=== PATIENT | male | born 1945 | race American Indian/Alaskan Native ===

== ENCOUNTER 2016-08-20 11:17 | Emergency (ER) | payer MEDICARE, OTHER ==
[2016-08-20] MEDS ORDERED: Sodium Chloride 0.9% 10 ML Syringe FLUSH PRN (11:37)
--- NOTE | 2016-08-20 11:37 | EDM.PDOC ---
ED HPI GENERAL MEDICAL PROBLEM - General Chief Complaint: Abdominal Pain Stated Complaint: [facility] Time Seen by Provider: 08/20/16 11:36 Source of Information: Reports: Patient, Old Records, RN, RN Notes Reviewed History Limitations: Reports: No Limitations - History of Present Illness INITIAL COMMENTS - FREE TEXT/NARRATIVE: C/O chronic recurrent N/V for several months, not associated with fever, chills , diarrhea, or constipation. Also c/o flare up of chronic low back pain without recent injury. Onset: Unknown/Unsure Duration: Chronic, Recurring Location: Reports: Abdomen, Back Quality: Reports: Ache Severity: Moderate Improves with: Reports: None Worsens with: Reports: Eating Associated Symptoms: Reports: No Other Symptoms Right Leg Pain Score (Numeric/FACES): 8 - Related Data Allergies Allergy/AdvReac Type Severity Reaction Status Date / Time No Known Allergies Allergy Verified 08/20/16 13:12 Home Meds: Home Meds Calcitriol 0.25 mcg PO DAILY 05/28/13 [History] Famotidine 20 mg PO BID PRN 05/28/13 [History] Metoprolol Succinate [Toprol XL] 25 mg PO DAILY 05/28/13 [History] Nitroglycerin [Nitrostat] 0.4 mg SL ASDIRECTED PRN 05/28/13 [History] atorvaSTATin Calcium [Atorvastatin Calcium] 80 mg PO BEDTIME 05/28/13 [History] Latanoprost [Xalatan 0.005% Ophth Soln] 1 drop EYEBOTH ASDIRECTED 09/03/15 [ History] Metoclopramide [Reglan] 10 mg PO Q8H PRN #45 tablet 10/01/15 [Rx] Acetaminophen [Tylenol] 650 mg PO Q4H PRN #0 tablet 10/25/15 [Rx] Insulin Detemir [Levemir] 42 unit SUBCUT BEDTIME 12/25/15 [History] Clopidogrel [Plavix] 75 mg PO DAILY 01/07/16 [History] DULoxetine [Cymbalta] 30 mg PO DAILY 01/07/16 [History] Finasteride [Proscar] 5 mg PO DAILY 01/07/16 [History] Insulin Aspart [Novolog Flexpen] 01/07/16 [History] Meclizine [Antivert] 25 mg PO TID 01/07/16 [History] Miconazole [Miconazole 2% Crm] 1 applic TOP ASDIRECTED 01/07/16 [History] Tamsulosin HCl [Flomax] 0.4 mg PO ASDIRECTED 01/07/16 [History] Past Medical History HEENT History: Reports: Impaired Vision Other HEENT History: wears glasses Cardiovascular History: Reports: CAD, Hypertension, Stents Other Respiratory History: spot of lung and they said to keep an eye on it. Gastrointestinal History: Reports: None Genitourinary History: Reports: Chronic Renal Insuffiency Other Genitourinary History: urinary tract obstruction-self caths self when stream gets slow Musculoskeletal History: Reports: Back Pain, Chronic Other Musculoskeletal History: broke both ankles, broken ribs, collar bone, jaw , toes and 5-6 hairline fx of skull due to rodeo Neurological History: Reports: Headaches, Chronic Other Neuro History: heasdaches since 1966 Other Psychiatric History: has noc bishop from [place] Endocrine/Metabolic History: Reports: Diabetes, Type II Hematologic History: Reports: None Immunologic History: Reports: None Other Oncologic History: pt. doesn't know what type of cancer he was diagnosed with Other Dermatologic History: eccymotic area to left hip, left upper arm, and left ear from fall when pt. tripped over [employer] [place] about a week ago. - Infectious Disease History Infectious Disease History: Reports: Other (See Below) Other Infectious Disease History: unable to obtain history. client altered mental status and pt family uncertain. - Past Surgical History GI Surgical History: Reports: Hernia, Inguinal Other GI Surgeries/Procedures: left side igunial hernia repair Social & Family History - Family History Family Medical History: Noncontributory Cardiac: Reports: CAD Endocrine/Metabolic: Reports: Diabetes, type II Oncologic: Reports: Other (See Below) Other Oncologic Family History: brother, mom,sister unknown types - Tobacco Use Smoking Status *Q: Former Smoker Years of Tobacco use: 10 Packs/Tins Daily: 5 Used Tobacco, but Quit: Yes Month Tobacco Last Used: September Second Hand Smoke Exposure: No - Caffeine Use Caffeine Use: Reports: None - Alcohol Use Days Per Week of Alcohol Use: 0 - Recreational Drug Use Recreational Drug Use: No - Living Situation & Occupation Living situation: Reports: with Family Occupation: Retired ED ROS GENERAL - Review of Systems Review Of Systems: ROS reveals no pertinent complaints other than HPI. ED EXAM, GENERAL - Physical Exam Exam: See Below Exam Limited By: No Limitations General Appearance: Alert, WD/WN, No Apparent Distress Eye Exam: Bilateral Eye: Normal Inspection Ears: Hearing Grossly Normal Nose: Normal Inspection Throat/Mouth: Normal Inspection Head: Atraumatic, Normocephalic Neck: Normal Inspection, Supple, Non-Tender, Full Range of Motion Respiratory/Chest: No Respiratory Distress, Lungs Clear, Normal Breath Sounds, No Accessory Muscle Use, Chest Non-Tender Cardiovascular: Normal Peripheral Pulses, Regular Rate, Rhythm, No Edema, No Gallop, No JVD, No Murmur, No Rub GI/Abdominal: Soft, No Distention, Pelvis Stable, Abnormal Bowel Sounds ( hypoactive) Back Exam: Decreased Range of Motion, Paraspinal Tenderness. No: CVA Tenderness (L), CVA Tenderness (R), Vertebral Tenderness Extremities: Normal Inspection Neurological: Alert, Oriented, CN II-XII Intact, Normal Cognition, No Motor/ Sensory Deficits Psychiatric: Depressed Mood Skin Exam: Warm, Dry, Intact, Normal Color, No Rash Course - Vital Signs Last Recorded V/S: Last Vital Signs Temp 35.8 C 08/20/16 11:30 Pulse 88 08/20/16 14:14 Resp 18 08/20/16 14:14 BP 141/74 H 08/20/16 14:14 Pulse Ox 95 08/20/16 14:14 - Orders/Labs/Meds Labs: Laboratory Tests 08/20/16 08/20/16 08/20/16 Range/Units 11:48 11:48 12:48 WBC 5.6 (5.0-10.0) 10^3/uL RBC 4.10 L (4.6-6.2) 10^6/uL Hgb 12.8 L (14.0-18.0) g/dL Hct 38.1 L (40.0-54.0) % MCV 92.9 (80-100) fL MCH 31.2 (27.0-34.0) pg MCHC 33.6 (33.0-35.0) g/dL Plt Count 245 (150-450) 10^3/uL Neut % (Auto) 74.5 (42.2-75.2) % Lymph % (Auto) 13.5 L (20.5-50.1) % [place] % (Auto) 9.3 H (2-8) % Eos % (Auto) 2.3 (1.0-3.0) % Baso % (Auto) 0.4 (0.0-1.0) % Sodium 135 (135-145) mmol/L Potassium 4.4 (3.6-5.0) mmol/L Chloride 103 (101-111) mmol/L Carbon Dioxide 27.0 (21.0-31.0) mmol/L Anion Gap 9.4 BUN 39 H (7-18) mg/dL Creatinine 1.7 H (0.6-1.3) mg/dL Est Cr Clr Drug Dosing TNP Estimated GFR (MDRD) 40 BUN/Creatinine Ratio 22.94 Glucose 117 H (74-105) mg/dL Calcium 9.3 (8.4-10.2) mg/dl Total Bilirubin 0.5 (0.2-1.0) mg/dL AST 25 (10-42) IU/L ALT 26 (10-60) IU/L Alkaline Phosphatase 108 (42-121) IU/L Total Protein 6.6 L (6.7-8.2) g/dl Albumin 3.7 (3.2-5.5) g/dl Globulin 2.9 Albumin/Globulin Ratio 1.28 Amylase 76 (28-100) U/L Lipase 100 H (22-51) U/L Urine Color (YELLOW) Urine Appearance (CLEAR) Urine pH (5.0-9.0) Ur Specific [place] (1.005-1.030) Urine Protein (NEGATIVE) Urine Glucose (UA) (NEGATIVE) Urine Ketones (NEGATIVE) Urine Occult Blood (NEGATIVE) Urine Nitrite (NEGATIVE) Urine Bilirubin (NEGATIVE) Urine Urobilinogen (0.2-1.0) mg/dL Ur Leukocyte Esterase (NEGATIVE) Urine RBC /HPF Urine WBC (0-5/HPF) /HPF Ur Epithelial Cells /HPF Urine Bacteria (0-FEW/HPF) /HPF Urine Mucus /LPF Urine Opiates Screen Negative (NEGATIVE) Ur Oxycodone Screen Negative (NEGATIVE) Urine Methadone Screen Negative (NEGATIVE) Ur Barbiturates Screen Negative (NEGATIVE) U Tricyclic Antidepress Positive H (NEGATIVE) Ur Phencyclidine Scrn Negative (NEGATIVE) Ur Amphetamine Screen Positive H (NEGATIVE) U Methamphetamines Scrn Negative (NEGATIVE) Urine MDMA Screen Negative (NEGATIVE) U Benzodiazepines Scrn Negative (NEGATIVE) Urine Cocaine Screen Negative (NEGATIVE) U Marijuana (THC) Screen Negative (NEGATIVE) 08/20/16 Range/Units 12:48 WBC (5.0-10.0) 10^3/uL RBC (4.6-6.2) 10^6/uL Hgb (14.0-18.0) g/dL Hct (40.0-54.0) % MCV (80-100) fL MCH (27.0-34.0) pg MCHC (33.0-35.0) g/dL Plt Count (150-450) 10^3/uL Neut % (Auto) (42.2-75.2) % Lymph % (Auto) (20.5-50.1) % [place] % (Auto) (2-8) % Eos % (Auto) (1.0-3.0) % Baso % (Auto) (0.0-1.0) % Sodium (135-145) mmol/L Potassium (3.6-5.0) mmol/L Chloride (101-111) mmol/L Carbon Dioxide (21.0-31.0) mmol/L Anion Gap BUN (7-18) mg/dL Creatinine (0.6-1.3) mg/dL Est Cr Clr Drug Dosing Estimated GFR (MDRD) BUN/Creatinine Ratio Glucose (74-105) mg/dL Calcium (8.4-10.2) mg/dl Total Bilirubin (0.2-1.0) mg/dL AST (10-42) IU/L ALT (10-60) IU/L Alkaline Phosphatase (42-121) IU/L Total Protein (6.7-8.2) g/dl Albumin (3.2-5.5) g/dl Globulin Albumin/Globulin Ratio Amylase (28-100) U/L Lipase (22-51) U/L Urine Color Yellow (YELLOW) Urine Appearance Clear (CLEAR) Urine pH 6.0 (5.0-9.0) Ur Specific [place] 1.020 (1.005-1.030) Urine Protein 100 H (NEGATIVE) Urine Glucose (UA) 250 H (NEGATIVE) Urine Ketones Negative (NEGATIVE) Urine Occult Blood Negative (NEGATIVE) Urine Nitrite Negative (NEGATIVE) Urine Bilirubin Negative (NEGATIVE) Urine Urobilinogen 0.2 (0.2-1.0) mg/dL Ur Leukocyte Esterase Negative (NEGATIVE) Urine RBC 0-5 /HPF Urine WBC 0-5 (0-5/HPF) /HPF Ur Epithelial Cells Few /HPF Urine Bacteria Moderate H (0-FEW/HPF) /HPF Urine Mucus Few H /LPF Urine Opiates Screen (NEGATIVE) Ur Oxycodone Screen (NEGATIVE) Urine Methadone Screen (NEGATIVE) Ur Barbiturates Screen (NEGATIVE) U Tricyclic Antidepress (NEGATIVE) Ur Phencyclidine Scrn (NEGATIVE) Ur Amphetamine Screen (NEGATIVE) U Methamphetamines Scrn (NEGATIVE) Urine MDMA Screen (NEGATIVE) U Benzodiazepines Scrn (NEGATIVE) Urine Cocaine Screen (NEGATIVE) U Marijuana (THC) Screen (NEGATIVE) Meds: Medications Discontinued Medications Generic Name Dose Route Start Last Admin Trade Name Freq PRN Reason Stop Dose Admin Dexamethasone 12 mg 08/20/16 11:39 08/20/16 11:49 Dexamethasone IVPUSH 08/20/16 11:40 12 mg ONETIME ONE Administration Sodium Chloride 1,000 mls @ 999 mls/hr 08/20/16 11:39 08/20/16 11:50 Normal Saline IV 08/20/16 12:39 999 mls/hr .BOLUS ONE Administration Ondansetron HCl 4 mg 08/20/16 11:39 08/20/16 11:49 Zofran IV 08/20/16 11:40 4 mg ONETIME ONE Administration Sodium Chloride 10 ml 08/20/16 11:37 08/20/16 11:50 Saline Flush FLUSH 10 ml ASDIRECTED PRN Administration Keep Vein Open Departure - Departure Time of Disposition: 13:55 Disposition: Home, Self-Care 01 Clinical Impression: Lumbar radiculopathy, Gastroparesis due to secondary diabetes - Discharge Information Instructions: Lumbosacral Radiculopathy, Gastroparesis Referrals: Agapito Bernal MD [Primary Care Provider] - Forms: ED Department Discharge Additional Instructions: Decadron 4mg Hydrocodone 10mg/325mg Reglan 10mg Follow up with [facility] next week for recheck. Return to ER if worse at any time. Departure - Departure Time of Disposition: 13:55 Disposition: Home, Self-Care 01 Condition: fair Clinical Impression: Lumbar radiculopathy, Gastroparesis due to secondary diabetes Instructions: Lumbosacral Radiculopathy, Gastroparesis Referrals: Agapito Bernal MD [Primary Care Provider] - Forms: ED Department Discharge Additional Instructions: Decadron 4mg Hydrocodone 10mg/325mg Reglan 10mg [facility]. Return to ER if worse at any time.
[2016-08-20] MEDS ORDERED: Ondansetron 4 MG/2 ML SDV IV ONE (11:39)
[2016-08-20] MEDS ORDERED: Sodium Chloride 0.9% 1,000 ML IV ONE (11:39)
[2016-08-20] MEDS ORDERED: Dexamethasone 4 MG/ML SDV IVPUSH ONE (11:39)
[2016-08-20 12:17] LABS: CHLORIDE,CL 103 mmol/L (101-111); SODIUM,NA 135 mmol/L (135-145)
[2016-08-20 14:15] VITALS: BP 141/74
== END 2016-08-20 14:22 | disposition home or self-care (01) ==
LOC: DL.ED 11:17
DX: M54.16 Radiculopathy, lumbar region (principal); E11.43 Type 2 diabetes mellitus with diabetic autonomic (poly)neuropathy; K31.84 Gastroparesis; I25.10 Atherosclerotic heart disease of native coronary artery without angina pectoris; I12.9 Hypertensive chronic kidney disease with stage 1 through stage 4 chronic kidney disease, or unspecified chronic kidney disease; N18.9 Chronic kidney disease, unspecified; E11.22 Type 2 diabetes mellitus with diabetic chronic kidney disease; Z79.899 Other long term (current) drug therapy; Z79.4 Long term (current) use of insulin; Z87.891 Personal history of nicotine dependence
CPT/HCPCS: 36415; 80053; 80305; 81001; 82150; 83690; 85025; 96361; 96374; 96375; 99284; J1100; J2405; J7030; J7050

== ENCOUNTER 2016-10-20 09:08 | Inpatient (IN) | payer MEDICARE, OTHER ==
[~2016-10-20 09:08] MED LIST: 50% Dextrose in Water 50 ML Syringe IVPUSH ONE; Sodium Chloride 0.9% 1,000 ML IV ONE; Sodium Chloride 0.9% 10 ML Syringe FLUSH PRN; Sucrose 24% Solution 2 ML Vial PO ONE
--- NOTE | 2016-10-20 09:11 | EDM.PDOC ---
ED HPI GENERAL MEDICAL PROBLEM - General Chief Complaint: Diabetic Complaint Stated Complaint: IN BY [facility] Time Seen by Provider: 10/20/16 09:10 Source of Information: Reports: Patient, EMS, Family, Old Records, RN, RN Notes Reviewed History Limitations: Reports: Altered Mental Status - History of Present Illness INITIAL COMMENTS - FREE TEXT/NARRATIVE: Arrives from home by ambulance with EMS reporting a family member called 911 due to finding the pt difficult to wake up, lethargic, and confused. EMS reports blood glucose on scene of 40. EMS was unable to obtain IV access, and did not give oral glucose. Pt responds to verbal commands, but is confused, oriented only to person, and with decreased LOC. Accu Check blood glucose on arrival to ER is 38. Onset: Unknown/Unsure Duration: Constant, Getting Worse Location: Reports: Generalized Severity: Severe Improves with: Reports: None Worsens with: Reports: None Context: Denies: Activity, Exercise, Lifting, Sick Contact, Trauma Associated Symptoms: Reports: No Other Symptoms Treatments ASSURANCE SENIOR MANAGER: Reports: Other (see below) (None) - Related Data Allergies Allergy/AdvReac Type Severity Reaction Status Date / Time No Known Allergies Allergy Verified 10/20/16 09:29 Home Meds: Home Meds Calcitriol 0.25 mcg PO DAILY 05/28/13 [History] Famotidine 20 mg PO BID PRN 05/28/13 [History] Metoprolol Succinate [Toprol XL] 12.5 mg PO DAILY 05/28/13 [History] Nitroglycerin [Nitrostat] 0.4 mg SL ASDIRECTED PRN 05/28/13 [History] atorvaSTATin Calcium [Atorvastatin Calcium] 80 mg PO BEDTIME 05/28/13 [History] Latanoprost [Xalatan 0.005% Ophth Soln] 1 drop EYEBOTH BEDTIME 09/03/15 [History ] Metoclopramide [Reglan] 10 mg PO Q8H PRN #45 tablet 10/01/15 [Rx] Acetaminophen [Tylenol] 650 mg PO Q4H PRN #0 tablet 10/25/15 [Rx] Insulin Detemir [Levemir] 42 unit SUBCUT BEDTIME 12/25/15 [History] Clopidogrel [Plavix] 75 mg PO DAILY 01/07/16 [History] DULoxetine [Cymbalta] 30 mg PO DAILY 01/07/16 [History] Finasteride [Proscar] 5 mg PO DAILY 01/07/16 [History] Insulin Aspart [Novolog Flexpen] 15 units SUBCUT TID 01/07/16 [History] Meclizine [Antivert] 12.5 mg PO TID PRN 01/07/16 [History] Miconazole [Miconazole 2% Crm] 1 applic TOP ASDIRECTED 01/07/16 [History] Tamsulosin HCl [Flomax] 0.4 mg PO ASDIRECTED 01/07/16 [History] Acetaminophen/HYDROcodone [[place] 325-5 MG] 0.5 tab PO Q6H PRN 09/02/16 [History] Losartan [Cozaar] 12.5 mg PO DAILY 09/02/16 [History] Pioglitazone HCl [Actos] 45 mg PO DAILY 09/02/16 [History] Sennosides [Senokot] 2 tab PO BID 09/02/16 [History] Magnesium Oxide 250 mg PO BIDM #14 tablet 09/03/16 [Rx] Potassium Chloride [Klor-Con M20] 20 meq PO DAILY #10 tab.er 09/03/16 [Rx] Past Medical History HEENT History: Reports: Impaired Vision Other HEENT History: wears glasses Cardiovascular History: Reports: CAD, Hypertension, Stents Respiratory History: Reports: Other (See Below) Other Respiratory History: spot of lung and they said to keep an eye on it. Gastrointestinal History: Reports: None Genitourinary History: Reports: Chronic Renal Insuffiency Other Genitourinary History: urinary tract obstruction-self caths self when stream gets slow Musculoskeletal History: Reports: Back Pain, Chronic Other Musculoskeletal History: broke both ankles, broken ribs, collar bone, jaw , toes and 5-6 hairline fx of skull due to rodeo Neurological History: Reports: Headaches, Chronic Other Neuro History: heasdaches since 1966 Psychiatric History: Reports: Other (See Below) Other Psychiatric History: has noc bishop from [place] Endocrine/Metabolic History: Reports: Diabetes, Type II Hematologic History: Reports: None Immunologic History: Reports: None Oncologic (Cancer) History: Reports: Other (See Below) Other Oncologic History: pt. doesn't know what type of cancer he was diagnosed with Dermatologic History: Reports: Other (See Below) Other Dermatologic History: eccymotic area to left hip, left upper arm, and left ear from fall when pt. tripped over trailer hitch about a week ago. - Infectious Disease History Infectious Disease History: Reports: Other (See Below) Other Infectious Disease History: unable to obtain history. client altered mental status and pt family uncertain. - Past Surgical History GI Surgical History: Reports: Hernia, Inguinal Other GI Surgeries/Procedures: left side igunial hernia repair Social & Family History - Family History Family Medical History: Noncontributory Cardiac: Reports: CAD Endocrine/Metabolic: Reports: Diabetes, type II Oncologic: Reports: Other (See Below) Other Oncologic Family History: brother, mom,sister unknown types - Tobacco Use Smoking Status *Q: Former Smoker Years of Tobacco use: 6 Packs/Tins Daily: 1 Used Tobacco, but Quit: Yes Month Tobacco Last Used: July Second Hand Smoke Exposure: Yes - Caffeine Use Caffeine Use: Reports: Coffee - Alcohol Use Days Per Week of Alcohol Use: 0 - Recreational Drug Use Recreational Drug Use: No - Living Situation & Occupation Living situation: Reports: with Family Occupation: Retired ED ROS GENERAL - Review of Systems Review Of Systems: Unable To Obtain (due to altered mental status) ED EXAM GENERAL NO PERIP PULSE - Physical Exam Exam: See Below Exam Limited By: Altered Mental Status General Appearance: No Apparent Distress, Lethargic, Obtunded Eye Exam: Bilateral Eye: EOMI, Normal Inspection, PERRL Ears: Normal External Exam, Hearing Grossly Normal Nose: Normal Inspection Throat/Mouth: Normal Inspection, Normal Lips, Normal Teeth, Normal Gums, Normal Oropharynx, Normal Voice, No Airway Compromise Head: Atraumatic, Normocephalic Neck: Normal Inspection, Supple, Non-Tender, Full Range of Motion Respiratory/Chest: No Respiratory Distress, Lungs Clear, No Accessory Muscle Use , Decreased Breath Sounds Cardiovascular: Normal Peripheral Pulses, Regular Rate, Rhythm, No Edema, No Gallop, No JVD, No Murmur, No Rub GI/Abdominal: Normal Bowel Sounds, Soft, Non-Tender, No Organomegaly, No Distention, No Abnormal Bruit, No Mass (Male) Exam: Deferred Rectal (Males) Exam: Deferred Extremities: Normal Range of Motion, Non-Tender, No Pedal Edema, Normal Capillary Refill, Other (left 1st toe with chronic appearing ulcer at the distal aspect w/what appears to be some recent minor trauma as if he has stubbed the toe, there is a small amount of dried blood on the left foot.) Neurological: Confused, Disoriented, Slow to Respond Skin Exam: Warm, Dry, Normal Color, No Rash EKG INTERPRETATION EKG Date: 10/20/16 Time: 09:26 Rhythm: Other (SR) Rate (Beats/Min): 80 [place]: Normal P-Wave: Present QRS: Other (early transition in V2) ST-T: Normal QT: Normal Comparison: NA - No Prior EKG Course - Vital Signs Last Recorded V/S: Last Vital Signs Temp 36.3 C 10/20/16 10:24 Pulse 80 10/20/16 09:26 Resp 16 10/20/16 09:26 BP 103/45 L 10/20/16 09:26 Pulse Ox 98 10/20/16 09:26 - Orders/Labs/Meds Orders: Active Orders 24 hr Category Date Time Status Blood Glucose Check, Bedside [] ONETIME Care 10/20/16 09:05 Active Blood Glucose Check, Bedside [] ONETIME Care 10/20/16 09:06 Active Blood Glucose Check, Bedside [RC] ONETIME Care 10/20/16 09:12 Active Blood Glucose Check, Bedside [] ONETIME Care 10/20/16 11:22 Active EKG 12 Lead [EKG Documentation Completion] [] STAT Care 10/20/16 09:01 Active Peripheral IV Care [RC] . DIRECTED Care 10/20/16 09:02 Active Dextrose 5%-0.9% NaCl [Dextrose 5%-Normal Saline] 1,000 Med 10/20/16 09:30 Active ml IV ASDIRECTED Sodium Chloride 0.9% [Saline Flush] Med 10/20/16 09:01 Active 10 ml FLUSH ASDIRECTED PRN Peripheral IV Insertion Adult [OM.PC] Stat Oth 10/20/16 09:01 Ordered Medication Orders Dextrose/Sodium Chloride (Dextrose 5%-Normal Saline) 1,000 mls @ 200 mls/hr IV ASDIRECTED KARMEN Last Admin: 10/20/16 09:19 Dose: 200 mls/hr Sodium Chloride (Saline Flush) 10 ml FLUSH ASDIRECTED PRN PRN Reason: Keep Vein Open Last Admin: 10/20/16 09:18 Dose: 10 ml Labs: Laboratory Tests 10/20/16 10/20/16 10/20/16 Range/Units 09:09 09:15 09:15 WBC 11.0 H (5.0-10.0) 10^3/uL RBC 4.15 L (4.6-6.2) 10^6/uL Hgb 13.2 L (14.0-18.0) g/dL Hct 39.9 L (40.0-54.0) % MCV 96.1 (80-100) fL MCH 31.8 (27.0-34.0) pg MCHC 33.1 (33.0-35.0) g/dL Plt Count 227 (150-450) 10^3/uL Neut % (Auto) 79.3 H (42.2-75.2) % Lymph % (Auto) 10.6 L (20.5-50.1) % [place] % (Auto) 8.8 H (2-8) % Eos % (Auto) 1.2 (1.0-3.0) % Baso % (Auto) 0.1 (0.0-1.0) % Sodium 144 (135-145) mmol/L Potassium 3.4 L (3.6-5.0) mmol/L Chloride 105 (101-111) mmol/L Carbon Dioxide 28.0 (21.0-31.0) mmol/L Anion Gap 14.4 BUN 30 H (7-18) mg/dL Creatinine 1.6 H (0.6-1.3) mg/dL Est Cr Clr Drug Dosing 45.81 mL/min Estimated GFR (MDRD) 43 BUN/Creatinine Ratio 18.75 Glucose 43 L* (74-105) mg/dL POC Glucose 38 L* (83-110) mg/dl Calcium 9.7 (8.4-10.2) mg/dl Total Bilirubin 0.4 (0.2-1.0) mg/dL AST 30 (10-42) IU/L ALT 28 (10-60) IU/L Alkaline Phosphatase 105 (42-121) IU/L Ammonia (11-35) umol/L Troponin I < 0.02 (0.00-0.02) ng/ml Total Protein 7.1 (6.7-8.2) g/dl Albumin 4.2 (3.2-5.5) g/dl Globulin 2.9 Albumin/Globulin Ratio 1.45 Amylase 42 (28-100) U/L Lipase 30 (22-51) U/L Urine Color (YELLOW) Urine Appearance (CLEAR) Urine pH (5.0-9.0) Ur Specific [place] (1.005-1.030) Urine Protein (NEGATIVE) Urine Glucose (UA) (NEGATIVE) Urine Ketones (NEGATIVE) Urine Occult Blood (NEGATIVE) Urine Nitrite (NEGATIVE) Urine Bilirubin (NEGATIVE) Urine Urobilinogen (0.2-1.0) mg/dL Ur Leukocyte Esterase (NEGATIVE) Urine RBC /HPF Urine WBC (0-5/HPF) /HPF Ur Epithelial Cells /HPF Urine Bacteria (0-FEW/HPF) /HPF Hyaline Casts /LPF Urine Mucus /LPF Urine Opiates Screen (NEGATIVE) Ur Oxycodone Screen (NEGATIVE) Urine Methadone Screen (NEGATIVE) Ur Barbiturates Screen (NEGATIVE) U Tricyclic Antidepress (NEGATIVE) Ur Phencyclidine Scrn (NEGATIVE) Ur Amphetamine Screen (NEGATIVE) U Methamphetamines Scrn (NEGATIVE) Urine MDMA Screen (NEGATIVE) U Benzodiazepines Scrn (NEGATIVE) Urine Cocaine Screen (NEGATIVE) U Marijuana (THC) Screen (NEGATIVE) Ethyl Alcohol < 5 mg/dL 10/20/16 10/20/16 10/20/16 Range/Units 09:15 09:24 09:34 WBC (5.0-10.0) 10^3/uL RBC (4.6-6.2) 10^6/uL Hgb (14.0-18.0) g/dL Hct (40.0-54.0) % MCV (80-100) fL MCH (27.0-34.0) pg MCHC (33.0-35.0) g/dL Plt Count (150-450) 10^3/uL Neut % (Auto) (42.2-75.2) % Lymph % (Auto) (20.5-50.1) % [place] % (Auto) (2-8) % Eos % (Auto) (1.0-3.0) % Baso % (Auto) (0.0-1.0) % Sodium (135-145) mmol/L Potassium (3.6-5.0) mmol/L Chloride (101-111) mmol/L Carbon Dioxide (21.0-31.0) mmol/L Anion Gap BUN (7-18) mg/dL Creatinine (0.6-1.3) mg/dL Est Cr Clr Drug Dosing mL/min Estimated GFR (MDRD) BUN/Creatinine Ratio Glucose (74-105) mg/dL POC Glucose 103 (83-110) mg/dl Calcium (8.4-10.2) mg/dl Total Bilirubin (0.2-1.0) mg/dL AST (10-42) IU/L ALT (10-60) IU/L Alkaline Phosphatase (42-121) IU/L Ammonia 12 (11-35) umol/L Troponin I (0.00-0.02) ng/ml Total Protein (6.7-8.2) g/dl Albumin (3.2-5.5) g/dl Globulin Albumin/Globulin Ratio Amylase (28-100) U/L Lipase (22-51) U/L Urine Color (YELLOW) Urine Appearance (CLEAR) Urine pH (5.0-9.0) Ur Specific [place] (1.005-1.030) Urine Protein (NEGATIVE) Urine Glucose (UA) (NEGATIVE) Urine Ketones (NEGATIVE) Urine Occult Blood (NEGATIVE) Urine Nitrite (NEGATIVE) Urine Bilirubin (NEGATIVE) Urine Urobilinogen (0.2-1.0) mg/dL Ur Leukocyte Esterase (NEGATIVE) Urine RBC /HPF Urine WBC (0-5/HPF) /HPF Ur Epithelial Cells /HPF Urine Bacteria (0-FEW/HPF) /HPF Hyaline Casts /LPF Urine Mucus /LPF Urine Opiates Screen Negative (NEGATIVE) Ur Oxycodone Screen Positive H (NEGATIVE) Urine Methadone Screen Negative (NEGATIVE) Ur Barbiturates Screen Negative (NEGATIVE) U Tricyclic Antidepress Negative (NEGATIVE) Ur Phencyclidine Scrn Negative (NEGATIVE) Ur Amphetamine Screen Positive H (NEGATIVE) U Methamphetamines Scrn Negative (NEGATIVE) Urine MDMA Screen Negative (NEGATIVE) U Benzodiazepines Scrn Negative (NEGATIVE) Urine Cocaine Screen Negative (NEGATIVE) U Marijuana (THC) Screen Negative (NEGATIVE) Ethyl Alcohol mg/dL 10/20/16 10/20/16 10/20/16 Range/Units 09:34 09:40 10:10 WBC (5.0-10.0) 10^3/uL RBC (4.6-6.2) 10^6/uL Hgb (14.0-18.0) g/dL Hct (40.0-54.0) % MCV (80-100) fL MCH (27.0-34.0) pg MCHC (33.0-35.0) g/dL Plt Count (150-450) 10^3/uL Neut % (Auto) (42.2-75.2) % Lymph % (Auto) (20.5-50.1) % [place] % (Auto) (2-8) % Eos % (Auto) (1.0-3.0) % Baso % (Auto) (0.0-1.0) % Sodium (135-145) mmol/L Potassium (3.6-5.0) mmol/L Chloride (101-111) mmol/L Carbon Dioxide (21.0-31.0) mmol/L Anion Gap BUN (7-18) mg/dL Creatinine (0.6-1.3) mg/dL Est Cr Clr Drug Dosing mL/min Estimated GFR (MDRD) BUN/Creatinine Ratio Glucose (74-105) mg/dL POC Glucose 109 116 H (83-110) mg/dl Calcium (8.4-10.2) mg/dl Total Bilirubin (0.2-1.0) mg/dL AST (10-42) IU/L ALT (10-60) IU/L Alkaline Phosphatase (42-121) IU/L Ammonia (11-35) umol/L Troponin I (0.00-0.02) ng/ml Total Protein (6.7-8.2) g/dl Albumin (3.2-5.5) g/dl Globulin Albumin/Globulin Ratio Amylase (28-100) U/L Lipase (22-51) U/L Urine Color Yellow (YELLOW) Urine Appearance Slightly cloudy (CLEAR) Urine pH 5.5 (5.0-9.0) Ur Specific [place] 1.025 (1.005-1.030) Urine Protein 100 H (NEGATIVE) Urine Glucose (UA) 100 H (NEGATIVE) Urine Ketones Negative (NEGATIVE) Urine Occult Blood Trace-lysed H (NEGATIVE) Urine Nitrite Negative (NEGATIVE) Urine Bilirubin Negative (NEGATIVE) Urine Urobilinogen 0.2 (0.2-1.0) mg/dL Ur Leukocyte Esterase Negative (NEGATIVE) Urine RBC 0-5 /HPF Urine WBC Not seen (0-5/HPF) /HPF Ur Epithelial Cells Rare /HPF Urine Bacteria Not seen (0-FEW/HPF) /HPF Hyaline Casts Rare H /LPF Urine Mucus Rare /LPF Urine Opiates Screen (NEGATIVE) Ur Oxycodone Screen (NEGATIVE) Urine Methadone Screen (NEGATIVE) Ur Barbiturates Screen (NEGATIVE) U Tricyclic Antidepress (NEGATIVE) Ur Phencyclidine Scrn (NEGATIVE) Ur Amphetamine Screen (NEGATIVE) U Methamphetamines Scrn (NEGATIVE) Urine MDMA Screen (NEGATIVE) U Benzodiazepines Scrn (NEGATIVE) Urine Cocaine Screen (NEGATIVE) U Marijuana (THC) Screen (NEGATIVE) Ethyl Alcohol mg/dL 10/20/16 10/20/16 Range/Units 11:09 11:56 WBC (5.0-10.0) 10^3/uL RBC (4.6-6.2) 10^6/uL Hgb (14.0-18.0) g/dL Hct (40.0-54.0) % MCV (80-100) fL MCH (27.0-34.0) pg MCHC (33.0-35.0) g/dL Plt Count (150-450) 10^3/uL Neut % (Auto) (42.2-75.2) % Lymph % (Auto) (20.5-50.1) % [place] % (Auto) (2-8) % Eos % (Auto) (1.0-3.0) % Baso % (Auto) (0.0-1.0) % Sodium (135-145) mmol/L Potassium (3.6-5.0) mmol/L Chloride (101-111) mmol/L Carbon Dioxide (21.0-31.0) mmol/L Anion Gap BUN (7-18) mg/dL Creatinine (0.6-1.3) mg/dL Est Cr Clr Drug Dosing mL/min Estimated GFR (MDRD) BUN/Creatinine Ratio Glucose (74-105) mg/dL POC Glucose 105 116 H (83-110) mg/dl Calcium (8.4-10.2) mg/dl Total Bilirubin (0.2-1.0) mg/dL AST (10-42) IU/L ALT (10-60) IU/L Alkaline Phosphatase (42-121) IU/L Ammonia (11-35) umol/L Troponin I (0.00-0.02) ng/ml Total Protein (6.7-8.2) g/dl Albumin (3.2-5.5) g/dl Globulin Albumin/Globulin Ratio Amylase (28-100) U/L Lipase (22-51) U/L Urine Color (YELLOW) Urine Appearance (CLEAR) Urine pH (5.0-9.0) Ur Specific [place] (1.005-1.030) Urine Protein (NEGATIVE) Urine Glucose (UA) (NEGATIVE) Urine Ketones (NEGATIVE) Urine Occult Blood (NEGATIVE) Urine Nitrite (NEGATIVE) Urine Bilirubin (NEGATIVE) Urine Urobilinogen (0.2-1.0) mg/dL Ur Leukocyte Esterase (NEGATIVE) Urine RBC /HPF Urine WBC (0-5/HPF) /HPF Ur Epithelial Cells /HPF Urine Bacteria (0-FEW/HPF) /HPF Hyaline Casts /LPF Urine Mucus /LPF Urine Opiates Screen (NEGATIVE) Ur Oxycodone Screen (NEGATIVE) Urine Methadone Screen (NEGATIVE) Ur Barbiturates Screen (NEGATIVE) U Tricyclic Antidepress (NEGATIVE) Ur Phencyclidine Scrn (NEGATIVE) Ur Amphetamine Screen (NEGATIVE) U Methamphetamines Scrn (NEGATIVE) Urine MDMA Screen (NEGATIVE) U Benzodiazepines Scrn (NEGATIVE) Urine Cocaine Screen (NEGATIVE) U Marijuana (THC) Screen (NEGATIVE) Ethyl Alcohol mg/dL Meds: Medications Generic Name Dose Route Start Last Admin Trade Name Freq PRN Reason Stop Dose Admin Dextrose/Sodium Chloride 1,000 mls @ 200 mls/hr 10/20/16 09:30 10/20/16 09:19 Dextrose 5%-Normal Saline IV 200 mls/hr ASDIRECTED KARMEN Administration Sodium Chloride 10 ml 10/20/16 09:01 10/20/16 09:18 Saline Flush FLUSH 10 ml ASDIRECTED PRN Administration Keep Vein Open Discontinued Medications Generic Name Dose Route Start Last Admin Trade Name Freq PRN Reason Stop Dose Admin Bacitracin 1 dose 10/20/16 10:10 10/20/16 10:14 Bacitracin Oint 1 Gm TOP 10/20/16 10:11 1 dose ONETIME ONE Administration Dextrose/Water 50 ml 10/20/16 09:02 10/20/16 09:17 Dextrose 50% In Water IVPUSH 10/20/16 09:03 50 ml ONETIME ONE Administration Potassium Chloride 40 meq 10/20/16 10:10 10/20/16 10:14 Klor-Con 10 PO 10/20/16 10:11 40 meq ONETIME ONE Administration Sucrose 2 ml 10/20/16 09:00 10/20/16 09:21 Sweet-Ease Natural PO 10/20/16 09:01 2 ml ONETIME ONE Administration - Re-Assessments/Exams Free Text/Narrative Re-Assessment/Exam: 10/20/16 09:28 Blood glucose 38 on arrival to ER. Pt received oral sucrose as IV access was being obtained, recheck blood glucose 102. Departure - Departure Time of Disposition: 11:59 (admit to Dr. Rose) Disposition: Refer to Observation Condition: Serious Clinical Impression: Hypoglycemia Tear of skin of plantar aspect of left foot Qualifiers: Encounter type: initial encounter Qualified Code(s): S91.312A - Laceration without foreign body, left foot, initial encounter - Discharge Information - My Orders Last 24 Hours: My Active Orders 10/20/16 09:01 EKG 12 Lead [EKG Documentation Completion] [RC] STAT Sodium Chloride 0.9% [Saline Flush] 10 ml FLUSH ASDIRECTED PRN Peripheral IV Insertion Adult [OM.PC] Stat 10/20/16 09:02 Peripheral IV Care [RC] . DIRECTED 10/20/16 09:05 Blood Glucose Check, Bedside [RC] ONETIME 10/20/16 09:06 Blood Glucose Check, Bedside [RC] ONETIME 10/20/16 09:12 Blood Glucose Check, Bedside [RC] ONETIME 10/20/16 09:30 Dextrose 5%-0.9% NaCl [Dextrose 5%-Normal Saline] 1,000 ml IV ASDIRECTED 10/20/16 11:22 Blood Glucose Check, Bedside [RC] ONETIME - Assessment/Plan Last 24 Hours: My Active Orders 10/20/16 09:01 EKG 12 Lead [EKG Documentation Completion] [RC] STAT Sodium Chloride 0.9% [Saline Flush] 10 ml FLUSH ASDIRECTED PRN Peripheral IV Insertion Adult [OM.PC] Stat 10/20/16 09:02 Peripheral IV Care [RC] . DIRECTED 10/20/16 09:05 Blood Glucose Check, Bedside [RC] ONETIME 10/20/16 09:06 Blood Glucose Check, Bedside [RC] ONETIME 10/20/16 09:12 Blood Glucose Check, Bedside [RC] ONETIME 10/20/16 09:30 Dextrose 5%-0.9% NaCl [Dextrose 5%-Normal Saline] 1,000 ml IV ASDIRECTED 10/20/16 11:22 Blood Glucose Check, Bedside [RC] ONETIME
[2016-10-20] MEDS: Dextrose 5%-0.9% NaCl 1,000 ML IV SCH ×3 (09:19→22:58)
[2016-10-20 09:59] LABS: CHLORIDE,CL 105 mmol/L (101-111); SODIUM,NA 144 mmol/L (135-145)
[2016-10-20] MEDS ORDERED: Bacitracin Oint 1 GM U/D Packet TOP ONE (10:10)
[2016-10-20] MEDS ORDERED: Potassium Chloride 10 MEQ Tab.ER PO ONE (10:10)
[2016-10-20] MEDS ORDERED: Acetaminophen 325 MG Tab PO PRN (13:14)
[2016-10-20] MEDS ORDERED: Famotidine 20 MG Tab PO PRN (13:14)
[2016-10-20] MEDS ORDERED: Meclizine 12.5 MG Tab PO PRN (13:14)
[2016-10-20] MEDS ORDERED: Metoclopramide 10 MG Tab PO PRN (13:14)
[2016-10-20] MEDS ORDERED: Acetaminophen/HYDROcodone 325-5 MG Tab PO PRN (13:14)
[2016-10-20] MEDS ORDERED: Nitroglycerin 0.4 MG Tab.SL SL PRN (13:14)
--- NOTE | 2016-10-20 13:39 | PCM.HP ---
H&P History of Present Illness - General Date of Service: 10/20/16 Admit Problem/Dx: Admission Diagnosis/Problem Admission Diagnosis/Problem Hypoglycemia - History of Present Illness Initial Comments - Free Text/Narative: The patient is a 71-year-old gentleman with a history of diabetes. Has been using the Levemir and meal time novolog. Today the patient was found to be confused. Brought into the emergency room. EMS found the blood sugar of 40. In the emergency room the patient was given IV and oral dextrose. He cannot recall what happened earlier. He just says that he woke up in the emergency room. The patient does not feel that she took unusual amount of insulin or that he repeated administration. He denies any chest pain, shortness of breath. No apparent trauma. - Related Data Allergies/Adverse Reactions: Allergies Allergy/AdvReac Type Severity Reaction Status Date / Time No Known Allergies Allergy Verified 10/20/16 12:27 Home Medications: Home Meds Calcitriol 0.25 mcg PO DAILY 05/28/13 [History] Famotidine 20 mg PO BID PRN 05/28/13 [History] Metoprolol Succinate [Toprol XL] 12.5 mg PO DAILY 05/28/13 [History] Nitroglycerin [Nitrostat] 0.4 mg SL ASDIRECTED PRN 05/28/13 [History] atorvaSTATin Calcium [Atorvastatin Calcium] 80 mg PO BEDTIME 05/28/13 [History] Latanoprost [Xalatan 0.005% Ophth Soln] 1 drop EYEBOTH BEDTIME 09/03/15 [History ] Metoclopramide [Reglan] 10 mg PO Q8H PRN #45 tablet 10/01/15 [Rx] Acetaminophen [Tylenol] 650 mg PO Q4H PRN #0 tablet 10/25/15 [Rx] Insulin Detemir [Levemir] 42 unit SUBCUT BEDTIME 12/25/15 [History] Clopidogrel [Plavix] 75 mg PO DAILY 01/07/16 [History] DULoxetine [Cymbalta] 30 mg PO DAILY 01/07/16 [History] Finasteride [Proscar] 5 mg PO DAILY 01/07/16 [History] Insulin Aspart [Novolog Flexpen] 15 units SUBCUT TID 01/07/16 [History] Meclizine [Antivert] 12.5 mg PO TID PRN 01/07/16 [History] Miconazole [Miconazole 2% Crm] 1 applic TOP ASDIRECTED 01/07/16 [History] Tamsulosin HCl [Flomax] 0.4 mg PO ASDIRECTED 01/07/16 [History] Acetaminophen/HYDROcodone [[place] 325-5 MG] 0.5 tab PO Q6H PRN 09/02/16 [History] Losartan [Cozaar] 12.5 mg PO DAILY 09/02/16 [History] Pioglitazone HCl [Actos] 45 mg PO DAILY 09/02/16 [History] Sennosides [Senokot] 2 tab PO BID 09/02/16 [History] Magnesium Oxide 250 mg PO BIDM #14 tablet 09/03/16 [Rx] Potassium Chloride [Klor-Con M20] 20 meq PO DAILY #10 tab.er 09/03/16 [Rx] Past Medical History HEENT History: Reports: Impaired Vision Other HEENT History: wears glasses Cardiovascular History: Reports: CAD, Hypertension, Stents Respiratory History: Reports: Other (See Below) Other Respiratory History: spot of lung and they said to keep an eye on it. Gastrointestinal History: Reports: None Genitourinary History: Reports: Chronic Renal Insuffiency Other Genitourinary History: urinary tract obstruction-self caths self when stream gets slow Musculoskeletal History: Reports: Back Pain, Chronic Other Musculoskeletal History: broke both ankles, broken ribs, collar bone, jaw , toes and 5-6 hairline fx of skull due to rodeo Neurological History: Reports: Headaches, Chronic Other Neuro History: heasdaches since 1966 Psychiatric History: Reports: Other (See Below) Other Psychiatric History: has noc bishop from [place] Endocrine/Metabolic History: Reports: Diabetes, Type II Hematologic History: Reports: None Immunologic History: Reports: None Oncologic (Cancer) History: Reports: Other (See Below) Other Oncologic History: pt. doesn't know what type of cancer he was diagnosed with Dermatologic History: Reports: Other (See Below) Other Dermatologic History: eccymotic area to left hip, left upper arm, and left ear from fall when pt. tripped over trailer hitch about a week ago. - Infectious Disease History Infectious Disease History: Reports: Other (See Below) Other Infectious Disease History: unable to obtain history. client altered mental status and pt family uncertain. - Past Surgical History GI Surgical History: Reports: Hernia, Inguinal Other GI Surgeries/Procedures: left side igunial hernia repair Social & Family History - Family History Family Medical History: Noncontributory Cardiac: Reports: CAD Endocrine/Metabolic: Reports: Diabetes, type II Oncologic: Reports: Other (See Below) Other Oncologic Family History: brother, mom,sister unknown types - Tobacco Use Smoking Status *Q: Former Smoker Years of Tobacco use: 6 Packs/Tins Daily: 1 Used Tobacco, but Quit: Yes Month Tobacco Last Used: July Second Hand Smoke Exposure: No - Caffeine Use Caffeine Use: Reports: Coffee - Alcohol Use Days Per Week of Alcohol Use: 0 - Recreational Drug Use Recreational Drug Use: No - Living Situation & Occupation Living situation: Reports: with Family Occupation: Retired H&P Review of Systems - Review of Systems: Review Of Systems: See Below General: Denies: Fever, Chills Pulmonary: Denies: Shortness of Breath Cardiovascular: Denies: Chest Pain Gastrointestinal: Denies: Abdominal Pain, Nausea Exam - Exam Exam: See Below - Vital Signs Vital Signs: Last Vital Signs Temp 36.1 C 10/20/16 12:18 Pulse 90 10/20/16 12:18 Resp 20 10/20/16 12:18 BP 159/80 H 10/20/16 12:18 Pulse Ox 97 10/20/16 12:18 Weight: 99.337 kg - Exam Quality Assessment: No: Supplemental Oxygen General: Alert, Oriented Neck: Supple Lungs: Clear to Auscultation Cardiovascular: Regular Rate, Regular Rhythm Abdomen: Normal Bowel Sounds, Soft, Pelvis Stable Extremities: Edema (trace b/l ) Skin: Warm, Dry, Other (left great toe ulcer, no redness) Neurological: Cranial Nerves Intact Neuro Extensive - Mental Status: Alert, Oriented x3, Normal Mood/Affect, Normal Cognition Psychiatric: Alert, Normal Affect, Normal Mood - Patient Data Result Diagrams: 10/20/16 09:15 10/20/16 09:15 *Q Meaningful Use (ADM) - VTE *Q VTE Criteria *Q: - Stroke *Q Stroke Criteria *Q: - AMI *Q AMI Criteria *Q: - Problem List (1) Hypoglycemia SNOMED Code(s): 544061721 ICD Code: E16.2 - HYPOGLYCEMIA, UNSPECIFIED Status: Acute Current Visit: Yes (2) Acute encephalopathy SNOMED Code(s): 9075018 ICD Code: G93.40 - ENCEPHALOPATHY, UNSPECIFIED Status: Acute Priority: Medium Current Visit: No Onset Date: 10/25/15 Problem List Initiated/Reviewed/Updated: Yes Orders Last 24hrs: Active Orders 24 hr Category Date Time Status Patient Status [ADT] Routine ADT 10/20/16 13:19 Ordered Glucose [Blood Glucose Check, Bedside] [RC] QIDACANDBED Care 10/20/16 12:34 Active Oxygen Therapy [RC] PRN Care 10/20/16 13:19 Ordered Up With Assistance [RC] ASDIRECTED Care 10/20/16 13:19 Ordered VTE/DVT Education [RC] PER UNIT ROUTINE Care 10/20/16 13:19 Ordered Vital Signs [RC] Q4H Care 10/20/16 13:19 Ordered Consistent Carbohydrate Diet [DIET] Diet 10/20/16 Dinner Ordered BASIC METABOLIC PANEL,BMP [CHEM] AM Lab 10/21/16 05:15 Ordered CBC WITH AUTO DIFF [HEME] AM Lab 10/21/16 05:15 Ordered Acetaminophen [Tylenol] Med 10/20/16 13:14 Ordered 650 mg PO Q4H PRN Acetaminophen/HYDROcodone [[place] 325-5 MG] Med 10/20/16 13:14 Ordered 0.5 tab PO Q6H PRN Calcitriol [Calcitriol] Med 10/20/16 13:15 Ordered 0.25 mcg PO DAILY Clopidogrel [Plavix] Med 10/20/16 13:15 Ordered 75 mg PO DAILY DULoxetine [Cymbalta] Med 10/20/16 14:00 Ordered 30 mg PO DAILY Famotidine [Pepcid] Med 10/20/16 13:14 Ordered 20 mg PO BID PRN Finasteride [Proscar] Med 10/21/16 09:00 Ordered 5 mg PO DAILY Heparin Sodium Med 10/20/16 14:00 Ordered 5,000 units SUBCUT Q8HR Insulin Aspart [NovoLOG] Med 10/20/16 17:00 Active See Protocol SUBCUT TIDAC Latanoprost [Xalatan 0.005% Ophth Soln] Med 10/20/16 21:00 Ordered 1 drop EYEBOTH BEDTIME Losartan [Cozaar] Med 10/20/16 14:00 Ordered 12.5 mg PO DAILY Magnesium Oxide Med 10/20/16 13:15 Ordered 250 mg PO BIDM Meclizine [Antivert] Med 10/20/16 13:14 Ordered 12.5 mg PO TID PRN Metoclopramide [Reglan] Med 10/20/16 13:14 Ordered 10 mg PO Q8H PRN Metoprolol Succinate [Toprol XL] Med 10/20/16 14:00 Ordered 12.5 mg PO DAILY Nitroglycerin [Nitrostat] Med 10/20/16 13:14 Ordered 0.4 mg SL ASDIRECTED PRN Potassium Chloride [Klor-Con M20] Med 10/21/16 09:00 Ordered 20 meq PO DAILY Sennosides [Senokot] Med 10/20/16 21:00 Ordered 2 tab PO BID Tamsulosin [Flomax] Med 10/20/16 13:15 Ordered 0.4 mg PO ASDIRECTED atorvaSTATin Calcium [Atorvastatin Calcium] Med 10/20/16 21:00 Ordered 80 mg PO BEDTIME Resuscitation Status Routine Resus Stat 10/20/16 13:19 Ordered Medication Orders Acetaminophen (Tylenol) 650 mg PO Q4H PRN PRN Reason: Pain Hydrocodone Bitart/Acetaminophen ([place] 325-5 Mg) 0.5 tab PO Q6H PRN PRN Reason: Pain Clopidogrel Bisulfate (Plavix) 75 mg PO DAILY [facility] Duloxetine HCl (Cymbalta) 30 mg PO DAILY [facility] Famotidine (Pepcid) 20 mg PO BID PRN PRN Reason: Heartburn Finasteride (Proscar) 5 mg PO DAILY [facility] Heparin Sodium (Porcine) (Heparin Sodium) 5,000 units SUBCUT Q8HR [facility] Dextrose/Sodium Chloride (Dextrose 5%-Normal Saline) 1,000 mls @ 100 mls/hr IV ASDIRECTED [facility] Last Admin: 10/20/16 12:49 Dose: 100 mls/hr Infusion: 10/20/16 12:49 Dose: 200 mls/hr Admin: 10/20/16 09:19 Dose: 200 mls/hr Insulin Aspart (Novolog) 0 unit SUBCUT TIDAC [facility] PRN Reason: Protocol Latanoprost (Xalatan 0.005% Ophth Soln) ml EYEBOTH BEDTIME [facility] Losartan Potassium (Cozaar) 12.5 mg PO DAILY [facility] Magnesium Oxide (Magnesium Oxide) 250 mg PO BIDM [facility] Metoclopramide HCl (Reglan) 10 mg PO Q8H PRN PRN Reason: Nausea Metoprolol Succinate (Toprol Xl) 12.5 mg PO DAILY [facility] Nitroglycerin (Nitrostat) 0.4 mg SL ASDIRECTED PRN PRN Reason: Chest Pain Non-Formulary Medication (Atorvastatin Calcium [Atorvastatin Calcium]) 80 mg PO BEDTIME [facility] Non-Formulary Medication (Sennosides [Senokot]) 2 tab PO BID [facility] Non-Formulary Medication (Potassium Chloride [Klor-Con M20]) 20 meq PO DAILY [facility] Non-Formulary Medication (Meclizine [Antivert]) 12.5 mg PO TID PRN PRN Reason: Dizziness Non-Formulary Medication (Calcitriol [Calcitriol]) 0.25 mcg PO DAILY [facility] Sodium Chloride (Saline Flush) 10 ml FLUSH ASDIRECTED PRN PRN Reason: Keep Vein Open Last Admin: 10/20/16 09:18 Dose: 10 ml Tamsulosin HCl (Flomax) 0.4 mg PO ASDIRECTED [facility] Assessment/Plan Comment:: Acute encephalopathy Likely due to hypoglycemia Improved We'll monitor Acute hypoglycemia in a patient with diabetes on long and short-acting insulin. Unclear etiology Suspect medication mismanagement For now hold long-acting insulin Monitor blood sugars treat with IV dextrose Chronic kidney disease stage III recheck electrolytes in the morning Chronic pain with chronic continuous narcotic use Continue when necessary medications DVT prophylaxis with subcutaneous heparin Discussed with the emergency room physician
[2016-10-20] MEDS ORDERED: Metoprolol Succinate 25 MG Tab.ER PO SCH (14:00)
[2016-10-20] MEDS ORDERED: Losartan 25 MG Tab PO SCH (14:00)
[2016-10-20] MEDS: Heparin Sodium 5,000 Units/ML Vial SUBCUT SCH ×2 (15:24→21:27)
[2016-10-20] MEDS: DULoxetine 30 MG Cap PO SCH (15:25)
[2016-10-20] MEDS: Calcitriol 0.25 MCG Cap PO SCH (15:25)
[2016-10-20] MEDS: Clopidogrel 75 MG Tab PO SCH (15:25)
[2016-10-20] MEDS: Insulin Aspart 100 Units/ML 3 ML Pen SUBCUT SCH (17:35)
[2016-10-20] MEDS: Losartan 25 MG Tab PO SCH (17:58)
[2016-10-20] MEDS ORDERED: SENNOSIDES PO SCH (21:00)
[2016-10-20] MEDS ORDERED: Insulin Aspart 100 Units/ML 3 ML Pen SUBCUT ONE (21:08)
[2016-10-20] MEDS: Tamsulosin 0.4 MG Cap.ER PO SCH (21:23)
[2016-10-20] MEDS: atorvaSTATin 20 MG Tab PO SCH (21:23)
[2016-10-20] MEDS: Acetaminophen/oxyCODONE 325-5 MG Tab PO SCH (21:24)
[2016-10-20] MEDS: Gabapentin 300 MG Cap PO SCH (21:24)
[2016-10-20] MEDS: Latanoprost 0.005% Ophth Soln 2.5 ML Bottle EYEBOTH SCH (21:26)
[2016-10-21] MEDS: Heparin Sodium 5,000 Units/ML Vial SUBCUT SCH ×3 (05:53→21:33)
[2016-10-21] MEDS: Insulin Aspart 100 Units/ML 3 ML Pen SUBCUT SCH ×3 (08:18→17:10)
[2016-10-21] MEDS: Gabapentin 300 MG Cap PO SCH ×2 (08:56→21:32)
[2016-10-21] MEDS: Calcitriol 0.25 MCG Cap PO SCH (08:58)
[2016-10-21] MEDS: Finasteride 5 MG Tab PO SCH (08:58)
[2016-10-21] MEDS: Potassium Chloride 10 MEQ Tab.ER PO SCH (08:58)
[2016-10-21] MEDS: Losartan 25 MG Tab PO SCH (09:00)
[2016-10-21] MEDS: DULoxetine 30 MG Cap PO SCH (09:00)
[2016-10-21] MEDS: Clopidogrel 75 MG Tab PO SCH (09:00)
[2016-10-21] MEDS: amLODIPine 5 MG Tab PO SCH (10:36)
[2016-10-21 10:37] LABS: SODIUM,NA 139 mmol/L (135-145)
--- NOTE | 2016-10-21 12:01 | PN ---
DATE: 10/21/2016 SUBJECTIVE: Mr. Dajuan Matthew is a 71-year-old male with medical history significant for hypertension, hyperlipidemia, type 2 diabetes mellitus, and chronic kidney disease was admitted to the hospital with acute encephalopathy and was noted to have acute hypoglycemic episodes with blood sugar dropping down to 40. The patient was admitted and was started on D5 normal saline. He is also noted to have uncontrolled hypertension. For the last 24 hours, the patient denies any complaints of chest pain. No shortness of breath. No abdominal pain. No nausea. No vomiting. No diarrhea. He has continued on D5 normal saline at this time. PHYSICAL EXAMINATION: Vital signs: Temperature of 97.1, pulse of 93, blood pressure 178/67, respiratory rate of 20, and saturating at 95% on room air. General Appearance: Patient is well oriented to time, place, and person. Follows commands spontaneously. Cardiovascular System: S1, S2 heard with normal intensity. No gallops. Respiratory System: Clear to auscultation bilaterally. No wheeze. No crepitations. Abdomen: Soft. Bowel sounds positive. Nontender. No rigidity. Extremities: No edema in bilateral lower extremities. The patient is noted to have a mild superficial wound noted on the left great toe. No active secretions. Pulses poorly felt. MEDICATIONS: Reviewed: 1. Continue with Tylenol 650 every 4 hours as needed for pain. 2. Norvasc 5 mg daily added. 3. Lipitor 80 mg at bedtime. 4. Calcitriol 0.25 mcg daily. 5. Plavix 75 mg daily. 6. Cymbalta 30 mg daily. 7. Pepcid 20 mg at bedtime as needed. 8. Proscar 5 mg daily. 9. Neurontin 300 mg twice a day. 10.Heparin 5000 units subcutaneous q.8 hourly. 11.Cozaar 25 mg daily. 12.Nitroglycerin 0.4 mg as needed for chest pain, sublingual. 13.Percocet 5/325 as needed for pain. 14.Flomax 0.4 mg at bedtime. LABORATORY DATA: Reviewed. WBC 5, hemoglobin 12.1, hematocrit 36.7, platelet count 226. Blood glucose in the range of 116 to 404. ASSESSMENT: 1. Acute encephalopathy secondary to hypoglycemic episode. 2. Type 2 diabetes mellitus, uncontrolled. 3. Hypertension, uncontrolled. 4. Hyperlipidemia. 5. Foot ulcer on the great toe on the left side. 6. Chronic kidney disease. 7. Type 2 diabetes mellitus, uncontrolled. PLAN: 1. The patient was admitted with severe hypoglycemic reaction. The patient is started on IV D5 normal saline. We will discontinue the D5 normal saline at this time and we will closely follow. The patient is noted to be on Actos, Levemir, and NovoLog at home. Claims that he takes 40 units of Levemir and 15 units of NovoLog with each meals along with Actos. We will obtain a hemoglobin A1c. One might probably stop the Actos and continue with insulin regimen. We will dose adjust the insulin to avoid any hypoglycemic reaction. We will discontinue the D5 normal saline at this time and we will see how the patient reacts. 2. Hypertension, uncontrolled. The patient noted to have elevated blood pressure. Given his underlying chronic kidney disease, he is started on Cozaar and we will add Norvasc for better control of the blood pressure and titrate the medications. 3. Chronic kidney disease, remains stable. Try to avoid any nephrotoxic agents. Dose adjust medications for renal function. 4. The patient will be switched to inpatient as we are still dealing with uncontrolled hypertension, uncontrolled diabetes requiring further dose adjustment of medications and titration of his medications. 5. Diabetic foot ulcer. The patient is noted to have wound. No evidence of cellulitis noted at this time. We will do daily dressings to the left great toe wound and apply bacitracin. [facility] /[id number]
[2016-10-21] MEDS: Bacitracin Oint 28.35 GM Tube TOP SCH (12:21)
[2016-10-21] MEDS ORDERED: Insulin Aspart 100 Units/ML 3 ML Pen SUBCUT ONE (17:05)
[2016-10-21] MEDS: Acetaminophen/oxyCODONE 325-5 MG Tab PO SCH (21:30)
[2016-10-21] MEDS: Tamsulosin 0.4 MG Cap.ER PO SCH (21:30)
[2016-10-21] MEDS: atorvaSTATin 20 MG Tab PO SCH (21:30)
[2016-10-21] MEDS: Latanoprost 0.005% Ophth Soln 2.5 ML Bottle EYEBOTH SCH (21:32)
[2016-10-22] MEDS: Heparin Sodium 5,000 Units/ML Vial SUBCUT SCH ×3 (06:05→23:16)
[2016-10-22] MEDS: Potassium Chloride 10 MEQ Tab.ER PO SCH (07:57)
[2016-10-22] MEDS: Insulin Aspart 100 Units/ML 3 ML Pen SUBCUT SCH ×5 (07:58→17:16)
[2016-10-22] MEDS ORDERED: Insulin Aspart 100 Units/ML 3 ML Pen SUBCUT SCH (09:00)
[2016-10-22] MEDS: Losartan 25 MG Tab PO SCH (09:05)
[2016-10-22] MEDS: Bacitracin Oint 28.35 GM Tube TOP SCH (09:06)
[2016-10-22] MEDS: amLODIPine 5 MG Tab PO SCH (09:06)
[2016-10-22] MEDS: Gabapentin 300 MG Cap PO SCH ×2 (09:06→21:02)
[2016-10-22] MEDS: Calcitriol 0.25 MCG Cap PO SCH (09:07)
[2016-10-22] MEDS: Clopidogrel 75 MG Tab PO SCH (09:07)
[2016-10-22] MEDS: DULoxetine 30 MG Cap PO SCH (09:07)
[2016-10-22] MEDS: Finasteride 5 MG Tab PO SCH (09:07)
[2016-10-22] MEDS: Insulin Detemir 100 Units/ML 3 ML Pen SUBCUT SCH (10:27)
[2016-10-22] MEDS: Cephalexin 500 MG Cap PO SCH ×3 (11:33→21:01)
--- NOTE | 2016-10-22 12:42 | PN ---
DATE: 10/22/2016 SUBJECTIVE: Mr. Dajuan Matthew is a 71-year-old male with a medical history significant for hypertension, hyperlipidemia, type 2 diabetes mellitus, and chronic kidney disease admitted with acute encephalopathy and was noted to have acute hypoglycemic episodes and noted to have uncontrolled diabetes and uncontrolled hypertension. He required IV D5 normal saline at the time of admission. For the last 24 hours, we discontinued his D5 normal saline. He continues to have elevated blood sugars. He continues to have uncontrolled hypertension. He is noted to have wound on the left great toe requiring dressing changes. He denies any chest pain. No shortness of breath. No abdominal pain. No nausea. No vomiting. No diarrhea. REVIEW OF SYSTEMS: Cardiovascular respiratory, gastrointestinal, neurology, constitutional were all evaluated. PHYSICAL EXAMINATION: Vital signs: Temperature 98, pulse of 96, blood pressure 172/84, respiratory rate 16, saturating at 96% on room air. General Appearance: The patient is well oriented to time, place, and person. Follows commands spontaneously. Cardiovascular System: S1, S2 heard with normal intensity. No gallops. Respiratory: Clear to auscultation bilaterally. No wheeze. No crepitations. Abdomen: Soft. Bowel sounds positive. Nontender. No rigidity. Extremities: No edema bilateral lower extremities except for swelling noted around the left great toe. Superficial wound noted on the left great toe. Mild erythema noted around the left great toe. MEDICATIONS: Reviewed: 1. Continue with Tylenol 650 every 4 hours as needed for pain. 2. Norvasc 5 mg daily. 3. Lipitor 80 mg daily. 4. Bacitracin cream topical daily. 5. Calcitriol 0.25 mcg daily. 6. Plavix 75 mg daily. 7. Cymbalta 30 mg daily. 8. Pepcid 20 mg twice a day as needed. 9. Proscar 5 mg daily. 10.Neurontin 300 mg twice a day. 11.Heparin 5000 subcutaneous q.8 hourly. 12.NovoLog 10 units 3 times a day. 13.Levemir 30 units subcutaneous daily. 14.Cozaar 50 mg daily. 15.Meclizine 12.5 mg 3 times a day. 16.Percocet 5/325 mg at bedtime. 17.Potassium chloride 20 mEq daily. 18.Flomax 0.4 mg at bedtime. LABORATORY DATA: Reviewed. Sodium 137, potassium 4, chloride 102, bicarb 26, BUN 23, creatinine 1.3, and glucose 296. ASSESSMENT: 1. Type 2 diabetes mellitus, uncontrolled. 2. Hypertension, uncontrolled. 3. Possible cellulitis involving the left great toe with recent wound to the left great toe. 4. Hyperlipidemia. 5. Acute encephalopathy. PLAN: 1. Acute encephalopathy, this seems to be resolved. He is back to self and is well oriented to time, place, and person. 2. Type 2 diabetes mellitus, uncontrolled. The patient was noted to have severe hypoglycemic reaction prior to getting admitted to the hospital. He was noted to be on Actos, Lantus, and Humalog. We will continue to hold Actos. Recent hemoglobin A1c on this admission shows a value of 9.9, we will start him back on insulin regimen, have him on Levemir 30 units subcu q.a.m. and NovoLog 10 units with each meals. He weighs around 100 kg, so we will try to dose adjust the medications for optimizing his blood sugars. 3. Hypertension, uncontrolled. The patient continues to have elevated blood pressure. I added Norvasc 5 mg yesterday today and we will increase his Cozaar to 50 mg daily. Closely follow and further titrate up the medication. 4. DVT prophylaxis. Continue with heparin 5000 subcutaneous q.8 hourly for DVT prophylaxis. 5. The patient will be encouraged to ambulate. 6. Possible cellulitis. The patient is noted to have erythema and swelling to the left great toe. He is noted to have superficial wound which occurred after he bumped it against the furniture. He started on bacitracin cream, but given his swelling and possible cellulitis, we will start him on oral Keflex at this time. We will closely follow. [facility] /[id number]
[2016-10-22] MEDS ORDERED: Menthol/Methyl Salicylate 85 GM Tube TOP PRN (12:47)
--- NOTE | 2016-10-22 12:51 | EKG ---
10/20/2016 - CARY OLIVEROS - A 12-lead EKG shows normal sinus rhythm with no significant ST elevation or ST depression noted. Nonspecific ST-T wave changes noted on lead V2, V3. [facility] /[id number]
[2016-10-22] MEDS ORDERED: Insulin Detemir 100 Units/ML 3 ML Pen SUBCUT SCH (14:00)
[2016-10-22] MEDS: Tamsulosin 0.4 MG Cap.ER PO SCH (21:01)
[2016-10-22] MEDS: Acetaminophen/oxyCODONE 325-5 MG Tab PO SCH (21:02)
[2016-10-22] MEDS: atorvaSTATin 20 MG Tab PO SCH (21:02)
[2016-10-22] MEDS: Latanoprost 0.005% Ophth Soln 2.5 ML Bottle EYEBOTH SCH (21:03)
[2016-10-23] MEDS: Heparin Sodium 5,000 Units/ML Vial SUBCUT SCH ×3 (06:09→21:33)
[2016-10-23] MEDS: Insulin Aspart 100 Units/ML 3 ML Pen SUBCUT SCH ×6 (08:16→17:31)
[2016-10-23] MEDS: Calcitriol 0.25 MCG Cap PO SCH (08:26)
[2016-10-23] MEDS: Potassium Chloride 10 MEQ Tab.ER PO SCH (08:26)
[2016-10-23] MEDS: Finasteride 5 MG Tab PO SCH (08:26)
[2016-10-23] MEDS: Cephalexin 500 MG Cap PO SCH ×3 (08:27→21:30)
[2016-10-23] MEDS: Clopidogrel 75 MG Tab PO SCH (08:27)
[2016-10-23] MEDS: amLODIPine 5 MG Tab PO SCH (08:29)
[2016-10-23] MEDS: Gabapentin 300 MG Cap PO SCH ×2 (08:29→21:30)
[2016-10-23] MEDS: Losartan 25 MG Tab PO SCH (08:30)
[2016-10-23] MEDS: DULoxetine 30 MG Cap PO SCH (08:30)
[2016-10-23] MEDS: Bacitracin Oint 28.35 GM Tube TOP SCH (08:32)
[2016-10-23] MEDS: Insulin Detemir 100 Units/ML 3 ML Pen SUBCUT SCH (08:38)
--- NOTE | 2016-10-23 12:37 | PN ---
DATE: 10/23/2016 SUBJECTIVE: Mr. Michael Graff is a 71-year-old male with a medical history significant for hypertension, hyperlipidemia, type 2 diabetes mellitus, chronic kidney disease, admitted with acute encephalopathy and was noted to have severe hypoglycemic episodes and noted to have uncontrolled diabetes and uncontrolled hypertension. He required IV D5 normal saline at the time of admission. For the last 24 hours, we have been titrating of the medications. His blood pressure seems to be trending down, but continues to have elevated blood sugar. Continues to have wound dressing changes. He is noted to have wound noted on the left great toe and with possible cellulitis. So start him on oral antibiotic yesterday. He denies any chest pain. No shortness of breath. No abdominal pain. No nausea. No vomiting. No diarrhea. REVIEW OF SYSTEMS: Cardiovascular, respiratory, gastrointestinal, neurology, and constitutional were all evaluated. PHYSICAL EXAMINATION: Vital Signs: Temperature of 98.4, pulse of 95, blood pressure 143/77, respiratory rate of 20, and saturating at 98% on room air. General Appearance: The patient is well oriented to time, place, and person. Follows commands spontaneously. Cardiovascular System: S1 and S2 heard with normal intensity. No gallops. Respiratory: Clear to auscultation bilaterally. No wheeze. No crepitations. Abdomen: Soft. Bowel sounds positive. Nontender. No rigidity. Extremities: No edema in bilateral lower extremities. Neurology: No gross focal neurological deficit. The patient is noted to have left great toe wound with mild swelling and erythema, improved from yesterday. MEDICATIONS: Reviewed. Continue with: 1. Tylenol 650 every 4 hours as needed for pain. 2. Norvasc 5 mg daily. 3. Lipitor 80 mg at bedtime. 4. Bacitracin cream topical daily. 5. Calcitriol 0.25 mcg daily. 6. Keflex 500 mg oral three times a day. 7. Plavix 75 mg daily. 8. Cymbalta 30 mg daily. 9. Pepcid 20 mg twice a day as needed. 10.Proscar 5 mg daily. 11.Neurontin 300 mg twice a day. 12.Heparin 5000 subcutaneous q.8 hourly. 13.NovoLog supplemental scale. 14.NovoLog 10 units 3 times a day with each meal. 15.Levemir 36 units in a.m. 16.Cozaar 50 mg daily. 17.Nitroglycerin 0.4 mg sublingual as needed for chest pain. 18.Percocet 5/325 mg as needed for pain. 19.Flomax 0.4 mg at bedtime. LABORATORY DATA: Reviewed. His blood sugars are in the range of 93 to 351. ASSESSMENT: 1. Type 2 diabetes mellitus, uncontrolled. 2. Hypertension, uncontrolled. 3. Hyperlipidemia. 4. Diabetic foot ulcer on the left great toe with possible cellulitis. 5. Hyperlipidemia. 6. Acute encephalopathy. 7. Acute encephalopathy, resolved. This is mainly from severe hypoglycemic episodes, which seems to be resolved at this time. PLAN: 1. Type 2 diabetes mellitus, uncontrolled. The patient did not have any further hypoglycemic episodes. We have been titrating him the insulin. We will increase the Levemir to 36 units subcu q.a.m. Continue with NovoLog 10 units with each meals and try to avoid any hypoglycemic episodes. Have him on hypoglycemic protocol. 2. Hypertension. Seems to be improving at this time. We added Norvasc 5 mg and increase the Cozaar to 50 mg. We will closely follow and further titrate up the medication, optimize the blood pressure. 3. Possible cellulitis. The patient is noted to have wound on the left great toe with swelling, erythema, and tenderness, which seems to be improved at this time. The patient is started on Keflex. We will continue the same. Hopefully, this will get better with oral antibiotics. 4. Deep vein thrombosis prophylaxis. Continue with heparin. [facility] /[id number]
[2016-10-23] MEDS: Magnesium Hydroxide 400 MG/5 ML Susp 30 ML Cup PO PRN (18:08)
[2016-10-23] MEDS: atorvaSTATin 20 MG Tab PO SCH (21:29)
[2016-10-23] MEDS: Acetaminophen/oxyCODONE 325-5 MG Tab PO SCH (21:30)
[2016-10-23] MEDS: Latanoprost 0.005% Ophth Soln 2.5 ML Bottle EYEBOTH SCH (21:30)
[2016-10-23] MEDS: Tamsulosin 0.4 MG Cap.ER PO SCH (21:30)
[2016-10-24] MEDS: Heparin Sodium 5,000 Units/ML Vial SUBCUT SCH ×3 (06:09→21:34)
[2016-10-24] MEDS: Magnesium Hydroxide 400 MG/5 ML Susp 30 ML Cup PO PRN (07:22)
[2016-10-24] MEDS: Insulin Aspart 100 Units/ML 3 ML Pen SUBCUT SCH ×6 (08:11→17:18)
[2016-10-24] MEDS: Gabapentin 300 MG Cap PO SCH ×2 (08:15→21:32)
[2016-10-24] MEDS: Potassium Chloride 10 MEQ Tab.ER PO SCH (08:15)
[2016-10-24] MEDS: Clopidogrel 75 MG Tab PO SCH (08:15)
[2016-10-24] MEDS: Finasteride 5 MG Tab PO SCH (08:16)
[2016-10-24] MEDS: Calcitriol 0.25 MCG Cap PO SCH (08:16)
[2016-10-24] MEDS: Cephalexin 500 MG Cap PO SCH ×3 (08:16→21:30)
[2016-10-24] MEDS: DULoxetine 30 MG Cap PO SCH (08:16)
[2016-10-24] MEDS: Losartan 25 MG Tab PO SCH (08:17)
[2016-10-24] MEDS: amLODIPine 5 MG Tab PO SCH (08:17)
[2016-10-24] MEDS: Bacitracin Oint 28.35 GM Tube TOP SCH (08:17)
[2016-10-24] MEDS ORDERED: Insulin Detemir 100 Units/ML 3 ML Pen SUBCUT SCH (09:00)
[2016-10-24] MEDS ORDERED: Bisacodyl 10 MG Supp RECTAL PRN (11:41)
--- NOTE | 2016-10-24 12:21 | PN ---
DATE: 10/24/2016 SUBJECTIVE: Mr. Michael Graff is a 71-year-old male with a medical history significant for hypertension, hyperlipidemia, type 2 diabetes mellitus, chronic kidney disease, admitted with acute encephalopathy and was noted to have severe hypoglycemic episodes. For the last 24 hours, the patient continues to have elevated blood glucose. Denies any chest pain. No shortness of breath. No abdominal pain. No nausea. No vomiting. No diarrhea. No acute events overnight. REVIEW OF SYSTEMS: Cardiovascular respiratory, gastrointestinal, neurology, constitutional were all evaluated. PHYSICAL EXAMINATION: Vital Signs: Temperature of 97.4, pulse of 97, blood pressure 119/61, saturating at 95% on room air, respiratory rate of 20. General Appearance: The patient is well oriented to time, place, and person. Follows commands spontaneously. Cardiovascular system: S1 and S2 heard with normal intensity. No gallops. Respiratory System: Clear to auscultation bilaterally. No wheeze. No crepitations. Abdomen: Soft. Bowel sounds positive. Nontender. No rigidity. Extremities: No edema in bilateral lower extremities. Neurology: No gross focal neurological deficit. The patient is noted to have mild wound on the left great toe with swelling and erythema, which seems to be improving. Daily dressing noted. MEDICATIONS: 1. Tylenol 650 every 4 hours as needed for pain. 2. Norvasc 5 mg daily. 3. Lipitor 80 mg daily. 4. Bacitracin topical daily. 5. Calcitriol 0.25 mcg daily. 6. Keflex 500 mg 3 times a day. 7. Plavix 75 mg daily. 8. Cymbalta 30 mg daily. 9. Pepcid 20 mg twice a day as needed. 10.Neurontin 300 mg twice a day. 11.Heparin 5000 subcu q.8 hourly. 12.NovoLog supplemental scale. 13.NovoLog 10 units with each meals. 14.Levemir increased to 42 units subcu q.a.m. 15.Cozaar 25 mg daily. 16.Percocet 5/325 mg as needed. 17.Flomax 0.4 mg at bedtime. LABORATORY DATA: Reviewed. Blood sugars are in the range of 229 to 382. ASSESSMENT: 1. Type 2 diabetes mellitus, uncontrolled. 2. Hypertension. 3. Hyperlipidemia. 4. Cellulitis. 5. Acute encephalopathy, resolved. PLAN: 1. Type 2 diabetes mellitus, uncontrolled. The patient continues to have elevated blood sugars. We will increase the Levemir to 42 units. Continue with NovoLog 10 units with each meals. Continue supplemental scale. We will further dose adjust the medication to optimize the blood sugars. His recent hemoglobin A1c was around 9.9, suggesting uncontrolled diabetes. 2. Hypertension seems to be much better. We added Norvasc on this admission. Continue with Norvasc 5 mg daily as his blood pressure is trending down. We will decrease the Cozaar to 25 mg daily. Try to avoid any hypotensive episodes. 3. Cellulitis. The patient is noted to have cellulitis involving the left great toe. He is on oral Keflex and also Bactroban ointment. We will continue the same. We will do daily dressings. We will encourage the patient to keep his foot elevated for improved healing. 4. Acute encephalopathy, resolved. This was mainly from his hypoglycemic episodes. 5. Discharge plans on going. We will possibly discharge him once the blood sugars are in much acceptable ranges. [facility] /[id number]
[2016-10-24] MEDS: Tamsulosin 0.4 MG Cap.ER PO SCH (21:30)
[2016-10-24] MEDS: atorvaSTATin 20 MG Tab PO SCH (21:31)
[2016-10-24] MEDS: Acetaminophen/oxyCODONE 325-5 MG Tab PO SCH (21:32)
[2016-10-24] MEDS: Latanoprost 0.005% Ophth Soln 2.5 ML Bottle EYEBOTH SCH (21:34)
[2016-10-25] MEDS: Heparin Sodium 5,000 Units/ML Vial SUBCUT SCH (05:14)
[2016-10-25] MEDS: Insulin Aspart 100 Units/ML 3 ML Pen SUBCUT SCH ×3 (08:07→12:30)
[2016-10-25] MEDS: Potassium Chloride 10 MEQ Tab.ER PO SCH (08:07)
[2016-10-25] MEDS ORDERED: Insulin Detemir 100 Units/ML 3 ML Pen SUBCUT SCH ×2 (09:00→09:37)
[2016-10-25] MEDS ORDERED: Losartan 25 MG Tab PO SCH (09:00)
[2016-10-25] MEDS: amLODIPine 5 MG Tab PO SCH (09:15)
[2016-10-25] MEDS: Calcitriol 0.25 MCG Cap PO SCH (09:16)
[2016-10-25] MEDS: Cephalexin 500 MG Cap PO SCH (09:17)
[2016-10-25] MEDS: DULoxetine 30 MG Cap PO SCH (09:17)
[2016-10-25] MEDS: Clopidogrel 75 MG Tab PO SCH (09:17)
[2016-10-25] MEDS: Gabapentin 300 MG Cap PO SCH (09:18)
[2016-10-25] MEDS: Finasteride 5 MG Tab PO SCH (09:18)
[2016-10-25] MEDS: Bacitracin Oint 28.35 GM Tube TOP SCH (09:21)
[2016-10-25] MEDS ORDERED: Insulin Aspart 100 Units/ML 3 ML Pen SUBCUT SCH (09:37)
[2016-10-25] MEDS ORDERED: Losartan 50 MG Tab PO SCH (09:37)
[2016-10-25 10:42] VITALS: BP 136/63
--- NOTE | 2016-10-26 08:48 | DISCH ---
PATIENT WAS ADMITTED TO OBSERVATION ON 10/20/2016 AND TO ACUTE ON 10/21/2016. ADMITTING DIAGNOSES: 1. Uncontrolled diabetes. 2. Acute encephalopathy secondary to severe hypoglycemic reaction with blood sugars of 40. 3. Uncontrolled hypertension. DISCHARGE DIAGNOSES: 1. Acute encephalopathy secondary to severe hypoglycemia resolved. 2. Uncontrolled hypertension, improved. 3. Uncontrolled diabetes, improved. HISTORY OF PRESENTING ILLNESS: Mr. Dajuan Matthew is a 71-year-old male with medical history significant for hypertension, type 2 diabetes mellitus, hyperlipidemia, chronic kidney disease, was admitted to the hospital with increased confusion and was noted to have severe hypoglycemic reaction with blood sugars down to 30 and 40. This was mainly from diabetic medication. The patient was admitted to the hospital and was given D5 normal saline. We switched him to inpatient services as he needed further medication titrations to better control the blood pressure and diabetes. We discontinued his Actos on this admission and increased the Levemir up to 50 units and NovoLog to 13 units for better control of his diabetes. His hemoglobin A1c is around 9.9, suggestive of uncontrolled diabetes. We also added Norvasc 5 mg and increased the Cozaar to 50 mg for better control of the blood pressure. He remained hemodynamically stable. He was also noted to have possible cellulitis noted on the left great toe. He bumped his toe to a furniture and resulted in a small wound. The patient was treated with Bactroban topical agent and also Keflex on this admission, which improved his symptoms. He required daily dressing. He was able to ambulate well without any difficulty. He is discharged to home in stable condition. The patient is educated about the importance of diet, exercise, and compliance with medications for good control of his diabetes and hypertension and explained about the changes in his medication dosages, which he understands and verbalized the same. He is discharged to home in stable condition. He is advised to follow with his primary care physician in the next 1 week of time. PHYSICAL EXAMINATION: Vital Signs: On the day of discharge; temperature of 98.1, pulse of 92, blood pressure 155/80 with respiratory rate of 20, saturating at 95% on room air. General Appearance: The patient is well oriented to time, place, and person. Follows commands spontaneously. Cardiovascular System: S1, S2 heard with normal intensity. No gallops. Respiratory: Clear to auscultation bilaterally. No wheeze. No crepitations. Abdomen: Soft. Bowel sounds positive. Nontender. No rigidity. Extremities: No edema in bilateral lower extremities. Mild wound noted on the left great toe. Healing noted. Neurology: No gross focal neurological deficits. DISCHARGE MEDICATIONS: 1. Tylenol 650 every 4 hours as needed for pain. 2. Bacitracin topical twice a day. 3. Calcitriol 0.25 mcg oral daily. 4. Keflex 500 mg 3 times a day for next 5 days. 5. Plavix 75 mg daily. 6. Cymbalta 30 mg daily. 7. Famotidine 20 mg twice a day as needed for heartburn. 8. Proscar 5 mg daily. 9. Neurontin 300 mg twice a day. 10.NovoLog 13 units subcutaneous 3 times a day with meals. 11.Levemir 50 units every morning. 12.Xalatan drops at bedtime. 13.Cozaar 50 mg daily. 14.Meclizine 12.5 mg oral 3 times a day. 15.Metoclopramide 10 mg oral every 8 hours as needed. 16.Miconazole topical as needed. 17.Nitroglycerin 0.4 mg sublingual as needed for chest pain. 18.Potassium chloride 20 mEq daily. 19.Ranitidine 150 mg twice a day. 20.Senokot 2 tablets oral twice daily. 21.Flomax 0.4 mg oral as directed. 22.Norvasc 5 mg daily. 23.Lipitor 80 mg at bedtime. 24.Oxycodone 1 tablet at bedtime. The patient is advised to stop taking the Actos. CONDITION ON ADMISSION: Poor. CONDITION ON DISCHARGE: Stable. ACTIVITY: As tolerated. DIET: Cardiac healthy diet and diabetic diet. Follow with primary care physician in the next 1 week of time. I spent over 35 minutes of time in evaluating and treating this patient and discharge orders. [facility] /[id number]
== END 2016-10-25 12:50 | disposition home or self-care (01) | DRG 637 ==
LOC: DL.ED 09:08 → UNDOADMOB 12:11 → DL.MS 12:11 → OBSVTOIN 10-21 10:47
PROVIDERS: ADMIT Internal Medicine; ATTEND Internal Medicine
DX: E11.649 Type 2 diabetes mellitus with hypoglycemia without coma (principal); G93.49 Other encephalopathy; E78.5 Hyperlipidemia, unspecified; I12.9 Hypertensive chronic kidney disease with stage 1 through stage 4 chronic kidney disease, or unspecified chronic kidney disease; N18.9 Chronic kidney disease, unspecified; L03.032 Cellulitis of left toe; G89.29 Other chronic pain; I25.10 Atherosclerotic heart disease of native coronary artery without angina pectoris; Z79.899 Other long term (current) drug therapy; Z95.5 Presence of coronary angioplasty implant and graft; Z87.891 Personal history of nicotine dependence
CPT/HCPCS: 36415 ×2; 80048; 80053; 80305; 81001; 82140; 82150; 82962 ×10; 83036; 83690; 84484; 85025 ×2; 93005; 93010; 96365; 96366; 96375; 99285; A9270 ×19; G0480; J1644 ×3; J1815; J7042 ×3; J7050; 96360; 96361; 96372; 96374; 99284; G0378; J7060

== ENCOUNTER 2016-12-19 19:45 | Emergency (ER) | payer OTHER ==
[2016-12-19 20:39] LABS: CHLORIDE,CL 93 mmol/L (101-111); SODIUM,NA 132 mmol/L (135-145)
[2016-12-19] MEDS ORDERED: Lidocaine 1% 30 ML SDV INJECT ONE (20:40)
[2016-12-19] MEDS ORDERED: Ondansetron 4 MG/2 ML SDV IV ONE (20:40)
[2016-12-19] MEDS ORDERED: Bacitracin Oint 1 GM U/D Packet TOP ONE (20:41)
[2016-12-19] MEDS ORDERED: Diphtheria,Pertussis(Acell),Tetanus Vaccine 0.5 ML SDV IM ONE (20:42)
[2016-12-19] MEDS ORDERED: Insulin Regular, Human 100 Units/ML 3 ML Vial IV ONE (20:58)
[2016-12-19] MEDS ORDERED: Sodium Chloride 0.9% 1,000 ML IV ONE (21:01)
--- NOTE | 2016-12-20 05:13 | EDM.PDOC ---
ED HPI GENERAL MEDICAL PROBLEM - General Chief Complaint: Trauma Stated Complaint: TRAUMA Time Seen by Provider: 12/19/16 19:55 Source of Information: Reports: Patient, EMS History Limitations: Reports: Altered Mental Status - History of Present Illness INITIAL COMMENTS - FREE TEXT/NARRATIVE: ED via [facility]. Patient reported to have fallen at home and hit head with laceration to right eyebrow. COnfused and drowsy enroute. Family not available for additional information. patient is known by [facility] and does not seem to be his "usual self" [facility] last visit with patient 1 year ago. Patient denies c/o pain. Oriented to person and place. Unable to identify date. Unable to provide info relating to fall. Location: Reports: Head, Face - Related Data Allergies Allergy/AdvReac Type Severity Reaction Status Date / Time No Known Allergies Allergy Verified 10/20/16 12:27 Home Meds: Home Meds Calcitriol 0.25 mcg PO DAILY 05/28/13 [History] Famotidine 20 mg PO BID PRN 05/28/13 [History] Nitroglycerin [Nitrostat] 0.4 mg SL ASDIRECTED PRN 05/28/13 [History] atorvaSTATin Calcium [Atorvastatin Calcium] 80 mg PO BEDTIME 05/28/13 [History] Latanoprost [Xalatan 0.005% Ophth Soln] 1 drop EYEBOTH BEDTIME 09/03/15 [History ] Metoclopramide [Reglan] 10 mg PO Q8H PRN #45 tablet 10/01/15 [Rx] Acetaminophen [Tylenol] 650 mg PO Q4H PRN #0 tablet 10/25/15 [Rx] Clopidogrel [Plavix] 75 mg PO DAILY 01/07/16 [History] DULoxetine [Cymbalta] 30 mg PO DAILY 01/07/16 [History] Finasteride [Proscar] 5 mg PO DAILY 01/07/16 [History] Meclizine [Antivert] 12.5 mg PO TID PRN 01/07/16 [History] Miconazole [Miconazole 2% Crm] 1 applic TOP ASDIRECTED 01/07/16 [History] Tamsulosin HCl [Flomax] 0.4 mg PO ASDIRECTED 01/07/16 [History] Sennosides [Senokot] 2 tab PO BID 09/02/16 [History] Potassium Chloride [Klor-Con M20] 20 meq PO DAILY #10 tab.er 09/03/16 [Rx] Gabapentin [Neurontin] 300 mg PO BID 10/20/16 [History] Ranitidine [Zantac] 150 mg PO BID PRN 10/20/16 [History] oxyCODONE HCl/Acetaminophen [Percocet 5-325 mg Tablet] 1 each PO BEDTIME [History] Bacitracin [Bacitracin Oint] 0 gm TOP DAILY #1 tube 10/25/16 [Rx] Cephalexin [IJD: Cephalexin] 500 mg PO TID #15 capsule 10/25/16 [Rx] Insulin Aspart [NovoLOG] 13 unit SUBCUT TIDMEALS #1 pen 10/25/16 [Rx] Insulin Detemir [Levemir] 50 unit SUBCUT QAM #1 pen 10/25/16 [Rx] Losartan [Cozaar] 50 mg PO DAILY #30 tablet 10/25/16 [Rx] amLODIPine [Norvasc] 5 mg PO DAILY #30 tablet 10/25/16 [Rx] Past Medical History HEENT History: Reports: Impaired Vision Other HEENT History: wears glasses Cardiovascular History: Reports: CAD, Hypertension, Stents Respiratory History: Reports: Other (See Below) Other Respiratory History: spot of lung and they said to keep an eye on it. Gastrointestinal History: Reports: None Genitourinary History: Reports: Chronic Renal Insuffiency Other Genitourinary History: urinary tract obstruction-self caths self when stream gets slow Musculoskeletal History: Reports: Back Pain, Chronic Other Musculoskeletal History: broke both ankles, broken ribs, collar bone, jaw , toes and 5-6 hairline fx of skull due to rodeo Neurological History: Reports: Headaches, Chronic Other Neuro History: heasdaches since 1966 Psychiatric History: Reports: Other (See Below) Other Psychiatric History: has noc bishop from [place] Endocrine/Metabolic History: Reports: Diabetes, Type II Hematologic History: Reports: None Immunologic History: Reports: None Oncologic (Cancer) History: Reports: Other (See Below) Other Oncologic History: pt. doesn't know what type of cancer he was diagnosed with Dermatologic History: Reports: Other (See Below) Other Dermatologic History: eccymotic area to left hip, left upper arm, and left ear from fall when pt. tripped over trailer hitch about a week ago. - Infectious Disease History Infectious Disease History: Reports: Other (See Below) Other Infectious Disease History: unable to obtain history. client altered mental status and pt family uncertain. - Past Surgical History GI Surgical History: Reports: Hernia, Inguinal Other GI Surgeries/Procedures: left side igunial hernia repair Social & Family History - Family History Family Medical History: Noncontributory Cardiac: Reports: CAD Endocrine/Metabolic: Reports: Diabetes, type II Oncologic: Reports: Other (See Below) Other Oncologic Family History: brother, mom,sister unknown types - Tobacco Use Smoking Status *Q: Former Smoker Years of Tobacco use: 6 Packs/Tins Daily: 1 Used Tobacco, but Quit: Yes Month Tobacco Last Used: July Second Hand Smoke Exposure: No - Caffeine Use Caffeine Use: Reports: Coffee - Alcohol Use Days Per Week of Alcohol Use: 0 - Recreational Drug Use Recreational Drug Use: No - Living Situation & Occupation Living situation: Reports: with Family Occupation: Retired Review of Systems - Review of Systems Review Of Systems: See Below Constitutional: Reports: Weakness Eyes: Reports: No Symptoms Ears: Reports: No Symptoms Nose: Reports: No Symptoms Mouth/Throat: Reports: No Symptoms Respiratory: Reports: No Symptoms Cardiovascular: Reports: No Symptoms GI/Abdominal: Reports: No Symptoms Genitourinary: Reports: No Symptoms Skin: Reports: No Symptoms Neurological: Reports: Confusion, Weakness ED EXAM, GENERAL - Physical Exam Exam: See Below Exam Limited By: Altered Mental Status General Appearance: Alert, No Apparent Distress Eye Exam: Bilateral Eye: EOMI, Proptosis (3 mm) Ears: Normal External Exam Nose: Normal Inspection Throat/Mouth: Normal Inspection Head: Normocephalic, Other (2 cm laceration right laterla eyebrow.) Neck: Normal Inspection, Supple, Non-Tender Respiratory/Chest: No Respiratory Distress, Lungs Clear Cardiovascular: Normal Peripheral Pulses, Regular Rate, Rhythm GI/Abdominal: Normal Bowel Sounds (Male) Exam: Normal Inspection Back Exam: Normal Inspection Extremities: Normal Inspection, Normal Range of Motion Neurological: Alert, Normal Reflexes, No Motor/Sensory Deficits, Slow to Respond. No: Oriented, Normal Cognition Psychiatric: Normal Affect, Normal Mood Skin Exam: Warm, Dry, Intact, Normal Color ED TRAUMA PROCEDURES - Laceration/Wound Repair Right Forehead Appearance: Superficial Distal NVT: Neuro & Vascular Intact Anesthetic Type: Local Local Anesthesia - Lidocaine (Xylocaine): 1% Plain Skin Prep: Chlorhexidine (Hibiciens), Saline Course - Orders/Labs/Meds Orders: Active Orders 24 hr Category Date Time Status EKG Documentation Completion [RC] URGENT Care 12/19/16 20:03 Active Glucose [Blood Glucose Check, Bedside] [RC] ONETIME Care 12/19/16 22:04 Active Vaccines to be Administered [RC] PER UNIT ROUTINE Care 12/19/16 20:42 Active CULTURE BLOOD [BC] Stat Lab 12/19/16 20:08 Received CULTURE BLOOD [BC] Stat Lab 12/19/16 20:40 Results Blood Culture x2 Reflex Set [OM.PC] Stat Oth 12/19/16 19:56 Ordered Labs: Laboratory Tests 12/19/16 12/19/16 12/19/16 Range/Units 20:08 20:08 20:08 WBC 10.7 H (5.0-10.0) 10^3/uL RBC 4.83 (4.6-6.2) 10^6/uL Hgb 15.1 (14.0-18.0) g/dL Hct 41.9 (40.0-54.0) % MCV 86.7 (80-100) fL MCH 31.3 (27.0-34.0) pg MCHC 36.0 H (33.0-35.0) g/dL Plt Count 288 (150-450) 10^3/uL Neut % (Auto) 81.8 H (42.2-75.2) % Lymph % (Auto) 10.0 L (20.5-50.1) % Bullock % (Auto) 7.2 (2-8) % Eos % (Auto) 0.7 L (1.0-3.0) % Baso % (Auto) 0.3 (0.0-1.0) % PT 9.5 (9.0-12.0) SEC INR 0.9 (0.9-1.2) Sodium 132 L (135-145) mmol/L Potassium 5.0 (3.6-5.0) mmol/L Chloride 93 L (101-111) mmol/L Carbon Dioxide 23.0 (21.0-31.0) mmol/L Anion Gap 21.0 BUN 40 H (7-18) mg/dL Creatinine 1.9 H (0.6-1.3) mg/dL Est Cr Clr Drug Dosing TNP Estimated GFR (MDRD) 35 BUN/Creatinine Ratio 21.05 Glucose 495 H* (74-105) mg/dL POC Glucose (83-110) mg/dl Lactic Acid (0.5-2.2) mmol/L Calcium 9.7 (8.4-10.2) mg/dl Magnesium 2.1 (1.8-2.5) mg/dL Total Bilirubin 1.1 H (0.2-1.0) mg/dL AST 20 (10-42) IU/L ALT 25 (10-60) IU/L Alkaline Phosphatase 163 H (42-121) IU/L Ammonia (11-35) umol/L Troponin I < 0.02 (0.00-0.02) ng/ml Total Protein 7.7 (6.7-8.2) g/dl Albumin 4.4 (3.2-5.5) g/dl Globulin 3.3 Albumin/Globulin Ratio 1.33 Amylase 31 (28-100) U/L Lipase 33 (22-51) U/L Urine Color (YELLOW) Urine Appearance (CLEAR) Urine pH (5.0-9.0) Ur Specific [place] (1.005-1.030) Urine Protein (NEGATIVE) Urine Glucose (UA) (NEGATIVE) Urine Ketones (NEGATIVE) Urine Occult Blood (NEGATIVE) Urine Nitrite (NEGATIVE) Urine Bilirubin (NEGATIVE) Urine Urobilinogen (0.2-1.0) mg/dL Ur Leukocyte Esterase (NEGATIVE) Urine RBC /HPF Urine WBC (0-5/HPF) /HPF Ur Epithelial Cells /HPF Urine Bacteria (0-FEW/HPF) /HPF Urine Opiates Screen (NEGATIVE) Ur Oxycodone Screen (NEGATIVE) Urine Methadone Screen (NEGATIVE) Ur Barbiturates Screen (NEGATIVE) U Tricyclic Antidepress (NEGATIVE) Ur Phencyclidine Scrn (NEGATIVE) Ur Amphetamine Screen (NEGATIVE) U Methamphetamines Scrn (NEGATIVE) Urine MDMA Screen (NEGATIVE) U Benzodiazepines Scrn (NEGATIVE) Urine Cocaine Screen (NEGATIVE) U Marijuana (THC) Screen (NEGATIVE) 12/19/16 12/19/16 12/19/16 Range/Units 20:08 20:40 20:55 WBC (5.0-10.0) 10^3/uL RBC (4.6-6.2) 10^6/uL Hgb (14.0-18.0) g/dL Hct (40.0-54.0) % MCV (80-100) fL MCH (27.0-34.0) pg MCHC (33.0-35.0) g/dL Plt Count (150-450) 10^3/uL Neut % (Auto) (42.2-75.2) % Lymph % (Auto) (20.5-50.1) % Bullock % (Auto) (2-8) % Eos % (Auto) (1.0-3.0) % Baso % (Auto) (0.0-1.0) % PT (9.0-12.0) SEC INR (0.9-1.2) Sodium (135-145) mmol/L Potassium (3.6-5.0) mmol/L Chloride (101-111) mmol/L Carbon Dioxide (21.0-31.0) mmol/L Anion Gap BUN (7-18) mg/dL Creatinine (0.6-1.3) mg/dL Est Cr Clr Drug Dosing Estimated GFR (MDRD) BUN/Creatinine Ratio Glucose (74-105) mg/dL POC Glucose (83-110) mg/dl Lactic Acid 1.8 (0.5-2.2) mmol/L Calcium (8.4-10.2) mg/dl Magnesium (1.8-2.5) mg/dL Total Bilirubin (0.2-1.0) mg/dL AST (10-42) IU/L ALT (10-60) IU/L Alkaline Phosphatase (42-121) IU/L Ammonia 15 (11-35) umol/L Troponin I (0.00-0.02) ng/ml Total Protein (6.7-8.2) g/dl Albumin (3.2-5.5) g/dl Globulin Albumin/Globulin Ratio Amylase (28-100) U/L Lipase (22-51) U/L Urine Color (YELLOW) Urine Appearance (CLEAR) Urine pH (5.0-9.0) Ur Specific [place] (1.005-1.030) Urine Protein (NEGATIVE) Urine Glucose (UA) (NEGATIVE) Urine Ketones (NEGATIVE) Urine Occult Blood (NEGATIVE) Urine Nitrite (NEGATIVE) Urine Bilirubin (NEGATIVE) Urine Urobilinogen (0.2-1.0) mg/dL Ur Leukocyte Esterase (NEGATIVE) Urine RBC /HPF Urine WBC (0-5/HPF) /HPF Ur Epithelial Cells /HPF Urine Bacteria (0-FEW/HPF) /HPF Urine Opiates Screen Negative (NEGATIVE) Ur Oxycodone Screen Negative (NEGATIVE) Urine Methadone Screen Negative (NEGATIVE) Ur Barbiturates Screen Negative (NEGATIVE) U Tricyclic Antidepress Negative (NEGATIVE) Ur Phencyclidine Scrn Negative (NEGATIVE) Ur Amphetamine Screen Negative (NEGATIVE) U Methamphetamines Scrn Negative (NEGATIVE) Urine MDMA Screen Negative (NEGATIVE) U Benzodiazepines Scrn Negative (NEGATIVE) Urine Cocaine Screen Negative (NEGATIVE) U Marijuana (THC) Screen Negative (NEGATIVE) 12/19/16 12/19/16 12/19/16 Range/Units 20:55 21:13 22:06 WBC (5.0-10.0) 10^3/uL RBC (4.6-6.2) 10^6/uL Hgb (14.0-18.0) g/dL Hct (40.0-54.0) % MCV (80-100) fL MCH (27.0-34.0) pg MCHC (33.0-35.0) g/dL Plt Count (150-450) 10^3/uL Neut % (Auto) (42.2-75.2) % Lymph % (Auto) (20.5-50.1) % Bullock % (Auto) (2-8) % Eos % (Auto) (1.0-3.0) % Baso % (Auto) (0.0-1.0) % PT (9.0-12.0) SEC INR (0.9-1.2) Sodium (135-145) mmol/L Potassium (3.6-5.0) mmol/L Chloride (101-111) mmol/L Carbon Dioxide (21.0-31.0) mmol/L Anion Gap BUN (7-18) mg/dL Creatinine (0.6-1.3) mg/dL Est Cr Clr Drug Dosing Estimated GFR (MDRD) BUN/Creatinine Ratio Glucose (74-105) mg/dL POC Glucose > 500 H* 412 H* (83-110) mg/dl Lactic Acid (0.5-2.2) mmol/L Calcium (8.4-10.2) mg/dl Magnesium (1.8-2.5) mg/dL Total Bilirubin (0.2-1.0) mg/dL AST (10-42) IU/L ALT (10-60) IU/L Alkaline Phosphatase (42-121) IU/L Ammonia (11-35) umol/L Troponin I (0.00-0.02) ng/ml Total Protein (6.7-8.2) g/dl Albumin (3.2-5.5) g/dl Globulin Albumin/Globulin Ratio Amylase (28-100) U/L Lipase (22-51) U/L Urine Color Yellow (YELLOW) Urine Appearance Clear (CLEAR) Urine pH 5.0 (5.0-9.0) Ur Specific [place] 1.010 (1.005-1.030) Urine Protein 100 H (NEGATIVE) Urine Glucose (UA) 500 H (NEGATIVE) Urine Ketones 40 H (NEGATIVE) Urine Occult Blood Small H (NEGATIVE) Urine Nitrite Negative (NEGATIVE) Urine Bilirubin Negative (NEGATIVE) Urine Urobilinogen 0.2 (0.2-1.0) mg/dL Ur Leukocyte Esterase Negative (NEGATIVE) Urine RBC 0-5 /HPF Urine WBC 0-5 (0-5/HPF) /HPF Ur Epithelial Cells Occasional /HPF Urine Bacteria Few (0-FEW/HPF) /HPF Urine Opiates Screen (NEGATIVE) Ur Oxycodone Screen (NEGATIVE) Urine Methadone Screen (NEGATIVE) Ur Barbiturates Screen (NEGATIVE) U Tricyclic Antidepress (NEGATIVE) Ur Phencyclidine Scrn (NEGATIVE) Ur Amphetamine Screen (NEGATIVE) U Methamphetamines Scrn (NEGATIVE) Urine MDMA Screen (NEGATIVE) U Benzodiazepines Scrn (NEGATIVE) Urine Cocaine Screen (NEGATIVE) U Marijuana (THC) Screen (NEGATIVE) Meds: Medications Discontinued Medications Generic Name Dose Route Start Last Admin Trade Name Freq PRN Reason Stop Dose Admin Bacitracin 1 dose 12/19/16 20:41 12/19/16 20:53 Bacitracin Oint 1 Gm TOP 12/19/16 20:42 1 dose ONETIME ONE Administration Diphtheria/Tetanus/Acell Pertussis 0.5 ml 12/19/16 20:42 12/19/16 20:49 Adacel IM 09/03/17 20:43 0.5 ml .ONCE ONE Administration Sodium Chloride 1,000 mls @ 150 mls/hr 12/19/16 21:01 12/19/16 21:14 Normal Saline IV 12/20/16 03:40 150 mls/hr .BOLUS ONE Administration Insulin Human Regular 5 unit 12/19/16 20:58 12/19/16 21:15 Humulin R IV 12/19/16 20:59 5 unit ONETIME ONE Administration Protocol Lidocaine HCl 30 ml 12/19/16 20:40 12/19/16 20:53 Xylocaine-Mpf 1% INJECT 12/19/16 20:41 30 ml ONETIME ONE Administration Ondansetron HCl 4 mg 12/19/16 20:40 12/19/16 20:50 Zofran IV 12/19/16 20:41 4 mg ONETIME ONE Administration - Re-Assessments/Exams Free Text/Narrative Re-Assessment/Exam: TC Dr. Adelaida Santana, accepting of patient. for further evaluation and management. Aware of neuro status. Family now available, reporting patient's neuro status is at baseline. He is normally confused and forgetful. Has been experiencing decline in health with weakness and recurrent falls. Was to [facility] at least twice in past week per daughter. Patient is residing with son and grandson. Patient also to [place] last week but unsure why. Only time patient has been in [facility]. Dr. Soto contacted, agreeable to accept patient for further eval and management. Insulin given prior to tx. Patient remains awake, Perrl, 3[facility] bilateral[facility] Recent recall poor. 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 Qualified Code(s): E11.65 - Type 2 diabetes mellitus with hyperglycemia - Discharge Information Forms: ED Department Discharge - My Orders Last 24 Hours: My Active Orders 12/19/16 19:56 Blood Culture x2 Reflex Set [OM.PC] Stat 12/19/16 20:03 EKG Documentation Completion [RC] URGENT 12/19/16 20:08 CULTURE BLOOD [BC] Stat 12/19/16 20:40 CULTURE BLOOD [BC] Stat 12/19/16 20:42 Vaccines to be Administered [RC] PER UNIT ROUTINE 12/19/16 22:04 Glucose [Blood Glucose Check, Bedside] [RC] ONETIME - Assessment/Plan Last 24 Hours: My Active Orders 12/19/16 19:56 Blood Culture x2 Reflex Set [OM.PC] Stat 12/19/16 20:03 EKG Documentation Completion [RC] URGENT 12/19/16 20:08 CULTURE BLOOD [BC] Stat 12/19/16 20:40 CULTURE BLOOD [BC] Stat 12/19/16 20:42 Vaccines to be Administered [RC] PER UNIT ROUTINE 12/19/16 22:04 Glucose [Blood Glucose Check, Bedside] [RC] ONETIME
--- NOTE | 2017-01-10 09:39 | EKG ---
12/19/2016- CARY OLIVEROS - This is a standard 12-lead EKG showing normal sinus tachycardia with a ventricular rate of 102 beats per minute. Normal LA interval and QRS duration. Normal axis. No significant ST-T changes. [facility] /[id number]
== END 2016-12-19 23:20 ==
LOC: DL.ED 19:45
DX: S01.111A Laceration without foreign body of right eyelid and periocular area, initial encounter (principal); N28.9 Disorder of kidney and ureter, unspecified; I25.10 Atherosclerotic heart disease of native coronary artery without angina pectoris; I12.9 Hypertensive chronic kidney disease with stage 1 through stage 4 chronic kidney disease, or unspecified chronic kidney disease; E11.22 Type 2 diabetes mellitus with diabetic chronic kidney disease; E11.65 Type 2 diabetes mellitus with hyperglycemia; N18.9 Chronic kidney disease, unspecified; Z98.890 Other specified postprocedural states; Z87.891 Personal history of nicotine dependence; Z79.4 Long term (current) use of insulin; Z79.02 Long term (current) use of antithrombotics/antiplatelets; Z79.899 Other long term (current) drug therapy; Z23 Encounter for immunization; W19.XXXA Unspecified fall, initial encounter; Y92.009 Unspecified place in unspecified non-institutional (private) residence as the place of occurrence of the external cause
CPT/HCPCS: 12011; 36415; 70450; 70486; 71010; 73060; 80053; 80305; 81001; 82140; 82150; 82962; 83605; 83690; 83735; 84484; 85025; 85610; 87040; 90471; 90715; 93005; 93010; 96365; 96366; 96375; 99285; J1815; J2405; J7030; 99284

== ENCOUNTER 2017-01-22 23:07 | Inpatient (IN) | payer OTHER, MEDICARE ==
--- NOTE | 2017-01-22 23:57 | EDM.PDOC ---
ED HPI GENERAL MEDICAL PROBLEM - General Chief Complaint: Gastrointestinal Problem Stated Complaint: AMBULANCE Time Seen by Provider: 01/22/17 23:15 Source of Information: Reports: Patient History Limitations: Reports: No Limitations - History of Present Illness INITIAL COMMENTS - FREE TEXT/NARRATIVE: ED via [facility] with report of headache and nausea for past 2 days. Report of altered mental status but unable to explain. Notes headache since 1967, describes episodic starting at shoulders then base of neck up both sides. Reports injection 2-3 months ago to base of neck. Has oxy to take twice a day. Reports doesn't usually take them in the day as can't take then when he is riding horses or driving. Headache Pain Score (Numeric/FACES): 10 - Related Data Allergies Allergy/AdvReac Type Severity Reaction Status Date / Time No Known Allergies Allergy Verified 01/23/17 06:09 Home Meds: Home Meds Calcitriol 0.25 mcg PO DAILY 05/28/13 [History] Famotidine 20 mg PO BID PRN 05/28/13 [History] Nitroglycerin [Nitrostat] 0.4 mg SL ASDIRECTED PRN 05/28/13 [History] atorvaSTATin Calcium [Atorvastatin Calcium] 80 mg PO BEDTIME 05/28/13 [History] Latanoprost [Xalatan 0.005% Ophth Soln] 1 drop EYEBOTH BEDTIME 09/03/15 [History ] Metoclopramide [Reglan] 10 mg PO Q8H PRN #45 tablet 10/01/15 [Rx] Acetaminophen [Tylenol] 650 mg PO Q4H PRN #0 tablet 10/25/15 [Rx] Clopidogrel [Plavix] 75 mg PO DAILY 01/07/16 [History] DULoxetine [Cymbalta] 30 mg PO DAILY 01/07/16 [History] Finasteride [Proscar] 5 mg PO DAILY 01/07/16 [History] Meclizine [Antivert] 12.5 mg PO TID PRN 01/07/16 [History] Miconazole [Miconazole 2% Crm] 1 applic TOP ASDIRECTED 01/07/16 [History] Tamsulosin HCl [Flomax] 0.4 mg PO ASDIRECTED 01/07/16 [History] Sennosides [Senokot] 2 tab PO BID 09/02/16 [History] Potassium Chloride [Klor-Con M20] 20 meq PO DAILY #10 tab.er 09/03/16 [Rx] Gabapentin [Neurontin] 300 mg PO BID 10/20/16 [History] Ranitidine [Zantac] 150 mg PO BID PRN 10/20/16 [History] oxyCODONE HCl/Acetaminophen [Percocet 5-325 mg Tablet] 1 each PO BEDTIME [History] Bacitracin [Bacitracin Oint] 0 gm TOP DAILY #1 tube 10/25/16 [Rx] Cephalexin [IJD: Cephalexin] 500 mg PO TID #15 capsule 10/25/16 [Rx] Insulin Aspart [NovoLOG] 13 unit SUBCUT TIDMEALS #1 pen 10/25/16 [Rx] Insulin Detemir [Levemir] 50 unit SUBCUT QAM #1 pen 10/25/16 [Rx] Losartan [Cozaar] 50 mg PO DAILY #30 tablet 10/25/16 [Rx] amLODIPine [Norvasc] 5 mg PO DAILY #30 tablet 10/25/16 [Rx] Past Medical History HEENT History: Reports: Impaired Vision Other HEENT History: wears glasses Cardiovascular History: Reports: CAD, Hypertension, Stents Respiratory History: Reports: Other (See Below) Other Respiratory History: spot of lung and they said to keep an eye on it. Gastrointestinal History: Reports: None Genitourinary History: Reports: Chronic Renal Insuffiency Other Genitourinary History: urinary tract obstruction-self caths self when stream gets slow Musculoskeletal History: Reports: Back Pain, Chronic Other Musculoskeletal History: broke both ankles, broken ribs, collar bone, jaw , toes and 5-6 hairline fx of skull due to rodeo Neurological History: Reports: Headaches, Chronic Other Neuro History: heasdaches since 1966 Psychiatric History: Reports: Other (See Below) Other Psychiatric History: has noc bishop from [place] Endocrine/Metabolic History: Reports: Diabetes, Type II Hematologic History: Reports: None Immunologic History: Reports: None Oncologic (Cancer) History: Reports: Other (See Below) Other Oncologic History: pt. doesn't know what type of cancer he was diagnosed with Dermatologic History: Reports: Other (See Below) Other Dermatologic History: eccymotic area to left hip, left upper arm, and left ear from fall when pt. tripped over trailer hitch about a week ago. - Infectious Disease History Infectious Disease History: Reports: Chicken Pox Other Infectious Disease History: unable to obtain history. client altered mental status and pt family uncertain. - Past Surgical History GI Surgical History: Reports: Hernia, Inguinal Other GI Surgeries/Procedures: left side igunial hernia repair Social & Family History - Family History Family Medical History: Noncontributory Cardiac: Reports: CAD Endocrine/Metabolic: Reports: Diabetes, type II Oncologic: Reports: Other (See Below) Other Oncologic Family History: brother, mom,sister unknown types - Tobacco Use Smoking Status *Q: Never Smoker Years of Tobacco use: 6 Packs/Tins Daily: 1 Used Tobacco, but Quit: Yes Month Tobacco Last Used: July Second Hand Smoke Exposure: No - Caffeine Use Caffeine Use: Reports: Coffee - Alcohol Use Days Per Week of Alcohol Use: 0 - Recreational Drug Use Recreational Drug Use: No - Living Situation & Occupation Living situation: Reports: with Family Occupation: Retired ED ROS GENERAL - Review of Systems Review Of Systems: See Below Constitutional: Reports: No Symptoms HEENT: Reports: Glasses Respiratory: Reports: No Symptoms Cardiovascular: Reports: Lightheadedness GI/Abdominal: Reports: Constipation : Reports: No Symptoms Musculoskeletal: Reports: Neck Pain Skin: Reports: No Symptoms Neurological: Reports: Headache, Difficulty Walking (when headache comes) ED EXAM, GI/ABD - Physical Exam Exam: See Below Exam Limited By: No Limitations General Appearance: Alert, No Apparent Distress Eyes: Bilateral: EOMI Ears: Normal External Exam, Normal TMs Nose: Normal Inspection Throat/Mouth: Normal Inspection Head: Atraumatic, Normocephalic Neck: Normal Inspection, Non-Tender. No: Limited Range of Motion Respiratory/Chest: No Respiratory Distress, Lungs Clear Cardiovascular: Normal Peripheral Pulses, Regular Rate, Rhythm GI/Abdominal Exam: Normal Bowel Sounds, Soft, Non-Tender Back Exam: Normal Inspection Extremities: Normal Inspection Neurological: Alert, Oriented, Normal Cognition, No Motor/Sensory Deficits, Other (Talkative, welldetailed stories, paused, asked where he was then resumed story and details of today. ) Psychiatric: Normal Affect, Normal Mood Skin Exam: Warm, Dry, Intact, Normal Color Course - Vital Signs Last Recorded V/S: Last Vital Signs Temp 97.6 F 01/23/17 03:53 Pulse 94 01/23/17 03:53 Resp 18 01/23/17 03:53 BP 142/89 H 01/23/17 03:53 Pulse Ox 99 01/23/17 03:53 - Orders/Labs/Meds Orders: Active Orders 24 hr Category Date Time Status EKG 12 Lead [EKG Documentation Completion] [RC] URGENT Care 01/22/17 23:20 Active DRUG SCREEN URINE BIORAD [URCHEM] Stat Lab 01/22/17 23:55 Uncollected UA W/MICROSCOPIC [URIN] Stat Lab 01/22/17 23:55 Uncollected Medication Orders Sodium Chloride (Normal Saline) 1,000 mls @ 75 mls/hr IV ASDIRECTED KARMEN Last Admin: 01/23/17 05:59 Dose: 75 mls/hr Labs: Laboratory Tests 01/23/17 01/23/17 01/23/17 Range/Units 01:00 01:00 01:00 WBC 10.8 H (5.0-10.0) 10^3/uL RBC 5.07 (4.6-6.2) 10^6/uL Hgb 15.9 (14.0-18.0) g/dL Hct 45.8 (40.0-54.0) % MCV 90.3 D (80-100) fL MCH 31.4 (27.0-34.0) pg MCHC 34.7 (33.0-35.0) g/dL Plt Count 251 (150-450) 10^3/uL Neut % (Auto) 87.6 H (42.2-75.2) % Lymph % (Auto) 6.9 L (20.5-50.1) % Crisp % (Auto) 5.0 (2-8) % Eos % (Auto) 0.2 L (1.0-3.0) % Baso % (Auto) 0.3 (0.0-1.0) % Sodium 137 (135-145) mmol/L Potassium 4.6 (3.6-5.0) mmol/L Chloride 100 L (101-111) mmol/L Carbon Dioxide 25.0 (21.0-31.0) mmol/L Anion Gap 16.6 BUN 39 H (7-18) mg/dL Creatinine 2.1 H (0.6-1.3) mg/dL Est Cr Clr Drug Dosing 34.39 mL/min Estimated GFR (MDRD) 31 BUN/Creatinine Ratio 18.57 Glucose 245 H (74-105) mg/dL Calcium 9.8 (8.4-10.2) mg/dl Total Bilirubin 0.6 (0.2-1.0) mg/dL AST 31 (10-42) IU/L ALT 28 (10-60) IU/L Alkaline Phosphatase 118 (42-121) IU/L Total Protein 7.7 (6.7-8.2) g/dl Albumin 4.3 (3.2-5.5) g/dl Globulin 3.4 Albumin/Globulin Ratio 1.26 Amylase 48 (28-100) U/L Lipase 35 (22-51) U/L Ethyl Alcohol mg/dL 01/23/17 Range/Units 01:00 WBC (5.0-10.0) 10^3/uL RBC (4.6-6.2) 10^6/uL Hgb (14.0-18.0) g/dL Hct (40.0-54.0) % MCV (80-100) fL MCH (27.0-34.0) pg MCHC (33.0-35.0) g/dL Plt Count (150-450) 10^3/uL Neut % (Auto) (42.2-75.2) % Lymph % (Auto) (20.5-50.1) % Crisp % (Auto) (2-8) % Eos % (Auto) (1.0-3.0) % Baso % (Auto) (0.0-1.0) % Sodium (135-145) mmol/L Potassium (3.6-5.0) mmol/L Chloride (101-111) mmol/L Carbon Dioxide (21.0-31.0) mmol/L Anion Gap BUN (7-18) mg/dL Creatinine (0.6-1.3) mg/dL Est Cr Clr Drug Dosing mL/min Estimated GFR (MDRD) BUN/Creatinine Ratio Glucose (74-105) mg/dL Calcium (8.4-10.2) mg/dl Total Bilirubin (0.2-1.0) mg/dL AST (10-42) IU/L ALT (10-60) IU/L Alkaline Phosphatase (42-121) IU/L Total Protein (6.7-8.2) g/dl Albumin (3.2-5.5) g/dl Globulin Albumin/Globulin Ratio Amylase (28-100) U/L Lipase (22-51) U/L Ethyl Alcohol < 5 mg/dL Meds: Medications Generic Name Dose Route Start Last Admin Trade Name Freq PRN Reason Stop Dose Admin Sodium Chloride 1,000 mls @ 75 mls/hr 01/23/17 05:30 01/23/17 05:59 Normal Saline IV 75 mls/hr ASDIRECTED KARMEN Administration Discontinued Medications Generic Name Dose Route Start Last Admin Trade Name Freq PRN Reason Stop Dose Admin Meclizine HCl 25 mg 01/23/17 01:18 01/23/17 01:28 Antivert PO 01/23/17 01:19 25 mg ONETIME ONE Administration Ondansetron HCl 4 mg 01/23/17 01:18 01/23/17 01:28 Zofran Odt PO 01/23/17 01:19 4 mg ONETIME ONE Administration Oxycodone/Acetaminophen 1 tab 01/23/17 01:20 Percocet 325-5 Mg PO 01/23/17 01:21 ONETIME ONE - Radiology Interpretation Free Text/Narrative:: Flat abd negative Head Ct negative - Re-Assessments/Exams Free Text/Narrative Re-Assessment/Exam: 01/23/17 03:[address] Suarez [facility]. No bed availabilty at [place]. Patient vitals 110-120 systolic while awake, decrease to mid 80's systolic while asleep, arouses easily, no co/o headache since arrival, when awake, oriented, slightly unsteady on feet at bedside attempting to void Free Text/Narrative Re-Assessment/Exam: 01/23/17 03:[address] Browne, accepting of patient, observation. Departure - Departure Time of Disposition: 03:30 Disposition: DC/Tfer to Acute Hospital 02 Condition: Fair Clinical Impression: Benign paroxysmal positional vertigo Headache Qualifiers: Headache type: unspecified Headache chronicity pattern: chronic headache Intractability: not intractable Qualified Code(s): R51 - Headache Hypotension Qualifiers: Hypotension type: unspecified hypotension type Qualified Code(s): I95.9 - Hypotension, unspecified - Discharge Information - My Orders Last 24 Hours: My Active Orders 01/22/17 23:20 EKG 12 Lead [EKG Documentation Completion] [RC] URGENT 01/22/17 23:55 DRUG SCREEN URINE BIORAD [URCHEM] Stat UA W/MICROSCOPIC [URIN] Stat - Assessment/Plan Last 24 Hours: My Active Orders 01/22/17 23:20 EKG 12 Lead [EKG Documentation Completion] [RC] URGENT 01/22/17 23:55 DRUG SCREEN URINE BIORAD [URCHEM] Stat UA W/MICROSCOPIC [URIN] Stat
[2017-01-23] MEDS ORDERED: Ondansetron 4 MG Tab.DIS PO ONE (01:18)
[2017-01-23] MEDS ORDERED: Meclizine 12.5 MG Tab PO ONE (01:18)
[2017-01-23] MEDS ORDERED: Acetaminophen/oxyCODONE 325-5 MG Tab PO ONE (01:20)
[2017-01-23] MEDS: Sodium Chloride 0.9% 1,000 ML IV SCH ×2 (05:59→22:40)
[2017-01-23] MEDS ORDERED: Morphine 2 MG/ML Syringe IVPUSH PRN (07:17)
[2017-01-23] MEDS ORDERED: Metoclopramide 10 MG Tab PO PRN ×2 (07:20→11:05)
[2017-01-23] MEDS ORDERED: Nitroglycerin 0.4 MG Tab.SL SL PRN (07:20)
[2017-01-23] MEDS ORDERED: Famotidine 20 MG Tab PO PRN ×2 (07:20→11:08)
[2017-01-23] MEDS ORDERED: 50% Dextrose in Water 50 ML Syringe IVPUSH PRN (07:27)
[2017-01-23] MEDS ORDERED: Insulin Aspart 100 Units/ML 3 ML Pen SUBCUT SCH (07:30)
[2017-01-23] MEDS ORDERED: Tamsulosin 0.4 MG Cap.ER PO SCH (07:30)
[2017-01-23] MEDS: Pantoprazole 40 MG Tab.CR PO SCH (08:50)
[2017-01-23] MEDS: Insulin Aspart 100 Units/ML 3 ML Pen SUBCUT SCH ×5 (08:50→17:35)
[2017-01-23] MEDS ORDERED: SENNOSIDES PO SCH (09:00)
--- NOTE | 2017-01-23 09:08 | HP ---
CHIEF COMPLAINT: Headache and confusion. HISTORY OF PRESENTING ILLNESS: Mr. Dajuan Rodriguez is a 72-year-old male with a medical history significant for hypertension, hyperlipidemia, type 2 diabetes mellitus, coronary artery disease, status post stents placed in the past, chronic kidney disease, chronic history of headaches and neck pain. He had an extensive workup in the past including MRI scan of the brain and neck, which did not show any acute pathology. Now presented to the ER with complaints of headaches. The patient was brought in by the family members through the ambulance after they noticed that he was getting increasing headaches and confused. After getting admitted to the ER and received IV fluids, he continued to have the headache but his confusion seems to be improved, and after coming to the floor, he was well oriented to time, place, and person. At this time, the patient complained that the headache started 2 days back which has been progressively getting worse. Bilateral occipital headache. No clear aggravating factors, relieved with pain medication, radiating towards the neck. The patient claims that 40 years back, he had a fall from a tree around , and since then he always had this neck pain and had neurological follow up at [facility] and also [facility], but no one came with any specific diagnosis to explain for his headaches. He denies any fevers or chills in the last few days. No photophobia. No neck rigidity. He denies any cough with sputum, but complains of having nausea and vomiting. The patient had at least 4 to 5 episodes of vomiting secondary to the headache. The patient has some significant diabetic retinopathy and usually follows at Retinal consult at [facility] for injection of both eyes, but he has not done it for the last couple of visits, and he has missed his appointments. He claims that his vision is not accurate at this time as he has missed some of the appointments. He denies any chest pains. No shortness of breath. No abdominal pain. No diarrhea. No fevers or chills in the last few days. The patient denied any history of chest pains on exertion. No history of dyspnea on exertion. No history of orthopnea or paroxysmal nocturnal dyspnea. The patient denied any history of hematemesis, hematochezia, or melanotic stools. Normal bowel and bladder habits otherwise. REVIEW OF SYSTEMS: A complete review of system including skin, ear, nose, and throat, cardiovascular system, respiratory system, gastrointestinal system, genitourinary system, hematology, oncology, neurology, allergy, immunology, constitutional were all evaluated and were negative except for the above-said notes. PAST MEDICAL HISTORY: Significant for: 1. Hypertension. 2. Type 2 diabetes mellitus. 3. Hyperlipidemia. 4. Coronary artery disease, status post stents placed. 5. Chronic kidney disease. 6. Chronic history of headaches and neck pain. 7. Gastroesophageal reflux disease. 8. Hyperparathyroidism secondary to renal. SURGICAL HISTORY: Significant for; 1. Urethral meatus dilatation. 2. Coronary angioplasty with stent placement. 3. Cardiac catheterization. FAMILY HISTORY: Significant for cancer in his mother. Alcohol abuse in his father. Breast cancer in his sisters. Diabetes and hypertension in his cousins. SOCIAL HISTORY: The patient denied any history of smoking tobacco, quit smoking long back in 1976. No history of alcohol intake. No history of illicit drug use at this time. ALLERGIES: No known drug allergies. PHYSICAL EXAMINATION: Vital Signs: Temperature of 97.6, pulse of 94, blood pressure 142/89, respiratory rate of 18, saturating at 99% on room air. General Appearance: The patient is well oriented to time, place, and person. He appears to be drowsy initially, but after waking up he is able to communicate very well. Follows commands spontaneously. Cardiovascular System: S1, S2 heard with normal intensity. No gallops. Respiratory: Clear to auscultation bilaterally. No wheeze. No crepitations. Abdomen: Soft. Bowel sounds positive. Nontender. No rigidity. Extremities: No edema in bilateral lower extremities. Neurology: No gross focal neurological deficit. Multiple scabs noted on the lower extremities. HOME MEDICATIONS: The patient is not sure about his accurate medications, but review suggest: 1. Hydrochlorothiazide 25 mg daily. 2. Imdur 30 mg daily. 3. Norvasc 10 mg daily. 4. Neurontin 300 mg oral 3 times a day. 5. Percocet as needed for pain twice a day. 6. Potassium chloride 20 mEq daily. 7. [place] 5/325 mg half a tablet every 6 hours as needed for pain. 8. Reglan 10 mg oral every 8 hours as needed. 9. Levemir 50 units subcutaneous daily. 10.Senokot tablet. 11.Lasix 20 mg daily. 12.Pepcid 20 mg 2 times a day as needed. 13.Motrin every 6 hours as needed. 14.Flomax 0.4 mg every evening. 15.Xalatan ophthalmic solution 1 drop both eyes nightly. 16.Cymbalta 30 mg oral daily. 17.Nitroglycerin 0.4 mg sublingual as needed. 18.Lipitor 80 mg nightly. 19.Calcitriol 0.25 mcg oral daily. LABORATORY DATA: WBC 10.8, hemoglobin 15.9, hematocrit 45.8, platelet count 251. Sodium 137, potassium 4.6, chloride 100, bicarb 25, BUN 39, creatinine 2.1, glucose 245, calcium 9.8. AST 31, ALT 28, alkaline phosphorus 118, total protein 7.7. Ethyl alcohol less than 5. ASSESSMENT: 1. Headache and neck pain, acute on chronic. 2. Acute encephalopathy, resolved. 3. Hypertension. 4. Hyperlipidemia. 5. Type 2 diabetes mellitus. 6. Coronary artery disease. 7. Chronic kidney disease. 8. Leukocytosis. PLAN: 1. Headaches. The patient presents with headache, it has been going on for several years. The patient was evaluated by Neurology at [facility], and also at [facility]. His last visit was April [address] Billings, and had extensive workup done including an MRI scan of the brain and neck as reviewed from the chart, and did not find any acute pathology at that time. The patient also had a CT scan of the head on this admission, which did not show any acute pathology either. We will order for a CT scan of the cervical spine to make sure that the patient does not have any acute cervical problem resulting in this headache. Less likely, we are dealing with any meningitis though he has some leukocytosis this could be resulting and reactive from nausea, vomiting, but patient denies any neck stiffness or neck rigidity. He denies any photophobia at this time. He denies any fevers or chills, and no fever noted after coming to the ER, so meningitis less likely. This could be acute on chronic headache. The patient will be referred to observation status. We will have him on pain medications and we will closely follow with the CT cervical spine. 2. Acute encephalopathy. The patient was noted to be confused at home, but currently is well oriented to time, place, and person. He is able to follow commands spontaneously. Unsure if his confusion was resulting from acute dehydration and also from opiate pain medications. We will closely follow the patient. 3. Leukocytosis. The patient is noted to have mild leukocytosis. We will get a urinalysis. The patient denied any fevers or chills in the last few days. We will get a chest x-ray at this time and we will closely follow. We will also get a urine toxicology screen. We will recheck a CBC in a.m. We will keep him hydrated with IV fluids. 4. Nausea and vomiting, exact etiology not clear. Could be resulting from the headache. Unsure if patient has any migraine headaches as he had this headache for the last 2 days. Keep him hydrated at this time. Keep him on antiemetic protocol. Use Zofran as needed. 5. Hypertension. The patient's blood pressure seems to be in acceptable range. Continue with current antihypertensive medication. Try to avoid any hypotensive episodes. 6. Type 2 diabetes mellitus. The patient is currently on insulin regimen. Continue the same. His blood glucose was 245, suggestive uncontrolled hypertension. We will get a hemoglobin A1c and have him on supplemental scale insulin as needed for additional coverage of his blood glucose. 7. Coronary artery disease. The patient denies any ongoing chest pains. We will closely follow. Continue with statin, LETICIA inhibitor, and aspirin. He is also noted to be on Imdur. 8. Chronic kidney disease, remains stable. Try to avoid any nephrotoxic agents. Dose adjust medications for renal function. Maintain euvolemic status. Continue with IV fluids. We will recheck a basic metabolic panel in the a.m. 9. Code status. The patient wants to be DNR/DNI. 10.Discussed with [facility] physician regarding the plan of care. Reviewed the labs and medications. Reviewed the old charts. [facility] /[id number]
[2017-01-23] MEDS: Calcitriol 0.25 MCG Cap PO SCH (09:46)
[2017-01-23] MEDS: DULoxetine 30 MG Cap PO SCH (09:46)
[2017-01-23] MEDS: Potassium Chloride 10 MEQ Tab.ER PO SCH (09:46)
[2017-01-23] MEDS: Clopidogrel 75 MG Tab PO SCH (09:47)
[2017-01-23] MEDS: Gabapentin 300 MG Cap PO SCH ×2 (09:48→21:34)
[2017-01-23] MEDS: Finasteride 5 MG Tab PO SCH (09:48)
[2017-01-23] MEDS: Insulin Detemir 100 Units/ML 3 ML Pen SUBCUT SCH (09:49)
[2017-01-23] MEDS ORDERED: Sodium Chloride 0.9% 500 ML IV ONE ×2 (10:30→16:00)
[2017-01-23] MEDS: amLODIPine 5 MG Tab PO SCH (10:30)
[2017-01-23] MEDS: Tamsulosin 0.4 MG Cap.ER PO SCH (11:35)
[2017-01-23] MEDS: Heparin Sodium 5,000 Units/ML Vial SUBCUT SCH ×2 (14:47→21:37)
[2017-01-23] MEDS: Acetaminophen 325 MG Tab PO PRN (15:25)
[2017-01-23] MEDS: cefTRIAXone 1 GM in Sodium Chloride 0.9% 50 ML IV SCH (17:23)
[2017-01-23] MEDS: atorvaSTATin 20 MG Tab PO SCH (21:33)
[2017-01-23] MEDS: Acetaminophen/oxyCODONE 325-5 MG Tab PO SCH (21:34)
[2017-01-23] MEDS: Latanoprost 0.005% Ophth Soln 2.5 ML Bottle EYEBOTH SCH (21:37)
[2017-01-24] MEDS: Insulin Aspart 100 Units/ML 3 ML Pen SUBCUT SCH ×8 (05:07→21:34)
[2017-01-24] MEDS: Pantoprazole 40 MG Tab.CR PO SCH (06:08)
[2017-01-24] MEDS: Heparin Sodium 5,000 Units/ML Vial SUBCUT SCH ×3 (06:09→21:42)
[2017-01-24] MEDS: amLODIPine 5 MG Tab PO SCH (08:20)
[2017-01-24] MEDS: DULoxetine 30 MG Cap PO SCH (08:21)
[2017-01-24] MEDS: Tamsulosin 0.4 MG Cap.ER PO SCH (08:23)
[2017-01-24] MEDS: Gabapentin 300 MG Cap PO SCH ×2 (08:23→21:30)
[2017-01-24] MEDS: Potassium Chloride 10 MEQ Tab.ER PO SCH (08:23)
[2017-01-24] MEDS: Clopidogrel 75 MG Tab PO SCH (08:23)
[2017-01-24] MEDS: Finasteride 5 MG Tab PO SCH (08:24)
[2017-01-24] MEDS: Calcitriol 0.25 MCG Cap PO SCH (08:25)
[2017-01-24] MEDS: Insulin Detemir 100 Units/ML 3 ML Pen SUBCUT SCH (09:07)
--- NOTE | 2017-01-24 13:58 | PN ---
DATE: 01/24/2017 SUBJECTIVE: Mr. Dajuan Rodriguez is a 72-year-old male with medical history significant for hypertension; hyperlipidemia; type 2 diabetes mellitus; coronary artery disease, status post stents placed in the past; chronic kidney disease; chronic history of headaches; neck pain, admitted to the hospital with complaints of increased confusion, headache, and was initially admitted to the hospital under swing bed. For the last 24 hours, the patient was noted to have low blood pressures, requiring IV fluid boluses. He also noted to have possible urinary tract infection, started him on IV antibiotics and given his treatment plan. We switched him to inpatient services as he will need continued IV antibiotics at this time secondary to underlying urinary tract infection. For the last 24 hours, the patient denies any complaints of chest pain. No shortness of breath. No abdominal pain. No nausea. No vomiting. No diarrhea. He is more awake and alert. He is able to ambulate well with help of walker. He denies any further complaints of headaches and neck pain at this time. REVIEW OF SYSTEMS: Cardiovascular, respiratory, gastrointestinal, Neurology, constitutional were all evaluated. PHYSICAL EXAMINATION: Vital Signs: Temperature of 98.1, pulse of 85, respiratory rate of 20, blood pressure 108/56, saturating at 95% on room air. General Appearance: The patient is well oriented to time, place, and person. Follows commands spontaneously. Cardiovascular System: S1, S2 heard with normal intensity. No gallops. Respiratory System: Clear to auscultation bilaterally. No wheeze. No crepitations. Abdomen: Soft. Bowel sounds are positive. Nontender. No rigidity. No guarding. No rebound tenderness. Extremities: No edema in bilateral lower extremities. Neurology: No gross focal neurological deficits. MEDICATIONS: Reviewed. 1. Continue with Tylenol 650 every 4 hours as needed for pain. 2. Norvasc 5 mg daily. 3. Lipitor 80 mg at bedtime. 4. Calcitriol 0.25 mcg daily. 5. Ceftriaxone 1 g daily. 6. Plavix 75 mg daily. 7. Cymbalta 30 mg daily. 8. Pepcid 20 mg daily as needed. 9. Proscar 5 mg daily. 10.Neurontin 300 mg twice a day. 11.Heparin 5000 subcutaneous q.8 hourly. 12.NovoLog 13 units 3 times a day with each meals. 13.Levemir 50 units at a.m. 14.Reglan 5 mg every 8 hours as needed for nausea. 15.Morphine 2 mg IV two hours as needed for pain. 16.Nitroglycerin 0.4 mg sublingual as needed for chest pain. 17.Percocet 5/325 mg at bedtime. 18.Potassium chloride 20 mEq daily. 19.Protonix 40 mg daily. 20.Flomax 0.4 mg at breakfast. LABORATORY DATA: Reviewed. 1. Continue with WBC 6, hemoglobin 13, hematocrit 38.6, platelet count 205. 2. Sodium 136, potassium 4.7, chloride 103, bicarb 24, BUN 37, creatinine 1.8, glucose 184. 3. Urinalysis shows large leukocyte esterase, negative for nitrites, wbc's packed. 4. Microbiology; blood cultures are 2/2 shows no growth so far. ASSESSMENT: 1. Urinary tract infection. 2. Hypertension. 3. Hyperlipidemia. 4. Chronic history of headaches and neck pains, resulting from trauma in the past. 5. Acute encephalopathy, resolved. 6. Type 2 diabetes mellitus. 7. Chronic congestive heart failure. 8. Chronic kidney disease. 9. Coronary artery disease. PLAN: 1. Urinary tract infection. The patient is noted to have urinary tract infection on this admission. We did send for blood cultures and urine cultures. So far, his blood cultures remain negative. Still awaiting for urine culture. The patient is empirically started on IV ceftriaxone. He remains afebrile for now and no leukocytosis noted at this time. Closely follow. 2. Type 2 diabetes mellitus. The patient is currently on insulin regimen, continue the same. Continue with supplemental scale insulin as needed for additional coverage of his blood glucose. 3. Acute encephalopathy, this seems to be resolved at this time. This is mainly from his underlying urinary tract infection, which seems to be resolved at this time. 4. Headache. This is chronic headache, which seems to be much improved. The patient had a CT scan of the head and also the neck and cervical spine, which did not show any acute pathology. 5. Hypertension. The patient is currently hypotensive. Avoid any antihypertensive medication. Continue with IV fluids. The patient did receive fluid boluses x2 yesterday, which seems to be improving his blood pressure. 6. We will have Physical Therapy and Occupational Therapy to evaluate and treat the patient. 7. Deep venous thrombosis prophylaxis. Continue with heparin for deep venous thrombosis prophylaxis. [facility] /[id number]
[2017-01-24] MEDS: cefTRIAXone 1 GM in Sodium Chloride 0.9% 50 ML IV SCH (17:27)
[2017-01-24] MEDS: Sodium Chloride 0.9% 10 ML Syringe FLUSH PRN (17:28)
[2017-01-24] MEDS: atorvaSTATin 20 MG Tab PO SCH (21:29)
[2017-01-24] MEDS: Acetaminophen/oxyCODONE 325-5 MG Tab PO SCH (21:30)
[2017-01-24] MEDS: Latanoprost 0.005% Ophth Soln 2.5 ML Bottle EYEBOTH SCH (21:31)
[2017-01-25] MEDS: Acetaminophen 325 MG Tab PO PRN (05:19)
[2017-01-25] MEDS: Heparin Sodium 5,000 Units/ML Vial SUBCUT SCH ×3 (05:20→21:07)
[2017-01-25] MEDS: Pantoprazole 40 MG Tab.CR PO SCH (05:20)
[2017-01-25] MEDS: Insulin Aspart 100 Units/ML 3 ML Pen SUBCUT SCH ×7 (08:45→21:22)
[2017-01-25] MEDS: Insulin Detemir 100 Units/ML 3 ML Pen SUBCUT SCH (08:47)
[2017-01-25] MEDS: Potassium Chloride 10 MEQ Tab.ER PO SCH (08:48)
[2017-01-25] MEDS: Clopidogrel 75 MG Tab PO SCH (08:48)
[2017-01-25] MEDS: Calcitriol 0.25 MCG Cap PO SCH (08:48)
[2017-01-25] MEDS: Gabapentin 300 MG Cap PO SCH ×2 (08:49→21:06)
[2017-01-25] MEDS: amLODIPine 5 MG Tab PO SCH (08:49)
[2017-01-25] MEDS: Tamsulosin 0.4 MG Cap.ER PO SCH (08:49)
[2017-01-25] MEDS: DULoxetine 30 MG Cap PO SCH (08:49)
[2017-01-25] MEDS: Finasteride 5 MG Tab PO SCH (08:49)
--- NOTE | 2017-01-25 12:04 | PN ---
DATE: 01/25/2017 SUBJECTIVE: Mr. Dajuan Rodriguez is a 72-year-old male with medical history significant for hypertension; hyperlipidemia; type 2 diabetes mellitus; coronary artery disease, status post stents placed in the past; chronic history of headache; chronic kidney disease, admitted to the hospital with episodes of confusion, headache, and noted to have urinary tract infection. For the last 24 hours, the patient denies any ongoing chest pain. No shortness of breath. No abdominal pain. No nausea. No vomiting. No diarrhea. He is able to ambulate well with help of the walker. REVIEW OF SYSTEMS: Cardiovascular, respiratory, gastrointestinal, neurology, constitutional were all evaluated. PHYSICAL EXAMINATION: Vital Signs: Temperature of 97.9, pulse of 95, blood pressure of 139/77, respiratory rate of 16, and saturating at 95% on room air. General Appearance: The patient is well oriented to time, place, and person. Follows commands spontaneously. Cardiovascular System: S1 and S2 heard with normal intensity. No gallops. Respiratory System: Clear to auscultation bilaterally. No wheeze. No crepitations. Abdomen: Soft. Bowel sounds positive. Nontender. No rigidity. Extremities: No edema in bilateral lower extremities. MEDICATIONS: Reviewed. Continue with ceftriaxone 1 g daily. Continue with other medications. LABORATORY DATA: Labs reviewed. 1. WBC 5.3, hemoglobin 12.8, hematocrit 37.8, platelet count 224. 2. Sodium 133, potassium 4.5, chloride 100, bicarb 32, creatinine 1.7, glucose 368. ASSESSMENT: 1. Urinary tract infection. 2. Acute encephalopathy, resolved. 3. Type 2 diabetes mellitus, uncontrolled. 4. Chronic history of headache. 5. Chronic congestive heart failure. 6. Chronic kidney disease. 7. Coronary artery disease. PLAN: 1. Urinary tract infection. The patient started on IV ceftriaxone. Still awaiting for culture reports. We will titrate the antibiotics once we have the culture reports available. He remains afebrile. 2. Type 2 diabetes mellitus, uncontrolled. We will increase NovoLog to 15 units three times a day with each meals and increase the Levemir to 55 units. We will check his fingersticks with each meals and have him on supplemental scale insulin. 3. Hypertension. Acceptable range. Continue with current antihypertensive medication with Norvasc. 4. DVT prophylaxis. Continue with heparin for DVT prophylaxis. 5. Acute encephalopathy, resolved. This is mostly from his underlying urinary tract infection which is resolved at this time. He is well oriented to time, place, and person. 6. Possible discharge in a.m. if he remains hemodynamically stable, but we are still awaiting for the urine culture report. [facility] /[id number]
--- NOTE | 2017-01-25 15:00 | EKG ---
01/22/2017 - CARY OLIVEROS - A 12-lead EKG shows normal sinus rhythm with heart rate of 95. No significant ST-elevation or ST depression noted on this 12-lead EKG. Nonspecific ST-T wave changes noted on lead 2. [facility] /[id number]
[2017-01-25] MEDS: cefTRIAXone 1 GM in Sodium Chloride 0.9% 50 ML IV SCH (16:12)
[2017-01-25] MEDS: Sodium Chloride 0.9% 10 ML Syringe FLUSH PRN (16:13)
[2017-01-25] MEDS: atorvaSTATin 20 MG Tab PO SCH (21:05)
[2017-01-25] MEDS: Acetaminophen/oxyCODONE 325-5 MG Tab PO SCH (21:06)
[2017-01-25] MEDS: Latanoprost 0.005% Ophth Soln 2.5 ML Bottle EYEBOTH SCH (21:10)
[2017-01-26] MEDS: Pantoprazole 40 MG Tab.CR PO SCH (05:29)
[2017-01-26] MEDS: Heparin Sodium 5,000 Units/ML Vial SUBCUT SCH (05:30)
[2017-01-26] MEDS: Insulin Aspart 100 Units/ML 3 ML Pen SUBCUT SCH ×4 (08:39→11:56)
[2017-01-26] MEDS: DULoxetine 30 MG Cap PO SCH (08:42)
[2017-01-26] MEDS: amLODIPine 5 MG Tab PO SCH (08:42)
[2017-01-26] MEDS: Potassium Chloride 10 MEQ Tab.ER PO SCH (08:42)
[2017-01-26] MEDS: Gabapentin 300 MG Cap PO SCH (08:44)
[2017-01-26] MEDS: Finasteride 5 MG Tab PO SCH (08:44)
[2017-01-26] MEDS: Clopidogrel 75 MG Tab PO SCH (08:44)
[2017-01-26] MEDS: Tamsulosin 0.4 MG Cap.ER PO SCH (08:44)
[2017-01-26] MEDS: Calcitriol 0.25 MCG Cap PO SCH (08:45)
[2017-01-26] MEDS ORDERED: Insulin Detemir 100 Units/ML 3 ML Pen SUBCUT SCH ×2 (09:00→09:52)
[2017-01-26 11:36] VITALS: BP 116/68
--- NOTE | 2017-01-26 17:56 | DISCH ---
ADMITTING DIAGNOSES: 1. Intractable headache. 2. Acute encephalopathy. 3. Nausea and vomiting. DISCHARGE DIAGNOSES: 1. Urinary tract infection with enterococcus faecalis, sensitive to ciprofloxacin. 2. Headache and neck pain, resolved. 3. Acute encephalopathy, resolved. 4. Type 2 diabetes mellitus, uncontrolled. HISTORY OF PRESENTING ILLNESS: Mr. Dajuan Rodriguez is a 72-year-old male with medical history significant for hypertension, hyperlipidemia, type 2 diabetes mellitus, coronary artery disease, status post stents placed in the past, chronic kidney disease, chronic history of headaches and neck pain in the past, and had extensive workup including MRI scan of the brain and neck without any acute pathology except for degenerative disc disease involving the cervical spine, was admitted to the hospital with complaints of headaches, confusion, nausea, and vomiting. After getting admitted to the hospital, he was well oriented to time, place, and person. Further workup showed evidence of urinary tract infection. His urine culture was positive for enterococcus faecalis. He was started on IV ceftriaxone later changed to oral ciprofloxacin. At the time of discharge, culture report suggest Enterococcus sensitive to ciprofloxacin. He responded well to the treatment. He was able to ambulate well with the help of a walker. The patient is advised to use a walker at home. The patient also had a CT scan of the brain and also CT scan of the cervical spine on this admission, which did not show any acute pathology and some chronic changes noted. He was noted to have uncontrolled diabetes requiring increase in his Levemir to 65 units, and increase in NovoLog to 15 units with each meals. The patient is educated about the importance of diet, exercise, and compliance with medications for good control of his diabetes. He remained hemodynamically stable on this admission. He is discharged home in stable condition. He is advised to follow with his primary care physician as scheduled and also follow with Cardiology Clinic as scheduled DISCHARGE MEDICATIONS: Include: 1. Tylenol 650 every 4 hours as needed for pain. 2. Bacitracin topical daily. 3. Calcitriol 0.25 mcg daily. 4. Ciprofloxacin 500 mg twice a day. 5. Plavix 75 mg daily. 6. Cymbalta 30 mg daily. 7. Finasteride 5 mg daily. 8. Neurontin 300 mg twice daily. 9. NovoLog 15 units subcutaneous 3 times a day with each meals. 10.Levemir 65 units subcu every morning. 11.Xalatan drops at bedtime. 12.Cozaar 50 mg daily. 13.Meclizine 12.5 mg 3 times a day as needed for dizziness. 14.Metoclopramide 10 mg every 8 hours as needed for nausea. 15.Miconazole topical as needed. 16.Nitroglycerin 0.4 mg sublingual as needed for chest pain. 17.Potassium chloride 20 mEq daily. 18.Zantac 150 mg twice a day as needed for indigestion. 19.Senokot 2 tablets twice a day. 20.Flomax 0.4 mg daily. 21.Norvasc 5 mg daily. 22.Lipitor 80 mg at bedtime. 23.Percocet 5/325 mg 1 tablet at bedtime. PHYSICAL EXAMINATION: Vital Signs: On the day of discharge vitals; temperature of 97.7, pulse of 95, blood pressure 122/57, respiratory rate of 20, saturating at 98% on room air. General Appearance: The patient is well oriented to time, place, and person. Follows commands spontaneously. Cardiovascular System: S1, S2 heard with normal intensity. No gallops. Respiratory System: Clear to auscultation bilaterally. No wheeze. No crepitations. Abdomen: Soft. Bowel sounds positive. Nontender. No rigidity. Extremities: No edema in bilateral lower extremities. Neurology: No gross focal neurological deficits. CONDITION ON ADMISSION: Poor. CONDITION ON DISCHARGE: Stable. DISPOSITION: Discharged to home. ACTIVITY: As tolerated. DIET: Cardiac healthy diet with consistent carbohydrate diet. FOLLOWUP: Follow with primary care physician in next 1 to 2 weeks of time and follow with Cardiology as scheduled. Spent over 35 minutes of time in evaluating and treating this patient and making discharge plans. [facility] /[id number]
[2017-01-26] MEDS ORDERED: Ciprofloxacin 500 MG Tab PO SCH (21:00)
== END 2017-01-26 12:15 | disposition home or self-care (01) | DRG 689 ==
LOC: DL.ED 23:07 → OBSVTOIN 01-23 03:42 → DL.MS 01-23 03:42
PROVIDERS: ADMIT Internal Medicine; ATTEND Internal Medicine
DX: N39.0 Urinary tract infection, site not specified (principal); G93.40 Encephalopathy, unspecified; N25.81 Secondary hyperparathyroidism of renal origin; R41.0 Disorientation, unspecified; E78.5 Hyperlipidemia, unspecified; I25.10 Atherosclerotic heart disease of native coronary artery without angina pectoris; I12.9 Hypertensive chronic kidney disease with stage 1 through stage 4 chronic kidney disease, or unspecified chronic kidney disease; E11.22 Type 2 diabetes mellitus with diabetic chronic kidney disease; N18.9 Chronic kidney disease, unspecified; M54.2 Cervicalgia; K21.9 Gastro-esophageal reflux disease without esophagitis; Z87.891 Personal history of nicotine dependence; D72.829 Elevated white blood cell count, unspecified; E86.0 Dehydration; R11.2 Nausea with vomiting, unspecified; Z66 Do not resuscitate; E11.65 Type 2 diabetes mellitus with hyperglycemia; I50.9 Heart failure, unspecified; Z79.01 Long term (current) use of anticoagulants; Z79.84 Long term (current) use of oral hypoglycemic drugs; Z79.4 Long term (current) use of insulin; Z79.899 Other long term (current) drug therapy
CPT/HCPCS: 36415; 70450; 71010; 72125; 74000; 80048; 80053; 80305; 81001; 82150; 82962; 83690; 85025; 85027; 87040; 87086; 87088; 87186; 93005; 93010; 99284; 99285; A9270-GY; G0480; J0696; J1644; J1815-GY; J7030; J7040; J7050

== ENCOUNTER 2017-02-10 12:56 | Inpatient (IN) | payer OTHER, MEDICARE ==
--- NOTE | 2017-02-10 12:45 | EDM.PDOC ---
ED HPI GENERAL MEDICAL PROBLEM - General Chief Complaint: General Stated Complaint: IN BY AMBULANCE Time Seen by Provider: 02/10/17 12:38 Source of Information: Reports: Patient, EMS Notes Reviewed History Limitations: Reports: No Limitations - History of Present Illness INITIAL COMMENTS - FREE TEXT/NARRATIVE: 72 yo [place] Male w/ multiple medical problems c/o posterior neck and head pain ( present since 1967). Pt. denies any recent trauma, pushing, pulling or lifting Onset: Today Onset Date: 02/10/17 Onset Time: 10:00 Duration: Hour(s): Location: Reports: Head, Neck, Generalized Quality: Reports: Same as Previous Episode Severity: Moderate Improves with: Reports: None Worsens with: Reports: None Associated Symptoms: Reports: Weakness Headache Pain Score (Numeric/FACES): 7 - Related Data Allergies Allergy/AdvReac Type Severity Reaction Status Date / Time No Known Allergies Allergy Verified 01/23/17 06:09 Home Meds: Home Meds Calcitriol 0.25 mcg PO DAILY 05/28/13 [History] Nitroglycerin [Nitrostat] 0.4 mg SL ASDIRECTED PRN 05/28/13 [History] atorvaSTATin Calcium [Atorvastatin Calcium] 80 mg PO BEDTIME 05/28/13 [History] Latanoprost [Xalatan 0.005% Ophth Soln] 1 drop EYEBOTH BEDTIME 09/03/15 [History ] Metoclopramide [Reglan] 10 mg PO Q8H PRN #45 tablet 10/01/15 [Rx] Acetaminophen [Tylenol] 650 mg PO Q4H PRN #0 tablet 10/25/15 [Rx] Clopidogrel [Plavix] 75 mg PO DAILY 01/07/16 [History] DULoxetine [Cymbalta] 30 mg PO DAILY 01/07/16 [History] Finasteride [Proscar] 5 mg PO DAILY 01/07/16 [History] Meclizine [Antivert] 12.5 mg PO TID PRN 01/07/16 [History] Miconazole [Miconazole 2% Crm] 1 applic TOP ASDIRECTED 01/07/16 [History] Tamsulosin HCl [Flomax] 0.4 mg PO ASDIRECTED 01/07/16 [History] Sennosides [Senokot] 2 tab PO BID 09/02/16 [History] Potassium Chloride [Klor-Con M20] 20 meq PO DAILY #10 tab.er 09/03/16 [Rx] Gabapentin [Neurontin] 300 mg PO BID 10/20/16 [History] Ranitidine [Zantac] 150 mg PO BID PRN 10/20/16 [History] oxyCODONE HCl/Acetaminophen [Percocet 5-325 mg Tablet] 1 each PO BEDTIME [History] Bacitracin [Bacitracin Oint] 0 gm TOP DAILY #1 tube 10/25/16 [Rx] Losartan [Cozaar] 50 mg PO DAILY #30 tablet 10/25/16 [Rx] amLODIPine [Norvasc] 5 mg PO DAILY #30 tablet 10/25/16 [Rx] Ciprofloxacin [Ciprofloxacin HCl] 500 mg PO BID #14 tablet 01/26/17 [Rx] Insulin Aspart [NovoLOG] 15 unit SUBCUT TIDMEALS #1 pen 01/26/17 [Rx] Insulin Detemir [Levemir] 65 unit SUBCUT QAM #1 pen 01/26/17 [Rx] Past Medical History HEENT History: Reports: Impaired Vision Other HEENT History: wears glasses Cardiovascular History: Reports: CAD, Hypertension, Stents Respiratory History: Reports: Other (See Below) Other Respiratory History: spot of lung and they said to keep an eye on it. Gastrointestinal History: Reports: None Genitourinary History: Reports: Chronic Renal Insuffiency Other Genitourinary History: urinary tract obstruction-self caths self when stream gets slow Musculoskeletal History: Reports: Back Pain, Chronic Other Musculoskeletal History: broke both ankles, broken ribs, collar bone, jaw , toes and 5-6 hairline fx of skull due to rodeo Neurological History: Reports: Headaches, Chronic Other Neuro History: heasdaches since 1966 Psychiatric History: Reports: Other (See Below) Other Psychiatric History: has noc bishop from [place] Endocrine/Metabolic History: Reports: Diabetes, Type II Hematologic History: Reports: None Immunologic History: Reports: None Oncologic (Cancer) History: Reports: Other (See Below) Other Oncologic History: pt. doesn't know what type of cancer he was diagnosed with Dermatologic History: Reports: Other (See Below) Other Dermatologic History: eccymotic area to left hip, left upper arm, and left ear from fall when pt. tripped over trailer hitch about a week ago. - Infectious Disease History Infectious Disease History: Reports: Chicken Pox Other Infectious Disease History: unable to obtain history. client altered mental status and pt family uncertain. - Past Surgical History GI Surgical History: Reports: Hernia, Inguinal Other GI Surgeries/Procedures: left side igunial hernia repair Social & Family History - Family History Family Medical History: Noncontributory Cardiac: Reports: CAD Endocrine/Metabolic: Reports: Diabetes, type II Oncologic: Reports: Other (See Below) Other Oncologic Family History: brother, mom,sister unknown types - Tobacco Use Smoking Status *Q: Never Smoker Years of Tobacco use: 6 Packs/Tins Daily: 1 Used Tobacco, but Quit: Yes Month Tobacco Last Used: July Second Hand Smoke Exposure: No - Caffeine Use Caffeine Use: Reports: Coffee Other Caffeine Use: 2 cups a day - Alcohol Use Days Per Week of Alcohol Use: 0 - Recreational Drug Use Recreational Drug Use: No - Living Situation & Occupation Living situation: Reports: with Family Occupation: Retired ED ROS GENERAL - Review of Systems Review Of Systems: See Below Constitutional: Reports: Malaise, Weakness HEENT: Reports: No Symptoms Respiratory: Reports: No Symptoms Cardiovascular: Reports: No Symptoms Endocrine: Reports: High Glucose GI/Abdominal: Reports: No Symptoms : Reports: No Symptoms Musculoskeletal: Reports: Neck Pain Skin: Reports: No Symptoms Neurological: Reports: Headache Psychiatric: Reports: No Symptoms Hematologic/Lymphatic: Reports: No Symptoms Immunologic: Reports: No Symptoms ED EXAM, GENERAL - Physical Exam Exam: See Below Exam Limited By: No Limitations General Appearance: Alert, No Apparent Distress Eye Exam: Bilateral Eye: EOMI, PERRL Ears: Normal External Exam Nose: Normal Inspection Throat/Mouth: Normal Inspection, Normal Lips Head: Atraumatic, Normocephalic Neck: Normal Inspection, Supple, Tender Midline Respiratory/Chest: No Respiratory Distress, Lungs Clear Cardiovascular: Normal Peripheral Pulses, Regular Rate, Rhythm, No Edema Peripheral Pulses: 2+: Brachial (L), Brachial (R) GI/Abdominal: Normal Bowel Sounds, Soft, Non-Tender (Male) Exam: No Hernia, Normal Inspection Back Exam: Normal Inspection, Full Range of Motion Extremities: Normal Inspection, Normal Range of Motion, Non-Tender Neurological: Alert, Oriented, CN II-XII Intact Psychiatric: Normal Affect Skin Exam: Warm, Dry, Intact Lymphatic: No Adenopathy Course - Vital Signs Last Recorded V/S: Last Vital Signs Temp 36.3 C 02/10/17 13:10 Pulse 115 H 02/10/17 13:54 Resp 20 02/10/17 13:54 BP 118/89 02/10/17 14:09 Pulse Ox 93 L 02/10/17 13:54 - Orders/Labs/Meds Orders: Active Orders 24 hr Category Date Time Status EKG Documentation Completion [RC] STAT Care 02/10/17 12:42 Active Sodium Chloride 0.9% [Normal Saline] 1,000 ml Med 02/10/17 14:06 Active IV .BOLUS Sodium Chloride 0.9% [Normal Saline] 500 ml Med 02/10/17 12:45 Active IV ASDIRECTED Medication Orders Sodium Chloride (Normal Saline) 500 mls @ 100 mls/hr IV ASDIRECTED KARMEN Last Admin: 02/10/17 13:01 Dose: 100 mls/hr Sodium Chloride (Normal Saline) 1,000 mls @ 999 mls/hr IV .BOLUS ONE Stop: 02/10/17 15:06 Last Admin: 02/10/17 14:30 Dose: 999 mls/hr Labs: Laboratory Tests 02/10/17 02/10/17 02/10/17 Range/Units 12:43 12:43 12:43 WBC 8.6 (5.0-10.0) 10^3/uL RBC 4.98 (4.6-6.2) 10^6/uL Hgb 15.5 D (14.0-18.0) g/dL Hct 44.6 (40.0-54.0) % MCV 89.6 (80-100) fL MCH 31.1 (27.0-34.0) pg MCHC 34.8 (33.0-35.0) g/dL Plt Count 249 (150-450) 10^3/uL Neut % (Auto) 82.6 H (42.2-75.2) % Lymph % (Auto) 10.7 L (20.5-50.1) % [place] % (Auto) 5.9 (2-8) % Eos % (Auto) 0.3 L (1.0-3.0) % Baso % (Auto) 0.5 (0.0-1.0) % D-Dimer, Quantitative 204 (0-400) ng/mL Sodium 129 L (135-145) mmol/L Potassium 5.1 H (3.6-5.0) mmol/L Chloride 90 L (101-111) mmol/L Carbon Dioxide 19.0 L (21.0-31.0) mmol/L Anion Gap 25.1 BUN 40 H (7-18) mg/dL Creatinine 2.1 H (0.6-1.3) mg/dL Est Cr Clr Drug Dosing 34.39 mL/min Estimated GFR (MDRD) 31 BUN/Creatinine Ratio 19.04 Glucose 632 H* (74-105) mg/dL POC Glucose (83-110) mg/dl Calcium 9.8 (8.4-10.2) mg/dl Total Bilirubin 1.7 H (0.2-1.0) mg/dL AST 18 (10-42) IU/L ALT 28 (10-60) IU/L Alkaline Phosphatase 132 H (42-121) IU/L Troponin I < 0.02 (0.00-0.02) ng/ml Total Protein 7.3 (6.7-8.2) g/dl Albumin 4.3 (3.2-5.5) g/dl Globulin 3.0 Albumin/Globulin Ratio 1.43 Urine Color (YELLOW) Urine Appearance (CLEAR) Urine pH (5.0-9.0) Ur Specific [place] (1.005-1.030) Urine Protein (NEGATIVE) Urine Glucose (UA) (NEGATIVE) Urine Ketones (NEGATIVE) Urine Occult Blood (NEGATIVE) Urine Nitrite (NEGATIVE) Urine Bilirubin (NEGATIVE) Urine Urobilinogen (0.2-1.0) mg/dL Ur Leukocyte Esterase (NEGATIVE) Urine RBC /HPF Urine WBC (0-5/HPF) /HPF Ur Epithelial Cells /HPF Urine Bacteria (0-FEW/HPF) /HPF 02/10/17 02/10/17 02/10/17 Range/Units 12:47 13:25 14:05 WBC (5.0-10.0) 10^3/uL RBC (4.6-6.2) 10^6/uL Hgb (14.0-18.0) g/dL Hct (40.0-54.0) % MCV (80-100) fL MCH (27.0-34.0) pg MCHC (33.0-35.0) g/dL Plt Count (150-450) 10^3/uL Neut % (Auto) (42.2-75.2) % Lymph % (Auto) (20.5-50.1) % [place] % (Auto) (2-8) % Eos % (Auto) (1.0-3.0) % Baso % (Auto) (0.0-1.0) % D-Dimer, Quantitative (0-400) ng/mL Sodium (135-145) mmol/L Potassium (3.6-5.0) mmol/L Chloride (101-111) mmol/L Carbon Dioxide (21.0-31.0) mmol/L Anion Gap BUN (7-18) mg/dL Creatinine (0.6-1.3) mg/dL Est Cr Clr Drug Dosing mL/min Estimated GFR (MDRD) BUN/Creatinine Ratio Glucose (74-105) mg/dL POC Glucose > 500 H* 492 H* (83-110) mg/dl Calcium (8.4-10.2) mg/dl Total Bilirubin (0.2-1.0) mg/dL AST (10-42) IU/L ALT (10-60) IU/L Alkaline Phosphatase (42-121) IU/L Troponin I (0.00-0.02) ng/ml Total Protein (6.7-8.2) g/dl Albumin (3.2-5.5) g/dl Globulin Albumin/Globulin Ratio Urine Color Yellow (YELLOW) Urine Appearance Clear (CLEAR) Urine pH 5.0 (5.0-9.0) Ur Specific [place] 1.010 (1.005-1.030) Urine Protein 100 H (NEGATIVE) Urine Glucose (UA) 500 H (NEGATIVE) Urine Ketones 40 H (NEGATIVE) Urine Occult Blood Trace-lysed H (NEGATIVE) Urine Nitrite Negative (NEGATIVE) Urine Bilirubin Small H (NEGATIVE) Urine Urobilinogen 0.2 (0.2-1.0) mg/dL Ur Leukocyte Esterase Negative (NEGATIVE) Urine RBC 0-5 /HPF Urine WBC 0-5 (0-5/HPF) /HPF Ur Epithelial Cells Few /HPF Urine Bacteria Few (0-FEW/HPF) /HPF Meds: Medications Generic Name Dose Route Start Last Admin Trade Name Freq PRN Reason Stop Dose Admin Sodium Chloride 500 mls @ 100 mls/hr 02/10/17 12:45 02/10/17 13:01 Normal Saline IV 100 mls/hr ASDIRECTED KARMEN Administration Sodium Chloride 1,000 mls @ 999 mls/hr 02/10/17 14:06 02/10/17 14:30 Normal Saline IV 02/10/17 15:06 999 mls/hr .BOLUS ONE Administration Discontinued Medications Generic Name Dose Route Start Last Admin Trade Name Fauzia PRN Reason Stop Dose Admin Insulin Human Regular 10 unit 02/10/17 12:48 02/10/17 13:04 Humulin R IV 02/10/17 12:49 10 units ONETIME ONE Administration Protocol Potassium Chloride 20 meq 02/10/17 12:49 02/10/17 13:08 Klor-Con 10 PO 02/10/17 12:50 20 meq ONETIME ONE Administration Departure - Departure Time of Disposition: 14:42 Disposition: Admitted As Inpatient 65 Condition: Fair Clinical Impression: DKA, type 2 Qualifiers: Diabetes mellitus complication detail: without coma 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: without long-term use Qualified Code(s): E13.10 - Other specified diabetes mellitus with ketoacidosis without coma - Discharge Information Instructions: Type 2 Diabetes Mellitus, Adult, [id number] Referrals: Cami Mcconnell MD [Physician] - Forms: ED Summary Discharge - My Orders Last 24 Hours: My Active Orders 02/10/17 12:42 EKG Documentation Completion [RC] STAT 02/10/17 12:45 Sodium Chloride 0.9% [Normal Saline] 500 ml IV ASDIRECTED 02/10/17 14:06 Sodium Chloride 0.9% [Normal Saline] 1,000 ml IV .BOLUS - Assessment/Plan Last 24 Hours: My Active Orders 02/10/17 12:42 EKG Documentation Completion [RC] STAT 02/10/17 12:45 Sodium Chloride 0.9% [Normal Saline] 500 ml IV ASDIRECTED 02/10/17 14:06 Sodium Chloride 0.9% [Normal Saline] 1,000 ml IV .BOLUS
[~2017-02-10 12:56] MED LIST changes: -50% Dextrose in Water 50 ML Syringe IVPUSH ONE; +Insulin Regular, Human 100 Units/ML 3 ML Vial IV ONE; +Potassium Chloride 10 MEQ Tab.ER PO ONE; -Sodium Chloride 0.9% 1,000 ML IV ONE; -Sodium Chloride 0.9% 10 ML Syringe FLUSH PRN; -Sucrose 24% Solution 2 ML Vial PO ONE
[2017-02-10] MEDS: Sodium Chloride 0.9% 500 ML IV SCH ×2 (13:01→17:20)
[2017-02-10 13:36] LABS: CHLORIDE,CL 90 mmol/L (101-111); SODIUM,NA 129 mmol/L (135-145)
--- NOTE | 2017-02-10 13:50 | CR ---
Clinical history: 72-year-old male head and neck pain (recent anterior chest "implant"). Interpretation: Isolated nondisplaced fractures posterior lateral left fifth and sixth ribs (pathologic?). Circuit adrián joanne like foreign body horizontally placed over posterior seventh rib left chest. No ipsilateral pleur al mass or pneumothorax. Hypertrophic arthritis of the spine. Normal cardiac silhouette and pulmonary vascularity. No cephalization of flow, signs of alveolar rosanna a or dependent pleural effusion. No lung mass, hilar lymphadenopathy or focal lobar pneumonia. CONCLUSION: Abnormalities left fifth and sixth ribs. No acute cardiopulmonary abnormality.
[2017-02-10] MEDS ORDERED: Sodium Chloride 0.9% 1,000 ML IV ONE (14:06)
[2017-02-10] MEDS ORDERED: Bisacodyl 10 MG Supp RECTAL PRN (15:19)
[2017-02-10] MEDS: Insulin Aspart 100 Units/ML 3 ML Pen SUBCUT SCH ×2 (17:59→21:03)
[2017-02-10] MEDS ORDERED: SENNOSIDES PO PRN (18:41)
[2017-02-10] MEDS: Famotidine 20 MG Tab PO SCH (20:53)
[2017-02-10] MEDS ORDERED: Latanoprost 0.005% Ophth Soln 2.5 ML Bottle EYEBOTH SCH (21:00)
[2017-02-10] MEDS ORDERED: Insulin Detemir 100 Units/ML 3 ML Pen SUBCUT SCH (21:00)
[2017-02-10] MEDS: Acetaminophen 325 MG Tab PO PRN (21:25)
[2017-02-11] MEDS: Sodium Chloride 0.9% 500 ML IV SCH ×2 (00:12→06:57)
[2017-02-11] MEDS: Acetaminophen 325 MG Tab PO PRN ×2 (01:29→09:09)
--- NOTE | 2017-02-11 04:52 | HP ---
CHIEF COMPLAINT: Presented with complaint of posterior head and neck pain. This has been going on for some time. He was scheduled to have an MRI of the C- spine and brain today in [place]. During the evaluation in the ER, he was found to have marked hyperglycemia and was admitted. He was found to have hyperglycemia and mild DKA and was admitted for further management. PAST MEDICAL HISTORY: Chronic kidney disease stage III. Hypertension. Diverticulosis with history of diverticulitis. He has had a urethral stricture and at times has done self-catheterization. BPH with incomplete emptying of the bladder and a history of urinary retention. Type 2 diabetes. Hyperparathyroidism. History of coronary artery disease with stent placement. Recent syncope with possible seizures. An EEG was performed at the [place] and was mildly abnormal due to bilateral theta slowing. He was due to see the neurologist in followup today in [place], but did not make that appointment. PAST SURGICAL HISTORY: Coronary angioplasty with stent placement, ureteral meatus dilatation. He has a loop recorder implant which was placed on 01/26/2017. SOCIAL HISTORY: He is a former smoker who stopped smoking in 1976. Denied any regular use of alcohol. He lives in [place] with his son and a grandson. His son does not ambulate, is in a wheelchair. His grandson recently had significant injuries to both hands due to fire crackers and is also disabled. He served in the [employer] [place] [employer] from 1966 to 1968 and was in [place]. [place] had tried to set up followup with local Home Health, but Home Health felt that his situation was too high risk for their home care program, and the did not wish to leave his home. They have not reached any conclusion about this. REVIEW OF SYSTEMS: He has been having chronic headache and neck pain and was scheduled for an MRI of the brain and C-spine today. He did not make this appointment. He denies any chest pain or shortness of breath. No cough, fever, or chills. No abdominal pain. No recent falls or injuries. No blood by mouth or rectum. No change in appetite or weight. He has, however, stopped taking his insulin, and this has been an ongoing problem and has had similar presentations in the past. CURRENT MEDICATIONS: Reviewed. We have a discharge medication list. He was recently in the hospital here from January 23 to January 26, and we have the [place] med list which the [facility] was good enough to send us. Medications are reconciled and can be found in [employer]. ALLERGIES: He has no known allergies. PHYSICAL EXAMINATION: General: He looks younger than his stated age. He is lying comfortably in bed, is in no acute distress. He participated in the visit. Vital Signs: Blood pressure is 118/89, pulse is around 100 and regular, respiratory rate 20, oxygen saturation 93% on room air. He is afebrile. Height 6 feet. Weight 194 pounds 3.2 ounces. HEENT: Shows neck to be supple. Extraocular motions are intact. Sclerae nonicteric. ENT is clear. Mouth shows moist mucous membranes. No JVDs or bruits. No adenopathy. Chest: Shows clear but diminished bilateral breath sounds. Heart: Shows regular rate and rhythm. Abdomen: Soft and benign. Extremities: Show trace anterior tibial edema. Neurological: He is intact. LABS: CBC showed normal white count and platelets. Hemoglobin and hematocrit were 15.5 and 44.6. D-dimer was 204. Chemistries showed a sodium of 129, potassium 5.1, BUN and creatinine of 40 and 2.1 with a GFR of 31. Blood sugar was elevated at 632, on repeat 492. LFTs were unremarkable. Troponin was negative at less than 0.02 and D-dimer was normal at 204. Serum ketones were positive. Urinalysis showed a clear yellow urine with a specific gravity of 1.010 with a negative microscopic exam. A single-view chest x-ray was performed and showed no acute cardiopulmonary abnormalities. IMPRESSION: A 72-year-old gentleman with history of type 2 diabetes and noncompliance, presents now having not taken his insulin for an undetermined amount of time. He was admitted for further management. PLAN: 1. Type 2 diabetes. We restarted him on his long-acting insulin, and we will give him NovoLog. Review of his chart shows hemoglobin A1c in the range of 10.0% to 13.0% over the last year, indicating he is not well controlled. We will have him on IV fluids as well as insulin, and sugars are improving. 2. Hyponatremia and hyperkalemia. He is receiving normal saline, and we have ordered a repeat basic panel for the morning as well as repeat ketones and magnesium level. 3. His usual medications were continued. We called the [facility] in [place]. Earlier today, I had spoken with the charge nurse at the [facility] in [place], and she suggested that we call them regarding possible transfer to [place]. Mr. Graff has a long history there and missed multiple appointments today. He has stayed at the [facility] there and the [place] thought that we should consider transfer so that he can continue workup that was started. I called and spoke to the hospitalist on-call, Dr. Thomason, who knew Mr. Graff well and he asked us to call back in the morning and speak to the incoming hospitalist to check bed availability before transfer. Otherwise, they are willing to accept him in transfer, but we must reconfirm this in the morning. I spoke with Mr. Graff regarding transfer, and he was in agreement with this. His usual medications will be continued, and we will monitor his blood sugars carefully. We are reintroducing his Levemir and NovoLog insulin. CONDITION AT THE TIME OF ADMISSION: Hemodynamically stable. CODE STATUS: Full code. [facility] /[id number]
[2017-02-11 06:46] LABS: CHLORIDE,CL 97 mmol/L (101-111); SODIUM,NA 133 mmol/L (135-145)
[2017-02-11] MEDS ORDERED: Insulin Detemir 100 Units/ML 3 ML Pen SUBCUT SCH (09:00)
[2017-02-11] MEDS ORDERED: Finasteride 5 MG Tab PO SCH (09:00)
[2017-02-11] MEDS ORDERED: Losartan 50 MG Tab PO SCH (09:00)
[2017-02-11] MEDS ORDERED: Clopidogrel 75 MG Tab PO SCH (09:00)
[2017-02-11] MEDS ORDERED: DULoxetine 30 MG Cap PO SCH (09:00)
[2017-02-11] MEDS ORDERED: Enoxaparin 40 MG/0.4 ML Syringe SUBCUT SCH (09:00)
[2017-02-11] MEDS: Insulin Aspart 100 Units/ML 3 ML Pen SUBCUT SCH ×2 (09:06→11:43)
[2017-02-11] MEDS: Famotidine 20 MG Tab PO SCH (09:10)
--- NOTE | 2017-02-11 11:24 | CR ---
Clinical history: 72-year-old male left hip pain (fell 2 days ago). Interpretation: Homogeneous normal bone density without sign of left hip fracture or dislocation. Extensive arterial vascular calcifications involving the iliac and femoral arteries. No appreciable arthritic degenerative changes left hip joint.
--- NOTE | 2017-02-11 11:41 | PCM.DCSUM1 ---
Discharge Summary - Hospital Course Free Text/Narrative:: 72-year-old male with past medical history of chronic kidney disease stage III, hypertension, diverticulosis with history of diverticulitis, benign prostate hypertrophy, urethral stricture and sometimes does self-catheterization, diabetes mellitus type 2, hyperparathyroidism, coronary artery disease status post stent placement, recent syncope with possible seizure (EEG was performed at the [facility] and was mildly abnormal due to bilateral theta), presented to the emergency room for having occipital headache and neck pain which according to him is chronic. Patient stated that he has been falling multiple times in the past. Last time he failed was 2 days ago due to balance issue. Patient admitted having mild left hip pain. Patient denies radiating of the pain to his upper or lower extremities, lower extremities weakness, genital altered sensation, urinary or stool retention, change in the urinary or stool habits, chest pain, shortness breath, cough, fever, chills, any other symptoms or concern. Patient admitted that he has not been taking his insulin for unknown time. On admission patient's blood glucose was 632. Sodium 129. Potassium 5.1. Total bilirubin 1.7. Troponin less than 0.02. Creatinine 2.1. CO2 19. Anion gap 25.1. UA showed ketones but not remarkable for infection. Chest x-ray reported pathologic fracture of left 5th abd 6th ribs. I reviewed report of chest x-ray done last May and did not report any rib fracture at that time. Patient received his scheduled dose of long-acting insulin and was put on subcutaneous sliding scale insulin. He received IV fluid and currently is on normal saline at 75 mL per hour. This morning his blood glucose 267. Sodium 133. Potassium 4. Creatinine 1.6. CO2 23. Anion gap 17. On exam patient he was sitting in chair comfortably. He does not look acutely ill. Exam unremarkable for acute findings except mild tenderness on the left hip. No left ribs abnormal findings on exam. Patient had left hip x-ray and radiologist reported no fracture but had extensive arterial vascular calcifications involving the iliac and femoral arteries. and be transferred to [facility] in [place]. I spoke to Dr. Sanchez who kindly accepted the patient as long as he does not have left hip fracture - Discharge Data Discharge Date: 02/11/17 Discharge Disposition: DC/Tfer to Acute Hospital 02 Condition: Serious - Discharge Diagnosis/Problem(s) (1) Falls frequently SNOMED Code(s): 623387055 ICD Code: R29.6 - REPEATED FALLS Status: Chronic Current Visit: Yes (2) DKA, type 2 SNOMED Code(s): 706865321 ICD Code: E13.10 - OTH DIABETES MELLITUS WITH KETOACIDOSIS WITHOUT COMA Status: Acute Priority: High Current Visit: Yes Qualifiers: Diabetes mellitus complication detail: without coma Diabetes mellitus watermaster insulin use: without long-term use Qualified Code(s): E13.10 - Other specified diabetes mellitus with ketoacidosis without coma (3) Diabetes type 2, uncontrolled SNOMED Code(s): 49692826 ICD Code: E11.65 - TYPE 2 DIABETES MELLITUS WITH HYPERGLYCEMIA Status: Acute Current Visit: Yes Onset Date: ~02/10/17 (4) Benign paroxysmal positional vertigo SNOMED Code(s): 198180151 ICD Code: H81.10 - BENIGN PAROXYSMAL VERTIGO, UNSPECIFIED EAR Status: Chronic Current Visit: No (5) Pathological fracture of rib of left side SNOMED Code(s): 441710747 ICD Code: M84.48XA - PATHOLOGICAL FRACTURE, OTHER SITE, INIT ENCNTR FOR FRACTURE Status: Acute Current Visit: Yes - Discharge Plan Home Medications: Home Meds Calcitriol 0.25 mcg PO DAILY 05/28/13 [History] Nitroglycerin [Nitrostat] 0.4 mg SL ASDIRECTED PRN 05/28/13 [History] atorvaSTATin Calcium [Atorvastatin Calcium] 80 mg PO BEDTIME 05/28/13 [History] Latanoprost [Xalatan 0.005% Ophth Soln] 1 drop EYEBOTH BEDTIME 09/03/15 [History ] Clopidogrel [Plavix] 75 mg PO DAILY 01/07/16 [History] DULoxetine [Cymbalta] 30 mg PO DAILY 01/07/16 [History] Finasteride [Proscar] 5 mg PO DAILY 01/07/16 [History] Meclizine [Antivert] 12.5 mg PO TID PRN 01/07/16 [History] Sennosides [Senokot] 2 tab PO BID PRN 09/02/16 [History] Acetaminophen [Tylenol] 975 mg PO BID PRN 02/10/17 [History] Famotidine 20 mg PO BID 02/10/17 [History] Insulin Aspart [NovoLOG] 10 unit SUBCUT TIDMEALS 02/10/17 [History] Insulin Detemir [Levemir] 10 unit SUBCUT BEDTIME 02/10/17 [History] Insulin Detemir [Levemir] 64 unit SUBCUT QAM 02/10/17 [History] Losartan [Cozaar] 50 mg PO DAILY 02/10/17 [History] Magnesium Oxide 420 mg PO BID 02/10/17 [History] Patient Handouts: Type 2 Diabetes Mellitus, Adult, [id number] Referrals: Cami Mcconnell MD [Physician] - - Discharge Summary/Plan Comment DC Time >30 min.: Yes (25 minutes were spent on counseling, educating the patient and transferring) - General Info Date of Service: 02/11/17 - Review of Systems General: Reports: No Symptoms HEENT: Reports: No Symptoms Pulmonary: Reports: No Symptoms Cardiovascular: Reports: No Symptoms Gastrointestinal: Reports: No Symptoms Genitourinary: Reports: No Symptoms Musculoskeletal: Reports: Neck Pain (chronic), Other (mild left hip pain) Skin: Reports: No Symptoms Neurological: Reports: No Symptoms Psychiatric: Reports: No Symptoms - Patient Data Vitals - Most Recent: Last Vital Signs Temp 36.3 C 02/11/17 09:13 Pulse 100 02/11/17 09:13 Resp 20 02/11/17 09:13 BP 118/75 02/11/17 09:13 Pulse Ox 99 02/11/17 09:13 Weight - Most Recent: 88.088 kg I&O - Last 24 hours: Intake & Output 02/10/17 02/11/17 02/11/17 22:59 06:59 14:59 Intake Total 430 1425 505 Output Total 150 550 Balance 280 875 505 Lab Results - Last 24 hrs: Laboratory Results - last 24 hr 02/10/17 02/10/17 02/11/17 Range/Units 17:02 20:49 06:08 Sodium 133 L (135-145) mmol/L Potassium 4.0 (3.6-5.0) mmol/L Chloride 97 L (101-111) mmol/L Carbon Dioxide 23.0 (21.0-31.0) mmol/L Anion Gap 17.0 BUN 35 H (7-18) mg/dL Creatinine 1.6 H (0.6-1.3) mg/dL Est Cr Clr Drug Dosing 45.13 mL/min Estimated GFR (MDRD) 43 Glucose 220 H (74-105) mg/dL POC Glucose 392 H 461 H* (83-110) mg/dl Calcium 9.1 (8.4-10.2) mg/dl Magnesium 1.9 (1.8-2.5) mg/dL Ketones Positive 02/11/17 Range/Units 07:41 Sodium (135-145) mmol/L Potassium (3.6-5.0) mmol/L Chloride (101-111) mmol/L Carbon Dioxide (21.0-31.0) mmol/L Anion Gap BUN (7-18) mg/dL Creatinine (0.6-1.3) mg/dL Est Cr Clr Drug Dosing mL/min Estimated GFR (MDRD) Glucose (74-105) mg/dL POC Glucose 267 H (83-110) mg/dl Calcium (8.4-10.2) mg/dl Magnesium (1.8-2.5) mg/dL Ketones Med Orders - Current: Current Medications Acetaminophen (Tylenol) 650 mg PO Q4H PRN PRN Reason: Pain (mild 1-3 )/fever Last Admin: 02/11/17 09:09 Dose: 650 mg Bisacodyl (Dulcolax) 10 mg RECTAL DAILY PRN PRN Reason: Constipation Clopidogrel Bisulfate (Plavix) 75 mg PO DAILY [facility] Last Admin: 02/11/17 09:11 Dose: 75 mg Duloxetine HCl (Cymbalta) 30 mg PO DAILY [facility] Last Admin: 02/11/17 09:10 Dose: 30 mg Enoxaparin Sodium (Lovenox) 40 mg SUBCUT DAILY [facility] Last Admin: 02/11/17 09:11 Dose: 40 mg Famotidine (Pepcid) 20 mg PO BID [facility] Last Admin: 02/11/17 09:10 Dose: 20 mg Finasteride (Proscar) 5 mg PO DAILY [facility] Last Admin: 02/11/17 09:10 Dose: 5 mg Sodium Chloride (Normal Saline) 500 mls @ 75 mls/hr IV ASDIRECTED [facility] Last Admin: 02/11/17 06:57 Dose: 75 mls/hr Insulin Aspart (Novolog) 0 unit SUBCUT QIDACANDBED [facility] PRN Reason: Protocol Last Admin: 02/11/17 09:06 Dose: 9 units Insulin Detemir (Levemir) 20 unit SUBCUT BEDTIME [facility] Last Admin: 02/10/17 20:51 Dose: 20 units Insulin Detemir (Levemir) 20 unit SUBCUT QAM [facility] Last Admin: 02/11/17 09:06 Dose: 20 units Latanoprost (Xalatan 0.005% Ophth Soln) 0 ml EYEBOTH BEDTIME [facility] Last Admin: 02/10/17 20:54 Dose: 1 drop Losartan Potassium (Cozaar) 50 mg PO DAILY [facility] Last Admin: 02/11/17 09:11 Dose: 50 mg Senna/Docusate Sodium (Senna Plus) 1 tab PO TID PRN PRN Reason: Constipation Discontinued Medications Sodium Chloride (Normal Saline) 1,000 mls @ 999 mls/hr IV .BOLUS ONE Stop: 02/10/17 15:06 Last Admin: 02/10/17 14:30 Dose: 999 mls/hr Insulin Human Regular (Humulin R) 10 unit IV ONETIME ONE PRN Reason: Protocol Stop: 02/10/17 12:49 Last Admin: 02/10/17 13:04 Dose: 10 units Non-Formulary Medication (Sennosides [Senokot]) 2 tab PO BID PRN PRN Reason: Constipation Potassium Chloride (Klor-Con 10) 20 meq PO ONETIME ONE Stop: 02/10/17 12:50 Last Admin: 02/10/17 13:08 Dose: 20 meq - Exam General: Reports: Alert, Oriented, Cooperative, No Acute Distress. Denies: Mild Distress, Moderate Distress, Severe Distress, Sedated, Lethargic, Obtunded HEENT: Reports: Pupils Equal, Pupils Reactive, EOMI, Mucous Membr. Moist/Drasco Neck: Reports: Trachea Midline, No JVD, No Thyromegaly Lungs: Reports: Clear to Auscultation, Normal Respiratory Effort. Denies: Decreased Breath Sounds, Crackles, Rales, Rhonchi, Rub, Stridor, Wheezing GI/Abdominal Exam: Normal Bowel Sounds, Soft, Non-Tender, No Organomegaly, No Distention, No Abnormal Bruit, No Mass, Pelvis Stable (Male) Exam: No Hernia, Normal Inspection, Normal Prostate, Circumcised Rectal (Males) Exam: Deferred Back Exam: Reports: Normal Inspection, Other (no cervical spinous tenderness. fair neck range of motion). Denies: CVA Tenderness (R), Muscle Spasm, Paraspinal Tenderness, Vertebral Tenderness Extremities: Normal Inspection, Normal Range of Motion, No Pedal Edema, Normal Capillary Refill, Other (left hip mild tenderness but no left hip swelling, bruise, or otehr abnormalities). No: Joint Swelling, Limited Range of Motion, Increased Warmth Skin: Reports: Dry, Intact. Denies: Rash Wound/Incisions: Reports: Healing Well Neurological: Reports: No New Focal Deficit, Normal Speech, Normal Tone, Strength Equal Bilateral Psy/Mental Status: Reports: Alert, Normal Affect, Normal Mood *Q Meaningful Use (DIS) - VTE *Q VTE Criteria *Q: - Stroke *Q Stroke Criteria *Q: - AMI *Q AMI Criteria *Q:
[2017-02-11 11:48] VITALS: BP 118/71
--- NOTE | 2017-02-14 07:11 | EKG ---
02/10/2017 - CARY OLIVEROS - This 12-lead EKG shows sinus tachycardia with a ventricular rate of 109. Normal axis. No acute ST-segment or T-wave changes. There are no acute interval changes when compared to previous EKG dated 01/22/2017. [facility] /[id number]
== END 2017-02-11 12:40 | DRG 638 ==
LOC: DL.ED 12:56 → UNDOADMIN 14:47 → DL.MS 14:47
PROVIDERS: ADMIT Internal Medicine; ATTEND Internal Medicine
DX: E11.10 Type 2 diabetes mellitus with ketoacidosis without coma (principal); E87.1 Hypo-osmolality and hyponatremia; M84.48XA Pathological fracture, other site, initial encounter for fracture; E11.22 Type 2 diabetes mellitus with diabetic chronic kidney disease; I12.9 Hypertensive chronic kidney disease with stage 1 through stage 4 chronic kidney disease, or unspecified chronic kidney disease; N18.3 Chronic kidney disease, stage 3 (moderate); Z87.891 Personal history of nicotine dependence; Z91.14 Patient's other noncompliance with medication regimen; E87.5 Hyperkalemia; I25.10 Atherosclerotic heart disease of native coronary artery without angina pectoris; Z95.5 Presence of coronary angioplasty implant and graft; N40.1 Benign prostatic hyperplasia with lower urinary tract symptoms; R33.8 Other retention of urine; R39.14 Feeling of incomplete bladder emptying; G89.29 Other chronic pain; M54.9 Dorsalgia, unspecified; N35.9 Urethral stricture, unspecified; E21.3 Hyperparathyroidism, unspecified; H81.10 Benign paroxysmal vertigo, unspecified ear; Z91.81 History of falling; Z79.899 Other long term (current) drug therapy; Z79.02 Long term (current) use of antithrombotics/antiplatelets; Z79.4 Long term (current) use of insulin
CPT/HCPCS: 36410; 36415; 71010; 80048; 80053; 81001; 82009; 82962; 83735; 84484; 85025; 85379; 93005; 93010; 96361; 96374; 99284; 99285; A9270-GY; J1650; J1815; J1815-GY; J7030; J7040

== ENCOUNTER 2017-03-23 11:33 | Emergency (ER) | payer OTHER, MEDICARE ==
[2017-03-23] MEDS ORDERED: Sodium Chloride 0.9% 10 ML Syringe FLUSH PRN (11:42)
--- NOTE | 2017-03-23 11:42 | EDM.PDOC ---
ED HPI GENERAL MEDICAL PROBLEM - General Chief Complaint: Diabetic Complaint Stated Complaint: IN BY AMBULANCE Time Seen by Provider: 03/23/17 11:37 Source of Information: Reports: Patient, EMS, Old Records, RN, RN Notes Reviewed History Limitations: Reports: No Limitations - History of Present Illness INITIAL COMMENTS - FREE TEXT/NARRATIVE: Arrives from home by ambulance with report of "high blood sugar". Home health nurse checked pt's blood glucose this morning and it read "high". Pt reports that he forgot to take his insulin this morning, and he ate too much sweet cereal for breakfast. Also pt recently was at the hospital in [place] where he had "steriod injections" to his neck. Pt denies any fever, chills, pain, CP, cough, N/V/D/C, increased thirst, or urinary Sx's. Onset: Today Duration: Constant Location: Reports: Generalized Improves with: Reports: None Worsens with: Reports: None Associated Symptoms: Reports: No Other Symptoms Treatments PARTS INSPECTOR: Reports: Insulin - Related Data Allergies Allergy/AdvReac Type Severity Reaction Status Date / Time No Known Allergies Allergy Verified 02/10/17 15:24 Home Meds: Home Meds Calcitriol 0.25 mcg PO DAILY 05/28/13 [History] Nitroglycerin [Nitrostat] 0.4 mg SL ASDIRECTED PRN 05/28/13 [History] atorvaSTATin Calcium [Atorvastatin Calcium] 80 mg PO BEDTIME 05/28/13 [History] Latanoprost [Xalatan 0.005% Ophth Soln] 1 drop EYEBOTH BEDTIME 09/03/15 [History ] Clopidogrel [Plavix] 75 mg PO DAILY 01/07/16 [History] DULoxetine [Cymbalta] 30 mg PO DAILY 01/07/16 [History] Finasteride [Proscar] 5 mg PO DAILY 01/07/16 [History] Meclizine [Antivert] 12.5 mg PO TID PRN 01/07/16 [History] Acetaminophen [Tylenol] 975 mg PO BID PRN 02/10/17 [History] Insulin Aspart [NovoLOG] 5 unit SUBCUT TIDMEALS 02/10/17 [History] Insulin Detemir [Levemir] 5 unit SUBCUT BEDTIME 02/10/17 [History] Insulin Detemir [Levemir] 44 unit SUBCUT QAM 02/10/17 [History] Losartan [Cozaar] 50 mg PO DAILY 02/10/17 [History] Magnesium Oxide 420 mg PO BID 02/10/17 [History] Past Medical History HEENT History: Reports: Impaired Vision Other HEENT History: wears glasses Cardiovascular History: Reports: CAD, Hypertension, Stents Respiratory History: Reports: Other (See Below) Other Respiratory History: spot of lung and they said to keep an eye on it. Gastrointestinal History: Reports: None Genitourinary History: Reports: Chronic Renal Insuffiency Other Genitourinary History: urinary tract obstruction-self caths self when stream gets slow Musculoskeletal History: Reports: Back Pain, Chronic Other Musculoskeletal History: broke both ankles, broken ribs, collar bone, jaw , toes and 5-6 hairline fx of skull due to rodeo Neurological History: Reports: Headaches, Chronic Other Neuro History: heasdaches since 1966 Psychiatric History: Reports: Other (See Below) Other Psychiatric History: has noc bishop from [place] Endocrine/Metabolic History: Reports: Diabetes, Type II Hematologic History: Reports: None Immunologic History: Reports: None Oncologic (Cancer) History: Reports: Other (See Below) Other Oncologic History: pt. doesn't know what type of cancer he was diagnosed with Dermatologic History: Reports: Other (See Below) Other Dermatologic History: eccymotic area to left hip, left upper arm, and left ear from fall when pt. tripped over trailer hitch about a week ago. - Infectious Disease History Infectious Disease History: Reports: Chicken Pox Other Infectious Disease History: unable to obtain history. client altered mental status and pt family uncertain. - Past Surgical History Cardiovascular Surgical History: Reports: Coronary Artery Stent GI Surgical History: Reports: Hernia, Inguinal Other GI Surgeries/Procedures: left side igunial hernia repair Social & Family History - Family History Family Medical History: Noncontributory Cardiac: Reports: CAD Endocrine/Metabolic: Reports: Diabetes, type II Oncologic: Reports: Other (See Below) Other Oncologic Family History: brother, mom,sister unknown types - Tobacco Use Smoking Status *Q: Former Smoker Years of Tobacco use: 6 Packs/Tins Daily: 1 Used Tobacco, but Quit: Yes Month Tobacco Last Used: 1974 Second Hand Smoke Exposure: No - Caffeine Use Caffeine Use: Reports: Coffee, Soda Other Caffeine Use: 2 cups a day - Alcohol Use Days Per Week of Alcohol Use: 0 - Recreational Drug Use Recreational Drug Use: No - Living Situation & Occupation Living situation: Reports: with Family Occupation: Retired ED ROS GENERAL - Review of Systems Review Of Systems: ROS reveals no pertinent complaints other than HPI. ED EXAM GENERAL NO PERIP PULSE - Physical Exam Exam: See Below Exam Limited By: No Limitations General Appearance: Alert, WD/WN, No Apparent Distress, Other (chronically ill appearing) Eye Exam: Bilateral Eye: Normal Inspection Ears: Hearing Grossly Normal Nose: Normal Inspection, Normal Mucosa, No Blood Throat/Mouth: Normal Inspection, Normal Lips, Normal Oropharynx, Normal Voice, No Airway Compromise Head: Atraumatic, Normocephalic Neck: Normal Inspection, Supple, Non-Tender, Full Range of Motion Respiratory/Chest: No Respiratory Distress, Lungs Clear, Normal Breath Sounds, No Accessory Muscle Use, Chest Non-Tender Cardiovascular: Regular Rate, Rhythm, No Edema GI/Abdominal: Normal Bowel Sounds, Soft, Non-Tender, No Distention, No Abnormal Bruit (Male) Exam: Deferred Rectal (Males) Exam: Deferred Back Exam: Normal Inspection Extremities: Normal Inspection, Normal Range of Motion, Non-Tender, Normal Capillary Refill, No Pedal Edema Neurological: Alert, Oriented, CN II-XII Intact, Normal Cognition, Normal Gait, No Motor/Sensory Deficits Psychiatric: Normal Affect, Normal Mood Skin Exam: Warm, Dry, Intact, Normal Color, No Rash Course - Vital Signs Last Recorded V/S: Last Vital Signs Temp 36.5 C 03/23/17 13:18 Pulse 96 03/23/17 13:18 Resp 13 03/23/17 13:18 BP 159/88 H 03/23/17 13:18 Pulse Ox 95 03/23/17 13:18 - Orders/Labs/Meds Orders: Active Orders 24 hr Category Date Time Status Blood Glucose Check, Bedside [RC] ONETIME Care 03/23/17 11:42 Active Blood Glucose Check, Bedside [RC] ONETIME Care 03/23/17 12:42 Active Blood Glucose Check, Bedside [RC] ONETIME Care 03/23/17 13:12 Active Peripheral IV Care [RC] . DIRECTED Care 03/23/17 11:42 Active GLUCOSE,POC [POC] Routine Lab 03/23/17 13:59 Received Sodium Chloride 0.9% [Saline Flush] Med 03/23/17 11:42 Active 10 ml FLUSH ASDIRECTED PRN Peripheral IV Insertion Adult [OM.PC] Stat Oth 03/23/17 11:42 Ordered Medication Orders Sodium Chloride (Saline Flush) 10 ml FLUSH ASDIRECTED PRN PRN Reason: Keep Vein Open Last Admin: 03/23/17 12:15 Dose: 10 ml Labs: Laboratory Tests 03/23/17 03/23/17 03/23/17 Range/Units 11:41 11:57 11:57 WBC 9.9 (5.0-10.0) 10^3/uL RBC 4.57 L (4.6-6.2) 10^6/uL Hgb 13.9 L D (14.0-18.0) g/dL Hct 40.9 (40.0-54.0) % MCV 89.5 (80-100) fL MCH 30.4 (27.0-34.0) pg MCHC 34.0 (33.0-35.0) g/dL Plt Count 313 (150-450) 10^3/uL Neut % (Auto) 84.1 H (42.2-75.2) % Lymph % (Auto) 9.5 L (20.5-50.1) % [place] % (Auto) 5.9 (2-8) % Eos % (Auto) 0.2 L (1.0-3.0) % Baso % (Auto) 0.3 (0.0-1.0) % Sodium 129 L (135-145) mmol/L Potassium 5.1 H (3.6-5.0) mmol/L Chloride 94 L (101-111) mmol/L Carbon Dioxide 27.0 (21.0-31.0) mmol/L Anion Gap 13.1 BUN 25 H (7-18) mg/dL Creatinine 1.5 H (0.6-1.3) mg/dL Est Cr Clr Drug Dosing 48.14 mL/min Estimated GFR (MDRD) 46 BUN/Creatinine Ratio 16.66 Glucose 614 H* (74-105) mg/dL POC Glucose > 500 H* (83-110) mg/dl Calcium 9.6 (8.4-10.2) mg/dl Total Bilirubin 0.4 (0.2-1.0) mg/dL AST 29 (10-42) IU/L ALT 37 (10-60) IU/L Alkaline Phosphatase 221 H (42-121) IU/L Total Protein 7.6 (6.7-8.2) g/dl Albumin 4.3 (3.2-5.5) g/dl Globulin 3.3 Albumin/Globulin Ratio 1.30 Urine Color (YELLOW) Urine Appearance (CLEAR) Urine pH (5.0-9.0) Ur Specific [place] (1.005-1.030) Urine Protein (NEGATIVE) Urine Glucose (UA) (NEGATIVE) Urine Ketones (NEGATIVE) Urine Occult Blood (NEGATIVE) Urine Nitrite (NEGATIVE) Urine Bilirubin (NEGATIVE) Urine Urobilinogen (0.2-1.0) mg/dL Ur Leukocyte Esterase (NEGATIVE) Urine RBC /HPF Urine WBC (0-5/HPF) /HPF Ur Epithelial Cells /HPF Urine Bacteria (0-FEW/HPF) /HPF Ketones Negative 03/23/17 03/23/17 Range/Units 12:00 13:01 WBC (5.0-10.0) 10^3/uL RBC (4.6-6.2) 10^6/uL Hgb (14.0-18.0) g/dL Hct (40.0-54.0) % MCV (80-100) fL MCH (27.0-34.0) pg MCHC (33.0-35.0) g/dL Plt Count (150-450) 10^3/uL Neut % (Auto) (42.2-75.2) % Lymph % (Auto) (20.5-50.1) % [place] % (Auto) (2-8) % Eos % (Auto) (1.0-3.0) % Baso % (Auto) (0.0-1.0) % Sodium (135-145) mmol/L Potassium (3.6-5.0) mmol/L Chloride (101-111) mmol/L Carbon Dioxide (21.0-31.0) mmol/L Anion Gap BUN (7-18) mg/dL Creatinine (0.6-1.3) mg/dL Est Cr Clr Drug Dosing mL/min Estimated GFR (MDRD) BUN/Creatinine Ratio Glucose (74-105) mg/dL POC Glucose 472 H* (83-110) mg/dl Calcium (8.4-10.2) mg/dl Total Bilirubin (0.2-1.0) mg/dL AST (10-42) IU/L ALT (10-60) IU/L Alkaline Phosphatase (42-121) IU/L Total Protein (6.7-8.2) g/dl Albumin (3.2-5.5) g/dl Globulin Albumin/Globulin Ratio Urine Color Yellow (YELLOW) Urine Appearance Clear (CLEAR) Urine pH 7.0 (5.0-9.0) Ur Specific [place] 1.015 (1.005-1.030) Urine Protein 30 H (NEGATIVE) Urine Glucose (UA) 500 H (NEGATIVE) Urine Ketones Negative (NEGATIVE) Urine Occult Blood Trace-lysed H (NEGATIVE) Urine Nitrite Negative (NEGATIVE) Urine Bilirubin Negative (NEGATIVE) Urine Urobilinogen 0.2 (0.2-1.0) mg/dL Ur Leukocyte Esterase Negative (NEGATIVE) Urine RBC 5-10 H /HPF Urine WBC 0-5 (0-5/HPF) /HPF Ur Epithelial Cells Rare /HPF Urine Bacteria Rare (0-FEW/HPF) /HPF Ketones Meds: Medications Generic Name Dose Route Start Last Admin Trade Name Freq PRN Reason Stop Dose Admin Sodium Chloride 10 ml 03/23/17 11:42 03/23/17 12:15 Saline Flush FLUSH 10 ml ASDIRECTED PRN Administration Keep Vein Open Discontinued Medications Generic Name Dose Route Start Last Admin Trade Name Freq PRN Reason Stop Dose Admin Insulin Human Regular 10 unit 03/23/17 11:43 03/23/17 12:12 Humulin R SUBCUT 03/23/17 11:44 10 units ONETIME ONE Administration Protocol Insulin Human Regular 8 unit 03/23/17 13:04 03/23/17 13:09 Humulin R SUBCUT 03/23/17 13:05 8 units ONETIME ONE Administration Protocol - Re-Assessments/Exams Free Text/Narrative Re-Assessment/Exam: 03/23/17 14:01 Blood sugar down into the 300's, pt feels better and wishes to be d/c'd to home , stating that he is comfortable managing blood sugars in the 300 and 400 range. Departure - Departure Time of Disposition: 14:02 Disposition: Home, Self-Care 01 Condition: Fair Clinical Impression: Diabetes type 2, uncontrolled Qualifiers: Diabetes mellitus complication status: with hyperglycemia Diabetes mellitus buttermaker helper insulin use: with buttermaker helper use Qualified Code(s): E11.65 - Type 2 diabetes mellitus with hyperglycemia; Z79.4 - assisted (current) use of insulin ; Z79.4 - assisted (current) use of insulin; Z79.4 - long term care pharmacist (current) use of insulin; Z79.4 - long term care pharmacist (current) use of insulin - Discharge Information Instructions: Type 2 Diabetes Mellitus, Adult, [id number] Forms: ED Department Discharge Additional Instructions: Monitor your blood sugar closely for the next 2 days. Use your insulin as prescribed. Follow strict diabetic diet. Follow up in clinic with your primary doctor if blood sugars are not well controlled in the next 1 to 2 days. Return to the ER if blood sugar is over 450 at any time. - My Orders Last 24 Hours: My Active Orders 03/23/17 11:42 Blood Glucose Check, Bedside [RC] ONETIME Peripheral IV Care [RC] . DIRECTED Sodium Chloride 0.9% [Saline Flush] 10 ml FLUSH ASDIRECTED PRN Peripheral IV Insertion Adult [OM.PC] Stat 03/23/17 12:42 Blood Glucose Check, Bedside [RC] ONETIME 03/23/17 13:12 Blood Glucose Check, Bedside [RC] ONETIME 03/23/17 13:59 GLUCOSE,POC [POC] Routine - Assessment/Plan Last 24 Hours: My Active Orders 03/23/17 11:42 Blood Glucose Check, Bedside [RC] ONETIME Peripheral IV Care [RC] . DIRECTED Sodium Chloride 0.9% [Saline Flush] 10 ml FLUSH ASDIRECTED PRN Peripheral IV Insertion Adult [OM.PC] Stat 03/23/17 12:42 Blood Glucose Check, Bedside [RC] ONETIME 03/23/17 13:12 Blood Glucose Check, Bedside [RC] ONETIME 03/23/17 13:59 GLUCOSE,POC [POC] Routine
[2017-03-23] MEDS ORDERED: Insulin Regular, Human 100 Units/ML 3 ML Vial SUBCUT ONE ×2 (11:43→13:04)
[2017-03-23 12:35] LABS: CHLORIDE,CL 94 mmol/L (101-111); SODIUM,NA 129 mmol/L (135-145)
[2017-03-23 13:19] VITALS: BP 159/88
== END 2017-03-23 14:29 | disposition home or self-care (01) ==
LOC: DL.ED 11:33
DX: E11.65 Type 2 diabetes mellitus with hyperglycemia (principal); I12.9 Hypertensive chronic kidney disease with stage 1 through stage 4 chronic kidney disease, or unspecified chronic kidney disease; E11.22 Type 2 diabetes mellitus with diabetic chronic kidney disease; N18.9 Chronic kidney disease, unspecified; I25.10 Atherosclerotic heart disease of native coronary artery without angina pectoris; Z95.5 Presence of coronary angioplasty implant and graft; Z87.891 Personal history of nicotine dependence; Z79.4 Long term (current) use of insulin; Z79.02 Long term (current) use of antithrombotics/antiplatelets; Z79.899 Other long term (current) drug therapy
CPT/HCPCS: 36415; 80053; 81001; 82009; 82962; 85025; 96374; 96376; 99284; J7050; 99283

== ENCOUNTER 2017-03-29 12:21 | Emergency (ER) | payer OTHER ==
--- NOTE | 2017-03-29 12:56 | EDM.PDOC ---
ED HPI GENERAL MEDICAL PROBLEM - General Stated Complaint: BY AMBULANCE Time Seen by Provider: 03/29/17 13:20 Source of Information: Reports: Patient History Limitations: Reports: No Limitations - History of Present Illness INITIAL COMMENTS - FREE TEXT/NARRATIVE: This 72 yo male patient was brought to the ED by [facility] due to an elevated blood sugar level. The patient reports that he fell outside last night and hit his head on his shed. The patient reports that he does not know how long he was outside, but eventually he called his family members to help him get inside. The patient reports he took his levemir this morning (44 units). The patient is not too sure if he took his regular insulin with his morning meal. The home health nurse reported that the patient's blood sugar was over 500 and sent him to the ED. The patient reports he has been encouraged to look at assisted care or a intermediate in the past, but he does not want to loose his independence. This patient has a history of dizziness (vertigo) with frequent falls. Onset: Today Duration: Constant Location: Reports: Other Quality: Reports: Ache (chronic pain) Severity: Moderate Improves with: Reports: None Worsens with: Reports: None Context: Reports: Trauma (fell yesterday and hit his head with unknown loss of consciousness) Associated Symptoms: Reports: Other Left Neck Pain Score (Numeric/FACES): 4 - Related Data Allergies Allergy/AdvReac Type Severity Reaction Status Date / Time No Known Allergies Allergy Verified 02/10/17 15:24 Home Meds: Home Meds Calcitriol 0.25 mcg PO DAILY 05/28/13 [History] Nitroglycerin [Nitrostat] 0.4 mg SL ASDIRECTED PRN 05/28/13 [History] atorvaSTATin Calcium [Atorvastatin Calcium] 80 mg PO BEDTIME 05/28/13 [History] Latanoprost [Xalatan 0.005% Ophth Soln] 1 drop EYEBOTH BEDTIME 09/03/15 [History ] Clopidogrel [Plavix] 75 mg PO DAILY 01/07/16 [History] DULoxetine [Cymbalta] 30 mg PO DAILY 01/07/16 [History] Finasteride [Proscar] 5 mg PO DAILY 01/07/16 [History] Meclizine [Antivert] 12.5 mg PO TID PRN 01/07/16 [History] Acetaminophen [Tylenol] 975 mg PO BID PRN 02/10/17 [History] Insulin Aspart [NovoLOG] 5 unit SUBCUT TIDMEALS 02/10/17 [History] Insulin Detemir [Levemir] 5 unit SUBCUT BEDTIME 02/10/17 [History] Insulin Detemir [Levemir] 44 unit SUBCUT QAM 02/10/17 [History] Losartan [Cozaar] 50 mg PO DAILY 02/10/17 [History] Magnesium Oxide 420 mg PO BID 02/10/17 [History] Past Medical History HEENT History: Reports: Impaired Vision Other HEENT History: wears glasses Cardiovascular History: Reports: CAD, Hypertension, Stents Respiratory History: Reports: Other (See Below) Other Respiratory History: spot of lung and they said to keep an eye on it. Gastrointestinal History: Reports: None Genitourinary History: Reports: Chronic Renal Insuffiency Other Genitourinary History: urinary tract obstruction-self caths self when stream gets slow Musculoskeletal History: Reports: Back Pain, Chronic Other Musculoskeletal History: broke both ankles, broken ribs, collar bone, jaw , toes and 5-6 hairline fx of skull due to rodeo Neurological History: Reports: Headaches, Chronic Other Neuro History: heasdaches since 1966 Psychiatric History: Reports: Other (See Below) Other Psychiatric History: has noc bishop from [place] Endocrine/Metabolic History: Reports: Diabetes, Type II Hematologic History: Reports: None Immunologic History: Reports: None Oncologic (Cancer) History: Reports: Other (See Below) Other Oncologic History: pt. doesn't know what type of cancer he was diagnosed with Dermatologic History: Reports: Other (See Below) Other Dermatologic History: eccymotic area to left hip, left upper arm, and left ear from fall when pt. tripped over [employer] about a week ago. - Infectious Disease History Infectious Disease History: Reports: Chicken Pox Other Infectious Disease History: unable to obtain history. client altered mental status and pt family uncertain. - Past Surgical History Cardiovascular Surgical History: Reports: Coronary Artery Stent GI Surgical History: Reports: Hernia, Inguinal Other GI Surgeries/Procedures: left side igunial hernia repair Social & Family History - Family History Family Medical History: Noncontributory Cardiac: Reports: CAD Endocrine/Metabolic: Reports: Diabetes, type II Oncologic: Reports: Other (See Below) Other Oncologic Family History: brother, mom,sister unknown types - Tobacco Use Smoking Status *Q: Former Smoker Years of Tobacco use: 6 Packs/Tins Daily: 1 Used Tobacco, but Quit: Yes Month Tobacco Last Used: 1974 Second Hand Smoke Exposure: No - Caffeine Use Caffeine Use: Reports: Coffee, Soda Other Caffeine Use: 2 cups a day - Alcohol Use Days Per Week of Alcohol Use: 0 - Recreational Drug Use Recreational Drug Use: No - Living Situation & Occupation Living situation: Reports: with Family Occupation: Retired ED ROS GENERAL - Review of Systems Review Of Systems: ROS reveals no pertinent complaints other than HPI. ED EXAM, GENERAL - Physical Exam Exam: See Below Exam Limited By: No Limitations General Appearance: Alert, WD/WN, Moderate Distress, Thin Eye Exam: Bilateral Eye: EOMI, Normal Inspection, PERRL Ears: Normal External Exam, Normal Canal, Hearing Grossly Normal, Normal TMs Nose: Normal Inspection, Normal Mucosa, No Blood Throat/Mouth: Normal Inspection, Normal Lips, Normal Teeth, Normal Gums, Normal Oropharynx, Normal Voice, No Airway Compromise Head: Atraumatic, Normocephalic Neck: Normal Inspection, Supple, Non-Tender, Full Range of Motion Respiratory/Chest: No Respiratory Distress, Lungs Clear, Normal Breath Sounds, No Accessory Muscle Use, Chest Non-Tender Cardiovascular: Normal Peripheral Pulses, Regular Rate, Rhythm, No Edema, No Gallop, No JVD, No Murmur, No Rub GI/Abdominal: Normal Bowel Sounds, Soft, Non-Tender, No Organomegaly, No Distention, No Abnormal Bruit, No Mass (Male) Exam: Deferred Rectal (Males) Exam: Deferred Back Exam: Normal Inspection, Vertebral Tenderness (lower back (chronic)) Extremities: Normal Inspection, Normal Range of Motion, Non-Tender, Normal Capillary Refill, No Pedal Edema Neurological: Alert, Oriented, CN II-XII Intact, Normal Cognition, Normal Gait, Normal Reflexes, No Motor/Sensory Deficits Psychiatric: Normal Affect, Normal Mood Skin Exam: Warm, Dry, Intact, Normal Color, No Rash Lymphatic: No Adenopathy Course - Vital Signs Last Recorded V/S: Last Vital Signs Temp 36.6 C 03/29/17 13:54 Pulse 92 03/29/17 13:54 Resp 16 03/29/17 13:54 BP 162/84 H 03/29/17 13:54 Pulse Ox 99 03/29/17 13:54 - Orders/Labs/Meds Orders: Active Orders 24 hr Category Date Time Status EKG Documentation Completion [RC] URGENT Care 03/29/17 12:35 Active Glucose [Blood Glucose Check, Bedside] [RC] ONETIME Care 03/29/17 12:34 Active Glucose [Blood Glucose Check, Bedside] [RC] ONETIME Care 03/29/17 14:43 Active Labs: Laboratory Tests 03/29/17 03/29/17 03/29/17 Range/Units 12:56 12:56 12:56 WBC 9.6 (5.0-10.0) 10^3/uL RBC 4.40 L (4.6-6.2) 10^6/uL Hgb 13.6 L (14.0-18.0) g/dL Hct 39.6 L (40.0-54.0) % MCV 90.0 (80-100) fL MCH 30.9 (27.0-34.0) pg MCHC 34.3 (33.0-35.0) g/dL Plt Count 256 (150-450) 10^3/uL Neut % (Auto) 81.3 H (42.2-75.2) % Lymph % (Auto) 10.5 L (20.5-50.1) % [place] % (Auto) 7.1 (2-8) % Eos % (Auto) 0.7 L (1.0-3.0) % Baso % (Auto) 0.4 (0.0-1.0) % Sodium 131 L (135-145) mmol/L Potassium 5.0 (3.6-5.0) mmol/L Chloride 97 L (101-111) mmol/L Carbon Dioxide 23.0 (21.0-31.0) mmol/L Anion Gap 16.0 BUN 34 H (7-18) mg/dL Creatinine 1.4 H (0.6-1.3) mg/dL Est Cr Clr Drug Dosing 51.58 mL/min Estimated GFR (MDRD) 50 BUN/Creatinine Ratio 24.28 Glucose 500 H* (74-105) mg/dL POC Glucose (83-110) mg/dl Calcium 9.5 (8.4-10.2) mg/dl Total Bilirubin 0.7 (0.2-1.0) mg/dL AST 27 (10-42) IU/L ALT 40 (10-60) IU/L Alkaline Phosphatase 149 H (42-121) IU/L Troponin I < 0.02 (0.00-0.02) ng/ml Total Protein 6.8 (6.7-8.2) g/dl Albumin 3.9 (3.2-5.5) g/dl Globulin 2.9 Albumin/Globulin Ratio 1.34 Urine Color (YELLOW) Urine Appearance (CLEAR) Urine pH (5.0-9.0) Ur Specific [place] (1.005-1.030) Urine Protein (NEGATIVE) Urine Glucose (UA) (NEGATIVE) Urine Ketones (NEGATIVE) Urine Occult Blood (NEGATIVE) Urine Nitrite (NEGATIVE) Urine Bilirubin (NEGATIVE) Urine Urobilinogen (0.2-1.0) mg/dL Ur Leukocyte Esterase (NEGATIVE) Urine RBC /HPF Urine WBC (0-5/HPF) /HPF Ur Epithelial Cells /HPF Urine Bacteria (0-FEW/HPF) /HPF Urine Opiates Screen (NEGATIVE) Ur Oxycodone Screen (NEGATIVE) Urine Methadone Screen (NEGATIVE) Ur Barbiturates Screen (NEGATIVE) U Tricyclic Antidepress (NEGATIVE) Ur Phencyclidine Scrn (NEGATIVE) Ur Amphetamine Screen (NEGATIVE) U Methamphetamines Scrn (NEGATIVE) Urine MDMA Screen (NEGATIVE) U Benzodiazepines Scrn (NEGATIVE) Urine Cocaine Screen (NEGATIVE) U Marijuana (THC) Screen (NEGATIVE) Ketones Negative 03/29/17 03/29/17 03/29/17 Range/Units 13:00 13:30 13:30 WBC (5.0-10.0) 10^3/uL RBC (4.6-6.2) 10^6/uL Hgb (14.0-18.0) g/dL Hct (40.0-54.0) % MCV (80-100) fL MCH (27.0-34.0) pg MCHC (33.0-35.0) g/dL Plt Count (150-450) 10^3/uL Neut % (Auto) (42.2-75.2) % Lymph % (Auto) (20.5-50.1) % [place] % (Auto) (2-8) % Eos % (Auto) (1.0-3.0) % Baso % (Auto) (0.0-1.0) % Sodium (135-145) mmol/L Potassium (3.6-5.0) mmol/L Chloride (101-111) mmol/L Carbon Dioxide (21.0-31.0) mmol/L Anion Gap BUN (7-18) mg/dL Creatinine (0.6-1.3) mg/dL Est Cr Clr Drug Dosing mL/min Estimated GFR (MDRD) BUN/Creatinine Ratio Glucose (74-105) mg/dL POC Glucose 417 H* (83-110) mg/dl Calcium (8.4-10.2) mg/dl Total Bilirubin (0.2-1.0) mg/dL AST (10-42) IU/L ALT (10-60) IU/L Alkaline Phosphatase (42-121) IU/L Troponin I (0.00-0.02) ng/ml Total Protein (6.7-8.2) g/dl Albumin (3.2-5.5) g/dl Globulin Albumin/Globulin Ratio Urine Color Yellow (YELLOW) Urine Appearance Clear (CLEAR) Urine pH 6.5 (5.0-9.0) Ur Specific [place] 1.015 (1.005-1.030) Urine Protein 30 H (NEGATIVE) Urine Glucose (UA) 500 H (NEGATIVE) Urine Ketones Negative (NEGATIVE) Urine Occult Blood Trace-intact H (NEGATIVE) Urine Nitrite Negative (NEGATIVE) Urine Bilirubin Negative (NEGATIVE) Urine Urobilinogen 0.2 (0.2-1.0) mg/dL Ur Leukocyte Esterase Negative (NEGATIVE) Urine RBC 0-5 /HPF Urine WBC 0-5 (0-5/HPF) /HPF Ur Epithelial Cells Few /HPF Urine Bacteria Rare (0-FEW/HPF) /HPF Urine Opiates Screen Negative (NEGATIVE) Ur Oxycodone Screen Negative (NEGATIVE) Urine Methadone Screen Negative (NEGATIVE) Ur Barbiturates Screen Negative (NEGATIVE) U Tricyclic Antidepress Negative (NEGATIVE) Ur Phencyclidine Scrn Negative (NEGATIVE) Ur Amphetamine Screen Negative (NEGATIVE) U Methamphetamines Scrn Negative (NEGATIVE) Urine MDMA Screen Negative (NEGATIVE) U Benzodiazepines Scrn Negative (NEGATIVE) Urine Cocaine Screen Negative (NEGATIVE) U Marijuana (THC) Screen Negative (NEGATIVE) Ketones 03/29/17 Range/Units 14:46 WBC (5.0-10.0) 10^3/uL RBC (4.6-6.2) 10^6/uL Hgb (14.0-18.0) g/dL Hct (40.0-54.0) % MCV (80-100) fL MCH (27.0-34.0) pg MCHC (33.0-35.0) g/dL Plt Count (150-450) 10^3/uL Neut % (Auto) (42.2-75.2) % Lymph % (Auto) (20.5-50.1) % [place] % (Auto) (2-8) % Eos % (Auto) (1.0-3.0) % Baso % (Auto) (0.0-1.0) % Sodium (135-145) mmol/L Potassium (3.6-5.0) mmol/L Chloride (101-111) mmol/L Carbon Dioxide (21.0-31.0) mmol/L Anion Gap BUN (7-18) mg/dL Creatinine (0.6-1.3) mg/dL Est Cr Clr Drug Dosing mL/min Estimated GFR (MDRD) BUN/Creatinine Ratio Glucose (74-105) mg/dL POC Glucose 366 H (83-110) mg/dl Calcium (8.4-10.2) mg/dl Total Bilirubin (0.2-1.0) mg/dL AST (10-42) IU/L ALT (10-60) IU/L Alkaline Phosphatase (42-121) IU/L Troponin I (0.00-0.02) ng/ml Total Protein (6.7-8.2) g/dl Albumin (3.2-5.5) g/dl Globulin Albumin/Globulin Ratio Urine Color (YELLOW) Urine Appearance (CLEAR) Urine pH (5.0-9.0) Ur Specific [place] (1.005-1.030) Urine Protein (NEGATIVE) Urine Glucose (UA) (NEGATIVE) Urine Ketones (NEGATIVE) Urine Occult Blood (NEGATIVE) Urine Nitrite (NEGATIVE) Urine Bilirubin (NEGATIVE) Urine Urobilinogen (0.2-1.0) mg/dL Ur Leukocyte Esterase (NEGATIVE) Urine RBC /HPF Urine WBC (0-5/HPF) /HPF Ur Epithelial Cells /HPF Urine Bacteria (0-FEW/HPF) /HPF Urine Opiates Screen (NEGATIVE) Ur Oxycodone Screen (NEGATIVE) Urine Methadone Screen (NEGATIVE) Ur Barbiturates Screen (NEGATIVE) U Tricyclic Antidepress (NEGATIVE) Ur Phencyclidine Scrn (NEGATIVE) Ur Amphetamine Screen (NEGATIVE) U Methamphetamines Scrn (NEGATIVE) Urine MDMA Screen (NEGATIVE) U Benzodiazepines Scrn (NEGATIVE) Urine Cocaine Screen (NEGATIVE) U Marijuana (THC) Screen (NEGATIVE) Ketones Meds: Medications Discontinued Medications Generic Name Dose Route Start Last Admin Trade Name Fauzia PRN Reason Stop Dose Admin Insulin Human Isoph/Insulin Regular 5 unit 03/29/17 13:34 03/29/17 13:40 Novolin 70-30 SUBCUT 03/29/17 13:35 5 unit ONETIME ONE Administration Departure - Departure Time of Disposition: 14:49 Disposition: Home, Self-Care 01 Condition: Fair Clinical Impression: Hyperglycemia, Vertigo - Discharge Information Instructions: Hyperglycemia, [id number], Vertigo, [id number] Care Plan Goals: The patient was advised of the examination, lab, EKG and CT results during the visit. The patient was given 5 units of regular insulin SQ while in the ED to lower his blood sugar to 366. The patient was encouraged to continue to monitor his blood sugar and take his medications as directed. The patient was encouraged to speak with his primary care facility for additional resources including an assisted care center. If the patient has any additional symptoms or concerns, the patient should visit his primary care facility or return to the emergency department. - My Orders Last 24 Hours: My Active Orders 03/29/17 12:34 Glucose [Blood Glucose Check, Bedside] [RC] ONETIME 03/29/17 12:35 EKG Documentation Completion [RC] URGENT 03/29/17 14:43 Glucose [Blood Glucose Check, Bedside] [RC] ONETIME - Assessment/Plan Last 24 Hours: My Active Orders 03/29/17 12:34 Glucose [Blood Glucose Check, Bedside] [RC] ONETIME 03/29/17 12:35 EKG Documentation Completion [RC] URGENT 03/29/17 14:43 Glucose [Blood Glucose Check, Bedside] [RC] ONETIME
[2017-03-29 13:33] LABS: CHLORIDE,CL 97 mmol/L (101-111); SODIUM,NA 131 mmol/L (135-145)
[2017-03-29] MEDS ORDERED: Insulin NPH/Insulin Regular,Human 70-30 100 Units/ML 10 ML Vial SUBCUT ONE (13:34)
[2017-03-29 13:55] VITALS: BP 162/84
--- NOTE | 2017-03-29 14:33 | CT ---
Clinical history: 72-year-old hypertensive 185 pound diabetic male injured in fall last night (hit he ad). Scan technique: Volume acquisition of data emergency unenhanced CT scan of the head and brain obtaine d with patient lying supine on the Siemens multi slice CT scanner [place], [place]. All data archived in the PACS system for storage, reformatting and study. (Bone/brain w indows). Interpretation: Chronic atrophy and microvascular ischemic changes. Uniformly thick bony calvarium without sign of acute fracture, underlying brain contusion or epidural /subdural hematoma. Symmetric clear pneumatization of the mastoid and paranasal sinuses. Severe but generally symmetric cerebral cortical atrophy pattern. Several focal areas of decreased brain attenuation (ischemic infarcts) identified white matter in bot h cerebral hemispheres. No new supratentorial or posterior fossa mass lesion. No hydrocephalus. No sign of acute intracerebra l/intraventricular/subarachnoid bleed. Cerebellum and brainstem unremarkable. CONCLUSION: No new evidence skull fracture or closed head injury when compared images 23 January 2017.
--- NOTE | 2017-03-30 12:58 | EKG ---
03/29/2017 - CARY OLIVEROS - A 12-lead EKG shows normal sinus rhythm with no significant ST elevation or ST depression noted on this 12-lead EKG. Nonspecific ST-T wave changes noted on the lateral leads V2, V3, V4. [facility] /[id number]
== END 2017-03-29 15:15 | disposition home or self-care (01) ==
LOC: DL.ED 12:21
DX: E11.65 Type 2 diabetes mellitus with hyperglycemia (principal); R29.6 Repeated falls; I12.9 Hypertensive chronic kidney disease with stage 1 through stage 4 chronic kidney disease, or unspecified chronic kidney disease; N18.9 Chronic kidney disease, unspecified; E11.22 Type 2 diabetes mellitus with diabetic chronic kidney disease; Z79.899 Other long term (current) drug therapy; Z79.4 Long term (current) use of insulin; Z87.891 Personal history of nicotine dependence
CPT/HCPCS: 36415; 70450; 80053; 80305; 81001; 82009; 82962; 84484; 85025; 93005; 93010; 96372; 99285; J1815; 99283

== ENCOUNTER 2017-06-29 14:56 | Emergency (ER) | payer OTHER ==
--- NOTE | 2017-06-29 14:11 | CT ---
CLINICAL HISTORY: 72-year-old male with altered level of consciousness recently evaluated 13 May 2017 for "blackouts" (earlier CT diagnosis "multi infarct ischemic disease"). SCAN TECHNIQUE: Volume acquisition of data from an emergency unenhanced CT scan of the head and brain obtained while the patient was lying supine on the Siemens multislice scanner [place], [place]. All data archived in the PAC system for storage and study (bone/brain wind ows). INTERPRETATION: Uniformly thick bony calvarium without sign of skull fracture, underlying brain contu emilie or epidural/subdural hematoma. Symmetric clear pneumatization of the paranasal and mastoid sinuses with the exception of focal mucop eriosteal thickening left maxillary antrum (sinusitis). Symmetric phillip-white matter pattern with inappropriately prominent atrophy but underlying mirror-imag e normal ventricular system unchanged since 13 May 2017 exam. Multiple scattered areas of decreas ed brain attenuation identified throughout the periventricular white matter, i.e., ischemic infarcts also unchanged. No new supratentorial or posterior fossa mass lesion. No hydrocephalus. No sign of acute intracerebral/intraventricular/subarachnoid bleed. CONCLUSION: Left maxillary sinusitis. 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 No new intracranial mass, hydrocephalus or signs of acute bleed.
[2017-06-29 15:10] VITALS: BP 163/86
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
[2017-06-29 17:42] LABS: CHLORIDE,CL 101 mmol/L (101-111); SODIUM,NA 136 mmol/L (135-145)
[2017-06-29] MEDS: Amoxicillin/Clavulanate K 875-125 MG Tab PO ONE (18:42)
== END 2017-06-29 18:47 | disposition home or self-care (01) ==
LOC: DL.ED 14:56
DX: J32.0 Chronic maxillary sinusitis (principal); E11.22 Type 2 diabetes mellitus with diabetic chronic kidney disease; I12.9 Hypertensive chronic kidney disease with stage 1 through stage 4 chronic kidney disease, or unspecified chronic kidney disease; N18.9 Chronic kidney disease, unspecified; E78.00 Pure hypercholesterolemia, unspecified; I25.10 Atherosclerotic heart disease of native coronary artery without angina pectoris; Z87.891 Personal history of nicotine dependence; Z79.4 Long term (current) use of insulin; Z79.899 Other long term (current) drug therapy
CPT/HCPCS: 36415; 70450; 80053; 81001; 84484; 85025; 93005; 93010; 99283; 99285; A9270

== ENCOUNTER 2017-07-20 09:24 | Emergency (ER) | payer OTHER ==
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
[2017-07-20 09:45] VITALS: BP 143/78
== END 2017-07-20 10:50 | disposition home or self-care (01) ==
LOC: DL.ED 09:24
DX: M54.12 Radiculopathy, cervical region (principal); E11.22 Type 2 diabetes mellitus with diabetic chronic kidney disease; I12.9 Hypertensive chronic kidney disease with stage 1 through stage 4 chronic kidney disease, or unspecified chronic kidney disease; N18.9 Chronic kidney disease, unspecified; E78.00 Pure hypercholesterolemia, unspecified; Z87.891 Personal history of nicotine dependence; Z79.4 Long term (current) use of insulin; Z79.899 Other long term (current) drug therapy
CPT/HCPCS: 82962; 99282; 99283

== ENCOUNTER 2017-08-26 12:46 | Emergency (ER) | payer OTHER ==
--- NOTE | 2017-08-26 12:57 | EDM.PDOC ---
ED HPI GENERAL MEDICAL PROBLEM - General Chief Complaint: Diabetic Complaint Stated Complaint: [id number] HYPERGLYCEMIA Time Seen by Provider: 08/26/17 12:56 Source of Information: Reports: Patient, Old Records, RN, RN Notes Reviewed History Limitations: Reports: No Limitations - History of Present Illness INITIAL COMMENTS - FREE TEXT/NARRATIVE: Pt sent from [facility] for evaluation and treatment of hyperglycemia with report that pt's blood sugar was too high to register on there machine that reads to a high of 500. Pt states that he is sleepy, but otherwise feels well today. Pt states that he last ate at 5PM yesterday, and prior to that he had "another one of those spells" where he slept and didn't wake or move for 24 hours. Pt reports chronic neck and Rt arm pain unchanged for >40 years, but denies any acute pain. Pt states he took his long and short acting insulin about an hour ago, but didn't check his blood sugar yet today. Onset: Unknown/Unsure Duration: Constant Location: Reports: Generalized Severity: Severe Improves with: Reports: None Worsens with: Reports: None Associated Symptoms: Reports: No Other Symptoms - Related Data Allergies Allergy/AdvReac Type Severity Reaction Status Date / Time No Known Allergies Allergy Verified 08/26/17 13:28 Home Meds: Home Meds Calcitriol 0.25 mcg PO DAILY 05/28/13 [History] Nitroglycerin [Nitrostat] 0.4 mg SL ASDIRECTED PRN 05/28/13 [History] atorvaSTATin Calcium [Atorvastatin Calcium] 80 mg PO BEDTIME 05/28/13 [History] Latanoprost [Xalatan 0.005% Ophth Soln] 1 drop EYEBOTH BEDTIME 09/03/15 [History ] Clopidogrel [Plavix] 75 mg PO DAILY 01/07/16 [History] DULoxetine [Cymbalta] 30 mg PO DAILY 01/07/16 [History] Finasteride [Proscar] 5 mg PO DAILY 01/07/16 [History] Meclizine [Antivert] 12.5 mg PO TID PRN 01/07/16 [History] Acetaminophen [Tylenol] 975 mg PO BID PRN 02/10/17 [History] Insulin Aspart [NovoLOG] 5 unit SUBCUT TIDMEALS 02/10/17 [History] Insulin Detemir [Levemir] 5 unit SUBCUT BEDTIME 02/10/17 [History] Insulin Detemir [Levemir] 48 unit SUBCUT QAM 02/10/17 [History] Losartan [Cozaar] 50 mg PO DAILY 02/10/17 [History] Magnesium Oxide 420 mg PO BID 02/10/17 [History] Past Medical History HEENT History: Reports: Impaired Vision Other HEENT History: wears glasses Cardiovascular History: Reports: CAD, High Cholesterol, Hypertension, Stents Other Cardiovascular History: Transient hypotension Respiratory History: Reports: Other (See Below) Other Respiratory History: spot of lung and they said to keep an eye on it. Gastrointestinal History: Reports: None Genitourinary History: Reports: Chronic Renal Insuffiency Other Genitourinary History: urinary tract obstruction-self caths self when stream gets slow Musculoskeletal History: Reports: Back Pain, Chronic Other Musculoskeletal History: broke both ankles, broken ribs, collar bone, jaw , toes and 5-6 hairline fx of skull due to rodeo Neurological History: Reports: Headaches, Chronic Other Neuro History: heasdaches since 1966 Psychiatric History: Reports: Other (See Below) Other Psychiatric History: has noc bishop from [place] Endocrine/Metabolic History: Reports: Diabetes, Type II Hematologic History: Reports: None Immunologic History: Reports: None Oncologic (Cancer) History: Reports: Other (See Below) Other Oncologic History: pt. doesn't know what type of cancer he was diagnosed with Dermatologic History: Reports: Other (See Below) Other Dermatologic History: eccymotic area to left hip, left upper arm, and left ear from fall when pt. tripped over trailer hitch about a week ago. - Infectious Disease History Infectious Disease History: Reports: Chicken Pox Other Infectious Disease History: unable to obtain history. client altered mental status and pt family uncertain. - Past Surgical History Cardiovascular Surgical History: Reports: Coronary Artery Stent GI Surgical History: Reports: Hernia, Inguinal Other GI Surgeries/Procedures: left side igunial hernia repair Social & Family History - Family History Family Medical History: Noncontributory Cardiac: Reports: CAD Endocrine/Metabolic: Reports: Diabetes, type II Oncologic: Reports: Other (See Below) Other Oncologic Family History: brother, mom,sister unknown types - Caffeine Use Caffeine Use: Reports: Coffee, Tea Other Caffeine Use: 2 cups a day - Living Situation & Occupation Living situation: Reports: with Family Occupation: Retired ED ROS GENERAL - Review of Systems Review Of Systems: ROS reveals no pertinent complaints other than HPI. ED EXAM GENERAL NO PERIP PULSE - Physical Exam Exam: See Below Exam Limited By: No Limitations General Appearance: Alert, No Apparent Distress, Other (chronically ill appearing) Eye Exam: Bilateral Eye: EOMI, Normal Inspection, PERRL Ears: Hearing Grossly Normal Nose: Normal Inspection, Normal Mucosa, No Blood Throat/Mouth: Normal Lips, Normal Oropharynx, Normal Voice, No Airway Compromise , Other (dry oral membranes) Head: Atraumatic, Normocephalic Neck: Normal Inspection, Supple, Non-Tender, Limited Range of Motion (chronic/ stable) Respiratory/Chest: No Respiratory Distress, Lungs Clear, No Accessory Muscle Use , Chest Non-Tender, Decreased Breath Sounds Cardiovascular: Regular Rate, Rhythm, No Edema, No JVD, Tachycardia GI/Abdominal: Normal Bowel Sounds, Soft, Non-Tender, No Distention. No: Guarding, Rigid, Rebound (Male) Exam: Deferred Rectal (Males) Exam: Deferred Back Exam: Normal Inspection Extremities: Normal Inspection, Normal Range of Motion, Non-Tender, No Pedal Edema Neurological: Alert, Oriented, CN II-XII Intact, Normal Cognition, No Motor/ Sensory Deficits, Other (drowsy) Psychiatric: Normal Affect, Normal Mood Skin Exam: Warm, Dry, Intact, Normal Color, No Rash Course - Vital Signs Last Recorded V/S: Last Vital Signs Temp 36.6 C 08/26/17 12:56 Pulse 102 H 08/26/17 12:56 Resp 17 08/26/17 12:56 BP 155/80 H 08/26/17 12:56 Pulse Ox 99 08/26/17 12:56 - Orders/Labs/Meds Orders: Active Orders 24 hr Category Date Time Status Peripheral IV Care [RC] . DIRECTED Care 08/26/17 12:58 Active UA W/MICROSCOPIC [URIN] Stat Lab 08/26/17 12:57 Ordered Insulin Regular, Human [HumuLIN R] 100 unit Med 08/26/17 14:00 Active Sodium Chloride 0.9% [Normal Saline] 99 ml IV TITRATE Sodium Chloride 0.9% [Normal Saline] 1,000 ml Med 08/26/17 14:00 Active IV ASDIRECTED Sodium Chloride 0.9% [Saline Flush] Med 08/26/17 12:58 Active 10 ml FLUSH ASDIRECTED PRN Peripheral IV Insertion Adult [OM.PC] Stat Oth 08/26/17 12:57 Ordered Medication Orders Insulin Human Regular 100 unit (/ Sodium Chloride) 100 mls @ 8.16 mls/hr IV TITRATE KARMEN; Protocol Last Admin: 08/26/17 14:04 Dose: 0.1 units/kg/hr, 8.16 mls/hr Sodium Chloride (Normal Saline) 1,000 mls @ 150 mls/hr IV ASDIRECTED KARMEN Last Admin: 08/26/17 14:03 Dose: 150 mls/hr Sodium Chloride (Saline Flush) 10 ml FLUSH ASDIRECTED PRN PRN Reason: Keep Vein Open Last Admin: 08/26/17 14:04 Dose: 10 ml Labs: Laboratory Tests 08/26/17 08/26/17 Range/Units 13:07 13:07 WBC 6.8 (5.0-10.0) 10^3/uL RBC 4.72 (4.6-6.2) 10^6/uL Hgb 14.2 (14.0-18.0) g/dL Hct 41.5 (40.0-54.0) % MCV 87.9 (80-100) fL MCH 30.1 (27.0-34.0) pg MCHC 34.2 (33.0-35.0) g/dL Plt Count 253 (150-450) 10^3/uL Neut % (Auto) 75.6 H (42.2-75.2) % Lymph % (Auto) 14.1 L (20.5-50.1) % [place] % (Auto) 9.1 H (2-8) % Eos % (Auto) 0.9 L (1.0-3.0) % Baso % (Auto) 0.3 (0.0-1.0) % Sodium 127 L (135-145) mmol/L Potassium 4.7 (3.6-5.0) mmol/L Chloride 95 L (101-111) mmol/L Carbon Dioxide 24.0 (21.0-31.0) mmol/L Anion Gap 12.7 BUN 32 H (7-18) mg/dL Creatinine 1.8 H (0.6-1.3) mg/dL Est Cr Clr Drug Dosing 40.12 mL/min Estimated GFR (MDRD) 37 BUN/Creatinine Ratio 17.77 Glucose 652 H* (74-105) mg/dL Calcium 9.1 (8.4-10.2) mg/dl Total Bilirubin 0.8 (0.2-1.0) mg/dL AST 25 (10-42) IU/L ALT 24 (10-60) IU/L Alkaline Phosphatase 130 H (42-121) IU/L B-Natriuretic Peptide 10 (0-100) pg/ml Total Protein 6.9 (6.7-8.2) g/dl Albumin 3.8 (3.2-5.5) g/dl Globulin 3.1 Albumin/Globulin Ratio 1.23 Ketones Negative Meds: Medications Generic Name Dose Route Start Last Admin Trade Name Freq PRN Reason Stop Dose Admin Insulin Human Regular 100 unit 100 mls @ 8.16 mls/hr 08/26/17 14:00 08/26/17 14:04 / Sodium Chloride IV 0.1 units/kg/hr TITRATE KARMEN 8.16 mls/hr Administration Protocol 0.1 UNITS/KG/HR Sodium Chloride 1,000 mls @ 150 mls/hr 08/26/17 14:00 08/26/17 14:03 Normal Saline IV 150 mls/hr ASDIRECTED KARMEN Administration Sodium Chloride 10 ml 08/26/17 12:58 08/26/17 14:04 Saline Flush FLUSH 10 ml ASDIRECTED PRN Administration Keep Vein Open Departure - Departure Time of Disposition: 14:15 (admitted to Dr. Page) Disposition: Admitted As Inpatient 65 Condition: Serious Clinical Impression: Uncontrolled type 2 DM with hyperosmolar nonketotic hyperglycemia, Hx of noncompliance with medical treatment, presenting hazards to health - Discharge Information Referrals: Ezra Lacy MD [Primary Care Provider] - Forms: ED Department Discharge - My Orders Last 24 Hours: My Active Orders 08/26/17 12:57 UA W/MICROSCOPIC [URIN] Stat Peripheral IV Insertion Adult [OM.PC] Stat 08/26/17 12:58 Peripheral IV Care [RC] . DIRECTED Sodium Chloride 0.9% [Saline Flush] 10 ml FLUSH ASDIRECTED PRN 08/26/17 14:00 Insulin Regular, Human [HumuLIN R] 100 unit Sodium Chloride 0.9% [Normal Saline] 99 ml IV TITRATE Sodium Chloride 0.9% [Normal Saline] 1,000 ml IV ASDIRECTED - Assessment/Plan Last 24 Hours: My Active Orders 08/26/17 12:57 UA W/MICROSCOPIC [URIN] Stat Peripheral IV Insertion Adult [OM.PC] Stat 08/26/17 12:58 Peripheral IV Care [RC] . DIRECTED Sodium Chloride 0.9% [Saline Flush] 10 ml FLUSH ASDIRECTED PRN 08/26/17 14:00 Insulin Regular, Human [HumuLIN R] 100 unit Sodium Chloride 0.9% [Normal Saline] 99 ml IV TITRATE Sodium Chloride 0.9% [Normal Saline] 1,000 ml IV ASDIRECTED
[2017-08-26] MEDS ORDERED: Sodium Chloride 0.9% 10 ML Syringe FLUSH PRN (12:58)
[2017-08-26 13:43] LABS: ANION GAP 12.7; CHLORIDE,CL 95 mmol/L (101-111); SODIUM,NA 127 mmol/L (135-145)
[2017-08-26] MEDS ORDERED: Sodium Chloride 0.9% 1,000 ML IV SCH (14:00)
[2017-08-26 15:58] VITALS: BP 140/76
== END 2017-08-26 14:28 ==
LOC: DL.ED 12:46 → UNDOADMIN 14:40 → DL.MS 14:40 → UNDODISIN 17:00
DX: E11.65 Type 2 diabetes mellitus with hyperglycemia (principal); I25.10 Atherosclerotic heart disease of native coronary artery without angina pectoris; Z79.4 Long term (current) use of insulin; H54.7 Unspecified visual loss; E78.00 Pure hypercholesterolemia, unspecified; N18.9 Chronic kidney disease, unspecified; E11.22 Type 2 diabetes mellitus with diabetic chronic kidney disease; Z91.19 Patient's noncompliance with other medical treatment and regimen; Z79.899 Other long term (current) drug therapy; Z95.5 Presence of coronary angioplasty implant and graft; Z82.49 Family history of ischemic heart disease and other diseases of the circulatory system
CPT/HCPCS: 36415; 80053; 82009; 82962; 83880; 85025; 99284; J1815; J7030; J7050

== ENCOUNTER 2017-09-19 00:53 | Emergency (ER) | payer MEDICARE, OTHER ==
[2017-09-19 01:00] VITALS: BP 138/99
--- NOTE | 2017-09-19 01:41 | EDM.PDOC ---
ED HPI GENERAL MEDICAL PROBLEM - General Chief Complaint: Skin Complaint Stated Complaint: WOOD TICK IN [place]ILPAY [place]TON [id number] Time Seen by Provider: 09/19/17 01:10 Source of Information: Reports: Patient History Limitations: Reports: No Limitations - History of Present Illness INITIAL COMMENTS - FREE TEXT/NARRATIVE: Noticed wood tick in naval this juan pablo and could not find anything to remove it. - Related Data Allergies Allergy/AdvReac Type Severity Reaction Status Date / Time No Known Allergies Allergy Verified 09/19/17 01:00 Home Meds: Home Meds Calcitriol 0.25 mcg PO DAILY 05/28/13 [History] Nitroglycerin [Nitrostat] 0.4 mg SL ASDIRECTED PRN 05/28/13 [History] atorvaSTATin Calcium [Atorvastatin Calcium] 80 mg PO BEDTIME 05/28/13 [History] Latanoprost [Xalatan 0.005% Ophth Soln] 1 drop EYEBOTH BEDTIME 09/03/15 [History ] Clopidogrel [Plavix] 75 mg PO DAILY 01/07/16 [History] DULoxetine [Cymbalta] 30 mg PO DAILY 01/07/16 [History] Finasteride [Proscar] 5 mg PO DAILY 01/07/16 [History] Insulin Aspart [NovoLOG] 5 unit SUBCUT TIDMEALS 02/10/17 [History] Insulin Detemir [Levemir] 5 unit SUBCUT BEDTIME 02/10/17 [History] Insulin Detemir [Levemir] 48 unit SUBCUT QAM 02/10/17 [History] Losartan [Cozaar] 50 mg PO DAILY 02/10/17 [History] Magnesium Oxide 420 mg PO BID 02/10/17 [History] Past Medical History HEENT History: Reports: Impaired Vision Other HEENT History: wears glasses Cardiovascular History: Reports: CAD, High Cholesterol, Hypertension, Stents Other Cardiovascular History: Transient hypotension Respiratory History: Reports: Other (See Below) Other Respiratory History: spot of lung and they said to keep an eye on it. Gastrointestinal History: Reports: None Genitourinary History: Reports: Chronic Renal Insuffiency Other Genitourinary History: urinary tract obstruction-self caths self when stream gets slow Musculoskeletal History: Reports: Back Pain, Chronic Other Musculoskeletal History: broke both ankles, broken ribs, collar bone, jaw , toes and 5-6 hairline fx of skull due to rodeo Neurological History: Reports: Headaches, Chronic Other Neuro History: heasdaches since 1966 Psychiatric History: Reports: Other (See Below) Other Psychiatric History: has noc bishop from [place] Endocrine/Metabolic History: Reports: Diabetes, Type II Hematologic History: Reports: None Immunologic History: Reports: None Oncologic (Cancer) History: Reports: Other (See Below) Other Oncologic History: pt. doesn't know what type of cancer he was diagnosed with Dermatologic History: Reports: Other (See Below) Other Dermatologic History: eccymotic area to left hip, left upper arm, and left ear from fall when pt. tripped over [employer] about a week ago. - Infectious Disease History Infectious Disease History: Reports: Chicken Pox Other Infectious Disease History: unable to obtain history. client altered mental status and pt family uncertain. - Past Surgical History Cardiovascular Surgical History: Reports: Coronary Artery Stent GI Surgical History: Reports: Hernia, Inguinal Other GI Surgeries/Procedures: left side igunial hernia repair Social & Family History - Family History Family Medical History: Noncontributory Cardiac: Reports: CAD Endocrine/Metabolic: Reports: Diabetes, type II Oncologic: Reports: Other (See Below) Other Oncologic Family History: brother, mom,sister unknown types - Tobacco Use Smoking Status *Q: Never Smoker Second Hand Smoke Exposure: No - Caffeine Use Caffeine Use: Reports: Coffee Other Caffeine Use: 2 cups a day - Recreational Drug Use Recreational Drug Use: No - Living Situation & Occupation Living situation: Reports: with Family Occupation: Retired ED ROS GENERAL - Review of Systems Review Of Systems: ROS reveals no pertinent complaints other than HPI. ED EXAM, SKIN/RASH Exam: See Below Exam Limited By: No Limitations General Appearance: Alert, No Apparent Distress Eye Exam: Bilateral Eye: EOMI Ears: Normal External Exam Nose: Normal Inspection Throat/Mouth: Normal Inspection Neck: Normal Inspection, Full Range of Motion Respiratory/Chest: No Respiratory Distress Cardiovascular: Normal Peripheral Pulses, Regular Rate, Rhythm GI/Abdominal: Soft. No: Tender Neurological: Alert, Oriented Psychiatric: Normal Affect Location, Skin: Abdomen (mid umbilicus, moderate engorged wood tick) ED SKIN PROCEDURES - Additional/Other Procedure(s) Other (Free Text) Procedure(s): Wood tick removed with forcep. Area cleansed hibaclens. minimal erythema. Course - Vital Signs Last Recorded V/S: Last Vital Signs Temp 97.2 F 09/19/17 00:57 Pulse 95 09/19/17 00:57 Resp 14 09/19/17 00:57 BP 138/99 H 09/19/17 00:57 Pulse Ox 95 09/19/17 00:57 Departure - Departure Time of Disposition: 02:00 Disposition: Home, Self-Care 01 Condition: Good Clinical Impression: Tick bite of abdomen Qualifiers: Encounter type: initial encounter Qualified Code(s): S30.861A - Insect bite ( nonvenomous) of abdominal wall, initial encounter - Discharge Information Instructions: Tick Bite Information, Adult, [id number] Forms: ED Department Discharge Additional Instructions: Keep area clean and dry doxycycline 100mg one twice daily for one week use insect repellent when out doors
== END 2017-09-19 01:59 | disposition home or self-care (01) ==
LOC: DL.ED 00:53
DX: S30.861A Insect bite (nonvenomous) of abdominal wall, initial encounter (principal); I12.9 Hypertensive chronic kidney disease with stage 1 through stage 4 chronic kidney disease, or unspecified chronic kidney disease; N18.9 Chronic kidney disease, unspecified; E11.22 Type 2 diabetes mellitus with diabetic chronic kidney disease; Z79.899 Other long term (current) drug therapy; Z79.4 Long term (current) use of insulin; W57.XXXA Bitten or stung by nonvenomous insect and other nonvenomous arthropods, initial encounter
CPT/HCPCS: 99282

== ENCOUNTER 2017-09-28 16:20 | Inpatient (IN) | payer OTHER, MEDICARE ==
[2017-09-28] MEDS ORDERED: Insulin Aspart 100 Units/ML 3 ML Pen SUBCUT ONE (17:10)
[2017-09-28 17:14] LABS: CHLORIDE,CL 89 mmol/L (101-111); SODIUM,NA 124 mmol/L (135-145)
[2017-09-28] MEDS ORDERED: Albuterol 0.083% 2.5 MG/3 ML Neb Soln NEB ONE (17:33)
[2017-09-28] MEDS ORDERED: Calcium Chloride 10% 1 GM/10 ML Syringe IVPUSH ONE (17:34)
[2017-09-28] MEDS ORDERED: Sodium Polystyrene Sulfonate 15 GM/60 ML Susp 60 ML Bot PO ONE (17:34)
[2017-09-28] MEDS: Sodium Chloride 0.9% 1,000 ML IV SCH ×2 (17:50→21:31)
[2017-09-28 18:22] LABS: BASE EXCESS ARTERIAL -1 mmol/L ((-2)-(+3)); BICARBONATE,ARTERIAL 25.4 mmol/L (22-26); O2 DELIVERY DEVICE ROOM AIR; O2 SATURATION ARTERIAL 96 % (95-100); PCO2 ARTERIAL 49 mmHg (35-45); PO2 ARTERIAL 80 mmHg (70-100)
[2017-09-28 18:27] LABS: O2 FLOW RATE 4
[2017-09-28] MEDS ORDERED: Insulin Regular, Human 100 Units/ML 3 ML Vial IV ONE ×2 (19:30→19:39)
[2017-09-28] MEDS ORDERED: Sodium Chloride 0.9% 1,000 ML IV ONE (19:33)
--- NOTE | 2017-09-28 19:58 | PCM.HP ---
H&P History of Present Illness - General Date of Service: 09/28/17 Admit Problem/Dx: confusion Source of Information: Patient History Limitations: Reports: Altered Mental Status - History of Present Illness Initial Comments - Free Text/Narative: The patient is a 72-year-old gentleman with a history of diabetes, poor medical compliance, coronary artery disease. The patient was brought in with complaints of confusion. The patient ran out of insulin a day or 2 ago. He has been drinking Coke and 7- Up with significant sugar content. Headache Pain Score (Numeric/FACES): 8 - Related Data Allergies/Adverse Reactions: Allergies Allergy/AdvReac Type Severity Reaction Status Date / Time No Known Allergies Allergy Verified 09/28/17 19:57 Home Medications: Home Meds Calcitriol 0.25 mcg PO DAILY 05/28/13 [History] Nitroglycerin [Nitrostat] 0.4 mg SL ASDIRECTED PRN 05/28/13 [History] atorvaSTATin Calcium [Atorvastatin Calcium] 80 mg PO BEDTIME 05/28/13 [History] Latanoprost [Xalatan 0.005% Ophth Soln] 1 drop EYEBOTH BEDTIME 09/03/15 [History ] Clopidogrel [Plavix] 75 mg PO DAILY 01/07/16 [History] DULoxetine [Cymbalta] 30 mg PO DAILY 01/07/16 [History] Finasteride [Proscar] 5 mg PO DAILY 01/07/16 [History] Insulin Aspart [NovoLOG] 5 unit SUBCUT TIDMEALS 02/10/17 [History] Insulin Detemir [Levemir] 5 unit SUBCUT BEDTIME 02/10/17 [History] Insulin Detemir [Levemir] 48 unit SUBCUT QAM 02/10/17 [History] Losartan [Cozaar] 50 mg PO DAILY 02/10/17 [History] Magnesium Oxide 420 mg PO BID 02/10/17 [History] Cholecalciferol (Vitamin D3) [Vitamin D3] 1,000 unit PO DAILY 09/28/17 [History] Isosorbide Mononitrate [Imdur] 30 mg PO DAILY 09/28/17 [History] Ranitidine HCl [Ranitidine] 150 mg PO BID 09/28/17 [History] Past Medical History HEENT History: Reports: Impaired Vision Other HEENT History: wears glasses Cardiovascular History: Reports: CAD, High Cholesterol, Hypertension, Stents Other Cardiovascular History: Transient hypotension Respiratory History: Reports: Other (See Below) Other Respiratory History: spot of lung and they said to keep an eye on it. Gastrointestinal History: Reports: None Genitourinary History: Reports: Chronic Renal Insuffiency Other Genitourinary History: urinary tract obstruction-self caths self when stream gets slow Musculoskeletal History: Reports: Back Pain, Chronic Other Musculoskeletal History: broke both ankles, broken ribs, collar bone, jaw , toes and 5-6 hairline fx of skull due to rodeo Neurological History: Reports: Headaches, Chronic Other Neuro History: heasdaches since 1966 Psychiatric History: Reports: Other (See Below) Other Psychiatric History: has noc bishop from [place] Endocrine/Metabolic History: Reports: Diabetes, Type II Hematologic History: Reports: None Immunologic History: Reports: None Oncologic (Cancer) History: Reports: Other (See Below) Other Oncologic History: pt. doesn't know what type of cancer he was diagnosed with Dermatologic History: Reports: Other (See Below) Other Dermatologic History: eccymotic area to left hip, left upper arm, and left ear from fall when pt. tripped over [email or web address] about a week ago. - Infectious Disease History Infectious Disease History: Reports: Chicken Pox Other Infectious Disease History: unable to obtain history. client altered mental status and pt family uncertain. - Past Surgical History Cardiovascular Surgical History: Reports: Coronary Artery Stent GI Surgical History: Reports: Hernia, Inguinal Other GI Surgeries/Procedures: left side igunial hernia repair Social & Family History - Family History Family Medical History: Noncontributory Cardiac: Reports: CAD Endocrine/Metabolic: Reports: Diabetes, type II Oncologic: Reports: Other (See Below) Other Oncologic Family History: brother, mom,sister unknown types - Tobacco Use Smoking Status *Q: Never Smoker Second Hand Smoke Exposure: No - Caffeine Use Caffeine Use: Reports: Coffee, Soda Other Caffeine Use: 2 cups a day - Recreational Drug Use Recreational Drug Use: No - Living Situation & Occupation Living situation: Reports: with Family Occupation: Retired H&P Review of Systems - Review of Systems: Review Of Systems: See Below General: Denies: Fever Pulmonary: Denies: Shortness of Breath Cardiovascular: Denies: Chest Pain Gastrointestinal: Denies: Abdominal Pain Musculoskeletal: Reports: Back Pain (Chronic) Psychiatric: Reports: Confusion Neurological: Reports: Confusion, Other (Fall with no apparent injury earlier today). Denies: Syncope Hematologic/Lymphatic: Reports: Anemia Exam - Exam Exam: See Below - Vital Signs Vital Signs: Last Vital Signs Temp 36.4 C 09/28/17 16:27 Pulse 118 H 09/28/17 18:34 Resp 16 09/28/17 18:34 BP 164/71 H 09/28/17 18:34 Pulse Ox 99 09/28/17 18:34 Weight: 81.647 kg - Exam Quality Assessment: Supplemental Oxygen General: Alert, Oriented Neck: Supple Lungs: Clear to Auscultation, Normal Respiratory Effort Cardiovascular: Regular Rate, Regular Rhythm, Systolic Murmur Extremities: No Pedal Edema - Patient Data Lab Results Last 24 hrs: Laboratory Results - last 24 hr 09/28/17 09/28/17 09/28/17 Range/Units 16:48 16:48 16:48 WBC 7.3 (5.0-10.0) 10^3/uL RBC 4.61 (4.6-6.2) 10^6/uL Hgb 14.2 (14.0-18.0) g/dL Hct 41.0 (40.0-54.0) % MCV 88.9 (80-100) fL MCH 30.8 (27.0-34.0) pg MCHC 34.6 (33.0-35.0) g/dL Plt Count 231 (150-450) 10^3/uL Neut % (Auto) 79.8 H (42.2-75.2) % Lymph % (Auto) 11.6 L (20.5-50.1) % Dewitt % (Auto) 7.8 (2-8) % Eos % (Auto) 0.5 L (1.0-3.0) % Baso % (Auto) 0.3 (0.0-1.0) % ABG pH (7.35-7.45) ABG pCO2 (35-45) mmHg ABG pO2 (70-100) mmHg ABG HCO3 (22-26) mmol/L ABG O2 Saturation (95-100) % ABG Base Excess ((-2)-(+3)) mmol/L O2 Delivery Device Oxygen Flow Rate Sodium 124 L (135-145) mmol/L Potassium 6.1 H (3.6-5.0) mmol/L Chloride 89 L (101-111) mmol/L Carbon Dioxide 25.0 (21.0-31.0) mmol/L Anion Gap 16.1 BUN 57 H D (7-18) mg/dL Creatinine 2.9 H (0.6-1.3) mg/dL Est Cr Clr Drug Dosing 24.90 mL/min Estimated GFR (MDRD) 21 BUN/Creatinine Ratio 19.65 Glucose 454 H* (74-105) mg/dL POC Glucose (83-110) mg/dl Calcium 8.9 (8.4-10.2) mg/dl Magnesium (1.8-2.5) mg/dL Total Bilirubin 1.0 (0.2-1.0) mg/dL AST 18 (10-42) IU/L ALT 23 (10-60) IU/L Alkaline Phosphatase 135 H (42-121) IU/L Creatine Kinase (26-174) IU/L Creatine Kinase Index (0-2.4) % CK-MB (CK-2) (0.4-4.7) ng/mL Troponin I (0.00-0.02) ng/ml B-Natriuretic Peptide 21 (0-100) pg/ml Total Protein 6.8 (6.7-8.2) g/dl Albumin 3.8 (3.2-5.5) g/dl Globulin 3.0 Albumin/Globulin Ratio 1.27 Ethyl Alcohol < 5 mg/dL Ketones Positive 09/28/17 09/28/17 09/28/17 Range/Units 16:48 16:48 16:48 WBC (5.0-10.0) 10^3/uL RBC (4.6-6.2) 10^6/uL Hgb (14.0-18.0) g/dL Hct (40.0-54.0) % MCV (80-100) fL MCH (27.0-34.0) pg MCHC (33.0-35.0) g/dL Plt Count (150-450) 10^3/uL Neut % (Auto) (42.2-75.2) % Lymph % (Auto) (20.5-50.1) % Dewitt % (Auto) (2-8) % Eos % (Auto) (1.0-3.0) % Baso % (Auto) (0.0-1.0) % ABG pH (7.35-7.45) ABG pCO2 (35-45) mmHg ABG pO2 (70-100) mmHg ABG HCO3 (22-26) mmol/L ABG O2 Saturation (95-100) % ABG Base Excess ((-2)-(+3)) mmol/L O2 Delivery Device Oxygen Flow Rate Sodium (135-145) mmol/L Potassium (3.6-5.0) mmol/L Chloride (101-111) mmol/L Carbon Dioxide (21.0-31.0) mmol/L Anion Gap BUN (7-18) mg/dL Creatinine (0.6-1.3) mg/dL Est Cr Clr Drug Dosing mL/min Estimated GFR (MDRD) BUN/Creatinine Ratio Glucose (74-105) mg/dL POC Glucose (83-110) mg/dl Calcium (8.4-10.2) mg/dl Magnesium 2.3 (1.8-2.5) mg/dL Total Bilirubin (0.2-1.0) mg/dL AST (10-42) IU/L ALT (10-60) IU/L Alkaline Phosphatase (42-121) IU/L Creatine Kinase 89 (26-174) IU/L Creatine Kinase Index 4.6 H (0-2.4) % CK-MB (CK-2) 4.10 (0.4-4.7) ng/mL Troponin I < 0.02 (0.00-0.02) ng/ml B-Natriuretic Peptide (0-100) pg/ml Total Protein (6.7-8.2) g/dl Albumin (3.2-5.5) g/dl Globulin Albumin/Globulin Ratio Ethyl Alcohol mg/dL Ketones 09/28/17 09/28/17 09/28/17 Range/Units 16:51 17:48 18:15 WBC (5.0-10.0) 10^3/uL RBC (4.6-6.2) 10^6/uL Hgb (14.0-18.0) g/dL Hct (40.0-54.0) % MCV (80-100) fL MCH (27.0-34.0) pg MCHC (33.0-35.0) g/dL Plt Count (150-450) 10^3/uL Neut % (Auto) (42.2-75.2) % Lymph % (Auto) (20.5-50.1) % Dewitt % (Auto) (2-8) % Eos % (Auto) (1.0-3.0) % Baso % (Auto) (0.0-1.0) % ABG pH 7.33 L (7.35-7.45) ABG pCO2 49 H (35-45) mmHg ABG pO2 80 (70-100) mmHg ABG HCO3 25.4 (22-26) mmol/L ABG O2 Saturation 96 (95-100) % ABG Base Excess -1 ((-2)-(+3)) mmol/L O2 Delivery Device Room air Oxygen Flow Rate 4 Sodium (135-145) mmol/L Potassium (3.6-5.0) mmol/L Chloride (101-111) mmol/L Carbon Dioxide (21.0-31.0) mmol/L Anion Gap BUN (7-18) mg/dL Creatinine (0.6-1.3) mg/dL Est Cr Clr Drug Dosing mL/min Estimated GFR (MDRD) BUN/Creatinine Ratio Glucose (74-105) mg/dL POC Glucose > 500 H* > 500 H* (83-110) mg/dl Calcium (8.4-10.2) mg/dl Magnesium (1.8-2.5) mg/dL Total Bilirubin (0.2-1.0) mg/dL AST (10-42) IU/L ALT (10-60) IU/L Alkaline Phosphatase (42-121) IU/L Creatine Kinase (26-174) IU/L Creatine Kinase Index (0-2.4) % CK-MB (CK-2) (0.4-4.7) ng/mL Troponin I (0.00-0.02) ng/ml B-Natriuretic Peptide (0-100) pg/ml Total Protein (6.7-8.2) g/dl Albumin (3.2-5.5) g/dl Globulin Albumin/Globulin Ratio Ethyl Alcohol mg/dL Ketones 09/28/17 Range/Units 19:28 WBC (5.0-10.0) 10^3/uL RBC (4.6-6.2) 10^6/uL Hgb (14.0-18.0) g/dL Hct (40.0-54.0) % MCV (80-100) fL MCH (27.0-34.0) pg MCHC (33.0-35.0) g/dL Plt Count (150-450) 10^3/uL Neut % (Auto) (42.2-75.2) % Lymph % (Auto) (20.5-50.1) % Dewitt % (Auto) (2-8) % Eos % (Auto) (1.0-3.0) % Baso % (Auto) (0.0-1.0) % ABG pH (7.35-7.45) ABG pCO2 (35-45) mmHg ABG pO2 (70-100) mmHg ABG HCO3 (22-26) mmol/L ABG O2 Saturation (95-100) % ABG Base Excess ((-2)-(+3)) mmol/L O2 Delivery Device Oxygen Flow Rate Sodium (135-145) mmol/L Potassium (3.6-5.0) mmol/L Chloride (101-111) mmol/L Carbon Dioxide (21.0-31.0) mmol/L Anion Gap BUN (7-18) mg/dL Creatinine (0.6-1.3) mg/dL Est Cr Clr Drug Dosing mL/min Estimated GFR (MDRD) BUN/Creatinine Ratio Glucose (74-105) mg/dL POC Glucose > 500 H* (83-110) mg/dl Calcium (8.4-10.2) mg/dl Magnesium (1.8-2.5) mg/dL Total Bilirubin (0.2-1.0) mg/dL AST (10-42) IU/L ALT (10-60) IU/L Alkaline Phosphatase (42-121) IU/L Creatine Kinase (26-174) IU/L Creatine Kinase Index (0-2.4) % CK-MB (CK-2) (0.4-4.7) ng/mL Troponin I (0.00-0.02) ng/ml B-Natriuretic Peptide (0-100) pg/ml Total Protein (6.7-8.2) g/dl Albumin (3.2-5.5) g/dl Globulin Albumin/Globulin Ratio Ethyl Alcohol mg/dL Ketones Result Diagrams: 09/28/17 16:48 09/28/17 16:48 Problem List Initiated/Reviewed/Updated: Yes Orders Last 24hrs: Active Orders 24 hr Category Date Time Status Blood Glucose Check, Bedside [] ONETIME Care 09/28/17 16:36 Active Blood Glucose Check, Bedside [] ONETIME Care 09/28/17 17:44 Active Blood Glucose Check, Bedside [] ONETIME Care 09/28/17 18:38 Active EKG 12 Lead [EKG Documentation Completion] [] STAT Care 09/28/17 16:36 Active RT Aerosol Therapy [] ASDIRECTED Care 09/28/17 17:34 Active Insulin Regular, Human [HumuLIN R] 100 unit Med 09/28/17 19:45 Active Sodium Chloride 0.9% [Normal Saline] 99 ml IV TITRATE Sodium Chloride 0.9% [Normal Saline] 1,000 ml Med 09/28/17 19:33 Active IV .BOLUS Sodium Chloride 0.9% [Normal Saline] 1,000 ml Med 09/28/17 17:45 Active IV ASDIRECTED Medication Orders Sodium Chloride (Normal Saline) 1,000 mls @ 200 mls/hr IV ASDIRECTED KARMEN Last Admin: 09/28/17 17:50 Dose: 200 mls/hr Insulin Human Regular 100 unit (/ Sodium Chloride) 100 mls @ 4 mls/hr IV TITRATE KARMEN; Protocol Last Admin: 09/28/17 19:45 Dose: 4 unit/hr, 4 mls/hr Sodium Chloride (Normal Saline) 1,000 mls @ 999 mls/hr IV .BOLUS ONE Stop: 09/28/17 20:33 Assessment/Plan Comment:: Acute encephalopathy Likely metabolic due to acute renal failure, hyperkalemia, hyperglycemia DKA With elevated anion gap, metabolic acidosis, elevated blood sugar This is due to missing insulin doses, drinking non-Diet Coke and 7-Up. Start insulin drip Hydrate well Replace electrolytes as needed Follow anion gap Recheck electrolytes including magnesium, phosphorus in 4 hours Acute renal failure with chronic kidney disease stage III With baseline creatinine of the 1.5-2 Likely due to dehydration due to DKA Will hydrate well, given a second liter IV fluid bolus Follow electrolytes Hyperkalemia Due to acute renal failure Received Kayexalate, insulin drip, Recheck electrolytes in 4 hours Hyponatremia This is likely combination of throat hyponatremia which is likely mild and significant pseudohyponatremia due to elevated blood sugars. Well follow Coronary artery disease Continue treatment with Lipitor, Plavix, imdur Hold Cozaar with the acute renal failure component DVT prophylaxis will be with subcutaneous heparin
[2017-09-28] MEDS ORDERED: oxyCODONE 5 MG Tab PO PRN (20:11)
[2017-09-28] MEDS ORDERED: Ondansetron 4 MG/2 ML SDV IVPUSH PRN (20:11)
[2017-09-28] MEDS ORDERED: Acetaminophen 325 MG Tab PO PRN (20:11)
[2017-09-28] MEDS ORDERED: Zolpidem 5 MG Tab PO PRN (20:11)
[2017-09-28] MEDS ORDERED: Morphine 2 MG/ML Syringe IVPUSH PRN (20:11)
[2017-09-28] MEDS ORDERED: Ondansetron 4 MG Tab.DIS PO PRN (20:11)
[2017-09-28] MEDS: Famotidine 20 MG Tab PO SCH (20:57)
[2017-09-28] MEDS: Heparin Sodium 5,000 Units/ML Vial SUBCUT SCH ×2 (20:58→22:07)
[2017-09-28] MEDS ORDERED: atorvaSTATin 20 MG Tab PO SCH (21:00)
[2017-09-28] MEDS ORDERED: Latanoprost 0.005% Ophth Soln 2.5 ML Bottle EYEBOTH SCH (21:00)
[2017-09-29] MEDS: Dextrose 5%-0.9% NaCl 1,000 ML IV SCH ×2 (00:11→06:24)
[2017-09-29] MEDS: Heparin Sodium 5,000 Units/ML Vial SUBCUT SCH (05:34)
--- NOTE | 2017-09-29 08:10 | EDM.PDOC ---
Scribed by Chanda Mustafa 09/28/17 [id number] for Hugh Powers MD ED HPI GENERAL MEDICAL PROBLEM - General Chief Complaint: Diabetic Complaint [facility] Time Seen by Provider: 09/28/17 16:27 Source of Information: Reports: Patient, RN, RN Notes Reviewed, Other ([facility] ) - History of Present Illness INITIAL COMMENTS - FREE TEXT/NARRATIVE: Patient presents to ER from [facility] with complaint of hypotension with blood sugar greater than 500 and confusion. Patient's sister reports that she was not aware of any confusion. Patient's grandson states he noticed confusion on and off for most of today. Patient denies any specific medical concerns. He states that he has not used his insulin for several days, but later stated that he did used his long acting insulin. Pt denies any pain, or recent ill or injury. Pt's grandson states the pt fell in the lawn earlier today. Pt denies any injury. [facility] nurse calls to report pt's medications are dispensed to him every 1 to 2 weeks to help with compliance, therefore he may not be taking them as prescribed , but does have them available unless he lost them. Onset: Unknown/Unsure Duration: Constant, Recurring Location: Reports: Generalized Severity: Mild Improves with: Reports: None Worsens with: Reports: None Associated Symptoms: Reports: No Other Symptoms Headache Pain Score (Numeric/FACES): 8 - Related Data Allergies Allergy/AdvReac Type Severity Reaction Status Date / Time No Known Allergies Allergy Verified 09/28/17 19:57 Home Meds: Home Meds Calcitriol 0.25 mcg PO DAILY 05/28/13 [History] Nitroglycerin [Nitrostat] 0.4 mg SL ASDIRECTED PRN 05/28/13 [History] atorvaSTATin Calcium [Atorvastatin Calcium] 80 mg PO BEDTIME 05/28/13 [History] Latanoprost [Xalatan 0.005% Ophth Soln] 1 drop EYEBOTH BEDTIME 09/03/15 [History ] Clopidogrel [Plavix] 75 mg PO DAILY 01/07/16 [History] DULoxetine [Cymbalta] 30 mg PO DAILY 01/07/16 [History] Finasteride [Proscar] 5 mg PO DAILY 01/07/16 [History] Insulin Aspart [NovoLOG] 5 unit SUBCUT TIDMEALS 02/10/17 [History] Insulin Detemir [Levemir] 5 unit SUBCUT BEDTIME 02/10/17 [History] Insulin Detemir [Levemir] 48 unit SUBCUT QAM 02/10/17 [History] Losartan [Cozaar] 50 mg PO DAILY 02/10/17 [History] Magnesium Oxide 420 mg PO BID 02/10/17 [History] Cholecalciferol (Vitamin D3) [Vitamin D3] 1,000 unit PO DAILY 09/28/17 [History] Isosorbide Mononitrate [Imdur] 30 mg PO DAILY 09/28/17 [History] Ranitidine HCl [Ranitidine] 150 mg PO BID 09/28/17 [History] Past Medical History HEENT History: Reports: Impaired Vision Other HEENT History: wears glasses Cardiovascular History: Reports: CAD, High Cholesterol, Hypertension, Stents Other Cardiovascular History: Transient hypotension Respiratory History: Reports: Other (See Below) Other Respiratory History: spot of lung and they said to keep an eye on it. Gastrointestinal History: Reports: None Genitourinary History: Reports: Chronic Renal Insuffiency Other Genitourinary History: urinary tract obstruction-self caths self when stream gets slow Musculoskeletal History: Reports: Back Pain, Chronic Other Musculoskeletal History: broke both ankles, broken ribs, collar bone, jaw , toes and 5-6 hairline fx of skull due to rodeo Neurological History: Reports: Headaches, Chronic Other Neuro History: heasdaches since 1966 Psychiatric History: Reports: Other (See Below) Other Psychiatric History: has noc bishop from [place] Endocrine/Metabolic History: Reports: Diabetes, Type II Hematologic History: Reports: None Immunologic History: Reports: None Oncologic (Cancer) History: Reports: Other (See Below) Other Oncologic History: pt. doesn't know what type of cancer he was diagnosed with Dermatologic History: Reports: Other (See Below) Other Dermatologic History: eccymotic area to left hip, left upper arm, and left ear from fall when pt. tripped over trailer hitch about a week ago. - Infectious Disease History Infectious Disease History: Reports: Chicken Pox Other Infectious Disease History: unable to obtain history. client altered mental status and pt family uncertain. - Past Surgical History Cardiovascular Surgical History: Reports: Coronary Artery Stent GI Surgical History: Reports: Hernia, Inguinal Other GI Surgeries/Procedures: left side igunial hernia repair Social & Family History - Family History Family Medical History: Noncontributory Cardiac: Reports: CAD Endocrine/Metabolic: Reports: Diabetes, type II Oncologic: Reports: Other (See Below) Other Oncologic Family History: brother, mom,sister unknown types - Caffeine Use Caffeine Use: Reports: Coffee Other Caffeine Use: 2 cups a day - Living Situation & Occupation Living situation: Reports: with Family Occupation: Retired ED ROS GENERAL - Review of Systems Review Of Systems: ROS reveals no pertinent complaints other than HPI. ED EXAM GENERAL NO PERIP PULSE - Physical Exam Exam: See Below Exam Limited By: No Limitations General Appearance: Alert, No Apparent Distress, Other (chronically ill appearing) Eye Exam: Bilateral Eye: Normal Inspection Ears: Hearing Grossly Normal Nose: Normal Inspection Throat/Mouth: Normal Lips, Normal Voice, No Airway Compromise Head: Atraumatic, Normocephalic Neck: Normal Inspection, Full Range of Motion Respiratory/Chest: No Respiratory Distress, Lungs Clear, Normal Breath Sounds, No Accessory Muscle Use, Chest Non-Tender Cardiovascular: Regular Rate, Rhythm, No Edema, Tachycardia GI/Abdominal: Normal Bowel Sounds, Soft, Non-Tender, No Distention (Male) Exam: Deferred Rectal (Males) Exam: Deferred Back Exam: Normal Inspection Extremities: Normal Inspection, Non-Tender, No Pedal Edema Neurological: Alert, No Motor/Sensory Deficits, Confused (random, intermittent episodes of confusion/delirium), Other (oriented to person and place) Psychiatric: Flat Affect Skin Exam: Warm, Dry, Intact, Normal Color, No Rash EKG INTERPRETATION EKG Date: 09/28/17 Time: 16:36 Rhythm: Other (sinus tachycardia) Rate (Beats/Min): 103 [place]: Normal P-Wave: Present QRS: Normal ST-T: Other (slight diffuse ST elevations) QT: Normal Comparison: No Change Course - Vital Signs Last Recorded V/S: Last Vital Signs Temp 36.6 C 09/29/17 00:11 Pulse 88 09/29/17 00:11 Resp 16 09/29/17 00:11 BP 132/64 09/29/17 00:11 Pulse Ox 95 09/29/17 00:11 - Orders/Labs/Meds Orders: Active Orders 24 hr Category Date Time Status Blood Glucose Check, Bedside [RC] ONETIME Care 09/28/17 16:36 Active Blood Glucose Check, Bedside [RC] ONETIME Care 09/28/17 17:44 Active Blood Glucose Check, Bedside [] ONETIME Care 09/28/17 18:38 Active Communication Order [] ROUTINE Care 09/28/17 20:03 Active EKG 12 Lead [EKG Documentation Completion] [] STAT Care 09/28/17 16:36 Active RT Aerosol Therapy [] ASDIRECTED Care 09/28/17 17:34 Active Calcitriol [Rocaltrol] Med 09/29/17 09:00 Active 0.25 mcg PO DAILY Clopidogrel [Plavix] Med 09/29/17 09:00 Active 75 mg PO DAILY DULoxetine [Cymbalta] Med 09/29/17 09:00 Active 30 mg PO DAILY Famotidine [Pepcid] Med 09/28/17 21:00 Active 10 mg PO BID Finasteride [Proscar] Med 09/29/17 09:00 Active 5 mg PO DAILY Isosorbide Mononitrate [Imdur] Med 09/29/17 09:00 Active 30 mg PO DAILY Latanoprost [Xalatan 0.005% Oph Soln] Med 09/28/17 21:00 Active 0 ml EYEBOTH BEDTIME atorvaSTATin [Lipitor] Med 09/28/17 21:00 Active 80 mg PO BEDTIME Medication Orders Acetaminophen (Tylenol) 650 mg PO Q4H PRN PRN Reason: Pain (Mild 1-3)/fever Atorvastatin Calcium (Lipitor) 80 mg PO BEDTIME [facility] Last Admin: 09/28/17 20:54 Dose: 80 mg Calcitriol (Rocaltrol) 0.25 mcg PO DAILY [facility] Clopidogrel Bisulfate (Plavix) 75 mg PO DAILY [facility] Duloxetine HCl (Cymbalta) 30 mg PO DAILY [facility] Famotidine (Pepcid) 10 mg PO BID [facility] Last Admin: 09/28/17 20:57 Dose: 10 mg Finasteride (Proscar) 5 mg PO DAILY [facility] Heparin Sodium (Porcine) (Heparin Sodium) 5,000 units SUBCUT Q8HR [facility] Last Admin: 09/29/17 05:34 Dose: 5,000 units Admin: 09/28/17 22:07 Dose: Admin: 09/28/17 20:58 Dose: 5,000 units Insulin Aspart (Novolog) 0 unit SUBCUT .QAC+HS [facility]; Protocol Isosorbide Mononitrate (Imdur) 30 mg PO DAILY [facility] Latanoprost (Xalatan 0.005% Ophth Soln) 0 ml EYEBOTH BEDTIME [facility] Last Admin: 09/28/17 21:01 Dose: 1 drop Morphine Sulfate (Morphine) 1 mg IVPUSH Q2H PRN PRN Reason: Pain (severe 7-10) Ondansetron HCl (Zofran Odt) 4 mg PO Q4H PRN PRN Reason: nausea, able to take PO Ondansetron HCl (Zofran) 4 mg IVPUSH Q6H PRN PRN Reason: Nausea/Vomiting Oxycodone HCl (Oxycodone) 5 mg PO Q4H PRN PRN Reason: Pain (moderate 4-6) Zolpidem Tartrate (Ambien) 5 mg PO BEDTIME PRN PRN Reason: Sleep Last Admin: 09/28/17 20:57 Dose: 5 mg Labs: Laboratory Tests 09/28/17 09/28/17 09/28/17 Range/Units 16:48 16:48 16:48 WBC 7.3 (5.0-10.0) 10^3/uL RBC 4.61 (4.6-6.2) 10^6/uL Hgb 14.2 (14.0-18.0) g/dL Hct 41.0 (40.0-54.0) % MCV 88.9 (80-100) fL MCH 30.8 (27.0-34.0) pg MCHC 34.6 (33.0-35.0) g/dL Plt Count 231 (150-450) 10^3/uL Neut % (Auto) 79.8 H (42.2-75.2) % Lymph % (Auto) 11.6 L (20.5-50.1) % [place] % (Auto) 7.8 (2-8) % Eos % (Auto) 0.5 L (1.0-3.0) % Baso % (Auto) 0.3 (0.0-1.0) % ABG pH (7.35-7.45) ABG pCO2 (35-45) mmHg ABG pO2 (70-100) mmHg ABG HCO3 (22-26) mmol/L ABG O2 Saturation (95-100) % ABG Base Excess ((-2)-(+3)) mmol/L O2 Delivery Device Oxygen Flow Rate Sodium 124 L (135-145) mmol/L Potassium 6.1 H (3.6-5.0) mmol/L Chloride 89 L (101-111) mmol/L Carbon Dioxide 25.0 (21.0-31.0) mmol/L Anion Gap 16.1 BUN 57 H D (7-18) mg/dL Creatinine 2.9 H (0.6-1.3) mg/dL Est Cr Clr Drug Dosing 24.90 mL/min Estimated GFR (MDRD) 21 BUN/Creatinine Ratio 19.65 Glucose 454 H* (74-105) mg/dL POC Glucose (83-110) mg/dl Calcium 8.9 (8.4-10.2) mg/dl Magnesium (1.8-2.5) mg/dL Total Bilirubin 1.0 (0.2-1.0) mg/dL AST 18 (10-42) IU/L ALT 23 (10-60) IU/L Alkaline Phosphatase 135 H (42-121) IU/L Creatine Kinase (26-174) IU/L Creatine Kinase Index (0-2.4) % CK-MB (CK-2) (0.4-4.7) ng/mL Troponin I (0.00-0.02) ng/ml B-Natriuretic Peptide 21 (0-100) pg/ml Total Protein 6.8 (6.7-8.2) g/dl Albumin 3.8 (3.2-5.5) g/dl Globulin 3.0 Albumin/Globulin Ratio 1.27 Ethyl Alcohol < 5 mg/dL Ketones Positive 09/28/17 09/28/17 09/28/17 Range/Units 16:48 16:48 16:48 WBC (5.0-10.0) 10^3/uL RBC (4.6-6.2) 10^6/uL Hgb (14.0-18.0) g/dL Hct (40.0-54.0) % MCV (80-100) fL MCH (27.0-34.0) pg MCHC (33.0-35.0) g/dL Plt Count (150-450) 10^3/uL Neut % (Auto) (42.2-75.2) % Lymph % (Auto) (20.5-50.1) % [place] % (Auto) (2-8) % Eos % (Auto) (1.0-3.0) % Baso % (Auto) (0.0-1.0) % ABG pH (7.35-7.45) ABG pCO2 (35-45) mmHg ABG pO2 (70-100) mmHg ABG HCO3 (22-26) mmol/L ABG O2 Saturation (95-100) % ABG Base Excess ((-2)-(+3)) mmol/L O2 Delivery Device Oxygen Flow Rate Sodium (135-145) mmol/L Potassium (3.6-5.0) mmol/L Chloride (101-111) mmol/L Carbon Dioxide (21.0-31.0) mmol/L Anion Gap BUN (7-18) mg/dL Creatinine (0.6-1.3) mg/dL Est Cr Clr Drug Dosing mL/min Estimated GFR (MDRD) BUN/Creatinine Ratio Glucose (74-105) mg/dL POC Glucose (83-110) mg/dl Calcium (8.4-10.2) mg/dl Magnesium 2.3 (1.8-2.5) mg/dL Total Bilirubin (0.2-1.0) mg/dL AST (10-42) IU/L ALT (10-60) IU/L Alkaline Phosphatase (42-121) IU/L Creatine Kinase 89 (26-174) IU/L Creatine Kinase Index 4.6 H (0-2.4) % CK-MB (CK-2) 4.10 (0.4-4.7) ng/mL Troponin I < 0.02 (0.00-0.02) ng/ml B-Natriuretic Peptide (0-100) pg/ml Total Protein (6.7-8.2) g/dl Albumin (3.2-5.5) g/dl Globulin Albumin/Globulin Ratio Ethyl Alcohol mg/dL Ketones 09/28/17 09/28/17 09/28/17 Range/Units 16:51 17:48 18:15 WBC (5.0-10.0) 10^3/uL RBC (4.6-6.2) 10^6/uL Hgb (14.0-18.0) g/dL Hct (40.0-54.0) % MCV (80-100) fL MCH (27.0-34.0) pg MCHC (33.0-35.0) g/dL Plt Count (150-450) 10^3/uL Neut % (Auto) (42.2-75.2) % Lymph % (Auto) (20.5-50.1) % [place] % (Auto) (2-8) % Eos % (Auto) (1.0-3.0) % Baso % (Auto) (0.0-1.0) % ABG pH 7.33 L (7.35-7.45) ABG pCO2 49 H (35-45) mmHg ABG pO2 80 (70-100) mmHg ABG HCO3 25.4 (22-26) mmol/L ABG O2 Saturation 96 (95-100) % ABG Base Excess -1 ((-2)-(+3)) mmol/L O2 Delivery Device Room air Oxygen Flow Rate 4 Sodium (135-145) mmol/L Potassium (3.6-5.0) mmol/L Chloride (101-111) mmol/L Carbon Dioxide (21.0-31.0) mmol/L Anion Gap BUN (7-18) mg/dL Creatinine (0.6-1.3) mg/dL Est Cr Clr Drug Dosing mL/min Estimated GFR (MDRD) BUN/Creatinine Ratio Glucose (74-105) mg/dL POC Glucose > 500 H* > 500 H* (83-110) mg/dl Calcium (8.4-10.2) mg/dl Magnesium (1.8-2.5) mg/dL Total Bilirubin (0.2-1.0) mg/dL AST (10-42) IU/L ALT (10-60) IU/L Alkaline Phosphatase (42-121) IU/L Creatine Kinase (26-174) IU/L Creatine Kinase Index (0-2.4) % CK-MB (CK-2) (0.4-4.7) ng/mL Troponin I (0.00-0.02) ng/ml B-Natriuretic Peptide (0-100) pg/ml Total Protein (6.7-8.2) g/dl Albumin (3.2-5.5) g/dl Globulin Albumin/Globulin Ratio Ethyl Alcohol mg/dL Ketones 09/28/17 Range/Units 19:28 WBC (5.0-10.0) 10^3/uL RBC (4.6-6.2) 10^6/uL Hgb (14.0-18.0) g/dL Hct (40.0-54.0) % MCV (80-100) fL MCH (27.0-34.0) pg MCHC (33.0-35.0) g/dL Plt Count (150-450) 10^3/uL Neut % (Auto) (42.2-75.2) % Lymph % (Auto) (20.5-50.1) % [place] % (Auto) (2-8) % Eos % (Auto) (1.0-3.0) % Baso % (Auto) (0.0-1.0) % ABG pH (7.35-7.45) ABG pCO2 (35-45) mmHg ABG pO2 (70-100) mmHg ABG HCO3 (22-26) mmol/L ABG O2 Saturation (95-100) % ABG Base Excess ((-2)-(+3)) mmol/L O2 Delivery Device Oxygen Flow Rate Sodium (135-145) mmol/L Potassium (3.6-5.0) mmol/L Chloride (101-111) mmol/L Carbon Dioxide (21.0-31.0) mmol/L Anion Gap BUN (7-18) mg/dL Creatinine (0.6-1.3) mg/dL Est Cr Clr Drug Dosing mL/min Estimated GFR (MDRD) BUN/Creatinine Ratio Glucose (74-105) mg/dL POC Glucose > 500 H* (83-110) mg/dl Calcium (8.4-10.2) mg/dl Magnesium (1.8-2.5) mg/dL Total Bilirubin (0.2-1.0) mg/dL AST (10-42) IU/L ALT (10-60) IU/L Alkaline Phosphatase (42-121) IU/L Creatine Kinase (26-174) IU/L Creatine Kinase Index (0-2.4) % CK-MB (CK-2) (0.4-4.7) ng/mL Troponin I (0.00-0.02) ng/ml B-Natriuretic Peptide (0-100) pg/ml Total Protein (6.7-8.2) g/dl Albumin (3.2-5.5) g/dl Globulin Albumin/Globulin Ratio Ethyl Alcohol mg/dL Ketones Meds: Medications Generic Name Dose Route Start Last Admin Trade Name Freq PRN Reason Stop Dose Admin Acetaminophen 650 mg 09/28/17 20:11 Tylenol PO Q4H PRN Pain (Mild 1-3)/fever Atorvastatin Calcium 80 mg 09/28/17 21:00 09/28/17 20:54 Lipitor PO 80 mg BEDTIME [facility] Administration Calcitriol 0.25 mcg 09/29/17 09:00 Rocaltrol PO DAILY [facility] Clopidogrel Bisulfate 75 mg 09/29/17 09:00 Plavix PO DAILY [facility] Duloxetine HCl 30 mg 09/29/17 09:00 Cymbalta PO DAILY [facility] Famotidine 10 mg 09/28/17 21:00 09/28/17 20:57 Pepcid PO 10 mg BID [facility] Administration Finasteride 5 mg 09/29/17 09:00 Proscar PO DAILY [facility] Heparin Sodium (Porcine) 5,000 units 09/28/17 22:00 09/29/17 05:34 Heparin Sodium SUBCUT 5,000 units Q8HR [facility] Administration Insulin Aspart 0 unit 09/29/17 08:00 Novolog SUBCUT .QAC+HS [facility] Protocol Isosorbide Mononitrate 30 mg 09/29/17 09:00 Imdur PO DAILY [facility] Latanoprost 0 ml 09/28/17 21:00 09/28/17 21:01 Xalatan 0.005% Ophth Soln EYEBOTH 1 drop BEDTIME [facility] Administration Morphine Sulfate 1 mg 09/28/17 20:11 Morphine IVPUSH Q2H PRN Pain (severe 7-10) Ondansetron HCl 4 mg 09/28/17 20:11 Zofran Odt PO Q4H PRN nausea, able to take PO Ondansetron HCl 4 mg 09/28/17 20:11 Zofran IVPUSH Q6H PRN Nausea/Vomiting Oxycodone HCl 5 mg 09/28/17 20:11 Oxycodone PO Q4H PRN Pain (moderate 4-6) Zolpidem Tartrate 5 mg 09/28/17 20:11 09/28/17 20:57 Ambien PO 5 mg BEDTIME PRN Administration Sleep Discontinued Medications Generic Name Dose Route Start Last Admin Trade Name Fauzia PRN Reason Stop Dose Admin Albuterol 10 mg 09/28/17 17:33 09/28/17 17:56 Proventil Neb Soln NEB 09/28/17 17:34 10 mg ONETIME ONE Administration Calcium Chloride 1 gm 09/28/17 17:34 09/28/17 17:51 Calcium Chloride 10% IVPUSH 09/28/17 17:35 1 gm ONETIME ONE Administration Sodium Chloride 1,000 mls @ 200 mls/hr 09/28/17 17:45 09/28/17 21:31 Normal Saline IV 200 mls/hr ASDIRECTED [facility] Administration Insulin Human Regular 100 unit 100 mls @ 4 mls/hr 09/28/17 19:45 09/29/17 04: 00 / Sodium Chloride IV 22.6 unit/hr TITRATE [facility] 22.6 mls/hr Infusion Protocol 4 UNIT/HR Sodium Chloride 1,000 mls @ 999 mls/hr 09/28/17 19:33 09/28/17 20:42 Normal Saline IV 09/28/17 20:33 999 mls/hr .BOLUS ONE Administration Dextrose/Sodium Chloride 1,000 mls @ 150 mls/hr 09/29/17 00:15 09/29/17 06:24 Dextrose 5%-Normal Saline IV 150 mls/hr ASDIRECTED [facility] Administration Insulin Aspart 10 unit 09/28/17 17:10 09/28/17 17:18 Novolog SUBCUT 09/28/17 17:11 10 units ONETIME ONE Administration Insulin Human Regular 10 unit 09/28/17 19:30 09/29/17 02:08 Humulin R IV 09/28/17 19:31 Not Given ONETIME ONE Insulin Human Regular 5 unit 09/28/17 19:39 09/28/17 19:41 Humulin R IV 09/28/17 19:40 5 units ONETIME ONE Administration Sodium Polystyrene Sulfonate 15 gm 09/28/17 17:34 09/28/17 17:50 Kayexalate PO 09/28/17 17:35 15 gm ONETIME ONE Administration Departure - Departure Time of Disposition: 19:00 (admitted to Dr. Rose) Disposition: Admitted As Inpatient 65 Condition: Serious Clinical Impression: Diabetic ketosis without coma, Acute hyperkalemia, Hyponatremia, Noncompliance with diabetes treatment Altered mental status Qualifiers: Altered mental status type: transient alteration of awareness Qualified Code(s) : R40.4 - Transient alteration of awareness Uncontrolled type 2 diabetes mellitus with hyperglycemia Qualifiers: Diabetes mellitus alf insulin use: with alf use Qualified Code(s): E11.65 - Type 2 diabetes mellitus with hyperglycemia; Z79.4 - termination clerk (current ) use of insulin - Discharge Information - My Orders Last 24 Hours: My Active Orders 09/28/17 16:36 Blood Glucose Check, Bedside [RC] ONETIME EKG 12 Lead [EKG Documentation Completion] [RC] STAT 09/28/17 17:34 RT Aerosol Therapy [RC] ASDIRECTED 09/28/17 17:44 Blood Glucose Check, Bedside [RC] ONETIME 09/28/17 18:38 Blood Glucose Check, Bedside [RC] ONETIME - Assessment/Plan Last 24 Hours: My Active Orders 09/28/17 16:36 Blood Glucose Check, Bedside [RC] ONETIME EKG 12 Lead [EKG Documentation Completion] [RC] STAT 09/28/17 17:34 RT Aerosol Therapy [RC] ASDIRECTED 09/28/17 17:44 Blood Glucose Check, Bedside [RC] ONETIME 09/28/17 18:38 Blood Glucose Check, Bedside [RC] ONETIME I have read and agree with the documentation that has been completed regarding this visit. By signing this record, I attest that the documentation was completed in my physical presence and is an accurate record of the encounter.
[2017-09-29 08:50] VITALS: BP 143/74
[2017-09-29] MEDS: Famotidine 20 MG Tab PO SCH (08:52)
[2017-09-29] MEDS: Insulin Aspart 100 Units/ML 3 ML Pen SUBCUT SCH ×2 (08:52→11:34)
[2017-09-29] MEDS ORDERED: DULoxetine 30 MG Cap PO SCH (09:00)
[2017-09-29] MEDS ORDERED: Calcitriol 0.25 MCG Cap PO SCH (09:00)
[2017-09-29] MEDS ORDERED: Finasteride 5 MG Tab PO SCH (09:00)
[2017-09-29] MEDS ORDERED: Isosorbide Mononitrate 30 MG Tab.ER PO SCH (09:00)
[2017-09-29] MEDS ORDERED: Clopidogrel 75 MG Tab PO SCH (09:00)
[2017-09-29] MEDS ORDERED: Insulin Detemir 100 Units/ML 3 ML Pen SUBCUT SCH (09:00)
--- NOTE | 2017-09-29 10:10 | PCM.DCSUM1 ---
Discharge Summary - Hospital Course Free Text/Narrative:: Acute encephalopathy Likely metabolic due to acute renal failure, hyperkalemia, hyperglycemia resolved DKA With elevated anion gap, metabolic acidosis, elevated blood sugar This is due to missing insulin doses, resolved with insulin drip, hydration resume home insulin regimen Acute renal failure with chronic kidney disease stage III With baseline creatinine of the 1.5-2 Likely due to dehydration due to DKA resolved with hydration Hyperkalemia Due to acute renal failure Received Kayexalate, insulin drip, resolved monitor in a few days Hyponatremia This is likely combination of throat hyponatremia which is likely mild and significant pseudohyponatremia due to elevated blood sugars. resolved Coronary artery disease Continue treatment with Lipitor, Plavix, imdur resume Cozaar Diagnosis: Stroke: No - Discharge Data Discharge Date: 09/29/17 Discharge Disposition: Home, Self-Care 01 Condition: Good - Discharge Plan Home Medications: Home Meds Calcitriol 0.25 mcg PO DAILY 05/28/13 [History] Nitroglycerin [Nitrostat] 0.4 mg SL ASDIRECTED PRN 05/28/13 [History] atorvaSTATin Calcium [Atorvastatin Calcium] 80 mg PO BEDTIME 05/28/13 [History] Latanoprost [Xalatan 0.005% Ophth Soln] 1 drop EYEBOTH BEDTIME 09/03/15 [History ] Clopidogrel [Plavix] 75 mg PO DAILY 01/07/16 [History] DULoxetine [Cymbalta] 30 mg PO DAILY 01/07/16 [History] Finasteride [Proscar] 5 mg PO DAILY 01/07/16 [History] Insulin Aspart [NovoLOG] 5 unit SUBCUT TIDMEALS 02/10/17 [History] Insulin Detemir [Levemir] 5 unit SUBCUT BEDTIME 02/10/17 [History] Insulin Detemir [Levemir] 48 unit SUBCUT QAM 02/10/17 [History] Losartan [Cozaar] 50 mg PO DAILY 02/10/17 [History] Magnesium Oxide 420 mg PO BID 02/10/17 [History] Cholecalciferol (Vitamin D3) [Vitamin D3] 1,000 unit PO DAILY 09/28/17 [History] Isosorbide Mononitrate [Imdur] 30 mg PO DAILY 09/28/17 [History] Ranitidine HCl [Ranitidine] 150 mg PO BID 09/28/17 [History] Forms: ED Department Discharge Referrals: PCP,None [Primary Care Provider] - (with [facility]) - General Info Date of Service: 09/29/17 Admission Dx/Problem (Free Text: confusion - Review of Systems General: Denies: Fever, Weakness Pulmonary: Denies: Shortness of Breath Gastrointestinal: Denies: Abdominal Pain Neurological: Denies: Confusion - Patient Data Vitals - Most Recent: Last Vital Signs Temp 36.6 C 09/29/17 08:00 Pulse 105 H 09/29/17 08:00 Resp 18 09/29/17 08:00 BP 143/74 H 09/29/17 08:51 Pulse Ox 99 09/29/17 08:00 Weight - Most Recent: 81.647 kg I&O - Last 24 hours: Intake & Output 09/28/17 09/29/17 09/29/17 22:59 06:59 14:59 Intake Total 980 1932 Output Total 410 850 Balance 570 1082 Lab Results - Last 24 hrs: Laboratory Results - last 24 hr 09/28/17 09/28/17 09/28/17 Range/Units 16:48 16:48 16:48 WBC 7.3 (5.0-10.0) 10^3/uL RBC 4.61 (4.6-6.2) 10^6/uL Hgb 14.2 (14.0-18.0) g/dL Hct 41.0 (40.0-54.0) % MCV 88.9 (80-100) fL MCH 30.8 (27.0-34.0) pg MCHC 34.6 (33.0-35.0) g/dL Plt Count 231 (150-450) 10^3/uL Neut % (Auto) 79.8 H (42.2-75.2) % Lymph % (Auto) 11.6 L (20.5-50.1) % [place] % (Auto) 7.8 (2-8) % Eos % (Auto) 0.5 L (1.0-3.0) % Baso % (Auto) 0.3 (0.0-1.0) % ABG pH (7.35-7.45) ABG pCO2 (35-45) mmHg ABG pO2 (70-100) mmHg ABG HCO3 (22-26) mmol/L ABG O2 Saturation (95-100) % ABG Base Excess ((-2)-(+3)) mmol/L O2 Delivery Device Oxygen Flow Rate Sodium 124 L (135-145) mmol/L Potassium 6.1 H (3.6-5.0) mmol/L Chloride 89 L (101-111) mmol/L Carbon Dioxide 25.0 (21.0-31.0) mmol/L Anion Gap 16.1 BUN 57 H D (7-18) mg/dL Creatinine 2.9 H (0.6-1.3) mg/dL Est Cr Clr Drug Dosing 24.90 mL/min Estimated GFR (MDRD) 21 BUN/Creatinine Ratio 19.65 Glucose 454 H* (74-105) mg/dL POC Glucose (83-110) mg/dl Calcium 8.9 (8.4-10.2) mg/dl Phosphorus (2.5-4.6) mg/dL Magnesium (1.8-2.5) mg/dL Total Bilirubin 1.0 (0.2-1.0) mg/dL AST 18 (10-42) IU/L ALT 23 (10-60) IU/L Alkaline Phosphatase 135 H (42-121) IU/L Creatine Kinase (26-174) IU/L Creatine Kinase Index (0-2.4) % CK-MB (CK-2) (0.4-4.7) ng/mL Troponin I (0.00-0.02) ng/ml B-Natriuretic Peptide 21 (0-100) pg/ml Total Protein 6.8 (6.7-8.2) g/dl Albumin 3.8 (3.2-5.5) g/dl Globulin 3.0 Albumin/Globulin Ratio 1.27 Ethyl Alcohol < 5 mg/dL Ketones Positive 09/28/17 09/28/17 09/28/17 Range/Units 16:48 16:48 16:48 WBC (5.0-10.0) 10^3/uL RBC (4.6-6.2) 10^6/uL Hgb (14.0-18.0) g/dL Hct (40.0-54.0) % MCV (80-100) fL MCH (27.0-34.0) pg MCHC (33.0-35.0) g/dL Plt Count (150-450) 10^3/uL Neut % (Auto) (42.2-75.2) % Lymph % (Auto) (20.5-50.1) % [place] % (Auto) (2-8) % Eos % (Auto) (1.0-3.0) % Baso % (Auto) (0.0-1.0) % ABG pH (7.35-7.45) ABG pCO2 (35-45) mmHg ABG pO2 (70-100) mmHg ABG HCO3 (22-26) mmol/L ABG O2 Saturation (95-100) % ABG Base Excess ((-2)-(+3)) mmol/L O2 Delivery Device Oxygen Flow Rate Sodium (135-145) mmol/L Potassium (3.6-5.0) mmol/L Chloride (101-111) mmol/L Carbon Dioxide (21.0-31.0) mmol/L Anion Gap BUN (7-18) mg/dL Creatinine (0.6-1.3) mg/dL Est Cr Clr Drug Dosing mL/min Estimated GFR (MDRD) BUN/Creatinine Ratio Glucose (74-105) mg/dL POC Glucose (83-110) mg/dl Calcium (8.4-10.2) mg/dl Phosphorus (2.5-4.6) mg/dL Magnesium 2.3 (1.8-2.5) mg/dL Total Bilirubin (0.2-1.0) mg/dL AST (10-42) IU/L ALT (10-60) IU/L Alkaline Phosphatase (42-121) IU/L Creatine Kinase 89 (26-174) IU/L Creatine Kinase Index 4.6 H (0-2.4) % CK-MB (CK-2) 4.10 (0.4-4.7) ng/mL Troponin I < 0.02 (0.00-0.02) ng/ml B-Natriuretic Peptide (0-100) pg/ml Total Protein (6.7-8.2) g/dl Albumin (3.2-5.5) g/dl Globulin Albumin/Globulin Ratio Ethyl Alcohol mg/dL Ketones 06/13/18 06/13/18 06/13/18 Range/Units 16:51 17:48 18:15 WBC (5.0-10.0) 10^3/uL RBC (4.6-6.2) 10^6/uL Hgb (14.0-18.0) g/dL Hct (40.0-54.0) % MCV (80-100) fL MCH (27.0-34.0) pg MCHC (33.0-35.0) g/dL Plt Count (150-450) 10^3/uL Neut % (Auto) (42.2-75.2) % Lymph % (Auto) (20.5-50.1) % [place] % (Auto) (2-8) % Eos % (Auto) (1.0-3.0) % Baso % (Auto) (0.0-1.0) % ABG pH 7.33 L (7.35-7.45) ABG pCO2 49 H (35-45) mmHg ABG pO2 80 (70-100) mmHg ABG HCO3 25.4 (22-26) mmol/L ABG O2 Saturation 96 (95-100) % ABG Base Excess -1 ((-2)-(+3)) mmol/L O2 Delivery Device Room air Oxygen Flow Rate 4 Sodium (135-145) mmol/L Potassium (3.6-5.0) mmol/L Chloride (101-111) mmol/L Carbon Dioxide (21.0-31.0) mmol/L Anion Gap BUN (7-18) mg/dL Creatinine (0.6-1.3) mg/dL Est Cr Clr Drug Dosing mL/min Estimated GFR (MDRD) BUN/Creatinine Ratio Glucose (74-105) mg/dL POC Glucose > 500 H* > 500 H* (83-110) mg/dl Calcium (8.4-10.2) mg/dl Phosphorus (2.5-4.6) mg/dL Magnesium (1.8-2.5) mg/dL Total Bilirubin (0.2-1.0) mg/dL AST (10-42) IU/L ALT (10-60) IU/L Alkaline Phosphatase (42-121) IU/L Creatine Kinase (26-174) IU/L Creatine Kinase Index (0-2.4) % CK-MB (CK-2) (0.4-4.7) ng/mL Troponin I (0.00-0.02) ng/ml B-Natriuretic Peptide (0-100) pg/ml Total Protein (6.7-8.2) g/dl Albumin (3.2-5.5) g/dl Globulin Albumin/Globulin Ratio Ethyl Alcohol mg/dL Ketones 09/28/17 09/28/17 09/28/17 Range/Units 19:28 21:05 21:58 WBC (5.0-10.0) 10^3/uL RBC (4.6-6.2) 10^6/uL Hgb (14.0-18.0) g/dL Hct (40.0-54.0) % MCV (80-100) fL MCH (27.0-34.0) pg MCHC (33.0-35.0) g/dL Plt Count (150-450) 10^3/uL Neut % (Auto) (42.2-75.2) % Lymph % (Auto) (20.5-50.1) % [place] % (Auto) (2-8) % Eos % (Auto) (1.0-3.0) % Baso % (Auto) (0.0-1.0) % ABG pH (7.35-7.45) ABG pCO2 (35-45) mmHg ABG pO2 (70-100) mmHg ABG HCO3 (22-26) mmol/L ABG O2 Saturation (95-100) % ABG Base Excess ((-2)-(+3)) mmol/L O2 Delivery Device Oxygen Flow Rate Sodium (135-145) mmol/L Potassium (3.6-5.0) mmol/L Chloride (101-111) mmol/L Carbon Dioxide (21.0-31.0) mmol/L Anion Gap BUN (7-18) mg/dL Creatinine (0.6-1.3) mg/dL Est Cr Clr Drug Dosing mL/min Estimated GFR (MDRD) BUN/Creatinine Ratio Glucose (74-105) mg/dL POC Glucose > 500 H* 486 H* 475 H* (83-110) mg/dl Calcium (8.4-10.2) mg/dl Phosphorus (2.5-4.6) mg/dL Magnesium (1.8-2.5) mg/dL Total Bilirubin (0.2-1.0) mg/dL AST (10-42) IU/L ALT (10-60) IU/L Alkaline Phosphatase (42-121) IU/L Creatine Kinase (26-174) IU/L Creatine Kinase Index (0-2.4) % CK-MB (CK-2) (0.4-4.7) ng/mL Troponin I (0.00-0.02) ng/ml B-Natriuretic Peptide (0-100) pg/ml Total Protein (6.7-8.2) g/dl Albumin (3.2-5.5) g/dl Globulin Albumin/Globulin Ratio Ethyl Alcohol mg/dL Ketones 09/28/17 09/28/17 09/28/17 Range/Units 22:58 23:02 23:58 WBC (5.0-10.0) 10^3/uL RBC (4.6-6.2) 10^6/uL Hgb (14.0-18.0) g/dL Hct (40.0-54.0) % MCV (80-100) fL MCH (27.0-34.0) pg MCHC (33.0-35.0) g/dL Plt Count (150-450) 10^3/uL Neut % (Auto) (42.2-75.2) % Lymph % (Auto) (20.5-50.1) % [place] % (Auto) (2-8) % Eos % (Auto) (1.0-3.0) % Baso % (Auto) (0.0-1.0) % ABG pH (7.35-7.45) ABG pCO2 (35-45) mmHg ABG pO2 (70-100) mmHg ABG HCO3 (22-26) mmol/L ABG O2 Saturation (95-100) % ABG Base Excess ((-2)-(+3)) mmol/L O2 Delivery Device Oxygen Flow Rate Sodium 134 L D (135-145) mmol/L Potassium 3.7 D (3.6-5.0) mmol/L Chloride 101 D (101-111) mmol/L Carbon Dioxide 25.0 (21.0-31.0) mmol/L Anion Gap 11.7 BUN 47 H (7-18) mg/dL Creatinine 2.2 H (0.6-1.3) mg/dL Est Cr Clr Drug Dosing 32.82 mL/min Estimated GFR (MDRD) 29 BUN/Creatinine Ratio Glucose 312 H (74-105) mg/dL POC Glucose 293 H 247 H (83-110) mg/dl Calcium 9.3 (8.4-10.2) mg/dl Phosphorus 3.1 (2.5-4.6) mg/dL Magnesium 2.1 (1.8-2.5) mg/dL Total Bilirubin (0.2-1.0) mg/dL AST (10-42) IU/L ALT (10-60) IU/L Alkaline Phosphatase (42-121) IU/L Creatine Kinase (26-174) IU/L Creatine Kinase Index (0-2.4) % CK-MB (CK-2) (0.4-4.7) ng/mL Troponin I (0.00-0.02) ng/ml B-Natriuretic Peptide (0-100) pg/ml Total Protein (6.7-8.2) g/dl Albumin (3.2-5.5) g/dl Globulin Albumin/Globulin Ratio Ethyl Alcohol mg/dL Ketones 09/29/17 09/29/17 09/29/17 Range/Units 01:05 01:57 02:56 WBC (5.0-10.0) 10^3/uL RBC (4.6-6.2) 10^6/uL Hgb (14.0-18.0) g/dL Hct (40.0-54.0) % MCV (80-100) fL MCH (27.0-34.0) pg MCHC (33.0-35.0) g/dL Plt Count (150-450) 10^3/uL Neut % (Auto) (42.2-75.2) % Lymph % (Auto) (20.5-50.1) % [place] % (Auto) (2-8) % Eos % (Auto) (1.0-3.0) % Baso % (Auto) (0.0-1.0) % ABG pH (7.35-7.45) ABG pCO2 (35-45) mmHg ABG pO2 (70-100) mmHg ABG HCO3 (22-26) mmol/L ABG O2 Saturation (95-100) % ABG Base Excess ((-2)-(+3)) mmol/L O2 Delivery Device Oxygen Flow Rate Sodium (135-145) mmol/L Potassium (3.6-5.0) mmol/L Chloride (101-111) mmol/L Carbon Dioxide (21.0-31.0) mmol/L Anion Gap BUN (7-18) mg/dL Creatinine (0.6-1.3) mg/dL Est Cr Clr Drug Dosing mL/min Estimated GFR (MDRD) BUN/Creatinine Ratio Glucose (74-105) mg/dL POC Glucose 217 H 171 H 119 H (83-110) mg/dl Calcium (8.4-10.2) mg/dl Phosphorus (2.5-4.6) mg/dL Magnesium (1.8-2.5) mg/dL Total Bilirubin (0.2-1.0) mg/dL AST (10-42) IU/L ALT (10-60) IU/L Alkaline Phosphatase (42-121) IU/L Creatine Kinase (26-174) IU/L Creatine Kinase Index (0-2.4) % CK-MB (CK-2) (0.4-4.7) ng/mL Troponin I (0.00-0.02) ng/ml B-Natriuretic Peptide (0-100) pg/ml Total Protein (6.7-8.2) g/dl Albumin (3.2-5.5) g/dl Globulin Albumin/Globulin Ratio Ethyl Alcohol mg/dL Ketones 09/29/17 09/29/17 09/29/17 Range/Units 03:58 04:57 05:28 WBC (5.0-10.0) 10^3/uL RBC (4.6-6.2) 10^6/uL Hgb (14.0-18.0) g/dL Hct (40.0-54.0) % MCV (80-100) fL MCH (27.0-34.0) pg MCHC (33.0-35.0) g/dL Plt Count (150-450) 10^3/uL Neut % (Auto) (42.2-75.2) % Lymph % (Auto) (20.5-50.1) % [place] % (Auto) (2-8) % Eos % (Auto) (1.0-3.0) % Baso % (Auto) (0.0-1.0) % ABG pH (7.35-7.45) ABG pCO2 (35-45) mmHg ABG pO2 (70-100) mmHg ABG HCO3 (22-26) mmol/L ABG O2 Saturation (95-100) % ABG Base Excess ((-2)-(+3)) mmol/L O2 Delivery Device Oxygen Flow Rate Sodium (135-145) mmol/L Potassium (3.6-5.0) mmol/L Chloride (101-111) mmol/L Carbon Dioxide (21.0-31.0) mmol/L Anion Gap BUN (7-18) mg/dL Creatinine (0.6-1.3) mg/dL Est Cr Clr Drug Dosing mL/min Estimated GFR (MDRD) BUN/Creatinine Ratio Glucose (74-105) mg/dL POC Glucose 102 39 L* 68 L (83-110) mg/dl Calcium (8.4-10.2) mg/dl Phosphorus (2.5-4.6) mg/dL Magnesium (1.8-2.5) mg/dL Total Bilirubin (0.2-1.0) mg/dL AST (10-42) IU/L ALT (10-60) IU/L Alkaline Phosphatase (42-121) IU/L Creatine Kinase (26-174) IU/L Creatine Kinase Index (0-2.4) % CK-MB (CK-2) (0.4-4.7) ng/mL Troponin I (0.00-0.02) ng/ml B-Natriuretic Peptide (0-100) pg/ml Total Protein (6.7-8.2) g/dl Albumin (3.2-5.5) g/dl Globulin Albumin/Globulin Ratio Ethyl Alcohol mg/dL Ketones 09/29/17 09/29/17 09/29/17 Range/Units 06:04 06:30 06:30 WBC 6.9 (5.0-10.0) 10^3/uL RBC 4.85 (4.6-6.2) 10^6/uL Hgb 14.6 (14.0-18.0) g/dL Hct 41.5 (40.0-54.0) % MCV 85.6 D (80-100) fL MCH 30.1 (27.0-34.0) pg MCHC 35.2 H (33.0-35.0) g/dL Plt Count 229 (150-450) 10^3/uL Neut % (Auto) 69.1 (42.2-75.2) % Lymph % (Auto) 17.6 L (20.5-50.1) % [place] % (Auto) 11.5 H (2-8) % Eos % (Auto) 1.5 (1.0-3.0) % Baso % (Auto) 0.3 (0.0-1.0) % ABG pH (7.35-7.45) ABG pCO2 (35-45) mmHg ABG pO2 (70-100) mmHg ABG HCO3 (22-26) mmol/L ABG O2 Saturation (95-100) % ABG Base Excess ((-2)-(+3)) mmol/L O2 Delivery Device Oxygen Flow Rate Sodium 138 (135-145) mmol/L Potassium 3.5 L (3.6-5.0) mmol/L Chloride 104 (101-111) mmol/L Carbon Dioxide 27.0 (21.0-31.0) mmol/L Anion Gap 10.5 BUN 37 H (7-18) mg/dL Creatinine 1.8 H (0.6-1.3) mg/dL Est Cr Clr Drug Dosing 40.12 mL/min Estimated GFR (MDRD) 37 BUN/Creatinine Ratio Glucose 85 (74-105) mg/dL POC Glucose 85 (83-110) mg/dl Calcium 9.4 (8.4-10.2) mg/dl Phosphorus 3.6 (2.5-4.6) mg/dL Magnesium 1.9 (1.8-2.5) mg/dL Total Bilirubin (0.2-1.0) mg/dL AST (10-42) IU/L ALT (10-60) IU/L Alkaline Phosphatase (42-121) IU/L Creatine Kinase (26-174) IU/L Creatine Kinase Index (0-2.4) % CK-MB (CK-2) (0.4-4.7) ng/mL Troponin I (0.00-0.02) ng/ml B-Natriuretic Peptide (0-100) pg/ml Total Protein (6.7-8.2) g/dl Albumin (3.2-5.5) g/dl Globulin Albumin/Globulin Ratio Ethyl Alcohol mg/dL Ketones 09/29/17 Range/Units 07:15 WBC (5.0-10.0) 10^3/uL RBC (4.6-6.2) 10^6/uL Hgb (14.0-18.0) g/dL Hct (40.0-54.0) % MCV (80-100) fL MCH (27.0-34.0) pg MCHC (33.0-35.0) g/dL Plt Count (150-450) 10^3/uL Neut % (Auto) (42.2-75.2) % Lymph % (Auto) (20.5-50.1) % [place] % (Auto) (2-8) % Eos % (Auto) (1.0-3.0) % Baso % (Auto) (0.0-1.0) % ABG pH (7.35-7.45) ABG pCO2 (35-45) mmHg ABG pO2 (70-100) mmHg ABG HCO3 (22-26) mmol/L ABG O2 Saturation (95-100) % ABG Base Excess ((-2)-(+3)) mmol/L O2 Delivery Device Oxygen Flow Rate Sodium (135-145) mmol/L Potassium (3.6-5.0) mmol/L Chloride (101-111) mmol/L Carbon Dioxide (21.0-31.0) mmol/L Anion Gap BUN (7-18) mg/dL Creatinine (0.6-1.3) mg/dL Est Cr Clr Drug Dosing mL/min Estimated GFR (MDRD) BUN/Creatinine Ratio Glucose (74-105) mg/dL POC Glucose 128 H (83-110) mg/dl Calcium (8.4-10.2) mg/dl Phosphorus (2.5-4.6) mg/dL Magnesium (1.8-2.5) mg/dL Total Bilirubin (0.2-1.0) mg/dL AST (10-42) IU/L ALT (10-60) IU/L Alkaline Phosphatase (42-121) IU/L Creatine Kinase (26-174) IU/L Creatine Kinase Index (0-2.4) % CK-MB (CK-2) (0.4-4.7) ng/mL Troponin I (0.00-0.02) ng/ml B-Natriuretic Peptide (0-100) pg/ml Total Protein (6.7-8.2) g/dl Albumin (3.2-5.5) g/dl Globulin Albumin/Globulin Ratio Ethyl Alcohol mg/dL Ketones Med Orders - Current: Current Medications Acetaminophen (Tylenol) 650 mg PO Q4H PRN PRN Reason: Pain (Mild 1-3)/fever Atorvastatin Calcium (Lipitor) 80 mg PO BEDTIME [facility] Last Admin: 09/28/17 20:54 Dose: 80 mg Calcitriol (Rocaltrol) 0.25 mcg PO DAILY [facility] Last Admin: 09/29/17 08:51 Dose: 0.25 mcg Clopidogrel Bisulfate (Plavix) 75 mg PO DAILY [facility] Last Admin: 09/29/17 08:51 Dose: 75 mg Duloxetine HCl (Cymbalta) 30 mg PO DAILY [facility] Last Admin: 09/29/17 08:51 Dose: 30 mg Famotidine (Pepcid) 10 mg PO BID [facility] Last Admin: 09/29/17 08:52 Dose: 10 mg Finasteride (Proscar) 5 mg PO DAILY [facility] Last Admin: 09/29/17 08:52 Dose: 5 mg Heparin Sodium (Porcine) (Heparin Sodium) 5,000 units SUBCUT Q8HR [facility] Last Admin: 09/29/17 05:34 Dose: 5,000 units Insulin Aspart (Novolog) 0 unit SUBCUT QIDACANDBED [facility]; Protocol Last Admin: 09/29/17 08:52 Dose: Not Given Insulin Detemir (Levemir) 20 unit SUBCUT QAM [facility] Last Admin: 09/29/17 08:52 Dose: 20 units Isosorbide Mononitrate (Imdur) 30 mg PO DAILY [facility] Last Admin: 09/29/17 08:51 Dose: 30 mg Latanoprost (Xalatan 0.005% Ophth Soln) 0 ml EYEBOTH BEDTIME [facility] Last Admin: 09/28/17 21:01 Dose: 1 drop Morphine Sulfate (Morphine) 1 mg IVPUSH Q2H PRN PRN Reason: Pain (severe 7-10) Ondansetron HCl (Zofran Odt) 4 mg PO Q4H PRN PRN Reason: nausea, able to take PO Ondansetron HCl (Zofran) 4 mg IVPUSH Q6H PRN PRN Reason: Nausea/Vomiting Oxycodone HCl (Oxycodone) 5 mg PO Q4H PRN PRN Reason: Pain (moderate 4-6) Zolpidem Tartrate (Ambien) 5 mg PO BEDTIME PRN PRN Reason: Sleep Last Admin: 09/28/17 20:57 Dose: 5 mg Discontinued Medications Albuterol (Proventil Neb Soln) 10 mg NEB ONETIME ONE Stop: 09/28/17 17:34 Last Admin: 09/28/17 17:56 Dose: 10 mg Calcium Chloride (Calcium Chloride 10%) 1 gm IVPUSH ONETIME ONE Stop: 09/28/17 17:35 Last Admin: 09/28/17 17:51 Dose: 1 gm Sodium Chloride (Normal Saline) 1,000 mls @ 200 mls/hr IV ASDIRECTED [facility] Last Admin: 09/28/17 21:31 Dose: 200 mls/hr Insulin Human Regular 100 unit (/ Sodium Chloride) 100 mls @ 4 mls/hr IV TITRATE [facility]; Protocol Last Infusion: 09/29/17 04:00 Dose: 22.6 unit/hr, 22.6 mls/hr Sodium Chloride (Normal Saline) 1,000 mls @ 999 mls/hr IV .BOLUS ONE Stop: 09/28/17 20:33 Last Admin: 09/28/17 20:42 Dose: 999 mls/hr Dextrose/Sodium Chloride (Dextrose 5%-Normal Saline) 1,000 mls @ 150 mls/hr IV ASDIRECTED [facility] Last Admin: 09/29/17 06:24 Dose: 150 mls/hr Insulin Aspart (Novolog) 10 unit SUBCUT ONETIME ONE Stop: 09/28/17 17:11 Last Admin: 09/28/17 17:18 Dose: 10 units Insulin Human Regular (Humulin R) 10 unit IV ONETIME ONE Stop: 09/28/17 19:31 Last Admin: 09/29/17 02:08 Dose: Not Given Insulin Human Regular (Humulin R) 5 unit IV ONETIME ONE Stop: 09/28/17 19:40 Last Admin: 06/13/18 19:41 Dose: 5 units Sodium Polystyrene Sulfonate (Kayexalate) 15 gm PO ONETIME ONE Stop: 09/28/17 17:35 Last Admin: 09/28/17 17:50 Dose: 15 gm - Exam General: Reports: Alert, Oriented Neck: Reports: Supple Lungs: Reports: Clear to Auscultation, Normal Respiratory Effort Cardiovascular: Reports: Regular Rate, Regular Rhythm GI/Abdominal Exam: Normal Bowel Sounds, Soft, Non-Tender Extremities: No Pedal Edema Skin: Reports: Warm, Dry Neurological: Reports: No New Focal Deficit
[2017-09-29] MEDS ORDERED: Insulin Aspart 100 Units/ML 3 ML Pen SUBCUT ONE (11:34)
== END 2017-09-29 13:07 | disposition home or self-care (01) | DRG 682 ==
LOC: DL.ED 16:20 → DL.MS 19:27 → UNDOADMIN 19:27 → DL.MS 20:11
PROVIDERS: ADMIT Internal Medicine; ATTEND Internal Medicine
DX: N17.9 Acute kidney failure, unspecified (principal); G93.41 Metabolic encephalopathy; E11.10 Type 2 diabetes mellitus with ketoacidosis without coma; E87.2 Acidosis; E87.1 Hypo-osmolality and hyponatremia; E86.0 Dehydration; E87.5 Hyperkalemia; E11.65 Type 2 diabetes mellitus with hyperglycemia; I12.9 Hypertensive chronic kidney disease with stage 1 through stage 4 chronic kidney disease, or unspecified chronic kidney disease; E11.22 Type 2 diabetes mellitus with diabetic chronic kidney disease; N18.3 Chronic kidney disease, stage 3 (moderate); H54.7 Unspecified visual loss; I25.10 Atherosclerotic heart disease of native coronary artery without angina pectoris; Z91.14 Patient's other noncompliance with medication regimen; Z79.899 Other long term (current) drug therapy; Z79.4 Long term (current) use of insulin; Z95.5 Presence of coronary angioplasty implant and graft; Z83.3 Family history of diabetes mellitus; Z82.49 Family history of ischemic heart disease and other diseases of the circulatory system; Z79.02 Long term (current) use of antithrombotics/antiplatelets
CPT/HCPCS: 36415; 36600; 80048; 80053; 82009; 82550; 82553; 82803; 82962; 83735; 83880; 84100; 84484; 85025; 93005; 93010; 96374; 96375; 99285; A9270-GY; G0480; J1644; J1815; J1815-GY; J7030; J7042; J7620-GY

== ENCOUNTER 2017-12-09 15:50 | Emergency (ER) | payer OTHER ==
--- NOTE | 2017-12-09 16:10 | CT ---
Clinical history: 72-year-old male syncopal episode and ground-level fall. Scan technique: Volume acquisition of data emergency unenhanced CT scan of the head and brain obtaine d with patient lying supine on the Siemens multi slice scanner [facility]. All data archived in the PACS system for storage, reformatting and study (bone/brain [facility]). Septation: Uniformly thick bony calvarium without sign of skull fracture, underlying brain contusion or epidural/subdural hematoma. Multi-infarct ischemic changes involving the periventricular white matter both cerebral hemispheres a nd moderate severe atrophy. No new signs of acute intracerebral/intraventricular/subarachnoid bleed when compared 29 June 2017 e xam. No hydrocephalus. Cerebellum and brainstem unremarkable. CONCLUSION: Chronic severe multi-infarct ischemic disease. Atrophy. No skull fracture or new signs of closed head injury.
--- NOTE | 2017-12-09 16:15 | CT ---
Clinical history: 72-year-old 182 pound male in the emergency Department following syncopal episode a nd ground-level fall. Scan technique: Volume acquisition of data emergency unenhanced CT scan of the facial bones and upper cervical spine obtained with the patient was lying supine on the Siemens multi slice scanner [place], [place]. All data archived in the PACS system for storage, reformatt ing axial/sagittal/coronal planes and study. Interpretation: 1. Old nasal spine fracture and abnormal deviation of nasal septum to the left of midline unchanged s tati 29 June 2017 exam. 2. Symmetric clear pneumatization of the paranasal sinuses. No facial bone fracture or fluid levels i n the sinuses. No foreign body. 3. Symmetric normal-appearing orbits and optic globes. No zygomatic arch fracture. Normal TMJs. [employer] dental occlusion. 4. Symmetric clear pneumatization of the mastoid sinuses. 5. 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 6. No foreign bodies. CONCLUSION: No acute facial bone fracture.
--- NOTE | 2017-12-09 16:20 | EDM.PDOC ---
ED HPI GENERAL MEDICAL PROBLEM - General Stated Complaint: FELL Time Seen by Provider: 12/09/17 15:50 Source of Information: Reports: Patient, Provider History Limitations: Reports: No Limitations - History of Present Illness INITIAL COMMENTS - FREE TEXT/NARRATIVE: HPI - This patient was brought to the ED by SLAFransico from the [facility] due to a ground level fall at some time today. The patient had reported that he was outside when he fell. The patient does not know what happened during the fall. The patient does have a history of previous episodes of syncope. The patient reports pain in his nose, forehead, and pain in the left posterior scalp. The patient reports the pain in his head is more of an increased pressure. The patient does not know about a possible loss of consciousness before, during or after the fall. The patient is on aspirin. Primary Survey Airway - open and clear Breathing - without difficulties Circulation - no apparent active bleeding Deformity - swelling of the nose Expose - done for examination GCS - 15 on arrival Secondary Survey HEENT Head - contusion and abrasion to the anterior nose, patient reports pain and tenderness to the anterior left posterior scalp, no palpable fractures, lacerations or contusions noted Eyes - Perrla, no entrapment Ears - normal canals, no blood, no drainage Nose - dried blood in the right nare Throat - no erythema, exudate or transudate Neck - some pain with palpation of the left lateral neck Chest - LS are clear and equal bilaterally, no bruising or paradoxical movement Abdomen - normoactive bowel sounds, no organomegally, no bruising Pelvis - Stable Extremities - CMS normal in all 4 extremities Provider Trauma Notes Arrival Time: 1545 GCS on Arrival: 15 C-collar present on arrival: No GCS at 1 hour: 15 Off spine board: NA Time primary survey: 1550 Time secondary survey:1605 Time C-collar cleared: NA By: Time removed: GCS on discharge: 15 Onset: Today Duration: Constant Location: Reports: Head, Face Quality: Reports: Dull, Pressure Severity: Moderate Improves with: Reports: None Worsens with: Reports: None Context: Reports: Trauma (Fall) Associated Symptoms: Reports: Headaches - Related Data Allergies Allergy/AdvReac Type Severity Reaction Status Date / Time No Known Allergies Allergy Verified 09/28/17 19:57 Home Meds: Home Meds Calcitriol 0.25 mcg PO DAILY 05/28/13 [History] Nitroglycerin [Nitrostat] 0.4 mg SL ASDIRECTED PRN 05/28/13 [History] atorvaSTATin Calcium [Atorvastatin Calcium] 80 mg PO BEDTIME 05/28/13 [History] Latanoprost [Xalatan 0.005% Ophth Soln] 1 drop EYEBOTH BEDTIME 09/03/15 [History ] Clopidogrel [Plavix] 75 mg PO DAILY 01/07/16 [History] DULoxetine [Cymbalta] 30 mg PO DAILY 01/07/16 [History] Finasteride [Proscar] 5 mg PO DAILY 01/07/16 [History] Insulin Aspart [NovoLOG] 5 unit SUBCUT TIDMEALS 02/10/17 [History] Insulin Detemir [Levemir] 5 unit SUBCUT BEDTIME 02/10/17 [History] Insulin Detemir [Levemir] 48 unit SUBCUT QAM 02/10/17 [History] Losartan [Cozaar] 50 mg PO DAILY 02/10/17 [History] Magnesium Oxide 420 mg PO BID 02/10/17 [History] Cholecalciferol (Vitamin D3) [Vitamin D3] 1,000 unit PO DAILY 09/28/17 [History] Isosorbide Mononitrate [Imdur] 30 mg PO DAILY 09/28/17 [History] Ranitidine HCl [Ranitidine] 150 mg PO BID 09/28/17 [History] Past Medical History HEENT History: Reports: Impaired Vision Other HEENT History: wears glasses Cardiovascular History: Reports: CAD, High Cholesterol, Hypertension, Stents Other Cardiovascular History: Transient hypotension Respiratory History: Reports: Other (See Below) Other Respiratory History: spot of lung and they said to keep an eye on it. Gastrointestinal History: Reports: None Genitourinary History: Reports: Chronic Renal Insuffiency Other Genitourinary History: urinary tract obstruction-self caths self when stream gets slow Musculoskeletal History: Reports: Back Pain, Chronic Other Musculoskeletal History: broke both ankles, broken ribs, collar bone, jaw , toes and 5-6 hairline fx of skull due to rodeo Neurological History: Reports: Headaches, Chronic Other Neuro History: heasdaches since 1966 Psychiatric History: Reports: Other (See Below) Other Psychiatric History: has noc bishop from [place] Endocrine/Metabolic History: Reports: Diabetes, Type II Hematologic History: Reports: None Immunologic History: Reports: None Oncologic (Cancer) History: Reports: Other (See Below) Other Oncologic History: pt. doesn't know what type of cancer he was diagnosed with Dermatologic History: Reports: Other (See Below) Other Dermatologic History: eccymotic area to left hip, left upper arm, and left ear from fall when pt. tripped over trailer hitch about a week ago. - Infectious Disease History Infectious Disease History: Reports: Chicken Pox Other Infectious Disease History: unable to obtain history. client altered mental status and pt family uncertain. - Past Surgical History Cardiovascular Surgical History: Reports: Coronary Artery Stent GI Surgical History: Reports: Hernia, Inguinal Other GI Surgeries/Procedures: left side igunial hernia repair Social & Family History - Family History Family Medical History: Noncontributory Cardiac: Reports: CAD Endocrine/Metabolic: Reports: Diabetes, type II Oncologic: Reports: Other (See Below) Other Oncologic Family History: brother, mom,sister unknown types - Caffeine Use Caffeine Use: Reports: Coffee Other Caffeine Use: 2 cups a day - Living Situation & Occupation Living situation: Reports: with Family Occupation: Retired Review of Systems - Review of Systems Review Of Systems: ROS reveals no pertinent complaints other than HPI. ED EXAM, GENERAL - Physical Exam Exam: See Below Exam Limited By: No Limitations General Appearance: Alert, WD/WN, Mild Distress Eye Exam: Bilateral Eye: EOMI, Normal Inspection, PERRL Ears: Normal External Exam, Normal Canal, Hearing Grossly Normal, Normal TMs Nose: Other (small amound of dried blood in his left nare. The patient also has swelling to his right side of his nose with an abrasion to that area. ) Throat/Mouth: Normal Inspection, Normal Lips, Normal Teeth, Normal Gums, Normal Oropharynx, Normal Voice, No Airway Compromise Head: Atraumatic, Normocephalic Neck: Normal Inspection, Supple, Non-Tender, Full Range of Motion Respiratory/Chest: No Respiratory Distress, Lungs Clear, Normal Breath Sounds, No Accessory Muscle Use, Chest Non-Tender Cardiovascular: Normal Peripheral Pulses, Regular Rate, Rhythm, No Edema, No Gallop, No JVD, No Murmur, No Rub GI/Abdominal: Normal Bowel Sounds, Soft, Non-Tender, No Organomegaly, No Distention, No Abnormal Bruit, No Mass (Male) Exam: Deferred Rectal (Males) Exam: Deferred Back Exam: Normal Inspection, Full Range of Motion, NT Extremities: Normal Inspection, Normal Range of Motion, Non-Tender, Normal Capillary Refill, No Pedal Edema Neurological: Alert, Oriented, CN II-XII Intact, Normal Cognition, Normal Gait, Normal Reflexes, No Motor/Sensory Deficits Psychiatric: Normal Affect, Normal Mood Skin Exam: Warm, Dry, Intact, Normal Color, No Rash Lymphatic: No Adenopathy Course - Orders/Labs/Meds Orders: Active Orders 24 hr Category Date Time Status EKG Documentation Completion [RC] URGENT Care 12/09/17 15:54 Ordered Labs: Laboratory Tests 12/09/17 12/09/17 12/09/17 Range/Units 16:08 16:08 16:08 WBC 7.5 (5.0-10.0) 10^3/uL RBC 4.75 (4.6-6.2) 10^6/uL Hgb 14.3 (14.0-18.0) g/dL Hct 41.2 (40.0-54.0) % MCV 86.7 (80-100) fL MCH 30.1 (27.0-34.0) pg MCHC 34.7 (33.0-35.0) g/dL Plt Count 242 (150-450) 10^3/uL Neut % (Auto) 76.1 H (42.2-75.2) % Lymph % (Auto) 13.0 L (20.5-50.1) % Camp % (Auto) 9.3 H (2-8) % Eos % (Auto) 1.2 (1.0-3.0) % Baso % (Auto) 0.4 (0.0-1.0) % PT 9.2 (9.0-12.0) SEC INR 0.9 (0.9-1.2) Sodium 133 L (135-145) mmol/L Potassium 4.2 (3.6-5.0) mmol/L Chloride 98 L (101-111) mmol/L Carbon Dioxide 26.0 (21.0-31.0) mmol/L Anion Gap 13.2 BUN 36 H (7-18) mg/dL Creatinine 1.8 H (0.6-1.3) mg/dL Est Cr Clr Drug Dosing TNP Estimated GFR (MDRD) 37 BUN/Creatinine Ratio 20.00 Glucose 383 H (74-105) mg/dL Calcium 9.3 (8.4-10.2) mg/dl Total Bilirubin 0.7 (0.2-1.0) mg/dL AST 24 (10-42) IU/L ALT 30 (10-60) IU/L Alkaline Phosphatase 159 H (42-121) IU/L Troponin I < 0.02 (0.00-0.02) ng/ml Total Protein 6.7 (6.7-8.2) g/dl Albumin 4.0 (3.2-5.5) g/dl Globulin 2.7 Albumin/Globulin Ratio 1.48 - Re-Assessments/Exams Free Text/Narrative Re-Assessment/Exam: 12/09/17 16:51 CT of head - demonstrated on signs of acute bleeding CT of face - no apparent new fractures. Departure - Departure Time of Disposition: 17:11 Disposition: Home, Self-Care 01 Condition: Fair Clinical Impression: Syncope Qualifiers: Syncope type: unspecified Qualified Code(s): R55 - Syncope and collapse - Discharge Information *PRESCRIPTION DRUG MONITORING PROGRAM REVIEWED*: Not Applicable *COPY OF PRESCRIPTION DRUG MONITORING REPORT IN PATIENT SANTIAGO: Not Applicable Instructions: Syncope, [id number] Forms: ED Department Discharge Care Plan Goals: The patient was advised of the examination, lab, EKG, and CT results during the visit. The patient was encouraged to follow-up with his primary care facility for continued evaluation and further management. If the patient has any additional symptoms or concerns, the patient should follow-up with his primary care facility or return to the emergency department. - My Orders Last 24 Hours: My Active Orders 12/09/17 15:54 EKG Documentation Completion [RC] URGENT - Assessment/Plan Last 24 Hours: My Active Orders 12/09/17 15:54 EKG Documentation Completion [RC] URGENT
[2017-12-09 16:37] LABS: ANION GAP 13.2; CHLORIDE,CL 98 mmol/L (101-111); SODIUM,NA 133 mmol/L (135-145)
--- NOTE | 2017-12-12 16:46 | EKG ---
12/09/2017 - CARY OLIVEROS - TIME: 4:14 p.m. FINDINGS: Sinus rhythm at 93. Probable left atrial abnormality. [facility] /[id number]
== END 2017-12-09 17:20 | disposition home or self-care (01) ==
LOC: DL.ED 15:50
DX: R55 Syncope and collapse (principal); Z79.899 Other long term (current) drug therapy; Z79.4 Long term (current) use of insulin; I12.9 Hypertensive chronic kidney disease with stage 1 through stage 4 chronic kidney disease, or unspecified chronic kidney disease; N18.9 Chronic kidney disease, unspecified; E11.22 Type 2 diabetes mellitus with diabetic chronic kidney disease
CPT/HCPCS: 36415; 70450; 70486; 80053; 84484; 85025; 85610; 93005; 93010; 99284

== ENCOUNTER 2018-07-18 14:47 | Emergency (ER) | payer OTHER ==
[2018-07-18 14:53] VITALS: BP 135/75
--- NOTE | 2018-07-18 15:04 | EDM.PDOC ---
ED HPI GENERAL MEDICAL PROBLEM - General Chief Complaint: General Stated Complaint: COMING FROM CLINIC Time Seen by Provider: 07/18/18 15:04 Source of Information: Reports: Patient, Old Records, RN, RN Notes Reviewed History Limitations: Reports: No Limitations Head Pain Score (Numeric/FACES): 7 - Related Data Allergies Allergy/AdvReac Type Severity Reaction Status Date / Time No Known Allergies Allergy Verified 07/18/18 14:56 Home Meds: Home Meds Calcitriol 0.25 mcg PO DAILY 05/28/13 [History] atorvaSTATin Calcium [Atorvastatin Calcium] 80 mg PO BEDTIME 05/28/13 [History] Latanoprost [Xalatan 0.005% Ophth Soln] 1 drop EYEBOTH BEDTIME 09/03/15 [History ] Clopidogrel [Plavix] 75 mg PO DAILY 01/07/16 [History] DULoxetine [Cymbalta] 30 mg PO DAILY 01/07/16 [History] Finasteride [Proscar] 5 mg PO DAILY 01/07/16 [History] Insulin Aspart [NovoLOG] 10 unit SUBCUT TIDMEALS 02/10/17 [History] Insulin Detemir [Levemir] 5 unit SUBCUT BEDTIME 02/10/17 [History] Insulin Detemir [Levemir] 48 unit SUBCUT QAM 02/10/17 [History] Losartan [Cozaar] 25 mg PO DAILY 02/10/17 [History] Magnesium Oxide 500 mg PO BID 02/10/17 [History] Cholecalciferol (Vitamin D3) [Vitamin D3] 800 unit PO DAILY 09/28/17 [History] Ranitidine HCl [Ranitidine] 150 mg PO BID 09/28/17 [History] Acetaminophen 325 mg PO Q4H PRN 02/17/18 [History] Diclofenac Sodium [Voltaren 1% Gel] 1 applic TP QID 02/17/18 [History] Past Medical History HEENT History: Reports: Impaired Vision Other HEENT History: wears glasses Cardiovascular History: Reports: CAD, High Cholesterol, Hypertension, Stents Other Cardiovascular History: Transient hypotension Respiratory History: Reports: Other (See Below) Other Respiratory History: spot of lung and they said to keep an eye on it. Gastrointestinal History: Reports: None Genitourinary History: Reports: Chronic Renal Insuffiency Other Genitourinary History: urinary tract obstruction-self caths self when stream gets slow Musculoskeletal History: Reports: Back Pain, Chronic Other Musculoskeletal History: broke both ankles, broken ribs, collar bone, jaw , toes and 5-6 hairline fx of skull due to rodeo Neurological History: Reports: Headaches, Chronic Other Neuro History: heasdaches since 1966 Psychiatric History: Reports: Other (See Below) Other Psychiatric History: has noc bishop from [place] Endocrine/Metabolic History: Reports: Diabetes, Type II Hematologic History: Reports: None Immunologic History: Reports: None Oncologic (Cancer) History: Reports: Other (See Below) Other Oncologic History: pt. doesn't know what type of cancer he was diagnosed with Dermatologic History: Reports: Other (See Below) Other Dermatologic History: eccymotic area to left hip, left upper arm, and left ear from fall when pt. tripped over trailer hitch about a week ago. - Infectious Disease History Infectious Disease History: Reports: Chicken Pox Other Infectious Disease History: unable to obtain history. - Past Surgical History Cardiovascular Surgical History: Reports: Coronary Artery Stent GI Surgical History: Reports: Hernia, Inguinal Other GI Surgeries/Procedures: left side igunial hernia repair Social & Family History - Family History Family Medical History: Noncontributory Cardiac: Reports: CAD Endocrine/Metabolic: Reports: Diabetes, type II Oncologic: Reports: Other (See Below) Other Oncologic Family History: brother, mom,sister unknown types - Tobacco Use Smoking Status *Q: Never Smoker - Caffeine Use Caffeine Use: Reports: Coffee, Soda Other Caffeine Use: 2 cups a day - Recreational Drug Use Recreational Drug Use: No - Living Situation & Occupation Living situation: Reports: with Family Occupation: Retired Course - Vital Signs Last Recorded V/S: Last Vital Signs Temp 37.0 C 07/18/18 14:50 Pulse 107 H 07/18/18 14:50 Resp 16 07/18/18 14:50 BP 135/75 07/18/18 14:50 Pulse Ox 92 L 07/18/18 14:50 Departure - Discharge Information
--- NOTE | 2018-07-18 15:25 | EDM.PDOC ---
<Maik Taylor Kathrin - Last Filed: 07/18/18 17:27> ED HPI GENERAL MEDICAL PROBLEM - General Chief Complaint: General Stated Complaint: COMING FROM CLINIC Time Seen by Provider: 07/18/18 15:04 Source of Information: Reports: Patient History Limitations: Reports: No Limitations - History of Present Illness INITIAL COMMENTS - FREE TEXT/NARRATIVE: Went to clinic this afternoon. Dr. Baker called ER and said the patient had a blood sugar of 666 and a K+ of 5.2. Patient has been feeling fatigued today, but otherwise has no complaints. His last dose of insulin was with breakfast this morning. Patient does use a catheter before bed every night or if he has to go on a long car ride. Onset: Today Head Pain Score (Numeric/FACES): 7 - Related Data Allergies Allergy/AdvReac Type Severity Reaction Status Date / Time No Known Allergies Allergy Verified 07/18/18 14:56 Home Meds: Home Meds Calcitriol 0.25 mcg PO DAILY 05/28/13 [History] atorvaSTATin Calcium [Atorvastatin Calcium] 80 mg PO BEDTIME 05/28/13 [History] Latanoprost [Xalatan 0.005% Ophth Soln] 1 drop EYEBOTH BEDTIME 09/03/15 [History ] Clopidogrel [Plavix] 75 mg PO DAILY 01/07/16 [History] DULoxetine [Cymbalta] 30 mg PO DAILY 01/07/16 [History] Finasteride [Proscar] 5 mg PO DAILY 01/07/16 [History] Insulin Aspart [NovoLOG] 10 unit SUBCUT TIDMEALS 02/10/17 [History] Insulin Detemir [Levemir] 5 unit SUBCUT BEDTIME 02/10/17 [History] Insulin Detemir [Levemir] 48 unit SUBCUT QAM 02/10/17 [History] Losartan [Cozaar] 25 mg PO DAILY 02/10/17 [History] Magnesium Oxide 500 mg PO BID 02/10/17 [History] Cholecalciferol (Vitamin D3) [Vitamin D3] 800 unit PO DAILY 09/28/17 [History] Ranitidine HCl [Ranitidine] 150 mg PO BID 09/28/17 [History] Acetaminophen 325 mg PO Q4H PRN 02/17/18 [History] Diclofenac Sodium [Voltaren 1% Gel] 1 applic TP QID 02/17/18 [History] Past Medical History HEENT History: Reports: Impaired Vision Other HEENT History: wears glasses Cardiovascular History: Reports: CAD, High Cholesterol, Hypertension, Stents Other Cardiovascular History: Transient hypotension Respiratory History: Reports: Other (See Below) Other Respiratory History: spot of lung and they said to keep an eye on it. Gastrointestinal History: Reports: None Genitourinary History: Reports: Chronic Renal Insuffiency Other Genitourinary History: urinary tract obstruction-self caths self when stream gets slow Musculoskeletal History: Reports: Back Pain, Chronic Other Musculoskeletal History: broke both ankles, broken ribs, collar bone, jaw , toes and 5-6 hairline fx of skull due to rodeo Neurological History: Reports: Headaches, Chronic Other Neuro History: heasdaches since 1966 Psychiatric History: Reports: Other (See Below) Other Psychiatric History: has noc bishop from [place] Endocrine/Metabolic History: Reports: Diabetes, Type II Hematologic History: Reports: None Immunologic History: Reports: None Oncologic (Cancer) History: Reports: Other (See Below) Other Oncologic History: pt. doesn't know what type of cancer he was diagnosed with Dermatologic History: Reports: Other (See Below) Other Dermatologic History: eccymotic area to left hip, left upper arm, and left ear from fall when pt. tripped over trailer hitch about a week ago. - Infectious Disease History Infectious Disease History: Reports: Chicken Pox Other Infectious Disease History: unable to obtain history. - Past Surgical History Cardiovascular Surgical History: Reports: Coronary Artery Stent GI Surgical History: Reports: Hernia, Inguinal Other GI Surgeries/Procedures: left side igunial hernia repair Social & Family History - Family History Family Medical History: Noncontributory Cardiac: Reports: CAD Endocrine/Metabolic: Reports: Diabetes, type II Oncologic: Reports: Other (See Below) Other Oncologic Family History: brother, mom,sister unknown types - Tobacco Use Smoking Status *Q: Never Smoker - Caffeine Use Caffeine Use: Reports: Coffee, Soda Other Caffeine Use: 2 cups a day - Recreational Drug Use Recreational Drug Use: No - Living Situation & Occupation Living situation: Reports: with Family Occupation: Retired ED ROS GENERAL - Review of Systems Review Of Systems: See Below Constitutional: Reports: Fatigue HEENT: Reports: Vision Change (patient says his vision goes black sometimes and he falls) Respiratory: Reports: No Symptoms Cardiovascular: Denies: Edema, Lightheadedness Endocrine: Reports: Fatigue, High Glucose GI/Abdominal: Reports: No Symptoms : Reports: No Symptoms Musculoskeletal: Reports: Neck Pain (chronic pain from a war injury) Skin: Reports: Dryness, Wound (on right knee from falling) Neurological: Reports: Confusion (forgots things a lot), Other (falls frequently ) ED EXAM, GENERAL - Physical Exam Exam: See Below Exam Limited By: No Limitations General Appearance: Alert, WD/WN, No Apparent Distress Respiratory/Chest: No Respiratory Distress, Lungs Clear, Normal Breath Sounds, No Accessory Muscle Use, Chest Non-Tender Cardiovascular: Normal Peripheral Pulses, Regular Rate, Rhythm, No Edema, No Gallop, No JVD, No Murmur, No Rub GI/Abdominal: Normal Bowel Sounds, Soft, Non-Tender, No Organomegaly, No Distention, No Abnormal Bruit, No Mass (Male) Exam: Deferred Rectal (Males) Exam: Deferred Extremities: No Pedal Edema, Other (Healing wound that covers his right knee cap ) Neurological: Alert, Oriented Psychiatric: Normal Affect, Normal Mood Skin Exam: Dry Course - Vital Signs Last Recorded V/S: Last Vital Signs Temp 37.0 C 07/18/18 14:50 Pulse 107 H 07/18/18 14:50 Resp 16 07/18/18 14:50 BP 135/75 07/18/18 14:50 Pulse Ox 92 L 07/18/18 14:50 - Orders/Labs/Meds Orders: Active Orders 24 hr Category Date Time Status Blood Glucose Check, Bedside [RC] ONETIME Care 07/18/18 15:36 Active Blood Glucose Check, Bedside [RC] ONETIME Care 07/18/18 16:19 Active Blood Glucose Check, Bedside [RC] ONETIME Care 07/18/18 16:37 Active Blood Glucose Check, Bedside [RC] ONETIME Care 07/18/18 17:29 Active CULTURE URINE [RM] Stat Lab 07/18/18 17:10 Received Labs: Laboratory Tests 07/18/18 07/18/18 07/18/18 Range/Units 15:56 16:34 17:10 POC Glucose > 500 H* > 500 H* (83-110) mg/dl Urine Color Yellow (YELLOW) Urine Appearance Cloudy (CLEAR) Urine pH 6.0 (5.0-9.0) Ur Specific [place] 1.010 (1.005-1.030) Urine Protein 100 H (NEGATIVE) Urine Glucose (UA) 500 H (NEGATIVE) Urine Ketones 15 H (NEGATIVE) Urine Occult Blood Small H (NEGATIVE) Urine Nitrite Negative (NEGATIVE) Urine Bilirubin Negative (NEGATIVE) Urine Urobilinogen 0.2 (0.2-1.0) mg/dL Ur Leukocyte Esterase Small H (NEGATIVE) Urine RBC 0-5 /HPF Urine WBC >100 H (0-5/HPF) /HPF Ur Epithelial Cells Few /HPF Urine Bacteria Moderate H (0-FEW/HPF) /HPF K+: 5.2 Na+: 132 BUN: 38 Creatinine: 2.3 Serum glucose: 666 Meds: Medications Discontinued Medications Generic Name Dose Route Start Last Admin Trade Name Freq PRN Reason Stop Dose Admin Sodium Chloride 1,000 mls @ 999 mls/hr 07/18/18 15:36 07/18/18 15:51 Normal Saline IV 07/18/18 16:36 999 mls/hr .BOLUS ONE Administration Insulin Human Regular 10 unit 07/18/18 15:36 07/18/18 15:58 Humulin R IV 07/18/18 15:37 10 units ONETIME ONE Administration Insulin Human Regular 10 unit 07/18/18 16:35 07/18/18 16:46 Humulin R IV 07/18/18 16:36 10 units ONETIME ONE Administration Departure - Departure Time of Disposition: 17:27 Disposition: Home, Self-Care 01 Condition: Good Clinical Impression: Hyperglycemia due to type 2 diabetes mellitus Qualifiers: Diabetes mellitus penitentiary insulin use: unspecified machine long goods helper insulin use status Qualified Code(s): E11.65 - Type 2 diabetes mellitus with hyperglycemia - Discharge Information *PRESCRIPTION DRUG MONITORING PROGRAM REVIEWED*: Not Applicable *COPY OF PRESCRIPTION DRUG MONITORING REPORT IN PATIENT SANTIAGO: Not Applicable Forms: ED Department Discharge Care Plan Goals: Discussed monitoring blood sugars closely at home. F/u in clinic with primary care provider. - Problem List Review Problem List Initiated/Reviewed/Updated: Yes - My Orders Last 24 Hours: My Active Orders 07/18/18 15:36 Blood Glucose Check, Bedside [RC] ONETIME 07/18/18 16:19 Blood Glucose Check, Bedside [RC] ONETIME 07/18/18 16:37 Blood Glucose Check, Bedside [RC] ONETIME 07/18/18 17:10 CULTURE URINE [RM] Stat 07/18/18 17:29 Blood Glucose Check, Bedside [RC] ONETIME - Assessment/Plan Last 24 Hours: My Active Orders 07/18/18 15:36 Blood Glucose Check, Bedside [RC] ONETIME 07/18/18 16:19 Blood Glucose Check, Bedside [RC] ONETIME 07/18/18 16:37 Blood Glucose Check, Bedside [RC] ONETIME 07/18/18 17:10 CULTURE URINE [RM] Stat 07/18/18 17:29 Blood Glucose Check, Bedside [RC] ONETIME Plan: Patient was given IV fluids and insulin while in ER <Hugh Powers - Last Filed: 07/18/18 17:33> Course - Re-Assessments/Exams Free Text/Narrative Re-Assessment/Exam: 07/18/18 17:31 Pt is tolerant of blood sugars in the 300 to 600 range. He feels well today and has no current complaints. His repeat blood sugar is 363. Pt is comfortable with plan to d/c him home and agrees to monitor his blood sugar closely for the next 24 hours.
[2018-07-18] MEDS ORDERED: Sodium Chloride 0.9% 1,000 ML IV ONE (15:36)
[2018-07-18] MEDS ORDERED: Insulin Regular, Human 100 Units/ML 3 ML Vial IV ONE ×2 (15:36→16:35)
== END 2018-07-18 18:03 | disposition home or self-care (01) ==
LOC: DL.ED 14:47
DX: E11.65 Type 2 diabetes mellitus with hyperglycemia (principal); I25.10 Atherosclerotic heart disease of native coronary artery without angina pectoris; E78.00 Pure hypercholesterolemia, unspecified; N18.9 Chronic kidney disease, unspecified; I12.9 Hypertensive chronic kidney disease with stage 1 through stage 4 chronic kidney disease, or unspecified chronic kidney disease; E11.22 Type 2 diabetes mellitus with diabetic chronic kidney disease; Z95.5 Presence of coronary angioplasty implant and graft; Z79.4 Long term (current) use of insulin; Z79.899 Other long term (current) drug therapy
CPT/HCPCS: 81001; 82962; 87086; 96361; 96374; 96376; 99284; J1815; J7030

== ENCOUNTER 2018-08-15 23:13 | Emergency (ER) | payer OTHER ==
[2018-08-15 23:25] VITALS: BP 112/87
[2018-08-15] MEDS: Lactated Ringers 1,000 ML IV ONE (23:38)
[2018-08-15] MEDS: Insulin Regular, Human 100 Units/ML 3 ML Vial IV ONE (23:38)
[2018-08-16 00:01] LABS: ANION GAP 17.6; CHLORIDE,CL 88 mmol/L (101-111); SODIUM,NA 124 mmol/L (135-145)
[2018-08-16] MEDS: Sodium Chloride 0.9% 1,000 ML IV ONE (00:20)
--- NOTE | 2018-08-16 00:21 | EDM.PDOC ---
ED HPI GENERAL MEDICAL PROBLEM - General Chief Complaint: General Stated Complaint: SICK Time Seen by Provider: 08/15/18 23:25 Source of Information: Reports: Patient, Family, RN History Limitations: Reports: No Limitations - History of Present Illness INITIAL COMMENTS - FREE TEXT/NARRATIVE: ED with family state patient was called by KATHRYN roche and told he needed to go to ER as blood sugars were high. Family report patient has been getting weaker, not doing ADL's, is currently living with family who are either absent from home or unable to assist with cares. Patient not eating regularily Upper Back Pain Score (Numeric/FACES): 3 - Related Data Allergies Allergy/AdvReac Type Severity Reaction Status Date / Time No Known Allergies Allergy Verified 08/15/18 23:23 Home Meds: Home Meds Calcitriol 0.25 mcg PO DAILY 05/28/13 [History] atorvaSTATin Calcium [Atorvastatin Calcium] 80 mg PO BEDTIME 05/28/13 [History] Latanoprost [Xalatan 0.005% Ophth Soln] 1 drop EYEBOTH BEDTIME 09/03/15 [History ] Clopidogrel [Plavix] 75 mg PO DAILY 01/07/16 [History] DULoxetine [Cymbalta] 30 mg PO DAILY 01/07/16 [History] Finasteride [Proscar] 5 mg PO DAILY 01/07/16 [History] Insulin Aspart [NovoLOG] 10 unit SUBCUT TIDMEALS 02/10/17 [History] Insulin Detemir [Levemir] 5 unit SUBCUT BEDTIME 02/10/17 [History] Insulin Detemir [Levemir] 48 unit SUBCUT QAM 02/10/17 [History] Losartan [Cozaar] 25 mg PO DAILY 02/10/17 [History] Magnesium Oxide 500 mg PO BID 02/10/17 [History] Cholecalciferol (Vitamin D3) [Vitamin D3] 800 unit PO DAILY 09/28/17 [History] Ranitidine HCl [Ranitidine] 150 mg PO BID 09/28/17 [History] Acetaminophen 325 mg PO Q4H PRN 02/17/18 [History] Diclofenac Sodium [Voltaren 1% Gel] 1 applic TP QID 02/17/18 [History] Past Medical History HEENT History: Reports: Impaired Vision Other HEENT History: wears glasses Cardiovascular History: Reports: CAD, High Cholesterol, Hypertension, Stents Other Cardiovascular History: Transient hypotension Respiratory History: Reports: Other (See Below) Other Respiratory History: spot of lung and they said to keep an eye on it. Gastrointestinal History: Reports: None Genitourinary History: Reports: Chronic Renal Insuffiency Other Genitourinary History: urinary tract obstruction-self caths self when stream gets slow Musculoskeletal History: Reports: Back Pain, Chronic Other Musculoskeletal History: broke both ankles, broken ribs, collar bone, jaw , toes and 5-6 hairline fx of skull due to rodeo Neurological History: Reports: Headaches, Chronic Other Neuro History: heasdaches since 1966 Psychiatric History: Reports: Other (See Below) Other Psychiatric History: has noc bishop from [place] Endocrine/Metabolic History: Reports: Diabetes, Type II Hematologic History: Reports: None Immunologic History: Reports: None Oncologic (Cancer) History: Reports: Other (See Below) Other Oncologic History: pt. doesn't know what type of cancer he was diagnosed with Dermatologic History: Reports: Other (See Below) Other Dermatologic History: eccymotic area to left hip, left upper arm, and left ear from fall when pt. tripped over [employer] about a week ago. - Infectious Disease History Infectious Disease History: Reports: Chicken Pox Other Infectious Disease History: unable to obtain history. - Past Surgical History Cardiovascular Surgical History: Reports: Coronary Artery Stent GI Surgical History: Reports: Hernia, Inguinal Other GI Surgeries/Procedures: left side igunial hernia repair Social & Family History - Family History Family Medical History: Noncontributory Cardiac: Reports: CAD Endocrine/Metabolic: Reports: Diabetes, type II Oncologic: Reports: Other (See Below) Other Oncologic Family History: brother, mom,sister unknown types - Tobacco Use Smoking Status *Q: Never Smoker - Caffeine Use Caffeine Use: Reports: Coffee, Soda Other Caffeine Use: 2 cups a day - Recreational Drug Use Recreational Drug Use: No - Living Situation & Occupation Living situation: Reports: with Family Occupation: Retired ED ROS GENERAL - Review of Systems Review Of Systems: See Below Constitutional: Reports: Weakness, Decreased Appetite, Weight Loss HEENT: Reports: Glasses Respiratory: Denies: Shortness of Breath, Wheezing, Cough Cardiovascular: Denies: Chest Pain, Edema, Lightheadedness Endocrine: Reports: Fatigue, High Glucose GI/Abdominal: Reports: Decreased Appetite Neurological: Reports: Weakness (generalized), Other (fmaily note gradual forgetfulness forgets to eat, take medications.) ED EXAM, GENERAL - Physical Exam Exam: See Below Exam Limited By: No Limitations General Appearance: Alert, No Apparent Distress, Thin, Cachetic (50# lisandro loss since april) Eye Exam: Bilateral Eye: Conjunctival Injection, EOMI, PERRL Ears: Normal External Exam, Normal TMs, Hearing Loss Nose: Normal Inspection Throat/Mouth: Normal Inspection Head: Atraumatic, Normocephalic Neck: Normal Inspection Respiratory/Chest: No Respiratory Distress, Lungs Clear, Normal Breath Sounds Cardiovascular: Normal Peripheral Pulses, Regular Rate, Rhythm, No Edema, Tachycardia GI/Abdominal: Normal Bowel Sounds, Soft, Non-Tender Extremities: Normal Inspection, Normal Range of Motion Neurological: Alert, Oriented, Memory Loss Recent Events Psychiatric: Normal Affect, Normal Mood Skin Exam: Warm, Dry, Intact, Normal Color Course - Vital Signs Last Recorded V/S: Last Vital Signs Temp 98.6 F 08/15/18 23:23 Pulse 109 H 08/15/18 23:23 Resp 16 08/15/18 23:23 BP 112/87 08/15/18 23:23 Pulse Ox 96 08/15/18 23:23 - Orders/Labs/Meds Orders: Active Orders 24 hr Category Date Time Status Blood Glucose Check, Bedside [RC] ONETIME Care 08/16/18 00:54 Active EKG 12 Lead [EKG Documentation Completion] [] URGENT Care 08/16/18 00:34 Active Glucose [Blood Glucose Check, Bedside] [] ONETIME Care 08/16/18 00:02 Active Chest 1V Frontal [CR] Urgent Exams 08/16/18 00:05 Taken BLOOD GAS ARTERIAL [BG] Stat Lab 08/15/18 23:28 Ordered CULTURE URINE [RM] Urgent Lab 08/16/18 00:58 Received Labs: Laboratory Tests 08/15/18 08/15/18 08/15/18 Range/Units 23:32 23:32 23:32 WBC 7.0 (5.0-10.0) 10^3/uL RBC 4.32 L (4.6-6.2) 10^6/uL Hgb 13.5 L (14.0-18.0) g/dL Hct 37.8 L (40.0-54.0) % MCV 87.5 (80-100) fL MCH 31.3 (27.0-34.0) pg MCHC 35.7 H (33.0-35.0) g/dL Plt Count 260 (150-450) 10^3/uL Neut % (Auto) 73.1 (42.2-75.2) % Lymph % (Auto) 14.9 L (20.5-50.1) % [place] % (Auto) 10.5 H (2-8) % Eos % (Auto) 1.1 (1.0-3.0) % Baso % (Auto) 0.4 (0.0-1.0) % PT 9.1 (9.0-12.0) SEC INR 0.9 (0.9-1.2) Sodium 124 L D (135-145) mmol/L Potassium 5.6 H (3.6-5.0) mmol/L Chloride 88 L D (101-111) mmol/L Carbon Dioxide 24.0 (21.0-31.0) mmol/L Anion Gap 17.6 BUN 46 H (7-18) mg/dL Creatinine 2.2 H (0.6-1.3) mg/dL Est Cr Clr Drug Dosing 23.81 mL/min Estimated GFR (MDRD) 29 BUN/Creatinine Ratio 20.90 Glucose 755 H* (74-105) mg/dL Lactic Acid (0.5-2.2) mmol/L Calcium 9.5 (8.4-10.2) mg/dl Total Bilirubin 0.9 (0.2-1.0) mg/dL AST 17 (10-42) IU/L ALT 18 (10-60) IU/L Alkaline Phosphatase 166 H (42-121) IU/L Troponin I < 0.02 (0.00-0.02) ng/ml B-Natriuretic Peptide 28 (0-100) pg/ml Total Protein 7.0 (6.7-8.2) g/dl Albumin 3.7 (3.2-5.5) g/dl Globulin 3.3 Albumin/Globulin Ratio 1.12 Amylase 46 (28-100) U/L Lipase 118 H (22-51) U/L Urine Color (YELLOW) Urine Appearance (CLEAR) Urine pH (5.0-9.0) Ur Specific [place] (1.005-1.030) Urine Protein (NEGATIVE) Urine Glucose (UA) (NEGATIVE) Urine Ketones (NEGATIVE) Urine Occult Blood (NEGATIVE) Urine Nitrite (NEGATIVE) Urine Bilirubin (NEGATIVE) Urine Urobilinogen (0.2-1.0) mg/dL Ur Leukocyte Esterase (NEGATIVE) Urine RBC /HPF Urine WBC (0-5/HPF) /HPF Ur Epithelial Cells /HPF Urine Bacteria (0-FEW/HPF) /HPF Ketones Negative 08/15/18 08/16/18 Range/Units 23:32 00:58 WBC (5.0-10.0) 10^3/uL RBC (4.6-6.2) 10^6/uL Hgb (14.0-18.0) g/dL Hct (40.0-54.0) % MCV (80-100) fL MCH (27.0-34.0) pg MCHC (33.0-35.0) g/dL Plt Count (150-450) 10^3/uL Neut % (Auto) (42.2-75.2) % Lymph % (Auto) (20.5-50.1) % [place] % (Auto) (2-8) % Eos % (Auto) (1.0-3.0) % Baso % (Auto) (0.0-1.0) % PT (9.0-12.0) SEC INR (0.9-1.2) Sodium (135-145) mmol/L Potassium (3.6-5.0) mmol/L Chloride (101-111) mmol/L Carbon Dioxide (21.0-31.0) mmol/L Anion Gap BUN (7-18) mg/dL Creatinine (0.6-1.3) mg/dL Est Cr Clr Drug Dosing mL/min Estimated GFR (MDRD) BUN/Creatinine Ratio Glucose (74-105) mg/dL Lactic Acid 1.3 (0.5-2.2) mmol/L Calcium (8.4-10.2) mg/dl Total Bilirubin (0.2-1.0) mg/dL AST (10-42) IU/L ALT (10-60) IU/L Alkaline Phosphatase (42-121) IU/L Troponin I (0.00-0.02) ng/ml B-Natriuretic Peptide (0-100) pg/ml Total Protein (6.7-8.2) g/dl Albumin (3.2-5.5) g/dl Globulin Albumin/Globulin Ratio Amylase (28-100) U/L Lipase (22-51) U/L Urine Color Light yellow (YELLOW) Urine Appearance Cloudy (CLEAR) Urine pH 5.5 (5.0-9.0) Ur Specific [place] <= 1.005 (1.005-1.030) Urine Protein 30 H (NEGATIVE) Urine Glucose (UA) 500 H (NEGATIVE) Urine Ketones Negative (NEGATIVE) Urine Occult Blood Small H (NEGATIVE) Urine Nitrite Negative (NEGATIVE) Urine Bilirubin Negative (NEGATIVE) Urine Urobilinogen 0.2 (0.2-1.0) mg/dL Ur Leukocyte Esterase Small H (NEGATIVE) Urine RBC 5-10 H /HPF Urine WBC >100 H (0-5/HPF) /HPF Ur Epithelial Cells Few /HPF Urine Bacteria Many H (0-FEW/HPF) /HPF Ketones Meds: Medications Discontinued Medications Generic Name Dose Route Start Last Admin Trade Name Freq PRN Reason Stop Dose Admin Lactated Ringer's 1,000 mls @ 999 mls/hr 08/15/18 23:28 08/15/18 23:38 Ringers, Lactated IV 08/16/18 00:28 999 mls/hr .BOLUS ONE Administration Sodium Chloride 1,000 mls @ 150 mls/hr 08/16/18 00:18 08/16/18 00:20 Normal Saline IV 08/16/18 06:57 150 mls/hr .BOLUS ONE Administration Insulin Human Regular 100 unit 100 mls @ 5.71 mls/hr 08/16/18 00:30 08/16/18 00:24 / Sodium Chloride IV 0.1 units/kg/hr TITRATE KARMEN 5.71 mls/hr Administration Protocol 0.1 UNITS/KG/HR Insulin Human Regular 10 unit 08/15/18 23:34 08/15/18 23:38 Humulin R IV 08/15/18 23:35 10 units ONETIME ONE Administration - Radiology Interpretation Free Text/Narrative:: CXR clear - Re-Assessments/Exams Free Text/Narrative Re-Assessment/Exam: 08/16/18 01:04 Dr Oates accepting of patient at [facility]. Tx via [facility]. Insulin drip and fluids enroute. Departure - Departure Time of Disposition: 01:15 Disposition: DC/Tfer to Acute Hospital 02 Condition: Fair, Undetermined Clinical Impression: Hyponatremia, Uncontrolled type 2 DM with hyperosmolar nonketotic hyperglycemia , Hyperkalemia, Renal insufficiency, Weakness, Weight loss - Discharge Information *PRESCRIPTION DRUG MONITORING PROGRAM REVIEWED*: No *COPY OF PRESCRIPTION DRUG MONITORING REPORT IN PATIENT SANTIAGO: No Referrals: PCP,Unobtain [Primary Care Provider] - Forms: ED Department Discharge - My Orders Last 24 Hours: My Active Orders 08/15/18 23:28 BLOOD GAS ARTERIAL [BG] Stat 08/16/18 00:02 Glucose [Blood Glucose Check, Bedside] [RC] ONETIME 08/16/18 00:05 Chest 1V Frontal [CR] Urgent 08/16/18 00:34 EKG 12 Lead [EKG Documentation Completion] [RC] URGENT 08/16/18 00:54 Blood Glucose Check, Bedside [RC] ONETIME 08/16/18 00:58 CULTURE URINE [RM] Urgent - Assessment/Plan Last 24 Hours: My Active Orders 08/15/18 23:28 BLOOD GAS ARTERIAL [BG] Stat 08/16/18 00:02 Glucose [Blood Glucose Check, Bedside] [RC] ONETIME 08/16/18 00:05 Chest 1V Frontal [CR] Urgent 08/16/18 00:34 EKG 12 Lead [EKG Documentation Completion] [RC] URGENT 08/16/18 00:54 Blood Glucose Check, Bedside [RC] ONETIME 08/16/18 00:58 CULTURE URINE [RM] Urgent
[2018-08-16 00:52] LABS: BASE EXCESS ARTERIAL 3 mmol/L ((-2)-(+3)); BICARBONATE,ARTERIAL 27.7 mmol/L (22-26); O2 DELIVERY DEVICE ROOM AIR; O2 SATURATION ARTERIAL 97 % (95-100); PCO2 ARTERIAL 47 mmHg (35-45); PO2 ARTERIAL 73 mmHg (70-100)
[2018-08-17 07:29] LABS: ALLEN TEST PERFORMED
== END 2018-08-16 01:19 ==
LOC: DL.ED 23:13
DX: E11.65 Type 2 diabetes mellitus with hyperglycemia (principal); E87.1 Hypo-osmolality and hyponatremia; E87.5 Hyperkalemia; R53.1 Weakness; E78.00 Pure hypercholesterolemia, unspecified; I12.9 Hypertensive chronic kidney disease with stage 1 through stage 4 chronic kidney disease, or unspecified chronic kidney disease; N18.9 Chronic kidney disease, unspecified; I25.10 Atherosclerotic heart disease of native coronary artery without angina pectoris; Z79.899 Other long term (current) drug therapy; Z79.4 Long term (current) use of insulin; Z95.5 Presence of coronary angioplasty implant and graft
CPT/HCPCS: 36415; 36600; 71045; 80053; 81001; 82009; 82150; 82803; 82962; 83605; 83690; 83880; 84484; 85025; 85610; 87086; 93005; 96361; 96365; 99285; J1815; J7030; J7120

== ENCOUNTER 2018-08-29 14:38 | Inpatient (IN) | payer MEDICARE, MEDICAID, OTHER ==
[2018-08-29 15:18] LABS: ANION GAP 18.2; CHLORIDE,CL 88 mmol/L (101-111); SODIUM,NA 124 mmol/L (135-145)
[2018-08-29 15:26] LABS: BASE EXCESS ARTERIAL 1 mmol/L ((-2)-(+3)); BICARBONATE,ARTERIAL 26.3 mmol/L (22-26); O2 DELIVERY DEVICE ROOM AIR; O2 SATURATION ARTERIAL 93 % (95-100); PCO2 ARTERIAL 47 mmHg (35-45); PO2 ARTERIAL 65 mmHg (70-100)
[2018-08-29 15:28] LABS: ALLEN TEST PERFORMED
[2018-08-29] MEDS ORDERED: Sodium Chloride 0.9% 1,000 ML IV ONE (15:49)
--- NOTE | 2018-08-29 16:30 | CR ---
Clinical history: 73-year-old diabetic male who fell "3 days ago" and now complaining of left hip pain. Interpretation: AP pelvis/hips and AP/frog lateral views of the left hip confirm age and gender normal bone mineral density. (Extensive atheromatous calcifications identified in the pelvis and both groins) No sign of foreign body. No pelvic or either hip fracture/dislocation (minimal arthritic degenerative change).
--- NOTE | 2018-08-29 16:41 | EDM.PDOC ---
Scribed by Chanda Mustafa 08/29/18 [id number] for John Prakash PA ED HPI GENERAL MEDICAL PROBLEM - General Chief Complaint: Diabetic Complaint Stated Complaint: [facility] Time Seen by Provider: 08/29/18 15:45 Source of Information: Reports: Patient, RN, RN Notes Reviewed History Limitations: Reports: No Limitations - History of Present Illness INITIAL COMMENTS - FREE TEXT/NARRATIVE: Patient had an appointment at [facility] with Dr. Baker today. He takes 14 Novolog before meals. He has taken some pills but not sure what they are. He is also on a stool softener. He was at the [facility] but does not know when or why. Patient reports falling 2 days ago and has left hip pain. Onset: Today Severity: Severe Improves with: Reports: None Worsens with: Reports: None Associated Symptoms: Reports: No Other Symptoms Neck Pain Score (Numeric/FACES): 5 - Related Data Allergies Allergy/AdvReac Type Severity Reaction Status Date / Time No Known Allergies Allergy Verified 08/29/18 14:52 Home Meds: Home Meds Calcitriol 0.25 mcg PO DAILY 05/28/13 [History] atorvaSTATin Calcium [Atorvastatin Calcium] 80 mg PO BEDTIME 05/28/13 [History] Latanoprost [Xalatan 0.005% Ophth Soln] 1 drop EYEBOTH BEDTIME 09/03/15 [History ] Clopidogrel [Plavix] 75 mg PO DAILY 01/07/16 [History] DULoxetine [Cymbalta] 30 mg PO DAILY 01/07/16 [History] Finasteride [Proscar] 5 mg PO DAILY 01/07/16 [History] Insulin Aspart [NovoLOG] 10 unit SUBCUT TIDMEALS 02/10/17 [History] Insulin Detemir [Levemir] 48 unit SUBCUT QAM 02/10/17 [History] Losartan [Cozaar] 25 mg PO DAILY 02/10/17 [History] Magnesium Oxide 500 mg PO BID 02/10/17 [History] Cholecalciferol (Vitamin D3) [Vitamin D3] 800 unit PO DAILY 09/28/17 [History] Ranitidine HCl [Ranitidine] 150 mg PO BID 09/28/17 [History] Acetaminophen 325 mg PO Q4H PRN 02/17/18 [History] Diclofenac Sodium [Voltaren 1% Gel] 1 applic TP QID 02/17/18 [History] Past Medical History HEENT History: Reports: Impaired Vision Other HEENT History: wears glasses Cardiovascular History: Reports: CAD, High Cholesterol, Hypertension, Stents Other Cardiovascular History: Transient hypotension Respiratory History: Reports: Other (See Below) Other Respiratory History: spot of lung and they said to keep an eye on it. Gastrointestinal History: Reports: None Genitourinary History: Reports: Acute Renal Failure, Chronic Renal Insuffiency Other Genitourinary History: urinary tract obstruction-self caths self when stream gets slow Musculoskeletal History: Reports: Back Pain, Chronic Other Musculoskeletal History: broke both ankles, broken ribs, collar bone, jaw , toes and 5-6 hairline fx of skull due to rodeo Neurological History: Reports: Concussion, Headaches, Chronic Other Neuro History: heasdaches since 1966 Psychiatric History: Reports: Other (See Below) Other Psychiatric History: has noc bishop from [place] Endocrine/Metabolic History: Reports: Diabetes, Type II Hematologic History: Reports: None Immunologic History: Reports: None Oncologic (Cancer) History: Reports: Other (See Below) Other Oncologic History: pt. doesn't know what type of cancer he was diagnosed with Dermatologic History: Reports: Other (See Below) Other Dermatologic History: eccymotic area to left hip, left upper arm, and left ear from fall when pt. tripped over trailer hitch about a week ago. - Infectious Disease History Infectious Disease History: Reports: Chicken Pox Other Infectious Disease History: unable to obtain history. - Past Surgical History Cardiovascular Surgical History: Reports: Coronary Artery Stent GI Surgical History: Reports: Hernia, Inguinal Other GI Surgeries/Procedures: left side igunial hernia repair Social & Family History - Family History Family Medical History: Noncontributory Cardiac: Reports: CAD Endocrine/Metabolic: Reports: Diabetes, type II Oncologic: Reports: Other (See Below) Other Oncologic Family History: brother, mom,sister unknown types - Tobacco Use Smoking Status *Q: Former Smoker Years of Tobacco use: 10 Packs/Tins Daily: 0.5 Used Tobacco, but Quit: Yes Month/Year Tobacco Last Used: Joon - Caffeine Use Caffeine Use: Reports: None, Coffee Other Caffeine Use: 2 cups a day - Recreational Drug Use Recreational Drug Use: No - Living Situation & Occupation Living situation: Reports: with Family Occupation: Retired ED ROS GENERAL - Review of Systems Review Of Systems: ROS reveals no pertinent complaints other than HPI. ED EXAM GENERAL NO PERIP PULSE - Physical Exam Exam: See Below Exam Limited By: No Limitations General Appearance: Alert, WD/WN, No Apparent Distress Eye Exam: Bilateral Eye: EOMI, Normal Inspection, PERRL Ears: Normal External Exam, Normal Canal, Hearing Grossly Normal, Normal TMs Nose: Normal Inspection, Normal Mucosa, No Blood Throat/Mouth: Normal Inspection, Normal Lips, Normal Teeth, Normal Gums, Normal Oropharynx, Normal Voice, No Airway Compromise Head: Atraumatic, Normocephalic Neck: Normal Inspection, Supple, Non-Tender, Full Range of Motion Respiratory/Chest: No Respiratory Distress, Lungs Clear, Normal Breath Sounds, No Accessory Muscle Use, Chest Non-Tender Cardiovascular: Normal Peripheral Pulses, Regular Rate, Rhythm, No Edema, No Gallop, No JVD, No Murmur, No Rub GI/Abdominal: Normal Bowel Sounds, Soft, Non-Tender, No Organomegaly, No Distention, No Abnormal Bruit, No Mass (Male) Exam: Deferred Rectal (Males) Exam: Deferred Back Exam: Normal Inspection, Full Range of Motion, NT Extremities: Other (left hip pain with palpation.) Neurological: Alert, Oriented Psychiatric: Normal Affect, Normal Mood Skin Exam: Warm, Dry, Intact Lymphatic: No Adenopathy Course - Vital Signs Last Recorded V/S: Last Vital Signs Temp 36.4 C 08/29/18 15:17 Pulse 102 H 08/29/18 15:17 Resp 16 08/29/18 15:17 BP 168/95 H 08/29/18 15:17 Pulse Ox 99 08/29/18 15:17 - Orders/Labs/Meds Orders: Active Orders 24 hr Category Date Time Status Blood Glucose Check, Bedside [RC] ONETIME Care 08/29/18 14:49 Active Insulin Regular, Human [HumuLIN R] 100 unit Med 08/29/18 16:36 Ordered Sodium Chloride 0.9% [Normal Saline] 99 ml IV TITRATE Sodium Chloride 0.9% [Normal Saline] 1,000 ml Med 08/29/18 15:49 Ordered IV .BOLUS Medication Orders Sodium Chloride (Normal Saline) 1,000 mls @ 999 mls/hr IV .BOLUS ONE Stop: 08/29/18 16:49 Last Admin: 08/29/18 16:02 Dose: 999 mls/hr Insulin Human Regular 100 unit (/ Sodium Chloride) 100 mls @ 2 mls/hr IV TITRATE KARMEN; Protocol Labs: Laboratory Tests 08/29/18 08/29/18 08/29/18 Range/Units 14:45 14:45 14:45 WBC 6.6 (5.0-10.0) 10^3/uL RBC 4.49 L (4.6-6.2) 10^6/uL Hgb 13.9 L (14.0-18.0) g/dL Hct 40.4 (40.0-54.0) % MCV 90.0 (80-100) fL MCH 31.0 (27.0-34.0) pg MCHC 34.4 (33.0-35.0) g/dL Plt Count 317 (150-450) 10^3/uL Neut % (Auto) 75.9 H (42.2-75.2) % Lymph % (Auto) 12.9 L (20.5-50.1) % [place] % (Auto) 10.2 H (2-8) % Eos % (Auto) 0.5 L (1.0-3.0) % Baso % (Auto) 0.5 (0.0-1.0) % ABG pH (7.35-7.45) ABG pCO2 (35-45) mmHg ABG pO2 (70-100) mmHg ABG HCO3 (22-26) mmol/L ABG O2 Saturation (95-100) % ABG Base Excess ((-2)-(+3)) mmol/L Da Test O2 Delivery Device Sodium 124 L (135-145) mmol/L Potassium 5.2 H (3.6-5.0) mmol/L Chloride 88 L (101-111) mmol/L Carbon Dioxide 23.0 (21.0-31.0) mmol/L Anion Gap 18.2 BUN 44 H (7-18) mg/dL Creatinine 1.8 H (0.6-1.3) mg/dL Est Cr Clr Drug Dosing 37.19 mL/min Estimated GFR (MDRD) 37 BUN/Creatinine Ratio 24.44 Glucose 944 H* (74-105) mg/dL POC Glucose > 500 H* (83-110) mg/dl Calcium 9.1 (8.4-10.2) mg/dl Total Bilirubin 1.0 (0.2-1.0) mg/dL AST 19 (10-42) IU/L ALT 18 (10-60) IU/L Alkaline Phosphatase 145 H (42-121) IU/L Total Protein 7.5 (6.7-8.2) g/dl Albumin 4.0 (3.2-5.5) g/dl Globulin 3.5 Albumin/Globulin Ratio 1.14 Urine Color (YELLOW) Urine Appearance (CLEAR) Urine pH (5.0-9.0) Ur Specific [place] (1.005-1.030) Urine Protein (NEGATIVE) Urine Glucose (UA) (NEGATIVE) Urine Ketones (NEGATIVE) Urine Occult Blood (NEGATIVE) Urine Nitrite (NEGATIVE) Urine Bilirubin (NEGATIVE) Urine Urobilinogen (0.2-1.0) mg/dL Ur Leukocyte Esterase (NEGATIVE) Urine RBC /HPF Urine WBC (0-5/HPF) /HPF Ur Epithelial Cells (NOT SEEN) /HPF Urine Bacteria (0-FEW/HPF) /HPF Ketones Negative 08/29/18 08/29/18 Range/Units 15:02 15:21 WBC (5.0-10.0) 10^3/uL RBC (4.6-6.2) 10^6/uL Hgb (14.0-18.0) g/dL Hct (40.0-54.0) % MCV (80-100) fL MCH (27.0-34.0) pg MCHC (33.0-35.0) g/dL Plt Count (150-450) 10^3/uL Neut % (Auto) (42.2-75.2) % Lymph % (Auto) (20.5-50.1) % [place] % (Auto) (2-8) % Eos % (Auto) (1.0-3.0) % Baso % (Auto) (0.0-1.0) % ABG pH 7.37 (7.35-7.45) ABG pCO2 47 H (35-45) mmHg ABG pO2 65 L (70-100) mmHg ABG HCO3 26.3 H (22-26) mmol/L ABG O2 Saturation 93 L (95-100) % ABG Base Excess 1 ((-2)-(+3)) mmol/L Da Test Performed O2 Delivery Device Room air Sodium (135-145) mmol/L Potassium (3.6-5.0) mmol/L Chloride (101-111) mmol/L Carbon Dioxide (21.0-31.0) mmol/L Anion Gap BUN (7-18) mg/dL Creatinine (0.6-1.3) mg/dL Est Cr Clr Drug Dosing mL/min Estimated GFR (MDRD) BUN/Creatinine Ratio Glucose (74-105) mg/dL POC Glucose (83-110) mg/dl Calcium (8.4-10.2) mg/dl Total Bilirubin (0.2-1.0) mg/dL AST (10-42) IU/L ALT (10-60) IU/L Alkaline Phosphatase (42-121) IU/L Total Protein (6.7-8.2) g/dl Albumin (3.2-5.5) g/dl Globulin Albumin/Globulin Ratio Urine Color Yellow (YELLOW) Urine Appearance Cloudy (CLEAR) Urine pH 6.5 (5.0-9.0) Ur Specific [place] 1.010 (1.005-1.030) Urine Protein 100 H (NEGATIVE) Urine Glucose (UA) 500 H (NEGATIVE) Urine Ketones Negative (NEGATIVE) Urine Occult Blood Trace-intact H (NEGATIVE) Urine Nitrite Negative (NEGATIVE) Urine Bilirubin Negative (NEGATIVE) Urine Urobilinogen 0.2 (0.2-1.0) mg/dL Ur Leukocyte Esterase Small H (NEGATIVE) Urine RBC 0-5 /HPF Urine WBC 50-75 H (0-5/HPF) /HPF Ur Epithelial Cells Few (NOT SEEN) /HPF Urine Bacteria Few (0-FEW/HPF) /HPF Ketones Meds: Medications Generic Name Dose Route Start Last Admin Trade Name Freq PRN Reason Stop Dose Admin Sodium Chloride 1,000 mls @ 999 mls/hr 08/29/18 15:49 08/29/18 16:02 Normal Saline IV 08/29/18 16:49 999 mls/hr .BOLUS ONE Administration Insulin Human Regular 100 unit 100 mls @ 2 mls/hr 08/29/18 16:36 / Sodium Chloride IV TITRATE KARMEN Protocol 2 UNIT/HR Discontinued Medications Generic Name Dose Route Start Last Admin Trade Name Freq PRN Reason Stop Dose Admin Insulin Human Regular 100 unit 100 mls @ 2 mls/hr 08/29/18 16:45 / Sodium Chloride IV TITRATE KARMEN Protocol 2 UNIT/HR Departure - Departure Time of Disposition: 16:39 Disposition: Admitted As Inpatient 66 Condition: Fair Clinical Impression: Hyperglycemia - Discharge Information *PRESCRIPTION DRUG MONITORING PROGRAM REVIEWED*: Not Applicable *COPY OF PRESCRIPTION DRUG MONITORING REPORT IN PATIENT SANTIAGO: Not Applicable Care Plan Goals: Discussed the patient's history, examination and lab results with Dr. Rose. Dr. Rose accepted the patient for continued evaluation and further management as an observation patient at [facility]. - My Orders Last 24 Hours: My Active Orders 08/29/18 14:49 Blood Glucose Check, Bedside [RC] ONETIME 08/29/18 15:49 Sodium Chloride 0.9% [Normal Saline] 1,000 ml IV .BOLUS 08/29/18 16:36 Insulin Regular, Human [HumuLIN R] 100 unit Sodium Chloride 0.9% [Normal Saline] 99 ml IV TITRATE - Assessment/Plan Last 24 Hours: My Active Orders 08/29/18 14:49 Blood Glucose Check, Bedside [RC] ONETIME 08/29/18 15:49 Sodium Chloride 0.9% [Normal Saline] 1,000 ml IV .BOLUS 08/29/18 16:36 Insulin Regular, Human [HumuLIN R] 100 unit Sodium Chloride 0.9% [Normal Saline] 99 ml IV TITRATE I have read and agree with the documentation that has been completed regarding this visit. By signing this record, I attest that the documentation was completed in my physical presence and is an accurate record of the encounter.
[2018-08-29] MEDS ORDERED: Acetaminophen 325 MG Tab PO PRN (17:27)
[2018-08-29] MEDS ORDERED: Ondansetron 4 MG/2 ML SDV IVPUSH PRN (17:31)
[2018-08-29] MEDS ORDERED: Docusate Sodium 100 MG Cap PO PRN (17:31)
[2018-08-29] MEDS ORDERED: Sodium Chloride 0.9% 10 ML Syringe FLUSH PRN (17:31)
[2018-08-29] MEDS ORDERED: Ondansetron 4 MG Tab.DIS PO PRN (17:31)
[2018-08-29] MEDS ORDERED: Zolpidem 5 MG Tab PO PRN (17:31)
[2018-08-29] MEDS: Sodium Chloride 0.9% 1,000 ML IV SCH (18:09)
--- NOTE | 2018-08-29 18:21 | PCM.HP ---
H&P History of Present Illness - General Date of Service: 08/29/18 Admit Problem/Dx: Admission Diagnosis/Problem Admission Diagnosis/Problem Hyperglycemia - History of Present Illness Initial Comments - Free Text/Narative: 73-year-old with a history of chronic kidney disease stage III, diabetes, chronic pain including knee, back The patient went for a scheduled follow-up for his chronic kidney disease. The patient was noted to have elevated blood sugars above 800. He says he has been compliant with his NovoLog and Lantus regimen He is not checking his blood sugars at home He had no loss of consciousness, no frequent urination, no nausea or vomiting. No abdominal pain No chest pain no shortness of breath Neck Pain Score (Numeric/FACES): 5 - Related Data Allergies/Adverse Reactions: Allergies Allergy/AdvReac Type Severity Reaction Status Date / Time No Known Allergies Allergy Verified 08/29/18 14:52 Home Medications: Home Meds Calcitriol 0.25 mcg PO DAILY 05/28/13 [History] atorvaSTATin Calcium [Atorvastatin Calcium] 80 mg PO BEDTIME 05/28/13 [History] Latanoprost [Xalatan 0.005% Ophth Soln] 1 drop EYEBOTH BEDTIME 09/03/15 [History ] Clopidogrel [Plavix] 75 mg PO DAILY 01/07/16 [History] DULoxetine [Cymbalta] 30 mg PO DAILY 01/07/16 [History] Finasteride [Proscar] 5 mg PO DAILY 01/07/16 [History] Insulin Aspart [NovoLOG] 10 unit SUBCUT TIDMEALS 02/10/17 [History] Insulin Detemir [Levemir] 48 unit SUBCUT QAM 02/10/17 [History] Losartan [Cozaar] 25 mg PO DAILY 02/10/17 [History] Magnesium Oxide 500 mg PO BID 02/10/17 [History] Cholecalciferol (Vitamin D3) [Vitamin D3] 800 unit PO DAILY 09/28/17 [History] Ranitidine HCl [Ranitidine] 150 mg PO BID 09/28/17 [History] Acetaminophen 325 mg PO Q4H PRN 02/17/18 [History] Diclofenac Sodium [Voltaren 1% Gel] 1 applic TP QID 02/17/18 [History] Past Medical History HEENT History: Reports: Impaired Vision Other HEENT History: wears glasses Cardiovascular History: Reports: CAD, High Cholesterol, Hypertension, Stents Other Cardiovascular History: Transient hypotension Respiratory History: Reports: Other (See Below) Other Respiratory History: spot of lung and they said to keep an eye on it. Gastrointestinal History: Reports: None Genitourinary History: Reports: Acute Renal Failure, Chronic Renal Insuffiency Other Genitourinary History: urinary tract obstruction-self caths self when stream gets slow Musculoskeletal History: Reports: Back Pain, Chronic Other Musculoskeletal History: broke both ankles, broken ribs, collar bone, jaw , toes and 5-6 hairline fx of skull due to rodeo Neurological History: Reports: Concussion, Headaches, Chronic Other Neuro History: heasdaches since 1966 Psychiatric History: Reports: Other (See Below) Other Psychiatric History: has noc bishop from [place] Endocrine/Metabolic History: Reports: Diabetes, Type II Hematologic History: Reports: None Immunologic History: Reports: None Oncologic (Cancer) History: Reports: Other (See Below) Other Oncologic History: pt. doesn't know what type of cancer he was diagnosed with Dermatologic History: Reports: Other (See Below) Other Dermatologic History: eccymotic area to left hip, left upper arm, and left ear from fall when pt. tripped over trailer hitch about a week ago. - Infectious Disease History Infectious Disease History: Reports: Chicken Pox Other Infectious Disease History: unable to obtain history. - Past Surgical History Cardiovascular Surgical History: Reports: Coronary Artery Stent GI Surgical History: Reports: Hernia, Inguinal Other GI Surgeries/Procedures: left side igunial hernia repair Social & Family History - Family History Family Medical History: Noncontributory Cardiac: Reports: CAD Endocrine/Metabolic: Reports: Diabetes, type II Oncologic: Reports: Other (See Below) Other Oncologic Family History: brother, mom,sister unknown types - Tobacco Use Smoking Status *Q: Former Smoker Years of Tobacco use: 10 Packs/Tins Daily: 0.5 Used Tobacco, but Quit: Yes Month/Year Tobacco Last Used: 1977 Second Hand Smoke Exposure: No - Caffeine Use Caffeine Use: Reports: Coffee, Other Other Caffeine Use: flavored water - Recreational Drug Use Recreational Drug Use: No - Living Situation & Occupation Living situation: Reports: with Family Occupation: Retired H&P Review of Systems - Review of Systems: Review Of Systems: See Below General: Denies: Fever, Chills Pulmonary: Denies: Shortness of Breath Gastrointestinal: Denies: Abdominal Pain Genitourinary: Denies: Dysuria Musculoskeletal: Reports: Other (We will a few days ago and was complaining of left hip pain) Psychiatric: Reports: Confusion Exam - Exam Exam: See Below - Vital Signs Vital Signs: Last Vital Signs Temp 36.5 C 08/29/18 17:31 Pulse 102 H 08/29/18 17:31 Resp 20 08/29/18 17:31 BP 128/78 08/29/18 17:31 Pulse Ox 99 08/29/18 17:31 Weight: 71.577 kg - Exam General: Alert, Oriented Neck: Supple Lungs: Clear to Auscultation, Normal Respiratory Effort Cardiovascular: Regular Rate, Regular Rhythm GI/Abdominal Exam: Normal Bowel Sounds, Soft, Non-Tender Extremities: No Pedal Edema Neuro Extensive - Mental Status: Alert, Oriented x3, Normal Mood/Affect Psychiatric: Alert, Normal Affect, Normal Mood - Patient Data Lab Results Last 24 hrs: Laboratory Results - last 24 hr 08/29/18 08/29/18 08/29/18 Range/Units 14:45 14:45 14:45 WBC 6.6 (5.0-10.0) 10^3/uL RBC 4.49 L (4.6-6.2) 10^6/uL Hgb 13.9 L (14.0-18.0) g/dL Hct 40.4 (40.0-54.0) % MCV 90.0 (80-100) fL MCH 31.0 (27.0-34.0) pg MCHC 34.4 (33.0-35.0) g/dL Plt Count 317 (150-450) 10^3/uL Neut % (Auto) 75.9 H (42.2-75.2) % Lymph % (Auto) 12.9 L (20.5-50.1) % Rogers % (Auto) 10.2 H (2-8) % Eos % (Auto) 0.5 L (1.0-3.0) % Baso % (Auto) 0.5 (0.0-1.0) % ABG pH (7.35-7.45) ABG pCO2 (35-45) mmHg ABG pO2 (70-100) mmHg ABG HCO3 (22-26) mmol/L ABG O2 Saturation (95-100) % ABG Base Excess ((-2)-(+3)) mmol/L Da Test O2 Delivery Device Sodium 124 L (135-145) mmol/L Potassium 5.2 H (3.6-5.0) mmol/L Chloride 88 L (101-111) mmol/L Carbon Dioxide 23.0 (21.0-31.0) mmol/L Anion Gap 18.2 BUN 44 H (7-18) mg/dL Creatinine 1.8 H (0.6-1.3) mg/dL Est Cr Clr Drug Dosing 37.19 mL/min Estimated GFR (MDRD) 37 BUN/Creatinine Ratio 24.44 Glucose 944 H* (74-105) mg/dL POC Glucose > 500 H* (83-110) mg/dl Calcium 9.1 (8.4-10.2) mg/dl Total Bilirubin 1.0 (0.2-1.0) mg/dL AST 19 (10-42) IU/L ALT 18 (10-60) IU/L Alkaline Phosphatase 145 H (42-121) IU/L Total Protein 7.5 (6.7-8.2) g/dl Albumin 4.0 (3.2-5.5) g/dl Globulin 3.5 Albumin/Globulin Ratio 1.14 Urine Color (YELLOW) Urine Appearance (CLEAR) Urine pH (5.0-9.0) Ur Specific [place] (1.005-1.030) Urine Protein (NEGATIVE) Urine Glucose (UA) (NEGATIVE) Urine Ketones (NEGATIVE) Urine Occult Blood (NEGATIVE) Urine Nitrite (NEGATIVE) Urine Bilirubin (NEGATIVE) Urine Urobilinogen (0.2-1.0) mg/dL Ur Leukocyte Esterase (NEGATIVE) Urine RBC /HPF Urine WBC (0-5/HPF) /HPF Ur Epithelial Cells (NOT SEEN) /HPF Urine Bacteria (0-FEW/HPF) /HPF Ketones Negative 08/29/18 08/29/18 08/29/18 Range/Units 15:02 15:21 17:00 WBC (5.0-10.0) 10^3/uL RBC (4.6-6.2) 10^6/uL Hgb (14.0-18.0) g/dL Hct (40.0-54.0) % MCV (80-100) fL MCH (27.0-34.0) pg MCHC (33.0-35.0) g/dL Plt Count (150-450) 10^3/uL Neut % (Auto) (42.2-75.2) % Lymph % (Auto) (20.5-50.1) % Rogers % (Auto) (2-8) % Eos % (Auto) (1.0-3.0) % Baso % (Auto) (0.0-1.0) % ABG pH 7.37 (7.35-7.45) ABG pCO2 47 H (35-45) mmHg ABG pO2 65 L (70-100) mmHg ABG HCO3 26.3 H (22-26) mmol/L ABG O2 Saturation 93 L (95-100) % ABG Base Excess 1 ((-2)-(+3)) mmol/L Da Test Performed O2 Delivery Device Room air Sodium (135-145) mmol/L Potassium (3.6-5.0) mmol/L Chloride (101-111) mmol/L Carbon Dioxide (21.0-31.0) mmol/L Anion Gap BUN (7-18) mg/dL Creatinine (0.6-1.3) mg/dL Est Cr Clr Drug Dosing mL/min Estimated GFR (MDRD) BUN/Creatinine Ratio Glucose (74-105) mg/dL POC Glucose > 500 H* (83-110) mg/dl Calcium (8.4-10.2) mg/dl Total Bilirubin (0.2-1.0) mg/dL AST (10-42) IU/L ALT (10-60) IU/L Alkaline Phosphatase (42-121) IU/L Total Protein (6.7-8.2) g/dl Albumin (3.2-5.5) g/dl Globulin Albumin/Globulin Ratio Urine Color Yellow (YELLOW) Urine Appearance Cloudy (CLEAR) Urine pH 6.5 (5.0-9.0) Ur Specific [place] 1.010 (1.005-1.030) Urine Protein 100 H (NEGATIVE) Urine Glucose (UA) 500 H (NEGATIVE) Urine Ketones Negative (NEGATIVE) Urine Occult Blood Trace-intact H (NEGATIVE) Urine Nitrite Negative (NEGATIVE) Urine Bilirubin Negative (NEGATIVE) Urine Urobilinogen 0.2 (0.2-1.0) mg/dL Ur Leukocyte Esterase Small H (NEGATIVE) Urine RBC 0-5 /HPF Urine WBC 50-75 H (0-5/HPF) /HPF Ur Epithelial Cells Few (NOT SEEN) /HPF Urine Bacteria Few (0-FEW/HPF) /HPF Ketones Result Diagrams: 08/29/18 14:45 08/29/18 14:45 - Problem List (1) Acute hyponatremia SNOMED Code(s): 7171922 ICD Code: E87.1 - HYPO-OSMOLALITY AND HYPONATREMIA Status: Acute Current Visit: No (2) Diabetes type 2, uncontrolled SNOMED Code(s): 568566967, 008402716 ICD Code: E11.65 - TYPE 2 DIABETES MELLITUS WITH HYPERGLYCEMIA Status: Acute Current Visit: No Onset Date: ~02/10/17 Problem Details: hyperglycemia due to not taking insulin Qualifiers: Glycemic state: with hyperglycemia Qualified Code(s): E11.65 - Type 2 diabetes mellitus with hyperglycemia (3) HTN (hypertension) SNOMED Code(s): 62063428 ICD Code: I10 - ESSENTIAL (PRIMARY) HYPERTENSION Status: Acute Current Visit: No (4) Hyperglycemia SNOMED Code(s): 58645495 ICD Code: R73.9 - HYPERGLYCEMIA, UNSPECIFIED Status: Acute Current Visit : No (5) Hyperkalemia SNOMED Code(s): 42445553 ICD Code: E87.5 - HYPERKALEMIA Status: Acute Current Visit: No Problem List Initiated/Reviewed/Updated: Yes Orders Last 24hrs: Active Orders 24 hr Category Date Time Status Patient Status [ADT] Routine ADT 08/29/18 17:31 Ordered Antiembolic Devices [RC] PER UNIT ROUTINE Care 08/29/18 17:35 Ordered Oxygen Therapy [RC] PRN Care 08/29/18 17:31 Ordered Peripheral IV Care [RC] . DIRECTED Care 08/29/18 17:35 Ordered Up With Assistance [RC] ASDIRECTED Care 08/29/18 17:31 Ordered VTE/DVT Education [RC] PER UNIT ROUTINE Care 08/29/18 17:31 Ordered Vital Signs [RC] Q4H Care 08/29/18 17:31 Ordered Consistent Carbohydrate Diet [DIET] Diet 08/29/18 Breakfast Ordered BASIC METABOLIC PANEL,BMP [CHEM] AM Lab 08/30/18 05:15 Ordered CBC WITH AUTO DIFF [HEME] AM Lab 08/30/18 05:15 Ordered MAGNESIUM [CHEM] AM Lab 08/30/18 05:11 Ordered PHOSPHORUS [CHEM] AM Lab 08/30/18 05:11 Ordered Acetaminophen [Tylenol] Med 08/29/18 17:27 Ordered 325 mg PO Q4H PRN Acetaminophen [Tylenol] Med 08/29/18 17:31 Ordered 650 mg PO Q4H PRN Calcitriol [Calcitriol] Med 08/30/18 09:00 Ordered 0.25 mcg PO DAILY Cholecalciferol (Vitamin D3) [Vitamin D3] Med 08/30/18 09:00 Ordered 800 unit PO DAILY Clopidogrel [Plavix] Med 08/30/18 09:00 Ordered 75 mg PO DAILY DULoxetine [Cymbalta] Med 08/30/18 09:00 Ordered 30 mg PO DAILY Docusate Sodium [Colace] Med 08/29/18 17:31 Ordered 100 mg PO BID PRN Finasteride [Proscar] Med 08/30/18 09:00 Ordered 5 mg PO DAILY Heparin Sodium Med 08/29/18 22:00 Ordered 5,000 units SUBCUT Q8HR Insulin Regular, Human [HumuLIN R] 100 unit Med 08/29/18 16:36 Active Sodium Chloride 0.9% [Normal Saline] 99 ml IV TITRATE Latanoprost [Xalatan 0.005% Ophth Soln] Med 08/29/18 21:00 Ordered 1 drop EYEBOTH BEDTIME Ondansetron [Zofran ODT] Med 08/29/18 17:31 Ordered 4 mg PO Q6H PRN Ondansetron [Zofran] Med 08/29/18 17:31 Ordered 4 mg IVPUSH Q6H PRN Ranitidine HCl [Ranitidine] Med 08/29/18 21:00 Ordered 150 mg PO BID Sodium Chloride 0.9% @ 125 MLS/HR (1000ml) Med 08/29/18 17:30 Ordered Sodium Chloride 0.9% [Normal Saline] 1,000 ml IV ASDIRECTED Sodium Chloride 0.9% [Saline Flush] Med 08/29/18 17:31 Ordered 10 ml FLUSH ASDIRECTED PRN Zolpidem [Ambien] Med 08/29/18 17:31 Ordered 5 mg PO BEDTIME PRN atorvaSTATin Calcium [Atorvastatin Calcium] Med 08/29/18 21:00 Ordered 80 mg PO BEDTIME Antiembolic Hose [OM.PC] Per Unit Routine Oth 08/29/18 17:32 Ordered Peripheral IV Insertion Adult [OM.PC] Routine Oth 08/29/18 17:31 Ordered Saline Lock Insert [OM.PC] Routine Oth 08/29/18 17:31 Ordered Resuscitation Status Routine Resus Stat 08/29/18 17:31 Ordered Medication Orders Acetaminophen (Tylenol) 325 mg PO Q4H PRN PRN Reason: Pain Acetaminophen (Tylenol) 650 mg PO Q4H PRN PRN Reason: Pain (Mild 1-3)/fever Atorvastatin Calcium (Lipitor) 80 mg PO BEDTIME [facility] Calcitriol (Rocaltrol) 0.25 mcg PO DAILY [facility] Cholecalciferol (Vitamin D3) 800 units PO DAILY [facility] Clopidogrel Bisulfate (Plavix) 75 mg PO DAILY [facility] Docusate Sodium (Colace) 100 mg PO BID PRN PRN Reason: Constipation Duloxetine HCl (Cymbalta) 30 mg PO DAILY [facility] Famotidine (Pepcid) 20 mg PO DAILY [facility] Finasteride (Proscar) 5 mg PO DAILY [facility] Heparin Sodium (Porcine) (Heparin Sodium) 5,000 units SUBCUT Q8HR [facility] Insulin Human Regular 100 unit (/ Sodium Chloride) 100 mls @ 2 mls/hr IV TITRATE KARMEN; Protocol Last Admin: 08/29/18 16:43 Dose: 2 unit/hr, 2 mls/hr Sodium Chloride (Normal Saline) 1,000 mls @ 125 mls/hr IV ASDIRECTED KARMEN Last Admin: 08/29/18 18:09 Dose: 125 mls/hr Latanoprost (Xalatan 0.005% Ophth Soln) 0 ml EYEBOTH BEDTIME [facility] Ondansetron HCl (Zofran) 4 mg IVPUSH Q6H PRN PRN Reason: Nausea/Vomiting Ondansetron HCl (Zofran Odt) 4 mg PO Q6H PRN PRN Reason: nausea, able to take PO Sodium Chloride (Saline Flush) 10 ml FLUSH ASDIRECTED PRN PRN Reason: Keep Vein Open Zolpidem Tartrate (Ambien) 5 mg PO BEDTIME PRN PRN Reason: Sleep Assessment/Plan Comment:: The patient presented with the significantly elevated blood sugars, above 800. Will hydrate the patient well Start insulin drip Diabetic diet After that sugars are better controlled return back to treatment with long- acting and short-acting combination Hyponatremia Secondary to severe hyperglycemia Will hydrate well Chronic kidney disease stage III Baseline creatinine around 2.2-2.3 We'll monitor with hydration Fall and left hip pain No apparent injury on x-ray History of hypertension Recently discontinued losartan and indoor due to lower blood pressures We'll follow History of coronary artery disease Continue Plavix, statin Off beta anni and LETICIA inhibitor and imdur due to lower blood pressures DVT prophylaxis with subcutaneous heparin
[2018-08-29] MEDS: Latanoprost 0.005% Ophth Soln 2.5 ML Bottle EYEBOTH SCH (22:19)
[2018-08-29] MEDS: atorvaSTATin 20 MG Tab PO SCH (22:19)
[2018-08-29] MEDS: Famotidine 20 MG Tab PO SCH (22:19)
[2018-08-29] MEDS: Heparin Sodium 5,000 Units/ML Vial SUBCUT SCH (22:20)
[2018-08-30] MEDS: Sodium Chloride 0.9% 1,000 ML IV SCH ×3 (01:50→17:24)
[2018-08-30] MEDS: Acetaminophen 325 MG Tab PO PRN ×2 (03:34→21:59)
[2018-08-30] MEDS: Heparin Sodium 5,000 Units/ML Vial SUBCUT SCH ×3 (05:42→21:53)
[2018-08-30] MEDS ORDERED: Insulin Glarg,Human.Rec.Analog 100 Unit/ML SUBCUT STA (07:16)
[2018-08-30 07:35] LABS: ANION GAP 14.9
[2018-08-30] MEDS: Calcitriol 0.25 MCG Cap PO SCH (08:22)
[2018-08-30] MEDS: Cholecalciferol (Vitamin D3) 10 MCG Tab PO SCH (08:22)
[2018-08-30] MEDS: Finasteride 5 MG Tab PO SCH (08:22)
[2018-08-30] MEDS: Famotidine 20 MG Tab PO SCH (08:23)
[2018-08-30] MEDS: Clopidogrel 75 MG Tab PO SCH (08:23)
[2018-08-30] MEDS: DULoxetine 30 MG Cap PO SCH (08:23)
[2018-08-30] MEDS: Insulin Lispro 100 Units/ML 3 ML Vial SUBCUT SCH ×5 (12:13→21:53)
[2018-08-30] MEDS ORDERED: Insulin Lispro 100 Units/ML 3 ML Vial SUBCUT ONE (14:25)
--- NOTE | 2018-08-30 16:19 | CR ---
Clinical history: 73-year-old diabetic male with vomiting. Interpretation: Flat/upright films of the abdomen unremarkable except for possible nephrolithiasis. Some stool concentrated in the ascending right colon. Small punctate calcifications overlying left kidney. No sign of abdominal soft tissue mass, other pathologic calcifications, or mechanical bowel obstruction. Vascular calcifications. No free subdiaphragmatic air and the lung bases are clear. AP lumbar spine and pelvis/hips unremarkable. CONCLUSION: No sign of mechanical bowel obstruction. Probable nephrolithiasis, left kidney.
[2018-08-30] MEDS ORDERED: Insulin Glarg,Human.Rec.Analog 100 Unit/ML SUBCUT SCH (21:00)
[2018-08-30] MEDS: atorvaSTATin 20 MG Tab PO SCH (21:48)
[2018-08-30] MEDS: Latanoprost 0.005% Ophth Soln 2.5 ML Bottle EYEBOTH SCH (21:49)
[2018-08-31] MEDS: Acetaminophen 325 MG Tab PO PRN (05:44)
[2018-08-31] MEDS: Heparin Sodium 5,000 Units/ML Vial SUBCUT SCH ×3 (05:45→22:17)
[2018-08-31] MEDS: Sodium Chloride 0.9% 1,000 ML IV SCH (06:30)
[2018-08-31 07:15] LABS: ANION GAP 15.1
[2018-08-31] MEDS: Insulin Lispro 100 Units/ML 3 ML Vial SUBCUT SCH ×7 (08:36→22:05)
[2018-08-31] MEDS: Famotidine 20 MG Tab PO SCH (09:01)
[2018-08-31] MEDS: DULoxetine 30 MG Cap PO SCH (09:01)
[2018-08-31] MEDS: Clopidogrel 75 MG Tab PO SCH (09:01)
[2018-08-31] MEDS: Finasteride 5 MG Tab PO SCH (09:01)
[2018-08-31] MEDS: Cholecalciferol (Vitamin D3) 10 MCG Tab PO SCH (09:01)
[2018-08-31] MEDS: Calcitriol 0.25 MCG Cap PO SCH (09:01)
--- NOTE | 2018-08-31 14:57 | PN ---
DATE: 08/30/2018 HISTORY OF PRESENT ILLNESS: Mr. Graff is a 73-year-old gentleman with multiple medical problems. Past medical history includes type 2 diabetes for over the last 20 years with multiple complications including diabetic renal disease. He has a chronic stage 3 kidney disease, hypertension, microalbuminuria, hyperparathyroidism, hypophosphatemia, hyperkalemia. He was seen by Nephrology on routine nephrology visit on August 29 and was found to have a peripheral blood sugar of 895. He was referred to the ER for further evaluation and then for admission. Mr. Graff is followed at the [facility] in [place] by Dr. Lacy and review of recent labs from the end of March showed a hemoglobin A1c at that time of 10.7%. There seems to be some issues at home regarding his medications. Apparently, he has a grandson living with him, who may or may not be trying to appropriate some of his drugs and because of this Mr. Graff keeps his medications locked up. He gave me a long complicated story about this. It be noted that he has very bad eyesight and has advanced macular degeneration and gets retinal injections every 2 months. It is possible that he really has trouble seeing his medications and his insulins, but he does have the public health nurse who is in [place] coming in to help him. Apparently, his case has been referred to Adult Protective Services regarding the issues with his pills. He also follows at the [facility] as well. In some regards, it seems his cares is scattered among multiple caregivers. On admission, he was placed on an insulin drip and blood sugars have been carefully monitored since admission. Overnight his blood sugars came down at the 400s, 300s and this morning at 7:00 a.m. his blood sugar was 79; at that point, the insulin drip was stopped. We gave him 10 units of Lantus and started him on Humalog sliding scale. This scale was increased once today; this afternoon his sugars shree into the 400s. Tonight, we will give him more Lantus insulin and he is now beginning to respond to the Humalog and sugars have now come down to 177 this evening at supper time. He is on a rather large doses of insulin at home, requiring 48 units of Levemir and 10 units of NovoLog with each meal, but again it is hard to say how controlled his diet is or how regularly he follows his diabetes regimen. Review of this morning's lab work shows stable CBC, hemoglobin, hematocrit 13 and 38, normal white count and platelets. Electrolytes within normal limits. BUN and creatinine were 33 and 1.6 with a GFR of 42, which is improved since admission. Magnesium is normal at 1.9. On admission yesterday, a urinalysis was performed which showed 50 to 75 white cells per high-power field and a urine culture is pending. No results are available at this time and antibiotic was not started. Review of his clinical data shows he is taking in adequate fluids. He still has an IV running at 125 mL an hour. This was reduced to 75 mL an hour. His appetite is good. He is tolerating his diet. He is voiding and moving his bowels. His vital signs have remained stable. He has remained afebrile. PHYSICAL EXAMINATION: General: On exam, he is lying comfortably in bed. He participates in the visit. He voices no new concerns or complaints. He spent a long time telling me about the issues he is having with his grandson and the security of his medications. Vital Signs: Blood pressure 142/89, pulse 110, respiratory rate 20, oxygen saturation 99% on room air, he is afebrile. HEENT: Unremarkable. ENT is clear. Chest: Clear, but diminished bilateral breath sounds. Heart: Regular rate and rhythm. Abdomen: Benign. NEUROLOGICAL: No gross deficits. PLAN: We will continue present management. Insulin drip has been stopped. IV fluids have been reduced and we have given him a total of 30 units of Lantus today and he will continue on his usual t.i.d. Humalog with additional sliding scale as needed. No other changes are made in his care today. [facility] /[id number] SWAPNA
--- NOTE | 2018-08-31 14:58 | PN ---
DATE: 08/31/2018 HISTORY OF PRESENT ILLNESS: Mr. Dajuan Rodriguez with medical history significant for hypertension, hyperlipidemia, type 2 diabetes mellitus, chronic kidney disease admitted to the hospital with uncontrolled diabetes with elevated blood sugar of 800 along with acute hyponatremia. For the last 24 hours, the patient was started on IV insulin drip and then later changed to subcutaneous insulin. He denies any ongoing chest pain. No shortness of breath. No abdominal pain. No nausea. No vomiting. No diarrhea. REVIEW OF SYSTEMS: Cardiovascular, respiratory, gastrointestinal, neurology, constitutional were all evaluated. PHYSICAL EXAMINATION: Vital Signs: Temperature of 99, pulse of 98, blood pressure 157/82, respiratory rate of 20, saturating at 99%. General Appearance: The patient is alert, oriented to time, place, and person. Follows commands spontaneously. CARDIOVASCULAR: S1 and S2 heard with normal intensity. No gallops. Respiratory: Clear to auscultation bilaterally. No wheeze. No crepitations. Abdomen: Soft. Bowel sounds positive. Nontender. No rigidity. Extremities: No edema bilateral lower extremities. MEDICATIONS: Reviewed. Continue the same. Continue with: 1. Lipitor 80 mg daily. 2. Tylenol 650 every 4 hours as needed for pain. 3. Plavix 75 mg daily. 4. Lantus is currently on 30 units at bedtime. The patient claims he takes 40 units at bedtime. 5. Humalog increased to 12 units 3 times a day. Continue supplemental scale insulin. LABS: Sodium 133, potassium 4.1, chloride 101, BUN 28, creatinine 1.3, glucose 257. ASSESSMENT: 1. Uncontrolled diabetes. 2. Hypertension. 3. Hyperlipidemia. 4. Acute hyponatremia. 5. Chronic kidney disease. 6. Coronary artery disease. PLAN: 1. Type 2 diabetes mellitus, uncontrolled. The patient was noted to have a hemoglobin A1c of 10 back in January. We will get a hemoglobin A1c at this time. The patient claims he takes 40 units of Lantus and 14 units of Humalog with each meals. We increase the Lantus to 30 units, be cautious regarding hypoglycemic episode as he was noted to have low blood sugar earlier. We will further dosage the insulin to optimize his blood sugar; given his hemoglobin A1c suggest uncontrolled diabetes, but the patient claims that he has been compliance with his medications. We will closely follow. 2. Acute hyponatremia, much improved. This could be pseudohyponatremia from acute hyperglycemia, which seems to be improving at this time. 3. Chronic kidney disease, remains stable. Try to avoid nephrotoxic agents. Dose adjust medications for renal function. [facility] /[id number]
[2018-08-31] MEDS ORDERED: Insulin Glarg,Human.Rec.Analog 100 Unit/ML SUBCUT SCH (21:00)
[2018-08-31] MEDS: atorvaSTATin 20 MG Tab PO SCH (22:10)
[2018-08-31] MEDS: Latanoprost 0.005% Ophth Soln 2.5 ML Bottle EYEBOTH SCH (22:11)
[2018-09-01] MEDS: Heparin Sodium 5,000 Units/ML Vial SUBCUT SCH (06:20)
[2018-09-01 06:48] LABS: ANION GAP 13.5
[2018-09-01] MEDS: Insulin Lispro 100 Units/ML 3 ML Vial SUBCUT SCH ×3 (08:25→12:07)
[2018-09-01] MEDS: DULoxetine 30 MG Cap PO SCH (08:26)
[2018-09-01] MEDS: Cholecalciferol (Vitamin D3) 10 MCG Tab PO SCH (08:26)
[2018-09-01] MEDS: Clopidogrel 75 MG Tab PO SCH (08:26)
[2018-09-01] MEDS: Famotidine 20 MG Tab PO SCH (08:26)
[2018-09-01] MEDS: Finasteride 5 MG Tab PO SCH (08:26)
[2018-09-01] MEDS: Calcitriol 0.25 MCG Cap PO SCH (08:27)
[2018-09-01] MEDS ORDERED: Phosphorus #1 250 MG Tab PO ONE (10:00)
[2018-09-01] MEDS ORDERED: Insulin Lispro 100 Units/ML 3 ML Vial SUBCUT SCH (12:00)
[2018-09-01] MEDS ORDERED: Potassium Chloride 10 MEQ Tab.ER PO SCH (12:00)
[2018-09-01 12:02] VITALS: BP 140/78; PULSE 96
--- NOTE | 2018-09-01 13:26 | DISCH ---
ADMITTING DIAGNOSES: 1. Uncontrolled diabetes with elevated blood sugar. 2. Acute hyponatremia. 3. Status post fall at home. DISCHARGE DIAGNOSES: 1. Uncontrolled diabetes with recent hemoglobin A1c of 13.4 suggestive of uncontrolled diabetes. 2. Acute hyponatremia from hyperglycemia, resolved. 3. Acute on chronic renal failure, resolved. 4. Hypophosphatemia. 5. Hypomagnesemia. HISTORY OF PRESENTING ILLNESS: Mr. Dajuan Rodriguez Junior is a 73-year-old male with a medical history significant for hypertension, hyperlipidemia, type 2 diabetes mellitus, coronary artery disease, presented to the hospital with uncontrolled diabetes. He was noted to have a blood sugar of 800 at the time of admission. He was also noted to have acute on chronic renal failure with creatinine up to 1.8 at the time of admission. He was admitted and started on IV fluids, IV insulin drip, after which his blood sugars have improved. He was later switched to subcutaneous insulin. We did a hemoglobin A1c on this admission which was 13.4 suggestive of uncontrolled diabetes. The patient was educated about the importance of being compliant with insulin regimen, also educated about importance of diet and exercise for better control of his diabetes, and strongly encouraged him to be compliance with medications and also check his fingersticks with each meals and report to primary care physician. His acute on chronic renal failure got improved. His creatinine was 1.8 at the time of admission and returned back to his baseline function of 1.3 at the time of discharge. He was also noted to have hypokalemia requiring potassium chloride supplement and also noted to have hypophosphatemia and hypomagnesemia. He is discharged home in stable condition. He is advised to follow with his primary care physician next 1 week of time. DISCHARGE MEDICATIONS: Include: 1. Tylenol 325 mg every 4 hours as needed for pain. 2. Calcitriol 0.25 mcg daily. 3. Vitamin D3 800 units daily. 4. Plavix 75 mg daily. 5. Cymbalta 30 mg daily. 6. Diclofenac sodium gel apply topical 4 times a day as needed. 7. Finasteride 5 mg daily. 8. Levemir 48 units subcutaneous daily in the morning. 9. Humalog 14 units subcu 3 times a day with each meals. 10.Xalatan ophthalmic solution both eyes at bedtime. 11.Cozaar 25 mg daily. 12.Magnesium oxide 500 mg twice a day. 13.Neutra-Phos 250 mg twice a day. 14.Potassium chloride 20 mEq twice a day for the next 5 days. 15.Ranitidine 150 mg twice a day. 16.Atorvastatin 80 mg at bedtime. PHYSICAL EXAMINATION ON THE DAY OF DISCHARGE: Vital Signs: Temperature of 97.6, pulse of 103, blood pressure 129/75, respiratory rate of 16, saturating 98% on room air. General Appearance: The patient is well oriented to time, place, and person. Follows commands spontaneously. Cardiovascular System: S1, S2 heard with normal intensity. No gallops. Respiratory System: Clear to auscultation bilaterally. No wheeze. No crepitations. Abdomen: Soft. Bowel sounds positive. Nontender. No rigidity. Extremities: No edema in bilateral lower extremities. Neurology: No gross focal neurological deficits. CONDITION ON ADMISSION: Poor. CONDITION ON DISCHARGE: Stable. DISPOSITION: Discharged to home. DIET: Cardiac healthy diet and consistent carbohydrate diet. ACTIVITY: As tolerated. FOLLOWUP: Followup with primary care physician next 1 week of time. I spent over 35 minutes of time in evaluating, treating this patient, and discharge planning. [facility] /[id number] [place]
[2018-09-01] MEDS ORDERED: Insulin Glarg,Human.Rec.Analog 100 Unit/ML SUBCUT SCH (21:00)
== END 2018-09-01 13:30 | disposition home or self-care (01) | DRG 683 ==
LOC: DL.ED 14:38 → DL.MS 16:49 → UNDOADMOB 16:49 → DL.MS 17:31 → OBSVTOIN 08-30 15:46
PROVIDERS: ADMIT Internal Medicine; ATTEND Internal Medicine
DX: N17.9 Acute kidney failure, unspecified (principal); E87.1 Hypo-osmolality and hyponatremia; E11.65 Type 2 diabetes mellitus with hyperglycemia; W19.XXXA Unspecified fall, initial encounter; E83.39 Other disorders of phosphorus metabolism; E83.42 Hypomagnesemia; I12.9 Hypertensive chronic kidney disease with stage 1 through stage 4 chronic kidney disease, or unspecified chronic kidney disease; E11.22 Type 2 diabetes mellitus with diabetic chronic kidney disease; E78.5 Hyperlipidemia, unspecified; I25.10 Atherosclerotic heart disease of native coronary artery without angina pectoris; N18.3 Chronic kidney disease, stage 3 (moderate); G89.29 Other chronic pain; M54.9 Dorsalgia, unspecified; M25.569 Pain in unspecified knee; H54.7 Unspecified visual loss; E78.00 Pure hypercholesterolemia, unspecified; E87.5 Hyperkalemia; M25.552 Pain in left hip; Z79.4 Long term (current) use of insulin; Z95.5 Presence of coronary angioplasty implant and graft; Z87.891 Personal history of nicotine dependence
CPT/HCPCS: 36415 ×2; 36600; 51701; 73502; 80048; 80053; 81001; 82009; 82803; 82947 ×2; 82962 ×18; 83735; 84100; 85025 ×2; 87086; 96361 ×3; 96372 ×2; 96374; 99284; 99285; A9270 ×10; G0378 ×2; J1644 ×3; J1815 ×3; J2405; J7030 ×4; J7050; 74019; 83036; 96360

== ENCOUNTER 2018-09-14 05:16 | Inpatient (IN) | payer MEDICARE, OTHER ==
[2018-09-14] MEDS ORDERED: Insulin Regular, Human 100 Units/ML 3 ML Vial IV ONE (05:42)
[2018-09-14] MEDS ORDERED: Sodium Chloride 0.9% 1,000 ML IV ONE (05:42)
--- NOTE | 2018-09-14 05:52 | EDM.PDOC ---
<Ivelisse Conroy Irving - Last Filed: 09/14/18 06:45> ED HPI GENERAL MEDICAL PROBLEM - General Chief Complaint: General Stated Complaint: AMBULANCE-HIGH BLOOD SUGAR Time Seen by Provider: 09/14/18 05:20 Source of Information: Reports: Patient, EMS History Limitations: Reports: No Limitations - History of Present Illness INITIAL COMMENTS - FREE TEXT/NARRATIVE: ED via [facility] with c/o generalized weakness, fell 5 times during night while attempting to get up to bathroom. Lives at home with grandchildren. Jailyn has attempted to get patient into NH on previous encounters and patient changes mind or other family intervenes. Patient states tonight he knows now he needs to go to shelter as cannot take care of self. Difficulty with recent self caths. No known fever, chills. No nausea vomiting or diarrhea. States hit head with fall tonight, Does not knw if loss of consciousness. Baseline has short term memory loss. Generalized Pain Score (Numeric/FACES): 6 - Related Data Allergies Allergy/AdvReac Type Severity Reaction Status Date / Time No Known Allergies Allergy Verified 09/14/18 05:33 Home Meds: Home Meds Calcitriol 0.25 mcg PO DAILY 05/28/13 [History] atorvaSTATin Calcium [Atorvastatin Calcium] 80 mg PO BEDTIME 05/28/13 [History] Latanoprost [Xalatan 0.005% Ophth Soln] 1 drop EYEBOTH BEDTIME 09/03/15 [History ] Clopidogrel [Plavix] 75 mg PO DAILY 01/07/16 [History] DULoxetine [Cymbalta] 30 mg PO DAILY 01/07/16 [History] Finasteride [Proscar] 5 mg PO DAILY 01/07/16 [History] Insulin Detemir [Levemir] 48 unit SUBCUT QAM 02/10/17 [History] Losartan [Cozaar] 25 mg PO DAILY 02/10/17 [History] Magnesium Oxide 500 mg PO BID 02/10/17 [History] Cholecalciferol (Vitamin D3) [Vitamin D3] 800 unit PO DAILY 09/28/17 [History] Ranitidine HCl [Ranitidine] 150 mg PO BID 09/28/17 [History] Acetaminophen 325 mg PO Q4H PRN 02/17/18 [History] Diclofenac Sodium [Voltaren 1% Gel] 1 applic TP QID 02/17/18 [History] Insulin Lispro [Humalog Kwikpen] 14 unit SQ TIDMEALS 30 Days #1 pen 09/01/18 [Rx ] Phosphorus #1 [Neutra-Phos] 250 mg PO BID 30 Days #60 tab 09/01/18 [Rx] Potassium Chloride [Klor-Con 10] 20 meq PO BIDMEALS 10 Days #20 tab.er 09/01/18 [Rx] Past Medical History HEENT History: Reports: Impaired Vision Other HEENT History: wears glasses Cardiovascular History: Reports: CAD, High Cholesterol, Hypertension, Stents Other Cardiovascular History: Transient hypotension Respiratory History: Reports: Other (See Below) Other Respiratory History: spot of lung and they said to keep an eye on it. Gastrointestinal History: Reports: None Genitourinary History: Reports: Acute Renal Failure, Chronic Renal Insuffiency Other Genitourinary History: urinary tract obstruction-self caths self when stream gets slow Musculoskeletal History: Reports: Back Pain, Chronic Other Musculoskeletal History: broke both ankles, broken ribs, collar bone, jaw , toes and 5-6 hairline fx of skull due to rodeo Neurological History: Reports: Concussion, Headaches, Chronic Other Neuro History: heasdaches since 1966 Psychiatric History: Reports: Other (See Below) Other Psychiatric History: has noc bishop from [place] Endocrine/Metabolic History: Reports: Diabetes, Type II Hematologic History: Reports: None Immunologic History: Reports: None Oncologic (Cancer) History: Reports: Other (See Below) Other Oncologic History: pt. doesn't know what type of cancer he was diagnosed with Dermatologic History: Reports: Other (See Below) Other Dermatologic History: eccymotic area to left hip, left upper arm, and left ear from fall when pt. tripped over B[place] about a week ago. - Infectious Disease History Infectious Disease History: Reports: Chicken Pox Other Infectious Disease History: unable to obtain history. - Past Surgical History Cardiovascular Surgical History: Reports: Coronary Artery Stent GI Surgical History: Reports: Hernia, Inguinal Other GI Surgeries/Procedures: left side igunial hernia repair Social & Family History - Family History Family Medical History: Noncontributory Cardiac: Reports: CAD Endocrine/Metabolic: Reports: Diabetes, type II Oncologic: Reports: Other (See Below) Other Oncologic Family History: brother, mom,sister unknown types - Tobacco Use Smoking Status *Q: Current Status Unknown - Caffeine Use Caffeine Use: Reports: Coffee Other Caffeine Use: flavored water - Recreational Drug Use Recreational Drug Use: No - Living Situation & Occupation Living situation: Reports: with Family Occupation: Retired ED ROS GENERAL - Review of Systems Review Of Systems: ROS reveals no pertinent complaints other than HPI. ED EXAM, GENERAL - Physical Exam Exam: See Below Exam Limited By: No Limitations General Appearance: Alert, Mild Distress, Other (unkempt) Eye Exam: Bilateral Eye: EOMI, PERRL (4mm) Ears: Normal External Exam, Normal TMs, Hearing Loss Nose: Normal Inspection Throat/Mouth: Normal Inspection, Other (membranes dry) Head: Normocephalic, Other (tender posterior) Neck: Normal Inspection, Non-Tender, Full Range of Motion Respiratory/Chest: No Respiratory Distress, Lungs Clear, Decreased Breath Sounds (bases) Cardiovascular: Normal Peripheral Pulses, Regular Rate, Rhythm GI/Abdominal: Normal Bowel Sounds Back Exam: Normal Inspection Extremities: No Pedal Edema, Other (pain left hip with movment. Pelvis stable) Neurological: Alert, Memory Loss Recent Events. No: Oriented Psychiatric: Normal Affect Skin Exam: Warm, Wound/Incision (abrasions bilaterl knees, right greater.), Other (excoriation between 4th and 5th toes on tight, abrasion left 4 th toe) Course - Vital Signs Last Recorded V/S: Last Vital Signs Temp 97.7 F 09/14/18 05:19 Pulse 105 H 09/14/18 05:19 Resp 19 09/14/18 05:19 BP 130/42 L 09/14/18 05:19 Pulse Ox 100 09/14/18 05:19 - Orders/Labs/Meds Orders: Active Orders 24 hr Category Date Time Status Blood Glucose Check, Bedside [RC] ONETIME Care 09/14/18 05:37 Active Glucose [Blood Glucose Check, Bedside] [RC] ONETIME Care 09/14/18 06:20 Active Glucose [Blood Glucose Check, Bedside] [RC] ONETIME Care 09/14/18 07:14 Active CULTURE URINE [RM] Urgent Lab 09/14/18 05:56 Received Labs: Laboratory Tests 09/14/18 09/14/18 09/14/18 Range/Units 05:21 05:21 05:21 WBC 8.5 (5.0-10.0) 10^3/uL RBC 4.55 L (4.6-6.2) 10^6/uL Hgb 14.0 (14.0-18.0) g/dL Hct 39.8 L (40.0-54.0) % MCV 87.5 (80-100) fL MCH 30.8 (27.0-34.0) pg MCHC 35.2 H (33.0-35.0) g/dL Plt Count 388 D (150-450) 10^3/uL Neut % (Auto) 77.7 H (42.2-75.2) % Lymph % (Auto) 11.6 L (20.5-50.1) % Lander % (Auto) 9.9 H (2-8) % Eos % (Auto) 0.6 L (1.0-3.0) % Baso % (Auto) 0.2 (0.0-1.0) % ABG pH (7.35-7.45) ABG pCO2 (35-45) mmHg ABG pO2 (70-100) mmHg ABG HCO3 (22-26) mmol/L ABG O2 Saturation (95-100) % ABG Base Excess ((-2)-(+3)) mmol/L Da Test O2 Delivery Device Sodium 126 L D (135-145) mmol/L Potassium 4.7 (3.6-5.0) mmol/L Chloride 86 L D (101-111) mmol/L Carbon Dioxide 24.0 (21.0-31.0) mmol/L Anion Gap 20.7 BUN 46 H (7-18) mg/dL Creatinine 2.4 H (0.6-1.3) mg/dL Est Cr Clr Drug Dosing TNP Estimated GFR (MDRD) 27 BUN/Creatinine Ratio 19.16 Glucose 628 H* (74-105) mg/dL POC Glucose (83-110) mg/dl Lactic Acid (0.5-2.2) mmol/L Calcium 9.4 (8.4-10.2) mg/dl Total Bilirubin 0.9 (0.2-1.0) mg/dL AST 14 (10-42) IU/L ALT 15 (10-60) IU/L Alkaline Phosphatase 125 H (42-121) IU/L Creatine Kinase 53 (26-174) IU/L CK-MB (CK-2) 2.80 (0.4-4.7) ng/mL Troponin I < 0.02 (0.00-0.02) ng/ml B-Natriuretic Peptide 23 (0-100) pg/ml Total Protein 7.4 (6.7-8.2) g/dl Albumin 3.6 (3.2-5.5) g/dl Globulin 3.8 Albumin/Globulin Ratio 0.95 Urine Color (YELLOW) Urine Appearance (CLEAR) Urine pH (5.0-9.0) Ur Specific [place] (1.005-1.030) Urine Protein (NEGATIVE) Urine Glucose (UA) (NEGATIVE) Urine Ketones (NEGATIVE) Urine Occult Blood (NEGATIVE) Urine Nitrite (NEGATIVE) Urine Bilirubin (NEGATIVE) Urine Urobilinogen (0.2-1.0) mg/dL Ur Leukocyte Esterase (NEGATIVE) Urine RBC /HPF Urine WBC (0-5/HPF) /HPF Ur Epithelial Cells (NOT SEEN) /HPF Amorphous Sediment (NOT SEEN) /HPF Urine Bacteria (0-FEW/HPF) /HPF Urine Mucus (NOT SEEN) /LPF Ketones Positive 09/14/18 09/14/18 09/14/18 Range/Units 05:31 05:53 05:56 WBC (5.0-10.0) 10^3/uL RBC (4.6-6.2) 10^6/uL Hgb (14.0-18.0) g/dL Hct (40.0-54.0) % MCV (80-100) fL MCH (27.0-34.0) pg MCHC (33.0-35.0) g/dL Plt Count (150-450) 10^3/uL Neut % (Auto) (42.2-75.2) % Lymph % (Auto) (20.5-50.1) % Lander % (Auto) (2-8) % Eos % (Auto) (1.0-3.0) % Baso % (Auto) (0.0-1.0) % ABG pH 7.41 (7.35-7.45) ABG pCO2 35 (35-45) mmHg ABG pO2 87 (70-100) mmHg ABG HCO3 22.0 (22-26) mmol/L ABG O2 Saturation 98 (95-100) % ABG Base Excess -2 ((-2)-(+3)) mmol/L Da Test Performed O2 Delivery Device Room air Sodium (135-145) mmol/L Potassium (3.6-5.0) mmol/L Chloride (101-111) mmol/L Carbon Dioxide (21.0-31.0) mmol/L Anion Gap BUN (7-18) mg/dL Creatinine (0.6-1.3) mg/dL Est Cr Clr Drug Dosing Estimated GFR (MDRD) BUN/Creatinine Ratio Glucose (74-105) mg/dL POC Glucose > 500 H* (83-110) mg/dl Lactic Acid (0.5-2.2) mmol/L Calcium (8.4-10.2) mg/dl Total Bilirubin (0.2-1.0) mg/dL AST (10-42) IU/L ALT (10-60) IU/L Alkaline Phosphatase (42-121) IU/L Creatine Kinase (26-174) IU/L CK-MB (CK-2) (0.4-4.7) ng/mL Troponin I (0.00-0.02) ng/ml B-Natriuretic Peptide (0-100) pg/ml Total Protein (6.7-8.2) g/dl Albumin (3.2-5.5) g/dl Globulin Albumin/Globulin Ratio Urine Color Yellow (YELLOW) Urine Appearance Turbid (CLEAR) Urine pH 5.0 (5.0-9.0) Ur Specific [place] 1.010 (1.005-1.030) Urine Protein 100 H (NEGATIVE) Urine Glucose (UA) 500 H (NEGATIVE) Urine Ketones 15 H (NEGATIVE) Urine Occult Blood Small H (NEGATIVE) Urine Nitrite Negative (NEGATIVE) Urine Bilirubin Negative (NEGATIVE) Urine Urobilinogen 0.2 (0.2-1.0) mg/dL Ur Leukocyte Esterase Small H (NEGATIVE) Urine RBC 30-40 H /HPF Urine WBC >100 H (0-5/HPF) /HPF Ur Epithelial Cells Few (NOT SEEN) /HPF Amorphous Sediment Moderate (NOT SEEN) /HPF Urine Bacteria Few (0-FEW/HPF) /HPF Urine Mucus Few H (NOT SEEN) /LPF Ketones 09/14/18 09/14/18 Range/Units 06:24 06:25 WBC (5.0-10.0) 10^3/uL RBC (4.6-6.2) 10^6/uL Hgb (14.0-18.0) g/dL Hct (40.0-54.0) % MCV (80-100) fL MCH (27.0-34.0) pg MCHC (33.0-35.0) g/dL Plt Count (150-450) 10^3/uL Neut % (Auto) (42.2-75.2) % Lymph % (Auto) (20.5-50.1) % Lander % (Auto) (2-8) % Eos % (Auto) (1.0-3.0) % Baso % (Auto) (0.0-1.0) % ABG pH (7.35-7.45) ABG pCO2 (35-45) mmHg ABG pO2 (70-100) mmHg ABG HCO3 (22-26) mmol/L ABG O2 Saturation (95-100) % ABG Base Excess ((-2)-(+3)) mmol/L Da Test O2 Delivery Device Sodium (135-145) mmol/L Potassium (3.6-5.0) mmol/L Chloride (101-111) mmol/L Carbon Dioxide (21.0-31.0) mmol/L Anion Gap BUN (7-18) mg/dL Creatinine (0.6-1.3) mg/dL Est Cr Clr Drug Dosing Estimated GFR (MDRD) BUN/Creatinine Ratio Glucose (74-105) mg/dL POC Glucose > 500 H* (83-110) mg/dl Lactic Acid 1.8 (0.5-2.2) mmol/L Calcium (8.4-10.2) mg/dl Total Bilirubin (0.2-1.0) mg/dL AST (10-42) IU/L ALT (10-60) IU/L Alkaline Phosphatase (42-121) IU/L Creatine Kinase (26-174) IU/L CK-MB (CK-2) (0.4-4.7) ng/mL Troponin I (0.00-0.02) ng/ml B-Natriuretic Peptide (0-100) pg/ml Total Protein (6.7-8.2) g/dl Albumin (3.2-5.5) g/dl Globulin Albumin/Globulin Ratio Urine Color (YELLOW) Urine Appearance (CLEAR) Urine pH (5.0-9.0) Ur Specific [place] (1.005-1.030) Urine Protein (NEGATIVE) Urine Glucose (UA) (NEGATIVE) Urine Ketones (NEGATIVE) Urine Occult Blood (NEGATIVE) Urine Nitrite (NEGATIVE) Urine Bilirubin (NEGATIVE) Urine Urobilinogen (0.2-1.0) mg/dL Ur Leukocyte Esterase (NEGATIVE) Urine RBC /HPF Urine WBC (0-5/HPF) /HPF Ur Epithelial Cells (NOT SEEN) /HPF Amorphous Sediment (NOT SEEN) /HPF Urine Bacteria (0-FEW/HPF) /HPF Urine Mucus (NOT SEEN) /LPF Ketones Meds: Medications Discontinued Medications Generic Name Dose Route Start Last Admin Trade Name Freq PRN Reason Stop Dose Admin Sodium Chloride 1,000 mls @ 999 mls/hr 09/14/18 05:42 09/14/18 05:35 Normal Saline IV 09/14/18 06:42 999 mls/hr .BOLUS ONE Administration Insulin Human Regular 10 unit 09/14/18 05:42 09/14/18 05:48 Humulin R IV 09/14/18 05:43 10 unit ONETIME ONE Administration - Re-Assessments/Exams Free Text/Narrative Re-Assessment/Exam: 09/14/18 06:46 Care transfer at shift change. CT pending Departure - Departure Disposition: Admitted As Inpatient 65 Clinical Impression: Confusion Fall at home Qualifiers: Encounter type: initial encounter Qualified Code(s): W19.XXXA - Unspecified fall, initial encounter; Y92.009 - Unspecified place in unspecified non- institutional (private) residence as the place of occurrence of the external cause - Discharge Information <Gudelia Strong - Last Filed: 09/14/18 08:14> Course - Radiology Interpretation Free Text/Narrative:: Chest xray: FINDINGS: Lungs: No evidence of acute pulmonary process. Pleural space: Unremarkable. No pleural effusion. No pneumothorax. Heart/Mediastinum: Unremarkable. No cardiomegaly. Bones/joints: Unremarkable. Soft tissues: Foreign body again noted overlying the left lower chest. IMPRESSION: No evidence of acute pulmonary process. Remainder of findings as described above. Thank you for allowing us to participate in the care of your patient. Dictated and Authenticated by: Tahira Ken MD 09/14/2018 7:46 AM Central Time ([place] & [place]) CT Head wo: FINDINGS: Brain: Prominent sulci. Patchy hypodensity of the cerebral white matter which are nonspecific but likely secondary to microangiopathic changes. Ventricles: The ventricles are prominent secondary to diffuse volume loss/ atrophy. Bones/joints: Unremarkable. No acute fracture. Sinuses: Visualized sinuses are unremarkable. No fluid levels. Mastoid air cells: Visualized mastoid air cells are well aerated. No mastoid effusion. Soft tissues: Unremarkable. IMPRESSION: Chronic age related changes but no evidence of acute intracranial pathology. Thank you for allowing us to participate in the care of your patient. Dictated and Authenticated by: Tahira Ken MD 09/14/2018 7:34 AM Central Time ([place] & [place]) CT Pelvis wo: FINDINGS: Bladder: There is a Beltre catheter present within the bladder. The appendix is seen and is normal in appearance. Marked thickening of the bladder could represent cystitis or mass. Bones/joints: Unremarkable. No acute fracture. No dislocation. Soft tissues: Unremarkable. IMPRESSION: 1. Marked thickening of the bladder could represent cystitis or mass. 2. No fracture identified. Remainder of findings as described above. Thank you for allowing us to participate in the care of your patient. Dictated and Authenticated by: Tahira Ken MD 09/14/2018 7:37 AM Central Time ([place] & [place]) See rad report - Re-Assessments/Exams Free Text/Narrative Re-Assessment/Exam: 09/14/18 08:[address] Coronel under observation. Departure - Departure Time of Disposition: 08:14 Condition: Fair - Discharge Information *PRESCRIPTION DRUG MONITORING PROGRAM REVIEWED*: No *COPY OF PRESCRIPTION DRUG MONITORING REPORT IN PATIENT SANTIAGO: No
[2018-09-14 06:01] LABS: BASE EXCESS ARTERIAL -2 mmol/L ((-2)-(+3)); O2 DELIVERY DEVICE ROOM AIR; O2 SATURATION ARTERIAL 98 % (95-100); PCO2 ARTERIAL 35 mmHg (35-45); PO2 ARTERIAL 87 mmHg (70-100)
[2018-09-14 06:02] LABS: ALLEN TEST PERFORMED
[2018-09-14 06:15] LABS: ANION GAP 20.7; CHLORIDE,CL 86 mmol/L (101-111); SODIUM,NA 126 mmol/L (135-145)
[2018-09-14] MEDS ORDERED: Docusate Sodium 100 MG Cap PO PRN (09:17)
[2018-09-14] MEDS ORDERED: Polyethylene Glycol 3350 Powder 17 GM Packet PO PRN (09:17)
[2018-09-14] MEDS ORDERED: Bisacodyl 5 MG Tab PO PRN (09:17)
[2018-09-14] MEDS ORDERED: Acetaminophen 325 MG Tab PO PRN (09:17)
[2018-09-14] MEDS ORDERED: Magnesium Hydroxide 400 MG/5 ML Susp 30 ML Cup PO PRN (09:17)
[2018-09-14] MEDS ORDERED: Ondansetron 4 MG Tab.DIS PO PRN (09:17)
[2018-09-14] MEDS: Sodium Chloride 0.9% 1,000 ML IV SCH ×2 (10:32→20:50)
[2018-09-14 10:55] LABS: ANION GAP 20.4; CHLORIDE,CL 92 mmol/L (101-111); SODIUM,NA 128 mmol/L (135-145)
[2018-09-14] MEDS ORDERED: Insulin Lispro 100 Units/ML 3 ML Vial SUBCUT SCH (12:00)
--- NOTE | 2018-09-14 12:18 | PCM.HP ---
H&P History of Present Illness - General Date of Service: 09/14/18 Admit Problem/Dx: Admission Diagnosis/Problem Admission Diagnosis/Problem Acute renal failure Source of Information: Patient, Old Records, Provider History Limitations: Reports: Altered Mental Status - History of Present Illness Initial Comments - Free Text/Narative: Michael Lynn is a 73 y.o male with medical history significant for diabetes mellitus, hyperlipidemia, CAD, and non-adhernece to medical therapy who was brought to the ED by EMS for falls. Patient reports that he fell 5 times this morning. Reports that he has been weak. Denies any focal weakness or loss of sensation. Denies speech difficulties. Reports right flank pain and ulcer between the right 4th and 5th toes. He denies head trauma. He reports dysuria and bruises on his legs. He reports that he took his last insulin last night, 14 units at meal time. He denies chest pain, shortness of breath, cough, fever, chills, nausea, vomiting, diarrhea, constipation, melena, hematochezia, or hematuria. In the ED, patient was noted to be confused. BG was 628. UA was positive for [place] estrase. Na was 126. Onset of Symptoms: Reports: Today Generalized Pain Score (Numeric/FACES): 6 - Related Data Allergies/Adverse Reactions: Allergies Allergy/AdvReac Type Severity Reaction Status Date / Time No Known Allergies Allergy Verified 09/14/18 05:33 Home Medications: Home Meds Calcitriol 0.25 mcg PO DAILY 05/28/13 [History] atorvaSTATin Calcium [Atorvastatin Calcium] 80 mg PO BEDTIME 05/28/13 [History] Latanoprost [Xalatan 0.005% Ophth Soln] 1 drop EYEBOTH BEDTIME 09/03/15 [History ] Clopidogrel [Plavix] 75 mg PO DAILY 01/07/16 [History] DULoxetine [Cymbalta] 30 mg PO DAILY 01/07/16 [History] Finasteride [Proscar] 5 mg PO BEDTIME 01/07/16 [History] Insulin Detemir [Levemir] 48 unit SUBCUT QAM 02/10/17 [History] Magnesium Oxide 420 mg PO BID 02/10/17 [History] Cholecalciferol (Vitamin D3) [Vitamin D3] 2,000 unit PO DAILY 09/28/17 [History] Ranitidine HCl [Ranitidine] 150 mg PO BID 09/28/17 [History] Acetaminophen 325 mg PO Q4H PRN 02/17/18 [History] Diclofenac Sodium [Voltaren 1% Gel] 1 applic TP QID 02/17/18 [History] Insulin Detemir [Levemir Flextouch] 5 unit SQ BEDTIME 09/14/18 [History] Insulin Lispro [Humalog Kwikpen] 10 unit SQ TIDMEALS 09/14/18 [History] Past Medical History HEENT History: Reports: Impaired Vision Other HEENT History: wears glasses Cardiovascular History: Reports: CAD, High Cholesterol, Hypertension, Stents Other Cardiovascular History: Transient hypotension Respiratory History: Reports: Other (See Below) Other Respiratory History: spot of lung and they said to keep an eye on it. Gastrointestinal History: Reports: None Genitourinary History: Reports: Acute Renal Failure, Chronic Renal Insuffiency Other Genitourinary History: urinary tract obstruction-self caths self when stream gets slow Musculoskeletal History: Reports: Back Pain, Chronic Other Musculoskeletal History: broke both ankles, broken ribs, collar bone, jaw , toes and 5-6 hairline fx of skull due to rodeo Neurological History: Reports: Concussion, Headaches, Chronic Other Neuro History: heasdaches since 1966 Psychiatric History: Reports: Other (See Below) Other Psychiatric History: has noc bishop from [place] Endocrine/Metabolic History: Reports: Diabetes, Type II Hematologic History: Reports: None Immunologic History: Reports: None Oncologic (Cancer) History: Reports: Other (See Below) Other Oncologic History: pt. doesn't know what type of cancer he was diagnosed with Dermatologic History: Reports: Other (See Below) Other Dermatologic History: eccymotic area to left hip, left upper arm, and left ear from fall when pt. tripped over trailer [place] about a week ago. - Infectious Disease History Infectious Disease History: Reports: Chicken Pox Other Infectious Disease History: unable to obtain history. - Past Surgical History Cardiovascular Surgical History: Reports: Coronary Artery Stent GI Surgical History: Reports: Hernia, Inguinal Other GI Surgeries/Procedures: left side igunial hernia repair Social & Family History - Family History Family Medical History: Noncontributory Cardiac: Reports: CAD Endocrine/Metabolic: Reports: Diabetes, type II Oncologic: Reports: Other (See Below) Other Oncologic Family History: brother, mom,sister unknown types - Tobacco Use Smoking Status *Q: Current Status Unknown - Caffeine Use Caffeine Use: Reports: Coffee Other Caffeine Use: flavored water - Recreational Drug Use Recreational Drug Use: No - Living Situation & Occupation Living situation: Reports: with Family Occupation: Retired H&P Review of Systems - Review of Systems: Review Of Systems: ROS reveals no pertinent complaints other than HPI. Exam - Exam Exam: See Below - Vital Signs Vital Signs: Last Vital Signs Temp 97.1 F 09/14/18 08:15 Pulse 112 H 09/14/18 08:15 Resp 20 09/14/18 08:15 BP 170/95 H 09/14/18 08:15 Pulse Ox 99 09/14/18 09:17 Weight: 154 lb 3.2 oz - Exam Physical Exam Comments:: General: Alert and oriented to place, time, and person. However, unable to provide details. Head: atraumatic and normocephalic. Eyes: PERRLA, EOMI, anicteric, Ear, Nose and Throat: No gross abnormality found Neck: Supple Respiratory/Chest: CTAB, no wheezes, crackles, rales, or rhonchi; Good air entry bilaterally. No increased work of breathing CVS: Tachycardic, RR, no murmur, rub, or gallop, peripheral pulses palpable. Gastrointestinal/Abd: Soft, non-distended, non-tender. Normal bowel sounds. No organomegaly. Back: Right lateral mid-back tenderness to palpation. Skin: Bruises on knees, ulcer between right 4th/5th toes without erythema or purulent discharge. Neuro: Grossly non-focal. No cranial nerve abnormality. Moves all extremities. Psych: Alert and oriented to place time and person. No hallucinations or delusions noted. Musculoskeletal: Decreased muscle tone. Ext: No edema, no ulcers, no tenderness, no size differences, - Patient Data Lab Results Last 24 hrs: Laboratory Results - last 24 hr 09/14/18 09/14/18 09/14/18 Range/Units 05:21 05:21 05:21 WBC 8.5 (5.0-10.0) 10^3/uL RBC 4.55 L (4.6-6.2) 10^6/uL Hgb 14.0 (14.0-18.0) g/dL Hct 39.8 L (40.0-54.0) % MCV 87.5 (80-100) fL MCH 30.8 (27.0-34.0) pg MCHC 35.2 H (33.0-35.0) g/dL Plt Count 388 D (150-450) 10^3/uL Neut % (Auto) 77.7 H (42.2-75.2) % Lymph % (Auto) 11.6 L (20.5-50.1) % Haines % (Auto) 9.9 H (2-8) % Eos % (Auto) 0.6 L (1.0-3.0) % Baso % (Auto) 0.2 (0.0-1.0) % ABG pH (7.35-7.45) ABG pCO2 (35-45) mmHg ABG pO2 (70-100) mmHg ABG HCO3 (22-26) mmol/L ABG O2 Saturation (95-100) % ABG Base Excess ((-2)-(+3)) mmol/L Da Test O2 Delivery Device Sodium 126 L D (135-145) mmol/L Potassium 4.7 (3.6-5.0) mmol/L Chloride 86 L D (101-111) mmol/L Carbon Dioxide 24.0 (21.0-31.0) mmol/L Anion Gap 20.7 BUN 46 H (7-18) mg/dL Creatinine 2.4 H (0.6-1.3) mg/dL Est Cr Clr Drug Dosing TNP Estimated GFR (MDRD) 27 BUN/Creatinine Ratio 19.16 Glucose 628 H* (74-105) mg/dL POC Glucose (83-110) mg/dl Lactic Acid (0.5-2.2) mmol/L Calcium 9.4 (8.4-10.2) mg/dl Total Bilirubin 0.9 (0.2-1.0) mg/dL AST 14 (10-42) IU/L ALT 15 (10-60) IU/L Alkaline Phosphatase 125 H (42-121) IU/L Creatine Kinase 53 (26-174) IU/L CK-MB (CK-2) 2.80 (0.4-4.7) ng/mL Troponin I < 0.02 (0.00-0.02) ng/ml B-Natriuretic Peptide 23 (0-100) pg/ml Total Protein 7.4 (6.7-8.2) g/dl Albumin 3.6 (3.2-5.5) g/dl Globulin 3.8 Albumin/Globulin Ratio 0.95 Urine Color (YELLOW) Urine Appearance (CLEAR) Urine pH (5.0-9.0) Ur Specific [place] (1.005-1.030) Urine Protein (NEGATIVE) Urine Glucose (UA) (NEGATIVE) Urine Ketones (NEGATIVE) Urine Occult Blood (NEGATIVE) Urine Nitrite (NEGATIVE) Urine Bilirubin (NEGATIVE) Urine Urobilinogen (0.2-1.0) mg/dL Ur Leukocyte Esterase (NEGATIVE) Urine RBC /HPF Urine WBC (0-5/HPF) /HPF Ur Epithelial Cells (NOT SEEN) /HPF Amorphous Sediment (NOT SEEN) /HPF Urine Bacteria (0-FEW/HPF) /HPF Urine Mucus (NOT SEEN) /LPF Ketones Positive 09/14/18 09/14/18 09/14/18 Range/Units 05:31 05:53 05:56 WBC (5.0-10.0) 10^3/uL RBC (4.6-6.2) 10^6/uL Hgb (14.0-18.0) g/dL Hct (40.0-54.0) % MCV (80-100) fL MCH (27.0-34.0) pg MCHC (33.0-35.0) g/dL Plt Count (150-450) 10^3/uL Neut % (Auto) (42.2-75.2) % Lymph % (Auto) (20.5-50.1) % Haines % (Auto) (2-8) % Eos % (Auto) (1.0-3.0) % Baso % (Auto) (0.0-1.0) % ABG pH 7.41 (7.35-7.45) ABG pCO2 35 (35-45) mmHg ABG pO2 87 (70-100) mmHg ABG HCO3 22.0 (22-26) mmol/L ABG O2 Saturation 98 (95-100) % ABG Base Excess -2 ((-2)-(+3)) mmol/L Da Test Performed O2 Delivery Device Room air Sodium (135-145) mmol/L Potassium (3.6-5.0) mmol/L Chloride (101-111) mmol/L Carbon Dioxide (21.0-31.0) mmol/L Anion Gap BUN (7-18) mg/dL Creatinine (0.6-1.3) mg/dL Est Cr Clr Drug Dosing Estimated GFR (MDRD) BUN/Creatinine Ratio Glucose (74-105) mg/dL POC Glucose > 500 H* (83-110) mg/dl Lactic Acid (0.5-2.2) mmol/L Calcium (8.4-10.2) mg/dl Total Bilirubin (0.2-1.0) mg/dL AST (10-42) IU/L ALT (10-60) IU/L Alkaline Phosphatase (42-121) IU/L Creatine Kinase (26-174) IU/L CK-MB (CK-2) (0.4-4.7) ng/mL Troponin I (0.00-0.02) ng/ml B-Natriuretic Peptide (0-100) pg/ml Total Protein (6.7-8.2) g/dl Albumin (3.2-5.5) g/dl Globulin Albumin/Globulin Ratio Urine Color Yellow (YELLOW) Urine Appearance Turbid (CLEAR) Urine pH 5.0 (5.0-9.0) Ur Specific [place] 1.010 (1.005-1.030) Urine Protein 100 H (NEGATIVE) Urine Glucose (UA) 500 H (NEGATIVE) Urine Ketones 15 H (NEGATIVE) Urine Occult Blood Small H (NEGATIVE) Urine Nitrite Negative (NEGATIVE) Urine Bilirubin Negative (NEGATIVE) Urine Urobilinogen 0.2 (0.2-1.0) mg/dL Ur Leukocyte Esterase Small H (NEGATIVE) Urine RBC 30-40 H /HPF Urine WBC >100 H (0-5/HPF) /HPF Ur Epithelial Cells Few (NOT SEEN) /HPF Amorphous Sediment Moderate (NOT SEEN) /HPF Urine Bacteria Few (0-FEW/HPF) /HPF Urine Mucus Few H (NOT SEEN) /LPF Ketones 09/14/18 09/14/18 09/14/18 Range/Units 06:24 06:25 07:17 WBC (5.0-10.0) 10^3/uL RBC (4.6-6.2) 10^6/uL Hgb (14.0-18.0) g/dL Hct (40.0-54.0) % MCV (80-100) fL MCH (27.0-34.0) pg MCHC (33.0-35.0) g/dL Plt Count (150-450) 10^3/uL Neut % (Auto) (42.2-75.2) % Lymph % (Auto) (20.5-50.1) % Haines % (Auto) (2-8) % Eos % (Auto) (1.0-3.0) % Baso % (Auto) (0.0-1.0) % ABG pH (7.35-7.45) ABG pCO2 (35-45) mmHg ABG pO2 (70-100) mmHg ABG HCO3 (22-26) mmol/L ABG O2 Saturation (95-100) % ABG Base Excess ((-2)-(+3)) mmol/L Da Test O2 Delivery Device Sodium (135-145) mmol/L Potassium (3.6-5.0) mmol/L Chloride (101-111) mmol/L Carbon Dioxide (21.0-31.0) mmol/L Anion Gap BUN (7-18) mg/dL Creatinine (0.6-1.3) mg/dL Est Cr Clr Drug Dosing Estimated GFR (MDRD) BUN/Creatinine Ratio Glucose (74-105) mg/dL POC Glucose > 500 H* 494 H* (83-110) mg/dl Lactic Acid 1.8 (0.5-2.2) mmol/L Calcium (8.4-10.2) mg/dl Total Bilirubin (0.2-1.0) mg/dL AST (10-42) IU/L ALT (10-60) IU/L Alkaline Phosphatase (42-121) IU/L Creatine Kinase (26-174) IU/L CK-MB (CK-2) (0.4-4.7) ng/mL Troponin I (0.00-0.02) ng/ml B-Natriuretic Peptide (0-100) pg/ml Total Protein (6.7-8.2) g/dl Albumin (3.2-5.5) g/dl Globulin Albumin/Globulin Ratio Urine Color (YELLOW) Urine Appearance (CLEAR) Urine pH (5.0-9.0) Ur Specific [place] (1.005-1.030) Urine Protein (NEGATIVE) Urine Glucose (UA) (NEGATIVE) Urine Ketones (NEGATIVE) Urine Occult Blood (NEGATIVE) Urine Nitrite (NEGATIVE) Urine Bilirubin (NEGATIVE) Urine Urobilinogen (0.2-1.0) mg/dL Ur Leukocyte Esterase (NEGATIVE) Urine RBC /HPF Urine WBC (0-5/HPF) /HPF Ur Epithelial Cells (NOT SEEN) /HPF Amorphous Sediment (NOT SEEN) /HPF Urine Bacteria (0-FEW/HPF) /HPF Urine Mucus (NOT SEEN) /LPF Ketones 09/14/18 09/14/18 09/14/18 Range/Units 08:19 10:30 10:30 WBC (5.0-10.0) 10^3/uL RBC (4.6-6.2) 10^6/uL Hgb (14.0-18.0) g/dL Hct (40.0-54.0) % MCV (80-100) fL MCH (27.0-34.0) pg MCHC (33.0-35.0) g/dL Plt Count (150-450) 10^3/uL Neut % (Auto) (42.2-75.2) % Lymph % (Auto) (20.5-50.1) % Haines % (Auto) (2-8) % Eos % (Auto) (1.0-3.0) % Baso % (Auto) (0.0-1.0) % ABG pH (7.35-7.45) ABG pCO2 (35-45) mmHg ABG pO2 (70-100) mmHg ABG HCO3 (22-26) mmol/L ABG O2 Saturation (95-100) % ABG Base Excess ((-2)-(+3)) mmol/L Da Test O2 Delivery Device Sodium 128 L (135-145) mmol/L Potassium 4.4 (3.6-5.0) mmol/L Chloride 92 L (101-111) mmol/L Carbon Dioxide 20.0 L (21.0-31.0) mmol/L Anion Gap 20.4 BUN 39 H (7-18) mg/dL Creatinine 1.9 H (0.6-1.3) mg/dL Est Cr Clr Drug Dosing TNP Estimated GFR (MDRD) 35 BUN/Creatinine Ratio Glucose 460 H* (74-105) mg/dL POC Glucose > 500 H* > 500 H* (83-110) mg/dl Lactic Acid (0.5-2.2) mmol/L Calcium 9.0 (8.4-10.2) mg/dl Total Bilirubin (0.2-1.0) mg/dL AST (10-42) IU/L ALT (10-60) IU/L Alkaline Phosphatase (42-121) IU/L Creatine Kinase (26-174) IU/L CK-MB (CK-2) (0.4-4.7) ng/mL Troponin I (0.00-0.02) ng/ml B-Natriuretic Peptide (0-100) pg/ml Total Protein (6.7-8.2) g/dl Albumin (3.2-5.5) g/dl Globulin Albumin/Globulin Ratio Urine Color (YELLOW) Urine Appearance (CLEAR) Urine pH (5.0-9.0) Ur Specific [place] (1.005-1.030) Urine Protein (NEGATIVE) Urine Glucose (UA) (NEGATIVE) Urine Ketones (NEGATIVE) Urine Occult Blood (NEGATIVE) Urine Nitrite (NEGATIVE) Urine Bilirubin (NEGATIVE) Urine Urobilinogen (0.2-1.0) mg/dL Ur Leukocyte Esterase (NEGATIVE) Urine RBC /HPF Urine WBC (0-5/HPF) /HPF Ur Epithelial Cells (NOT SEEN) /HPF Amorphous Sediment (NOT SEEN) /HPF Urine Bacteria (0-FEW/HPF) /HPF Urine Mucus (NOT SEEN) /LPF Ketones Result Diagrams: 09/14/18 05:21 09/14/18 10:30 *Q Meaningful Use (ADM) - VTE *Q VTE Anticoagulation Contraindications: Medical/Procedure Contrai - Problem List (1) Fall at home SNOMED Code(s): 62201384 ICD Code: W19.XXXA - UNSPECIFIED FALL, INITIAL ENCOUNTER; Y92.009 - UNSP PLACE IN UNSP NON-INSTITUT (PRIVATE) RESIDENCE PLACE Status: Acute Current Visit: Yes Qualifiers: Encounter type: initial encounter Qualified Code(s): W19.XXXA - Unspecified fall, initial encounter; Y92.009 - Unspecified place in unspecified non-institutional (private) residence as the place of occurrence of the external cause (2) Acute encephalopathy SNOMED Code(s): 03172320, 239740431 ICD Code: G93.40 - ENCEPHALOPATHY, UNSPECIFIED Status: Acute Priority: Medium Current Visit: No Onset Date: 10/25/15 (3) Acute hyponatremia SNOMED Code(s): 1434385 ICD Code: E87.1 - HYPO-OSMOLALITY AND HYPONATREMIA Status: Acute Current Visit: No (4) CAD (coronary artery disease) SNOMED Code(s): 82535395 ICD Code: I25.10 - ATHSCL HEART DISEASE OF [place] CORONARY ARTERY W/O ANG PCTRS Status: Acute Current Visit: No (5) DM (diabetes mellitus), type 2, uncontrolled SNOMED Code(s): 532276399, 280233797 ICD Code: E11.65 - TYPE 2 DIABETES MELLITUS WITH HYPERGLYCEMIA Status: Acute Current Visit: No (6) Dehydration with hyponatremia SNOMED Code(s): 08388206 ICD Code: E87.1 - HYPO-OSMOLALITY AND HYPONATREMIA Status: Acute Current Visit: No (7) Frequent falls SNOMED Code(s): 763127529 ICD Code: R29.6 - REPEATED FALLS Status: Acute Current Visit: No (8) Hyperglycemia SNOMED Code(s): 17675113 ICD Code: R73.9 - HYPERGLYCEMIA, UNSPECIFIED Status: Acute Current Visit : No (9) Renal failure SNOMED Code(s): 26613087 ICD Code: N19 - UNSPECIFIED KIDNEY FAILURE Status: Acute Priority: Medium Current Visit: No Problem List Initiated/Reviewed/Updated: Yes Orders Last 24hrs: Active Orders 24 hr Category Date Time Status Patient Status [ADT] Routine ADT 09/14/18 09:17 Active Accu Check [Blood Glucose Check, Bedside] [RC] Q1H Care 09/14/18 12:00 Active Ambulate [RC] ASDIRECTED Care 09/14/18 09:17 Active Antiembolic Devices [RC] PER UNIT ROUTINE Care 09/14/18 09:20 Active Blood Glucose Check, Bedside [RC] QIDACANDBED Care 09/14/18 09:17 Active Oxygen Therapy [RC] PRN Care 09/14/18 09:17 Active VTE/DVT Education [RC] PER UNIT ROUTINE Care 09/14/18 09:17 Active Vital Signs [RC] Q4H Care 09/14/18 09:17 Active Consistent Carbohydrate Diet [DIET] Diet 09/14/18 Breakfast Active BASIC METABOLIC PANEL,BMP [CHEM] AM Lab 09/15/18 05:11 Ordered BASIC METABOLIC PANEL,BMP [CHEM] AM Lab 09/16/18 05:11 Ordered BASIC METABOLIC PANEL,BMP [CHEM] Q4H Lab 09/14/18 14:00 Ordered BASIC METABOLIC PANEL,BMP [CHEM] Q4H Lab 09/14/18 18:00 Ordered BASIC METABOLIC PANEL,BMP [CHEM] Q4H Lab 09/14/18 22:00 Ordered CBC W/O DIFF,HEMOGRAM [HEME] AM Lab 09/15/18 05:11 Ordered CBC W/O DIFF,HEMOGRAM [HEME] AM Lab 09/16/18 05:11 Ordered CULTURE URINE [RM] Urgent Lab 09/14/18 05:56 Received Acetaminophen [Tylenol] Med 09/14/18 09:17 Active 650 mg PO Q6HR PRN Bisacodyl [Dulcolax] Med 09/14/18 09:17 Active 5 mg PO DAILY PRN Calcitriol [Calcitriol] Med 09/15/18 09:00 Ordered 0.25 mcg PO DAILY Cholecalciferol (Vitamin D3) [Vitamin D3] Med 09/15/18 09:00 Ordered 2,000 unit PO DAILY Clopidogrel [Plavix] Med 09/15/18 09:00 Ordered 75 mg PO DAILY DULoxetine [Cymbalta] Med 09/15/18 09:00 Ordered 30 mg PO DAILY Diclofenac Sodium [Voltaren 1% Gel] Med 09/14/18 13:00 Ordered 1 applic TP QID Docusate Sodium [Colace] Med 09/14/18 09:17 Active 100 mg PO BID PRN Docusate Sodium/Sennosides [Senna Plus] Med 09/14/18 09:17 Active 1 tab PO BEDTIME PRN Finasteride [Proscar] Med 09/14/18 21:00 Ordered 5 mg PO BEDTIME Insulin Detemir [Levemir Flextouch] Med 09/14/18 21:00 Ordered 5 unit SQ BEDTIME Insulin Detemir [Levemir] Med 09/15/18 09:00 Ordered 48 unit SUBCUT QAM Insulin Lispro [Humalog Kwikpen U-200] Med 09/14/18 12:00 Ordered 10 unit SQ TIDMEALS Insulin Regular, Human [HumuLIN R] 100 unit Med 09/14/18 09:30 Active Sodium Chloride 0.9% [Normal Saline] 99 ml IV TITRATE Latanoprost [Xalatan 0.005% Ophth Soln] Med 09/14/18 21:00 Ordered DOSE ml EYEBOTH BEDTIME Magnesium Hydroxide [Milk of Magnesia] Med 09/14/18 09:17 Active 30 ml PO Q12HR PRN Magnesium Oxide [Magnesium Oxide] Med 09/14/18 21:00 Ordered 420 mg PO BID Ondansetron [Zofran ODT] Med 09/14/18 09:17 Active 4 mg PO Q6HR PRN Polyethylene Glycol 3350 [MiraLAX] Med 09/14/18 09:17 Active 17 gm PO DAILY PRN Ranitidine HCl [Ranitidine] Med 09/14/18 21:00 Ordered 150 mg PO BID Sodium Chloride 0.9% [Normal Saline] 1,000 ml Med 09/14/18 09:30 Active IV ASDIRECTED atorvaSTATin Calcium [Atorvastatin Calcium] Med 09/14/18 21:00 Ordered 80 mg PO BEDTIME Anticoagulation Contraindications VTE [AST] Per Unit Oth 09/14/18 09:17 Ordered Routine Sequential Compression Device [OM.PC] Per Unit Routine Oth 09/14/18 09:19 Ordered Resuscitation Status Routine Resus Stat 09/14/18 09:17 Ordered Medication Orders Acetaminophen (Tylenol) 650 mg PO Q6HR PRN PRN Reason: Pain Bisacodyl (Dulcolax) 5 mg PO DAILY PRN PRN Reason: Constipation, use last Clopidogrel Bisulfate (Plavix) 75 mg PO DAILY KARMEN Docusate Sodium (Colace) 100 mg PO BID PRN PRN Reason: Constipation, use 1st Duloxetine HCl (Cymbalta) 30 mg PO DAILY KARMEN Finasteride (Proscar) 5 mg PO BEDTIME KARMEN Sodium Chloride (Normal Saline) 1,000 mls @ 125 mls/hr IV ASDIRECTED KARMEN Last Admin: 09/14/18 10:32 Dose: 125 mls/hr Insulin Human Regular 100 unit (/ Sodium Chloride) 100 mls @ 6.99 mls/hr IV TITRATE KARMEN; Protocol Last Admin: 09/14/18 10:31 Dose: 0.1 units/kg/hr, 6.99 mls/hr Latanoprost (Xalatan 0.005% Ophth Soln) ml EYEBOTH BEDTIME KARMEN Magnesium Hydroxide (Milk Of Magnesia) 30 ml PO Q12HR PRN PRN Reason: Constipation Non-Formulary Medication (Atorvastatin Calcium [Atorvastatin Calcium]) 80 mg PO BEDTIME KARMEN Non-Formulary Medication (Calcitriol [Calcitriol]) 0.25 mcg PO DAILY KARMEN Non-Formulary Medication (Cholecalciferol (Vitamin D3) [Vitamin D3]) 2,000 unit PO DAILY KARMEN Non-Formulary Medication (Diclofenac Sodium [Voltaren 1% Gel]) 1 applic TP QID KARMEN Non-Formulary Medication (Insulin Detemir [Levemir]) 48 unit SUBCUT QAM KARMEN Non-Formulary Medication (Insulin Detemir [Levemir Flextouch]) 5 unit SQ BEDTIME KARMEN Non-Formulary Medication (Insulin Lispro [Humalog Kwikpen U-200]) 10 unit SQ TIDMEALS KARMEN Non-Formulary Medication (Magnesium Oxide [Magnesium Oxide]) 420 mg PO BID KARMEN Non-Formulary Medication (Ranitidine Hcl [Ranitidine]) 150 mg PO BID KARMEN Ondansetron HCl (Zofran Odt) 4 mg PO Q6HR PRN PRN Reason: nausea, able to take PO Polyethylene Glycol (Miralax) 17 gm PO DAILY PRN PRN Reason: Constipation Senna/Docusate Sodium (Senna Plus) 1 tab PO BEDTIME PRN PRN Reason: Constipation, use 2nd # Assessment/Plan Comment:: #Hyperglycemia + DM II, uncontrolled: Patient with BG of 628 on presentation. Reports taking his BG. However, per staff who are familiar with patient's health history, patient has been hiding his insulins from a grandson and has been forgetting where he hid them. - Start on insulin drip. - Monitor and replace electrolytes. - Once blood sugar is <200, we will transition to basal/bolus. #Falls: - PT/OT -Fall precautions. #Probable UTI: - Urine culture - Start rocephin #Hyponatremia: Na of 126. Corrects to 139 - Due to hyperglycemia - Monitor for slow correction with treatment of hyperglycemia #TIFFANY: Cr of 2.4, was 1.9 on 09/01 - IVF as above #CAD: - Continue home meds. DVT PPx: heparin GI PPx: Code status: Full
[2018-09-14] MEDS ORDERED: Non-Formulary Medication 1 Each (Diclofenac Sodium [Voltaren 1% Gel] 1 APPLIC) TP SCH (13:00)
[2018-09-14] MEDS ORDERED: cefTRIAXone 2 GM in Sodium Chloride 0.9% 100 ML IV SCH (14:00)
[2018-09-14 18:39] LABS: ANION GAP 15.1
[2018-09-14] MEDS ORDERED: Latanoprost 0.005% Ophth Soln 2.5 ML Bottle EYEBOTH SCH (21:00)
[2018-09-14] MEDS ORDERED: Insulin Glarg,Human.Rec.Analog 100 UNIT/ML ML SUBCUT SCH (21:00)
[2018-09-14] MEDS ORDERED: Finasteride 5 MG Tab PO SCH (21:00)
[2018-09-14] MEDS ORDERED: atorvaSTATin 20 MG Tab PO SCH (21:00)
[2018-09-14] MEDS ORDERED: Non-Formulary Medication 1 Each (Magnesium Oxide [Magnesium Oxide] 420 MG) PO SCH (21:00)
[2018-09-14] MEDS: Famotidine 20 MG Tab PO SCH (21:52)
[2018-09-14 22:27] LABS: ANION GAP 18.9
[2018-09-15] MEDS: Sodium Chloride 0.9% 1,000 ML IV SCH (03:22)
[2018-09-15 07:43] LABS: ANION GAP 18.9
[2018-09-15] MEDS: Famotidine 20 MG Tab PO SCH (08:11)
[2018-09-15] MEDS ORDERED: Insulin Glarg,Human.Rec.Analog 100 UNIT/ML ML SUBCUT SCH ×2 (09:00→12:15)
[2018-09-15] MEDS ORDERED: Clopidogrel 75 MG Tab PO SCH (09:00)
[2018-09-15] MEDS ORDERED: Cholecalciferol (Vitamin D3) 1,000 Unit Tab PO SCH (09:00)
[2018-09-15] MEDS ORDERED: DULoxetine 30 MG Cap PO SCH (09:00)
[2018-09-15] MEDS ORDERED: Calcitriol 0.25 MCG Cap PO SCH (09:00)
[2018-09-15] MEDS ORDERED: Glucagon,Human Recombinant 1 MG Vial IM PRN (09:06)
[2018-09-15] MEDS ORDERED: 50% Dextrose in Water 50 ML Syringe IVPUSH PRN (09:06)
--- NOTE | 2018-09-15 10:19 | PCM.PN ---
- General Info Date of Service: 09/15/18 Admission Dx/Problem (Free Text): Admission Diagnosis/Problem Admission Diagnosis/Problem Acute renal failure - Review of Systems General: Reports: No Symptoms HEENT: Reports: No Symptoms Pulmonary: Reports: No Symptoms Cardiovascular: Reports: No Symptoms Gastrointestinal: Reports: No Symptoms Genitourinary: Reports: No Symptoms Musculoskeletal: Reports: No Symptoms Skin: Reports: No Symptoms, Bruising, Other (Diabetic foot ulcer) Neurological: Reports: No Symptoms Psychiatric: Reports: Hallucinations - Patient Data Vitals - Most Recent: Last Vital Signs Temp 97.6 F 09/15/18 08:00 Pulse 99 09/15/18 08:00 Resp 16 09/15/18 08:00 BP 152/81 H 09/15/18 08:00 Pulse Ox 99 09/15/18 08:00 Weight - Most Recent: 158 lb 6.4 oz I&O - Last 24 Hours: Intake & Output 09/14/18 09/15/18 09/15/18 22:59 06:59 14:59 Intake Total 95 Output Total 1000 Balance 95 -1000 Lab Results Last 24 Hours: Laboratory Results - last 24 hr 09/14/18 09/14/18 09/14/18 Range/Units 10:30 10:30 12:09 WBC (5.0-10.0) 10^3/uL RBC (4.6-6.2) 10^6/uL Hgb (14.0-18.0) g/dL Hct (40.0-54.0) % MCV (80-100) fL MCH (27.0-34.0) pg MCHC (33.0-35.0) g/dL Plt Count (150-450) 10^3/uL Sodium 128 L (135-145) mmol/L Potassium 4.4 (3.6-5.0) mmol/L Chloride 92 L (101-111) mmol/L Carbon Dioxide 20.0 L (21.0-31.0) mmol/L Anion Gap 20.4 BUN 39 H (7-18) mg/dL Creatinine 1.9 H (0.6-1.3) mg/dL Est Cr Clr Drug Dosing TNP Estimated GFR (MDRD) 35 Glucose 460 H* (74-105) mg/dL POC Glucose > 500 H* > 500 H* (83-110) mg/dl Calcium 9.0 (8.4-10.2) mg/dl Phosphorus (2.5-4.6) mg/dL Magnesium (1.8-2.5) mg/dL TSH, Ultra Sensitive (0.45-5.33) uIu/mL 09/14/18 09/14/18 09/14/18 Range/Units 12:35 13:06 14:01 WBC (5.0-10.0) 10^3/uL RBC (4.6-6.2) 10^6/uL Hgb (14.0-18.0) g/dL Hct (40.0-54.0) % MCV (80-100) fL MCH (27.0-34.0) pg MCHC (33.0-35.0) g/dL Plt Count (150-450) 10^3/uL Sodium (135-145) mmol/L Potassium (3.6-5.0) mmol/L Chloride (101-111) mmol/L Carbon Dioxide (21.0-31.0) mmol/L Anion Gap BUN (7-18) mg/dL Creatinine (0.6-1.3) mg/dL Est Cr Clr Drug Dosing Estimated GFR (MDRD) Glucose 453 H* (74-105) mg/dL POC Glucose > 500 H* 485 H* (83-110) mg/dl Calcium (8.4-10.2) mg/dl Phosphorus (2.5-4.6) mg/dL Magnesium (1.8-2.5) mg/dL TSH, Ultra Sensitive (0.45-5.33) uIu/mL 09/14/18 09/14/18 09/14/18 Range/Units 14:25 14:25 14:25 WBC (5.0-10.0) 10^3/uL RBC (4.6-6.2) 10^6/uL Hgb (14.0-18.0) g/dL Hct (40.0-54.0) % MCV (80-100) fL MCH (27.0-34.0) pg MCHC (33.0-35.0) g/dL Plt Count (150-450) 10^3/uL Sodium 128 L (135-145) mmol/L Potassium 4.0 (3.6-5.0) mmol/L Chloride 92 L (101-111) mmol/L Carbon Dioxide 22.0 (21.0-31.0) mmol/L Anion Gap 18.0 BUN 38 H (7-18) mg/dL Creatinine 2.0 H (0.6-1.3) mg/dL Est Cr Clr Drug Dosing 32.27 Estimated GFR (MDRD) 33 Glucose 423 H* (74-105) mg/dL POC Glucose (83-110) mg/dl Calcium 9.1 (8.4-10.2) mg/dl Phosphorus 2.1 L (2.5-4.6) mg/dL Magnesium 2.0 (1.8-2.5) mg/dL TSH, Ultra Sensitive (0.45-5.33) uIu/mL 09/14/18 09/14/18 09/14/18 Range/Units 14:51 16:11 16:56 WBC (5.0-10.0) 10^3/uL RBC (4.6-6.2) 10^6/uL Hgb (14.0-18.0) g/dL Hct (40.0-54.0) % MCV (80-100) fL MCH (27.0-34.0) pg MCHC (33.0-35.0) g/dL Plt Count (150-450) 10^3/uL Sodium (135-145) mmol/L Potassium (3.6-5.0) mmol/L Chloride (101-111) mmol/L Carbon Dioxide (21.0-31.0) mmol/L Anion Gap BUN (7-18) mg/dL Creatinine (0.6-1.3) mg/dL Est Cr Clr Drug Dosing Estimated GFR (MDRD) Glucose (74-105) mg/dL POC Glucose 378 H 224 H 201 H (83-110) mg/dl Calcium (8.4-10.2) mg/dl Phosphorus (2.5-4.6) mg/dL Magnesium (1.8-2.5) mg/dL TSH, Ultra Sensitive (0.45-5.33) uIu/mL 09/14/18 09/14/18 09/14/18 Range/Units 18:02 18:10 18:10 WBC (5.0-10.0) 10^3/uL RBC (4.6-6.2) 10^6/uL Hgb (14.0-18.0) g/dL Hct (40.0-54.0) % MCV (80-100) fL MCH (27.0-34.0) pg MCHC (33.0-35.0) g/dL Plt Count (150-450) 10^3/uL Sodium 131 L (135-145) mmol/L Potassium 4.1 (3.6-5.0) mmol/L Chloride 97 L (101-111) mmol/L Carbon Dioxide 23.0 (21.0-31.0) mmol/L Anion Gap 15.1 BUN 38 H (7-18) mg/dL Creatinine 1.8 H (0.6-1.3) mg/dL Est Cr Clr Drug Dosing 35.85 Estimated GFR (MDRD) 37 Glucose 131 H (74-105) mg/dL POC Glucose 187 H (83-110) mg/dl Calcium 8.9 (8.4-10.2) mg/dl Phosphorus (2.5-4.6) mg/dL Magnesium (1.8-2.5) mg/dL TSH, Ultra Sensitive 1.64 (0.45-5.33) uIu/mL 09/14/18 09/14/18 09/14/18 Range/Units 19:34 20:05 20:56 WBC (5.0-10.0) 10^3/uL RBC (4.6-6.2) 10^6/uL Hgb (14.0-18.0) g/dL Hct (40.0-54.0) % MCV (80-100) fL MCH (27.0-34.0) pg MCHC (33.0-35.0) g/dL Plt Count (150-450) 10^3/uL Sodium (135-145) mmol/L Potassium (3.6-5.0) mmol/L Chloride (101-111) mmol/L Carbon Dioxide (21.0-31.0) mmol/L Anion Gap BUN (7-18) mg/dL Creatinine (0.6-1.3) mg/dL Est Cr Clr Drug Dosing Estimated GFR (MDRD) Glucose (74-105) mg/dL POC Glucose 99 93 180 H (83-110) mg/dl Calcium (8.4-10.2) mg/dl Phosphorus (2.5-4.6) mg/dL Magnesium (1.8-2.5) mg/dL TSH, Ultra Sensitive (0.45-5.33) uIu/mL 09/14/18 09/15/18 09/15/18 Range/Units 22:00 07:05 07:05 WBC 9.7 (5.0-10.0) 10^3/uL RBC 4.35 L (4.6-6.2) 10^6/uL Hgb 13.4 L (14.0-18.0) g/dL Hct 38.1 L (40.0-54.0) % MCV 87.6 (80-100) fL MCH 30.8 (27.0-34.0) pg MCHC 35.2 H (33.0-35.0) g/dL Plt Count 365 (150-450) 10^3/uL Sodium 131 L 131 L (135-145) mmol/L Potassium 3.9 3.9 (3.6-5.0) mmol/L Chloride 96 L 96 L (101-111) mmol/L Carbon Dioxide 20.0 L 20.0 L (21.0-31.0) mmol/L Anion Gap 18.9 18.9 BUN 34 H 27 H (7-18) mg/dL Creatinine 1.6 H 1.4 H (0.6-1.3) mg/dL Est Cr Clr Drug Dosing 40.33 47.04 Estimated GFR (MDRD) 42 50 Glucose 189 H 254 H (74-105) mg/dL POC Glucose (83-110) mg/dl Calcium 8.6 9.0 (8.4-10.2) mg/dl Phosphorus (2.5-4.6) mg/dL Magnesium (1.8-2.5) mg/dL TSH, Ultra Sensitive (0.45-5.33) uIu/mL 09/15/18 Range/Units 07:51 WBC (5.0-10.0) 10^3/uL RBC (4.6-6.2) 10^6/uL Hgb (14.0-18.0) g/dL Hct (40.0-54.0) % MCV (80-100) fL MCH (27.0-34.0) pg MCHC (33.0-35.0) g/dL Plt Count (150-450) 10^3/uL Sodium (135-145) mmol/L Potassium (3.6-5.0) mmol/L Chloride (101-111) mmol/L Carbon Dioxide (21.0-31.0) mmol/L Anion Gap BUN (7-18) mg/dL Creatinine (0.6-1.3) mg/dL Est Cr Clr Drug Dosing Estimated GFR (MDRD) Glucose (74-105) mg/dL POC Glucose 274 H (83-110) mg/dl Calcium (8.4-10.2) mg/dl Phosphorus (2.5-4.6) mg/dL Magnesium (1.8-2.5) mg/dL TSH, Ultra Sensitive (0.45-5.33) uIu/mL Flavio Results Last 24 Hours: Microbiology 09/14/18 05:56 Urine Culture - Preliminary Urine, Voided MIXED POSITIVE MABLE DAY 1 Med Orders - Current: Current Medications Acetaminophen (Tylenol) 650 mg PO Q6HR PRN PRN Reason: Pain Last Admin: 09/14/18 13:02 Dose: 650 mg Atorvastatin Calcium (Lipitor) 80 mg PO BEDTIME [facility] Last Admin: 09/14/18 21:52 Dose: 80 mg Bisacodyl (Dulcolax) 5 mg PO DAILY PRN PRN Reason: Constipation, use last Calcitriol (Rocaltrol) 0.25 mcg PO DAILY [facility] Last Admin: 09/15/18 08:11 Dose: 0.25 mcg Cholecalciferol (Vitamin D3) 2,000 units PO DAILY [facility] Last Admin: 09/15/18 08:11 Dose: 2,000 units Clopidogrel Bisulfate (Plavix) 75 mg PO DAILY [facility] Last Admin: 09/15/18 08:11 Dose: 75 mg Dextrose/Water (Dextrose 50% In Water) 25 ml IVPUSH ASDIRECTED PRN PRN Reason: Hypoglycemia Docusate Sodium (Colace) 100 mg PO BID PRN PRN Reason: Constipation, use 1st Duloxetine HCl (Cymbalta) 30 mg PO DAILY [facility] Last Admin: 09/15/18 08:11 Dose: 30 mg Famotidine (Pepcid) 20 mg PO BID [facility] Last Admin: 09/15/18 08:11 Dose: 20 mg Finasteride (Proscar) 5 mg PO BEDTIME [facility] Last Admin: 09/14/18 21:51 Dose: 5 mg Glucagon (Glucagen) 1 mg IM ONETIME PRN PRN Reason: Hypoglycemia Sodium Chloride (Normal Saline) 1,000 mls @ 125 mls/hr IV ASDIRECTED [facility] Last Admin: 09/15/18 03:22 Dose: 125 mls/hr Ceftriaxone Sodium 2 gm/ (Sodium Chloride) 100 mls @ 200 mls/hr IV Q24H [facility] Last Admin: 09/14/18 14:34 Dose: 200 mls/hr Insulin Human Regular 100 unit (/ Sodium Chloride) 100 mls @ 12 mls/hr IV TITRATE [facility]; Protocol Last Titration: 09/14/18 19:38 Dose: 0 mls/hr, 0 mls/hr Insulin Glargine (Lantus) 48 unit SUBCUT QAM [facility] Last Admin: 09/15/18 08:09 Dose: 48 units Insulin Glargine (Lantus) 5 unit SUBCUT BEDTIME [facility] Last Admin: 09/14/18 21:52 Dose: 5 units Latanoprost (Xalatan 0.005% Ophth Soln) 0 ml EYEBOTH BEDTIME [facility] Last Admin: 09/14/18 21:53 Dose: 1 drop Magnesium Hydroxide (Milk Of Magnesia) 30 ml PO Q12HR PRN PRN Reason: Constipation Ondansetron HCl (Zofran Odt) 4 mg PO Q6HR PRN PRN Reason: nausea, able to take PO Polyethylene Glycol (Miralax) 17 gm PO DAILY PRN PRN Reason: Constipation Senna/Docusate Sodium (Senna Plus) 1 tab PO BEDTIME PRN PRN Reason: Constipation, use 2nd Discontinued Medications Sodium Chloride (Normal Saline) 1,000 mls @ 999 mls/hr IV .BOLUS ONE Stop: 09/14/18 06:42 Last Admin: 09/14/18 05:35 Dose: 999 mls/hr Insulin Human Regular 100 unit (/ Sodium Chloride) 100 mls @ 6.99 mls/hr IV TITRATE [facility]; Protocol Last Titration: 09/14/18 13:14 Dose: Infused Insulin Human Lispro (Humalog) 10 unit SUBCUT TIDMEALS [facility] Last Admin: 09/14/18 15:41 Dose: Not Given Insulin Human Regular (Humulin R) 10 unit IV ONETIME ONE Stop: 09/14/18 05:43 Last Admin: 09/14/18 05:48 Dose: 10 unit Non-Formulary Medication (Diclofenac Sodium [Voltaren 1% Gel]) 1 applic TP QID [facility] Last Admin: 09/14/18 15:41 Dose: Not Given Non-Formulary Medication (Magnesium Oxide [Magnesium Oxide]) 420 mg PO BID KARMEN - Exam General: Alert, Oriented, Cooperative, No Acute Distress HEENT: Pupils Equal, Pupils Reactive Neck: Supple Lungs: Clear to Auscultation, Normal Respiratory Effort Cardiovascular: Regular Rate, Regular Rhythm GI/Abdominal Exam: Normal Bowel Sounds, Soft, Non-Tender, No Distention Extremities: Normal Inspection, Normal Range of Motion, Non-Tender, No Pedal Edema, Other (Ulcer between right 4th and 5th toes. ) Skin: Warm, Dry, Intact Neurological: No New Focal Deficit Psy/Mental Status: Alert, Normal Affect, Normal Mood - Problem List & Annotations (1) Fall at home SNOMED Code(s): 08876880 Code(s): W19.XXXA - UNSPECIFIED FALL, INITIAL ENCOUNTER; Y92.009 - UNSP PLACE IN UNSP NON-INSTITUT (PRIVATE) RESIDENCE PLACE Status: Acute Current Visit: Yes Qualifiers: Encounter type: initial encounter Qualified Code(s): W19.XXXA - Unspecified fall, initial encounter; Y92.009 - Unspecified place in unspecified non-institutional (private) residence as the place of occurrence of the external cause (2) Acute encephalopathy SNOMED Code(s): 88020346, 694577629 Code(s): G93.40 - ENCEPHALOPATHY, UNSPECIFIED Status: Acute Priority: Medium Current Visit: No Onset Date: 10/25/15 (3) Acute hyponatremia SNOMED Code(s): 9531698 Code(s): E87.1 - HYPO-OSMOLALITY AND HYPONATREMIA Status: Acute Current Visit: No (4) CAD (coronary artery disease) SNOMED Code(s): 69572009 Code(s): I25.10 - ATHSCL HEART DISEASE OF [place] CORONARY ARTERY W/O ANG PCTRS Status: Acute Current Visit: No (5) DM (diabetes mellitus), type 2, uncontrolled SNOMED Code(s): 139080253, 279531130 Code(s): E11.65 - TYPE 2 DIABETES MELLITUS WITH HYPERGLYCEMIA Status: Acute Current Visit: No (6) Dehydration with hyponatremia SNOMED Code(s): 41106427 Code(s): E87.1 - HYPO-OSMOLALITY AND HYPONATREMIA Status: Acute Current Visit: No (7) Frequent falls SNOMED Code(s): 481666608 Code(s): R29.6 - REPEATED FALLS Status: Acute Current Visit: No (8) Hyperglycemia SNOMED Code(s): 15993710 Code(s): R73.9 - HYPERGLYCEMIA, UNSPECIFIED Status: Acute Current Visit: No (9) Renal failure SNOMED Code(s): 21420748 Code(s): N19 - UNSPECIFIED KIDNEY FAILURE Status: Acute Priority: Medium Current Visit: No - Problem List Review Problem List Initiated/Reviewed/Updated: Yes - My Orders Last 24 Hours: My Active Orders 09/14/18 09:19 Sequential Compression Device [OM.PC] Per Unit Routine 09/14/18 09:20 Antiembolic Devices [RC] PER UNIT ROUTINE 09/14/18 09:30 Sodium Chloride 0.9% [Normal Saline] 1,000 ml IV ASDIRECTED 09/14/18 12:23 Communication Order [RC] ROUTINE 09/14/18 12:34 OT Evaluation and Treatment [CONS] Routine PT Evaluation and Treatment [CONS] Routine 09/14/18 12:35 RPR (SYPHILIS SERO) W/ RFLX [REF] Routine 09/14/18 14:00 cefTRIAXone [Rocephin] 2 gm Sodium Chloride 0.9% [Normal Saline] 100 ml IV Q24H 09/14/18 15:00 Insulin Regular, Human [HumuLIN R] 100 unit Sodium Chloride 0.9% [Normal Saline] 99 ml IV TITRATE 09/14/18 19:01 Wound Care [RC] DAILY 09/14/18 19:03 Wound Care [RC] DAILY 09/14/18 20:35 FOLATE [REF] Routine VITAMIN B12 [REF] Routine 09/14/18 21:00 Accu Check [Blood Glucose Check, Bedside] [RC] QID Famotidine [Pepcid] 20 mg PO BID Finasteride [Proscar] 5 mg PO BEDTIME Insulin Glarg,Human.Rec.Analog [LantUS] 5 unit SUBCUT BEDTIME Latanoprost [Xalatan 0.005% Ophth Soln] 0 ml EYEBOTH BEDTIME atorvaSTATin [Lipitor] 80 mg PO BEDTIME 09/15/18 09:00 Calcitriol [Rocaltrol] 0.25 mcg PO DAILY Cholecalciferol (Vitamin D3) [Vitamin D3] 2,000 units PO DAILY Clopidogrel [Plavix] 75 mg PO DAILY DULoxetine [Cymbalta] 30 mg PO DAILY Insulin Glarg,Human.Rec.Analog [LantUS] 48 unit SUBCUT QAM 09/15/18 09:06 Diabetes Education [RC] Click to Edit Notify Provider [RC] PRN Consult to Associate Professor Of Musicology [CONS] Routine Dextrose 50% in Water 25 ml IVPUSH ASDIRECTED PRN Glucagon,Human Recombinant [GlucaGen] 1 mg IM ONETIME PRN 09/15/18 Breakfast Consistent Carbohydrate Diet [DIET] 09/16/18 05:11 BASIC METABOLIC PANEL,BMP [CHEM] AM CBC W/O DIFF,HEMOGRAM [HEME] AM - Plan Plan:: #Hyperglycemia + DM II, uncontrolled: Patient with BG of 628 on presentation. Reports taking his BG. However, per staff who are familiar with patient's health history, patient has been hiding his insulins from a grandson and has been forgetting where he hid them. - Started on insulin drip with improved of BG. - Basal and bolus insulins with hypoglycemia protocol and SSI #Acute encephalopathy: Patient with hallucinations. Likely vascular dementia vs Lewy body dementia. - No acute issues. - CT brain with no bleed. - Outpatient follow up with psychiatry and neurology. #Falls: - PT/OT -Fall precautions. #Probable UTI: - Urine culture - Start rocephin #Hyponatremia: Na of 131 this morning. On presentation, had Na of 126, corrected to 139 - Due to hyperglycemia - Monitor for electrolytes. #TIFFANY: Resolved. Cr this morning is 1.4. Cr of 2.4, was 1.9 on 09/01 - D/c IVF - Monitor renal function. #CAD: - Continue home meds. DVT PPx: heparin GI PPx: Code status: Full
[2018-09-15] MEDS ORDERED: Insulin Lispro 100 Units/ML 3 ML Vial SUBCUT SCH ×2 (12:00→12:30)
[2018-09-15] MEDS ORDERED: cefTRIAXone 2 GM in Sodium Chloride 0.9% 100 ML IV SCH (14:00)
--- NOTE | 2018-09-15 15:50 | PCM.DCSUM1 ---
Discharge Summary - Hospital Course Free Text/Narrative:: Patient was admitted for recurrent falls and hyperglycemia. BG was 628 with normal bicarb. He was started on insulin drip on morning of admission and drip was turned off in the afternoon. His UA was positive so patient was started on IV Ceftriaxone. PT/OT were consulted. Patient was noted to have hallucinations and was also unable to provide detailed responses to questions. However, he was alert and oriented x4. He was discharged to the [facility] to receive further care. HPI Initial Comments: Michael Lynn is a 73 y.o male with medical history significant for diabetes mellitus, hyperlipidemia, CAD, and non-adhernece to medical therapy who was brought to the ED by EMS for falls. Patient reports that he fell 5 times this morning. Reports that he has been weak. Denies any focal weakness or loss of sensation. Denies speech difficulties. Reports right flank pain and ulcer between the right 4th and 5th toes. He denies head trauma. He reports dysuria and bruises on his legs. He reports that he took his last insulin last night, 14 units at meal time. He denies chest pain, shortness of breath, cough, fever, chills, nausea, vomiting, diarrhea, constipation, melena, hematochezia, or hematuria. In the ED, patient was noted to be confused. BG was 628. UA was positive for [place] estrase. Na was 126. Diagnosis: Stroke: No - Discharge Data Discharge Date: 09/15/18 Discharge Disposition: DC/Tfer to [facility] [facility] Condition: Good - Discharge Diagnosis/Problem(s) (1) Fall at home SNOMED Code(s): 17405795 ICD Code: W19.XXXA - UNSPECIFIED FALL, INITIAL ENCOUNTER; Y92.009 - UNSP PLACE IN UNSP NON-INSTITUT (PRIVATE) RESIDENCE PLACE Status: Acute Current Visit: Yes Qualifiers: Encounter type: initial encounter Qualified Code(s): W19.XXXA - Unspecified fall, initial encounter; Y92.009 - Unspecified place in unspecified non-institutional (private) residence as the place of occurrence of the external cause (2) Acute encephalopathy SNOMED Code(s): 99271989, 934556983 ICD Code: G93.40 - ENCEPHALOPATHY, UNSPECIFIED Status: Acute Priority: Medium Current Visit: No Onset Date: 10/25/15 (3) Acute hyponatremia SNOMED Code(s): 8300250 ICD Code: E87.1 - HYPO-OSMOLALITY AND HYPONATREMIA Status: Acute Current Visit: No (4) CAD (coronary artery disease) SNOMED Code(s): 67415041 ICD Code: I25.10 - ATHSCL HEART DISEASE OF [place] CORONARY ARTERY W/O ANG PCTRS Status: Acute Current Visit: No (5) DM (diabetes mellitus), type 2, uncontrolled SNOMED Code(s): 607627535, 165639397 ICD Code: E11.65 - TYPE 2 DIABETES MELLITUS WITH HYPERGLYCEMIA Status: Acute Current Visit: No (6) Dehydration with hyponatremia SNOMED Code(s): 80449526 ICD Code: E87.1 - HYPO-OSMOLALITY AND HYPONATREMIA Status: Acute Current Visit: No (7) Frequent falls SNOMED Code(s): 939991327 ICD Code: R29.6 - REPEATED FALLS Status: Acute Current Visit: No (8) Hyperglycemia SNOMED Code(s): 13429861 ICD Code: R73.9 - HYPERGLYCEMIA, UNSPECIFIED Status: Acute Current Visit : No (9) Renal failure SNOMED Code(s): 73578753 ICD Code: N19 - UNSPECIFIED KIDNEY FAILURE Status: Acute Priority: Medium Current Visit: No Qualifiers: Renal failure chronicity: acute on chronic - Patient Summary/Data Consults: Consultations 09/14/18 12:34 OT Evaluation and Treatment [CONS] Routine PT Evaluation and Treatment [CONS] Routine 09/15/18 09:06 Consult to Cloth Shearing Supervisor [CONS] Routine - Discharge Plan *PRESCRIPTION DRUG MONITORING PROGRAM REVIEWED*: No *COPY OF PRESCRIPTION DRUG MONITORING REPORT IN PATIENT SANTIAGO: No Prescriptions/Med Rec: cefTRIAXone Sodium [Ceftriaxone] 2 gm IV DAILY 5 Days vial.port Home Medications: Home Meds Calcitriol 0.25 mcg PO DAILY 05/28/13 [History] atorvaSTATin Calcium [Atorvastatin Calcium] 80 mg PO BEDTIME 05/28/13 [History] Latanoprost [Xalatan 0.005% Ophth Soln] 1 drop EYEBOTH BEDTIME 09/03/15 [History ] Clopidogrel [Plavix] 75 mg PO DAILY 01/07/16 [History] DULoxetine [Cymbalta] 30 mg PO DAILY 01/07/16 [History] Finasteride [Proscar] 5 mg PO BEDTIME 01/07/16 [History] Insulin Detemir [Levemir] 48 unit SUBCUT QAM 02/10/17 [History] Magnesium Oxide 420 mg PO BID 02/10/17 [History] Cholecalciferol (Vitamin D3) [Vitamin D3] 2,000 unit PO DAILY 09/28/17 [History] Ranitidine HCl [Ranitidine] 150 mg PO BID 09/28/17 [History] Acetaminophen 325 mg PO Q4H PRN 02/17/18 [History] Diclofenac Sodium [Voltaren 1% Gel] 1 applic TP QID 02/17/18 [History] Insulin Detemir [Levemir Flextouch] 5 unit SQ BEDTIME 09/14/18 [History] Insulin Lispro [Humalog Kwikpen U-200] 10 unit SQ TIDMEALS 09/14/18 [History] cefTRIAXone Sodium [Ceftriaxone] 2 gm IV DAILY 5 Days vial.port 09/14/18 [Rx] Other Amb Orders: PT Evaluation and Treatment [CONS] Location: None Selected Oxygen Therapy Mode: Room Air Referrals: PCP,None [Primary Care Provider] - - Discharge Summary/Plan Comment DC Time >30 min.: Yes - General Info Date of Service: 09/15/18 Admission Dx/Problem (Free Text: Admission Diagnosis/Problem Admission Diagnosis/Problem Acute renal failure Subjective Update: No change since morning. Please see AM progress note. - Patient Data Vitals - Most Recent: Last Vital Signs Temp 97.8 F 09/15/18 12:00 Pulse 105 H 09/15/18 12:00 Resp 16 09/15/18 12:00 BP 137/74 09/15/18 12:00 Pulse Ox 99 09/15/18 12:00 Weight - Most Recent: 158 lb 6.4 oz I&O - Last 24 hours: Intake & Output 09/15/18 09/15/18 09/15/18 06:59 14:59 22:59 Intake Total 240 113 Output Total 1000 650 Balance -1000 -410 113 Lab Results - Last 24 hrs: Laboratory Results - last 24 hr 09/14/18 09/14/18 09/14/18 Range/Units 16:11 16:56 18:02 WBC (5.0-10.0) 10^3/uL RBC (4.6-6.2) 10^6/uL Hgb (14.0-18.0) g/dL Hct (40.0-54.0) % MCV (80-100) fL MCH (27.0-34.0) pg MCHC (33.0-35.0) g/dL Plt Count (150-450) 10^3/uL Sodium (135-145) mmol/L Potassium (3.6-5.0) mmol/L Chloride (101-111) mmol/L Carbon Dioxide (21.0-31.0) mmol/L Anion Gap BUN (7-18) mg/dL Creatinine (0.6-1.3) mg/dL Est Cr Clr Drug Dosing mL/min Estimated GFR (MDRD) Glucose (74-105) mg/dL POC Glucose 224 H 201 H 187 H (83-110) mg/dl Calcium (8.4-10.2) mg/dl TSH, Ultra Sensitive (0.45-5.33) uIu/mL 09/14/18 09/14/18 09/14/18 Range/Units 18:10 18:10 19:34 WBC (5.0-10.0) 10^3/uL RBC (4.6-6.2) 10^6/uL Hgb (14.0-18.0) g/dL Hct (40.0-54.0) % MCV (80-100) fL MCH (27.0-34.0) pg MCHC (33.0-35.0) g/dL Plt Count (150-450) 10^3/uL Sodium 131 L (135-145) mmol/L Potassium 4.1 (3.6-5.0) mmol/L Chloride 97 L (101-111) mmol/L Carbon Dioxide 23.0 (21.0-31.0) mmol/L Anion Gap 15.1 BUN 38 H (7-18) mg/dL Creatinine 1.8 H (0.6-1.3) mg/dL Est Cr Clr Drug Dosing 35.85 mL/min Estimated GFR (MDRD) 37 Glucose 131 H (74-105) mg/dL POC Glucose 99 (83-110) mg/dl Calcium 8.9 (8.4-10.2) mg/dl TSH, Ultra Sensitive 1.64 (0.45-5.33) uIu/mL 09/14/18 09/14/18 09/14/18 Range/Units 20:05 20:56 22:00 WBC (5.0-10.0) 10^3/uL RBC (4.6-6.2) 10^6/uL Hgb (14.0-18.0) g/dL Hct (40.0-54.0) % MCV (80-100) fL MCH (27.0-34.0) pg MCHC (33.0-35.0) g/dL Plt Count (150-450) 10^3/uL Sodium 131 L (135-145) mmol/L Potassium 3.9 (3.6-5.0) mmol/L Chloride 96 L (101-111) mmol/L Carbon Dioxide 20.0 L (21.0-31.0) mmol/L Anion Gap 18.9 BUN 34 H (7-18) mg/dL Creatinine 1.6 H (0.6-1.3) mg/dL Est Cr Clr Drug Dosing 40.33 mL/min Estimated GFR (MDRD) 42 Glucose 189 H (74-105) mg/dL POC Glucose 93 180 H (83-110) mg/dl Calcium 8.6 (8.4-10.2) mg/dl TSH, Ultra Sensitive (0.45-5.33) uIu/mL 09/15/18 09/15/18 09/15/18 Range/Units 07:05 07:05 07:51 WBC 9.7 (5.0-10.0) 10^3/uL RBC 4.35 L (4.6-6.2) 10^6/uL Hgb 13.4 L (14.0-18.0) g/dL Hct 38.1 L (40.0-54.0) % MCV 87.6 (80-100) fL MCH 30.8 (27.0-34.0) pg MCHC 35.2 H (33.0-35.0) g/dL Plt Count 365 (150-450) 10^3/uL Sodium 131 L (135-145) mmol/L Potassium 3.9 (3.6-5.0) mmol/L Chloride 96 L (101-111) mmol/L Carbon Dioxide 20.0 L (21.0-31.0) mmol/L Anion Gap 18.9 BUN 27 H (7-18) mg/dL Creatinine 1.4 H (0.6-1.3) mg/dL Est Cr Clr Drug Dosing 47.04 mL/min Estimated GFR (MDRD) 50 Glucose 254 H (74-105) mg/dL POC Glucose 274 H (83-110) mg/dl Calcium 9.0 (8.4-10.2) mg/dl TSH, Ultra Sensitive (0.45-5.33) uIu/mL 09/15/18 Range/Units 11:48 WBC (5.0-10.0) 10^3/uL RBC (4.6-6.2) 10^6/uL Hgb (14.0-18.0) g/dL Hct (40.0-54.0) % MCV (80-100) fL MCH (27.0-34.0) pg MCHC (33.0-35.0) g/dL Plt Count (150-450) 10^3/uL Sodium (135-145) mmol/L Potassium (3.6-5.0) mmol/L Chloride (101-111) mmol/L Carbon Dioxide (21.0-31.0) mmol/L Anion Gap BUN (7-18) mg/dL Creatinine (0.6-1.3) mg/dL Est Cr Clr Drug Dosing mL/min Estimated GFR (MDRD) Glucose (74-105) mg/dL POC Glucose 352 H (83-110) mg/dl Calcium (8.4-10.2) mg/dl TSH, Ultra Sensitive (0.45-5.33) uIu/mL ROLO Results - Last 24 hrs: Microbiology 09/14/18 05:56 Urine Culture - Preliminary Urine, Voided MIXED POSITIVE MABLE DAY 1 Med Orders - Current: Current Medications Acetaminophen (Tylenol) 650 mg PO Q6HR PRN PRN Reason: Pain Last Admin: 09/14/18 13:02 Dose: 650 mg Atorvastatin Calcium (Lipitor) 80 mg PO BEDTIME KARMEN Last Admin: 09/14/18 21:52 Dose: 80 mg Bisacodyl (Dulcolax) 5 mg PO DAILY PRN PRN Reason: Constipation, use last Calcitriol (Rocaltrol) 0.25 mcg PO DAILY KARMEN Last Admin: 09/15/18 08:11 Dose: 0.25 mcg Cholecalciferol (Vitamin D3) 2,000 units PO DAILY [facility] Last Admin: 09/15/18 08:11 Dose: 2,000 units Clopidogrel Bisulfate (Plavix) 75 mg PO DAILY [facility] Last Admin: 09/15/18 08:11 Dose: 75 mg Dextrose/Water (Dextrose 50% In Water) 25 ml IVPUSH ASDIRECTED PRN PRN Reason: Hypoglycemia Docusate Sodium (Colace) 100 mg PO BID PRN PRN Reason: Constipation, use 1st Duloxetine HCl (Cymbalta) 30 mg PO DAILY [facility] Last Admin: 09/15/18 08:11 Dose: 30 mg Famotidine (Pepcid) 20 mg PO BID [facility] Last Admin: 09/15/18 08:11 Dose: 20 mg Finasteride (Proscar) 5 mg PO BEDTIME [facility] Last Admin: 09/14/18 21:51 Dose: 5 mg Glucagon (Glucagen) 1 mg IM ONETIME PRN PRN Reason: Hypoglycemia Ceftriaxone Sodium 2 gm/ (Sodium Chloride) 100 mls @ 200 mls/hr IV Q24H [facility] Last Admin: 09/15/18 14:31 Dose: 200 mls/hr Insulin Glargine (Lantus) 48 unit SUBCUT QAM [facility] Last Admin: 09/15/18 08:09 Dose: 48 units Insulin Glargine (Lantus) 5 unit SUBCUT BEDTIME [facility] Last Admin: 09/14/18 21:52 Dose: 5 units Insulin Glargine (Lantus) 40 unit SUBCUT QAM [facility] Last Admin: 09/15/18 14:45 Dose: Not Given Insulin Human Lispro (Humalog) 0 unit SUBCUT TIDMEALS [facility]; Protocol Last Admin: 09/15/18 12:50 Dose: 10 units Insulin Human Lispro (Humalog) 8 unit SUBCUT TIDAC [facility] Last Admin: 09/15/18 12:49 Dose: 8 units Latanoprost (Xalatan 0.005% Ophth Soln) 0 ml EYEBOTH BEDTIME [facility] Last Admin: 09/14/18 21:53 Dose: 1 drop Magnesium Hydroxide (Milk Of Magnesia) 30 ml PO Q12HR PRN PRN Reason: Constipation Ondansetron HCl (Zofran Odt) 4 mg PO Q6HR PRN PRN Reason: nausea, able to take PO Polyethylene Glycol (Miralax) 17 gm PO DAILY PRN PRN Reason: Constipation Senna/Docusate Sodium (Senna Plus) 1 tab PO BEDTIME PRN PRN Reason: Constipation, use 2nd Discontinued Medications Sodium Chloride (Normal Saline) 1,000 mls @ 999 mls/hr IV .BOLUS ONE Stop: 09/14/18 06:42 Last Admin: 09/14/18 05:35 Dose: 999 mls/hr Sodium Chloride (Normal Saline) 1,000 mls @ 125 mls/hr IV ASDIRECTED [facility] Last Admin: 09/15/18 03:22 Dose: 125 mls/hr Insulin Human Regular 100 unit (/ Sodium Chloride) 100 mls @ 6.99 mls/hr IV TITRATE [facility]; Protocol Last Titration: 09/14/18 13:14 Dose: Infused Ceftriaxone Sodium 2 gm/ (Sodium Chloride) 100 mls @ 200 mls/hr IV Q24H [facility] Last Admin: 09/14/18 14:34 Dose: 200 mls/hr Insulin Human Regular 100 unit (/ Sodium Chloride) 100 mls @ 12 mls/hr IV TITRATE [facility]; Protocol Last Titration: 09/14/18 19:38 Dose: 0 mls/hr, 0 mls/hr Insulin Human Lispro (Humalog) 10 unit SUBCUT TIDMEALS [facility] Last Admin: 09/14/18 15:41 Dose: Not Given Insulin Human Regular (Humulin R) 10 unit IV ONETIME ONE Stop: 09/14/18 05:43 Last Admin: 09/14/18 05:48 Dose: 10 unit Non-Formulary Medication (Diclofenac Sodium [Voltaren 1% Gel]) 1 applic TP QID [facility] Last Admin: 09/14/18 15:41 Dose: Not Given Non-Formulary Medication (Magnesium Oxide [Magnesium Oxide]) 420 mg PO BID KARMEN - Exam General: Reports: Alert, Oriented HEENT: Reports: Pupils Equal, Pupils Reactive Neck: Reports: Supple Lungs: Reports: Clear to Auscultation, Normal Respiratory Effort Cardiovascular: Reports: Regular Rhythm, Tachycardia GI/Abdominal Exam: Normal Bowel Sounds, Soft, Non-Tender, No Distention Extremities: Non-Tender, No Pedal Edema, Other (ulcer between right 4th and 5th toes. ) Skin: Reports: Warm, Dry, Intact Wound/Incisions: Reports: Healing Well Neurological: Reports: No New Focal Deficit Psy/Mental Status: Reports: Alert, Normal Affect, Normal Mood, Hallucinations *Q Meaningful Use (DIS) - VTE *Q VTE Anticoagulation Contraindications: Medical/Procedure Contrai
[2018-09-15 16:15] VITALS: BP 130/72
== END 2018-09-15 17:00 | DRG 638 ==
LOC: DL.ED 05:16 → DL.MS 07:55 → UNDOADMIN 07:55 → DL.MS 09:17
PROVIDERS: ADMIT Internal Medicine; ATTEND Internal Medicine
DX: E11.65 Type 2 diabetes mellitus with hyperglycemia (principal); E87.1 Hypo-osmolality and hyponatremia; N17.9 Acute kidney failure, unspecified; N39.0 Urinary tract infection, site not specified; G93.49 Other encephalopathy; R41.0 Disorientation, unspecified; S09.90XA Unspecified injury of head, initial encounter; E11.22 Type 2 diabetes mellitus with diabetic chronic kidney disease; E78.00 Pure hypercholesterolemia, unspecified; W19.XXXA Unspecified fall, initial encounter; Z79.02 Long term (current) use of antithrombotics/antiplatelets; Z79.4 Long term (current) use of insulin; Z79.899 Other long term (current) drug therapy; W18.30XA Fall on same level, unspecified, initial encounter; E86.0 Dehydration; Z91.19 Patient's noncompliance with other medical treatment and regimen; H54.7 Unspecified visual loss; I25.10 Atherosclerotic heart disease of native coronary artery without angina pectoris; Y92.009 Unspecified place in unspecified non-institutional (private) residence as the place of occurrence of the external cause; I12.9 Hypertensive chronic kidney disease with stage 1 through stage 4 chronic kidney disease, or unspecified chronic kidney disease; N18.9 Chronic kidney disease, unspecified; Z95.5 Presence of coronary angioplasty implant and graft; E78.5 Hyperlipidemia, unspecified; G89.29 Other chronic pain; M54.9 Dorsalgia, unspecified; E11.9 Type 2 diabetes mellitus without complications
CPT/HCPCS: 36415; 36600; 51702; 70450; 71045; 72192; 80053; 81001; 82009; 82550; 82553; 82803; 82962 ×4; 83605; 83880; 84484; 85025; 87086; 96361; 96374; 99285; J1815; J7030; 51701; 80048; 82607; 82746; 82947; 83735; 84100; 84443; 85027; 86592; 97166-GO; A9270-GY; J0696; J7050

== ENCOUNTER 2018-10-04 17:11 | Observation (INO) | payer MEDICARE, OTHER, MEDICAID ==
--- NOTE | 2018-10-04 17:56 | EDM.PDOC ---
ED HPI GENERAL MEDICAL PROBLEM - General Chief Complaint: Diabetic Complaint Stated Complaint: AMBULANCE Time Seen by Provider: 10/04/18 17:30 Source of Information: Reports: Patient, EMS History Limitations: Reports: No Limitations - History of Present Illness INITIAL COMMENTS - FREE TEXT/NARRATIVE: This 73 yo male patient was brought to the ED by [facility] due to elevated blood sugar levels. [facility] The patient reports he has not been checking his blood sugar levels, is confused as to what medications he is supposed to take, is confused as to how much insulin to take, reports he has been given the wrong foods and reports he does not know what he is supposed to be doing at this time. The patient states he has not taken any of his medications in the past 24 hours. The patient does not know exactly when he last took his medications. Onset: Unknown/Unsure Duration: Constant Location: Reports: Generalized Quality: Reports: Other Severity: Moderate Improves with: Reports: None Worsens with: Reports: None Context: Reports: Other Associated Symptoms: Reports: Confusion - Related Data Allergies Allergy/AdvReac Type Severity Reaction Status Date / Time No Known Allergies Allergy Verified 10/04/18 17:09 Home Meds: Home Meds Calcitriol 0.25 mcg PO DAILY 05/28/13 [History] atorvaSTATin Calcium [Atorvastatin Calcium] 80 mg PO BEDTIME 05/28/13 [History] Latanoprost [Xalatan 0.005% Ophth Soln] 1 drop EYEBOTH BEDTIME 09/03/15 [History ] Clopidogrel [Plavix] 75 mg PO DAILY 01/07/16 [History] DULoxetine [Cymbalta] 30 mg PO DAILY 01/07/16 [History] Finasteride [Proscar] 5 mg PO BEDTIME 01/07/16 [History] Insulin Detemir [Levemir] 48 unit SUBCUT QAM 02/10/17 [History] Magnesium Oxide 420 mg PO BID 02/10/17 [History] Cholecalciferol (Vitamin D3) [Vitamin D3] 2,000 unit PO DAILY 09/28/17 [History] Ranitidine HCl [Ranitidine] 150 mg PO BID 09/28/17 [History] Acetaminophen 325 mg PO Q4H PRN 02/17/18 [History] Diclofenac Sodium [Voltaren 1% Gel] 1 applic TP QID 02/17/18 [History] Insulin Detemir [Levemir Flextouch] 5 unit SQ BEDTIME 09/14/18 [History] Insulin Lispro [Humalog Kwikpen U-200] 10 unit SQ TIDMEALS 09/14/18 [History] cefTRIAXone Sodium [Ceftriaxone] 2 gm IV DAILY 5 Days vial.port 09/14/18 [Rx] Past Medical History HEENT History: Reports: Impaired Vision Other HEENT History: wears glasses Cardiovascular History: Reports: CAD, High Cholesterol, Hypertension, Stents Other Cardiovascular History: Transient hypotension Respiratory History: Reports: Other (See Below) Other Respiratory History: spot of lung and they said to keep an eye on it. Gastrointestinal History: Reports: None Genitourinary History: Reports: Acute Renal Failure, Chronic Renal Insuffiency Other Genitourinary History: urinary tract obstruction-self caths self when stream gets slow Musculoskeletal History: Reports: Back Pain, Chronic Other Musculoskeletal History: broke both ankles, broken ribs, collar bone, jaw , toes and 5-6 hairline fx of skull due to rodeo Neurological History: Reports: Concussion, Headaches, Chronic Other Neuro History: heasdaches since 1966 Psychiatric History: Reports: Other (See Below) Other Psychiatric History: has noc bishop from [place] Endocrine/Metabolic History: Reports: Diabetes, Type II Hematologic History: Reports: None Immunologic History: Reports: None Oncologic (Cancer) History: Reports: Other (See Below) Other Oncologic History: pt. doesn't know what type of cancer he was diagnosed with Dermatologic History: Reports: Other (See Below) Other Dermatologic History: eccymotic area to left hip, left upper arm, and left ear from fall when pt. tripped over [employer] about a week ago. - Infectious Disease History Infectious Disease History: Reports: Chicken Pox Other Infectious Disease History: unable to obtain history. - Past Surgical History Cardiovascular Surgical History: Reports: Coronary Artery Stent GI Surgical History: Reports: Hernia, Inguinal Other GI Surgeries/Procedures: left side igunial hernia repair Social & Family History - Family History Family Medical History: Noncontributory Cardiac: Reports: CAD Endocrine/Metabolic: Reports: Diabetes, type II Oncologic: Reports: Other (See Below) Other Oncologic Family History: brother, mom,sister unknown types - Tobacco Use Smoking Status *Q: Never Smoker Second Hand Smoke Exposure: No - Caffeine Use Caffeine Use: Reports: Coffee Other Caffeine Use: flavored water - Recreational Drug Use Recreational Drug Use: No - Living Situation & Occupation Living situation: Reports: with Family Occupation: Retired ED ROS GENERAL - Review of Systems Review Of Systems: ROS reveals no pertinent complaints other than HPI. ED EXAM GENERAL NO PERIP PULSE - Physical Exam Exam: See Below Exam Limited By: No Limitations General Appearance: Alert, WD/WN, Moderate Distress Eye Exam: Bilateral Eye: EOMI, Normal Inspection, PERRL Ears: Normal External Exam, Normal Canal, Hearing Grossly Normal, Normal TMs Nose: Normal Inspection, Normal Mucosa, No Blood Throat/Mouth: Normal Inspection, Normal Lips, Normal Teeth, Normal Gums, Normal Oropharynx, Normal Voice, No Airway Compromise Head: Atraumatic, Normocephalic Neck: Normal Inspection, Supple, Non-Tender, Full Range of Motion Respiratory/Chest: No Respiratory Distress, Lungs Clear, Normal Breath Sounds, No Accessory Muscle Use, Chest Non-Tender Cardiovascular: Normal Peripheral Pulses, Regular Rate, Rhythm, No Edema, No Gallop, No JVD, No Murmur, No Rub GI/Abdominal: Normal Bowel Sounds, Soft, Non-Tender, No Organomegaly, No Distention, No Abnormal Bruit, No Mass (Male) Exam: Deferred Rectal (Males) Exam: Deferred Back Exam: Normal Inspection, Full Range of Motion, NT Extremities: Normal Inspection, Normal Range of Motion, Non-Tender, Normal Capillary Refill, No Pedal Edema Neurological: Alert, Oriented, CN II-XII Intact, Normal Cognition, Normal Gait, Normal Reflexes, No Motor/Sensory Deficits Psychiatric: Normal Affect, Normal Mood Skin Exam: Warm, Dry, Intact, Normal Color, No Rash Lymphatic: No Adenopathy Course - Vital Signs Last Recorded V/S: Last Vital Signs Temp 36.2 C 10/04/18 17:21 Pulse 91 10/04/18 17:21 Resp 18 10/04/18 17:21 BP 163/87 H 10/04/18 17:21 Pulse Ox 99 10/04/18 17:21 - Orders/Labs/Meds Orders: Active Orders 24 hr Category Date Time Status CULTURE URINE [RM] Stat Lab 10/04/18 18:11 Received Labs: Laboratory Tests 10/04/18 10/04/18 10/04/18 Range/Units 17:20 17:48 17:48 WBC 4.8 L (5.0-10.0) 10^3/uL RBC 3.96 L (4.6-6.2) 10^6/uL Hgb 12.4 L (14.0-18.0) g/dL Hct 36.1 L (40.0-54.0) % MCV 91.2 D (80-100) fL MCH 31.3 (27.0-34.0) pg MCHC 34.3 (33.0-35.0) g/dL Plt Count 285 D (150-450) 10^3/uL Neut % (Auto) 69.0 (42.2-75.2) % Lymph % (Auto) 17.6 L (20.5-50.1) % Blaine % (Auto) 11.5 H (2-8) % Eos % (Auto) 1.5 (1.0-3.0) % Baso % (Auto) 0.4 (0.0-1.0) % ABG pH (7.35-7.45) ABG pCO2 (35-45) mmHg ABG pO2 (70-100) mmHg ABG HCO3 (22-26) mmol/L ABG O2 Saturation (95-100) % ABG Base Excess ((-2)-(+3)) mmol/L Da Test O2 Delivery Device Sodium (135-145) mmol/L Potassium (3.6-5.0) mmol/L Chloride (101-111) mmol/L Carbon Dioxide (21.0-31.0) mmol/L Anion Gap BUN (7-18) mg/dL Creatinine (0.6-1.3) mg/dL Est Cr Clr Drug Dosing Estimated GFR (MDRD) BUN/Creatinine Ratio Glucose (74-105) mg/dL POC Glucose > 500 H* (83-110) mg/dl Calcium (8.4-10.2) mg/dl Total Bilirubin (0.2-1.0) mg/dL AST (10-42) IU/L ALT (10-60) IU/L Alkaline Phosphatase (42-121) IU/L Total Protein (6.7-8.2) g/dl Albumin (3.2-5.5) g/dl Globulin Albumin/Globulin Ratio Urine Color (YELLOW) Urine Appearance (CLEAR) Urine pH (5.0-9.0) Ur Specific Ava (1.005-1.030) Urine Protein (NEGATIVE) Urine Glucose (UA) (NEGATIVE) Urine Ketones (NEGATIVE) Urine Occult Blood (NEGATIVE) Urine Nitrite (NEGATIVE) Urine Bilirubin (NEGATIVE) Urine Urobilinogen (0.2-1.0) mg/dL Ur Leukocyte Esterase (NEGATIVE) Urine RBC /HPF Urine WBC (0-5/HPF) /HPF Ur Epithelial Cells (NOT SEEN) /HPF Amorphous Sediment (NOT SEEN) /HPF Urine Bacteria (0-FEW/HPF) /HPF Urine Mucus (NOT SEEN) /LPF Urine Opiates Screen (NEGATIVE) Ur Oxycodone Screen (NEGATIVE) Urine Methadone Screen (NEGATIVE) Ur Barbiturates Screen (NEGATIVE) U Tricyclic Antidepress (NEGATIVE) Ur Phencyclidine Scrn (NEGATIVE) Ur Amphetamine Screen (NEGATIVE) U Methamphetamines Scrn (NEGATIVE) Urine MDMA Screen (NEGATIVE) U Benzodiazepines Scrn (NEGATIVE) Urine Cocaine Screen (NEGATIVE) U Marijuana (THC) Screen (NEGATIVE) Ketones Negative 10/04/18 10/04/18 10/04/18 Range/Units 17:48 18:11 18:11 WBC (5.0-10.0) 10^3/uL RBC (4.6-6.2) 10^6/uL Hgb (14.0-18.0) g/dL Hct (40.0-54.0) % MCV (80-100) fL MCH (27.0-34.0) pg MCHC (33.0-35.0) g/dL Plt Count (150-450) 10^3/uL Neut % (Auto) (42.2-75.2) % Lymph % (Auto) (20.5-50.1) % Blaine % (Auto) (2-8) % Eos % (Auto) (1.0-3.0) % Baso % (Auto) (0.0-1.0) % ABG pH (7.35-7.45) ABG pCO2 (35-45) mmHg ABG pO2 (70-100) mmHg ABG HCO3 (22-26) mmol/L ABG O2 Saturation (95-100) % ABG Base Excess ((-2)-(+3)) mmol/L Da Test O2 Delivery Device Sodium 132 L (135-145) mmol/L Potassium 4.4 (3.6-5.0) mmol/L Chloride 98 L (101-111) mmol/L Carbon Dioxide 24.0 (21.0-31.0) mmol/L Anion Gap 14.4 BUN 29 H (7-18) mg/dL Creatinine 1.5 H (0.6-1.3) mg/dL Est Cr Clr Drug Dosing TNP Estimated GFR (MDRD) 46 BUN/Creatinine Ratio 19.33 Glucose 523 H* (74-105) mg/dL POC Glucose (83-110) mg/dl Calcium 9.0 (8.4-10.2) mg/dl Total Bilirubin 0.7 (0.2-1.0) mg/dL AST 15 (10-42) IU/L ALT 18 (10-60) IU/L Alkaline Phosphatase 125 H (42-121) IU/L Total Protein 7.0 (6.7-8.2) g/dl Albumin 3.7 (3.2-5.5) g/dl Globulin 3.3 Albumin/Globulin Ratio 1.12 Urine Color Yellow (YELLOW) Urine Appearance Turbid (CLEAR) Urine pH 7.0 (5.0-9.0) Ur Specific Ava 1.015 (1.005-1.030) Urine Protein 100 H (NEGATIVE) Urine Glucose (UA) 500 H (NEGATIVE) Urine Ketones Negative (NEGATIVE) Urine Occult Blood Small H (NEGATIVE) Urine Nitrite Negative (NEGATIVE) Urine Bilirubin Negative (NEGATIVE) Urine Urobilinogen 0.2 (0.2-1.0) mg/dL Ur Leukocyte Esterase Small H (NEGATIVE) Urine RBC 5-10 H /HPF Urine WBC >100 H (0-5/HPF) /HPF Ur Epithelial Cells Rare (NOT SEEN) /HPF Amorphous Sediment Few (NOT SEEN) /HPF Urine Bacteria Moderate H (0-FEW/HPF) /HPF Urine Mucus Not seen (NOT SEEN) /LPF Urine Opiates Screen Negative (NEGATIVE) Ur Oxycodone Screen Negative (NEGATIVE) Urine Methadone Screen Negative (NEGATIVE) Ur Barbiturates Screen Negative (NEGATIVE) U Tricyclic Antidepress Negative (NEGATIVE) Ur Phencyclidine Scrn Negative (NEGATIVE) Ur Amphetamine Screen Negative (NEGATIVE) U Methamphetamines Scrn Negative (NEGATIVE) Urine MDMA Screen Negative (NEGATIVE) U Benzodiazepines Scrn Negative (NEGATIVE) Urine Cocaine Screen Negative (NEGATIVE) U Marijuana (THC) Screen Negative (NEGATIVE) Ketones 10/04/18 Range/Units 18:21 WBC (5.0-10.0) 10^3/uL RBC (4.6-6.2) 10^6/uL Hgb (14.0-18.0) g/dL Hct (40.0-54.0) % MCV (80-100) fL MCH (27.0-34.0) pg MCHC (33.0-35.0) g/dL Plt Count (150-450) 10^3/uL Neut % (Auto) (42.2-75.2) % Lymph % (Auto) (20.5-50.1) % Blaine % (Auto) (2-8) % Eos % (Auto) (1.0-3.0) % Baso % (Auto) (0.0-1.0) % ABG pH 7.37 (7.35-7.45) ABG pCO2 48 H (35-45) mmHg ABG pO2 67 L (70-100) mmHg ABG HCO3 26.8 H (22-26) mmol/L ABG O2 Saturation 93 L (95-100) % ABG Base Excess 2 ((-2)-(+3)) mmol/L Da Test Performed O2 Delivery Device Room air Sodium (135-145) mmol/L Potassium (3.6-5.0) mmol/L Chloride (101-111) mmol/L Carbon Dioxide (21.0-31.0) mmol/L Anion Gap BUN (7-18) mg/dL Creatinine (0.6-1.3) mg/dL Est Cr Clr Drug Dosing Estimated GFR (MDRD) BUN/Creatinine Ratio Glucose (74-105) mg/dL POC Glucose (83-110) mg/dl Calcium (8.4-10.2) mg/dl Total Bilirubin (0.2-1.0) mg/dL AST (10-42) IU/L ALT (10-60) IU/L Alkaline Phosphatase (42-121) IU/L Total Protein (6.7-8.2) g/dl Albumin (3.2-5.5) g/dl Globulin Albumin/Globulin Ratio Urine Color (YELLOW) Urine Appearance (CLEAR) Urine pH (5.0-9.0) Ur Specific Ava (1.005-1.030) Urine Protein (NEGATIVE) Urine Glucose (UA) (NEGATIVE) Urine Ketones (NEGATIVE) Urine Occult Blood (NEGATIVE) Urine Nitrite (NEGATIVE) Urine Bilirubin (NEGATIVE) Urine Urobilinogen (0.2-1.0) mg/dL Ur Leukocyte Esterase (NEGATIVE) Urine RBC /HPF Urine WBC (0-5/HPF) /HPF Ur Epithelial Cells (NOT SEEN) /HPF Amorphous Sediment (NOT SEEN) /HPF Urine Bacteria (0-FEW/HPF) /HPF Urine Mucus (NOT SEEN) /LPF Urine Opiates Screen (NEGATIVE) Ur Oxycodone Screen (NEGATIVE) Urine Methadone Screen (NEGATIVE) Ur Barbiturates Screen (NEGATIVE) U Tricyclic Antidepress (NEGATIVE) Ur Phencyclidine Scrn (NEGATIVE) Ur Amphetamine Screen (NEGATIVE) U Methamphetamines Scrn (NEGATIVE) Urine MDMA Screen (NEGATIVE) U Benzodiazepines Scrn (NEGATIVE) Urine Cocaine Screen (NEGATIVE) U Marijuana (THC) Screen (NEGATIVE) Ketones Meds: Medications Discontinued Medications Generic Name Dose Route Start Last Admin Trade Name Freq PRN Reason Stop Dose Admin Insulin Glargine 30 unit 10/04/18 18:58 Lantus SUBCUT 10/04/18 18:59 ONETIME ONE Insulin Human NPH 15 unit 10/04/18 18:58 Novolin N SUBCUT 10/04/18 18:59 ONETIME ONE - Re-Assessments/Exams Free Text/Narrative Re-Assessment/Exam: 10/04/18 19:03 At 1838, a call was placed to the [facility] in [place]. Dr. Nassar advised that there were no beds available, but he would put in a not regarding the patient's difficulties with home treatments and medications. The patient was admitted to [facility] in [place]. Departure - Departure Time of Disposition: 19:01 Disposition: Admitted As Inpatient 65 Condition: Fair Clinical Impression: Hyperglycemia - Discharge Information *PRESCRIPTION DRUG MONITORING PROGRAM REVIEWED*: Not Applicable *COPY OF PRESCRIPTION DRUG MONITORING REPORT IN PATIENT SANTIAGO: Not Applicable Care Plan Goals: Discussed the patient's history, examination, labs and treatments with Dr. Carvalho. Dr. Carvalho accepted the patient for continued evaluation and treatment as an observation patient at [facility] in [place]. - My Orders Last 24 Hours: My Active Orders 10/04/18 18:11 CULTURE URINE [RM] Stat - Assessment/Plan Last 24 Hours: My Active Orders 10/04/18 18:11 CULTURE URINE [RM] Stat
[2018-10-04 18:28] LABS: ANION GAP 14.4; CHLORIDE,CL 98 mmol/L (101-111); SODIUM,NA 132 mmol/L (135-145)
[2018-10-04 18:29] LABS: BASE EXCESS ARTERIAL 2 mmol/L ((-2)-(+3)); BICARBONATE,ARTERIAL 26.8 mmol/L (22-26); O2 DELIVERY DEVICE ROOM AIR; O2 SATURATION ARTERIAL 93 % (95-100); PCO2 ARTERIAL 48 mmHg (35-45); PO2 ARTERIAL 67 mmHg (70-100)
[2018-10-04 18:31] LABS: ALLEN TEST PERFORMED
[2018-10-04] MEDS ORDERED: Insulin Isophane NPH, Human 100 Units/ML 10 ML Vial SUBCUT ONE (18:58)
[2018-10-04] MEDS ORDERED: Insulin Glarg,Human.Rec.Analog 100 UNIT/ML ML SUBCUT ONE (18:58)
[2018-10-04] MEDS ORDERED: Insulin Lispro 100 Units/ML 3 ML Vial SUBCUT ONE ×2 (20:03→21:22)
[2018-10-04] MEDS ORDERED: Ondansetron 4 MG Tab.DIS PO PRN (20:07)
[2018-10-04] MEDS ORDERED: Acetaminophen 325 MG Tab PO PRN ×2 (20:07→20:11)
--- NOTE | 2018-10-04 20:23 | PCM.HP ---
H&P History of Present Illness - General Date of Service: 10/04/18 Admit Problem/Dx: Admission Diagnosis/Problem Admission Diagnosis/Problem Hyperglycemia Source of Information: Patient - History of Present Illness Initial Comments - Free Text/Narative: The patient was recently hospitalized at the [facility] in [place]. Patient does not know exactly why he was day but thought it might have been because of his blood sugar was elevated. He was discharged 4 days ago. Since then he has not been using his medications because he did not understand instructions that were given to him. He was confused about the medications. He checks his blood sugar found it to be more than 500 and decided to come to the emergency room. Patient self catheterizes himself. In the emergency room was noted to have urinalysis that suggested infection. - Related Data Allergies/Adverse Reactions: Allergies Allergy/AdvReac Type Severity Reaction Status Date / Time No Known Allergies Allergy Verified 10/04/18 17:09 Home Medications: Home Meds Calcitriol 0.25 mcg PO DAILY 05/28/13 [History] atorvaSTATin Calcium [Atorvastatin Calcium] 80 mg PO BEDTIME 05/28/13 [History] Latanoprost [Xalatan 0.005% Ophth Soln] 1 drop EYEBOTH BEDTIME 09/03/15 [History ] DULoxetine [Cymbalta] 30 mg PO DAILY 01/07/16 [History] Finasteride [Proscar] 5 mg PO BEDTIME 01/07/16 [History] Insulin Detemir [Levemir] 20 unit SUBCUT QAM 02/10/17 [History] Magnesium Oxide 420 mg PO BID 02/10/17 [History] Cholecalciferol (Vitamin D3) [Vitamin D3] 2,000 unit PO DAILY 09/28/17 [History] Ranitidine HCl [Ranitidine] 150 mg PO BID 09/28/17 [History] Acetaminophen 325 mg PO Q4H PRN 02/17/18 [History] Diclofenac Sodium [Voltaren 1% Gel] 1 applic TP QID 02/17/18 [History] Insulin Detemir [Levemir Flextouch] 10 unit SQ BEDTIME 09/14/18 [History] Aspirin/Dipyridamole [Aspirin-Dipyridam ER 25-200 mg] 1 each PO BID 10/04/18 [ History] Midodrine 2.5 mg PO TIDAC 10/04/18 [History] Past Medical History HEENT History: Reports: Impaired Vision Other HEENT History: wears glasses Cardiovascular History: Reports: CAD, High Cholesterol, Hypertension, Stents Other Cardiovascular History: Transient hypotension Respiratory History: Reports: Other (See Below) Other Respiratory History: spot of lung and they said to keep an eye on it. Gastrointestinal History: Reports: None Genitourinary History: Reports: Acute Renal Failure, Chronic Renal Insuffiency Other Genitourinary History: urinary tract obstruction-self caths self when stream gets slow Musculoskeletal History: Reports: Back Pain, Chronic Other Musculoskeletal History: broke both ankles, broken ribs, collar bone, jaw , toes and 5-6 hairline fx of skull due to rodeo Neurological History: Reports: Concussion, Headaches, Chronic Other Neuro History: heasdaches since 1966 Psychiatric History: Reports: Other (See Below) Other Psychiatric History: has noc bishop from [place] Endocrine/Metabolic History: Reports: Diabetes, Type II Hematologic History: Reports: None Immunologic History: Reports: None Oncologic (Cancer) History: Reports: Other (See Below) Other Oncologic History: pt. doesn't know what type of cancer he was diagnosed with Dermatologic History: Reports: Other (See Below) Other Dermatologic History: eccymotic area to left hip, left upper arm, and left ear from fall when pt. tripped over trailer hitch about a week ago. - Infectious Disease History Infectious Disease History: Reports: Chicken Pox Other Infectious Disease History: unable to obtain history. - Past Surgical History Cardiovascular Surgical History: Reports: Coronary Artery Stent GI Surgical History: Reports: Hernia, Inguinal Other GI Surgeries/Procedures: left side igunial hernia repair Social & Family History - Family History Family Medical History: Noncontributory Cardiac: Reports: CAD Endocrine/Metabolic: Reports: Diabetes, type II Oncologic: Reports: Other (See Below) Other Oncologic Family History: brother, mom,sister unknown types - Tobacco Use Smoking Status *Q: Never Smoker Second Hand Smoke Exposure: No - Caffeine Use Caffeine Use: Reports: Coffee Other Caffeine Use: flavored water - Recreational Drug Use Recreational Drug Use: No - Living Situation & Occupation Living situation: Reports: with Family Occupation: Retired H&P Review of Systems - Review of Systems: Review Of Systems: See Below General: Reports: No Symptoms HEENT: Reports: No Symptoms Pulmonary: Reports: No Symptoms Cardiovascular: Reports: No Symptoms Gastrointestinal: Reports: No Symptoms Musculoskeletal: Reports: No Symptoms Skin: Reports: No Symptoms Exam - Exam Exam: See Below - Vital Signs Vital Signs: Last Vital Signs Temp 36.6 C 10/04/18 19:45 Pulse 92 10/04/18 19:45 Resp 20 10/04/18 19:45 BP 167/106 H 10/04/18 19:45 Pulse Ox 97 10/04/18 19:45 Weight: 72.257 kg - Exam General: Alert, Oriented, Cooperative Neck: Supple Lungs: Clear to Auscultation, Normal Respiratory Effort Cardiovascular: Regular Rate, Regular Rhythm GI/Abdominal Exam: Normal Bowel Sounds, Soft, Non-Tender, No Organomegaly, No Distention, No Abnormal Bruit, No Mass, Pelvis Stable Back Exam: Normal Inspection, Full Range of Motion, NT - Patient Data Lab Results Last 24 hrs: Laboratory Results - last 24 hr 10/04/18 10/04/18 10/04/18 Range/Units 17:20 17:48 17:48 WBC 4.8 L (5.0-10.0) 10^3/uL RBC 3.96 L (4.6-6.2) 10^6/uL Hgb 12.4 L (14.0-18.0) g/dL Hct 36.1 L (40.0-54.0) % MCV 91.2 D (80-100) fL MCH 31.3 (27.0-34.0) pg MCHC 34.3 (33.0-35.0) g/dL Plt Count 285 D (150-450) 10^3/uL Neut % (Auto) 69.0 (42.2-75.2) % Lymph % (Auto) 17.6 L (20.5-50.1) % Cochran % (Auto) 11.5 H (2-8) % Eos % (Auto) 1.5 (1.0-3.0) % Baso % (Auto) 0.4 (0.0-1.0) % ABG pH (7.35-7.45) ABG pCO2 (35-45) mmHg ABG pO2 (70-100) mmHg ABG HCO3 (22-26) mmol/L ABG O2 Saturation (95-100) % ABG Base Excess ((-2)-(+3)) mmol/L Da Test O2 Delivery Device Sodium (135-145) mmol/L Potassium (3.6-5.0) mmol/L Chloride (101-111) mmol/L Carbon Dioxide (21.0-31.0) mmol/L Anion Gap BUN (7-18) mg/dL Creatinine (0.6-1.3) mg/dL Est Cr Clr Drug Dosing Estimated GFR (MDRD) BUN/Creatinine Ratio Glucose (74-105) mg/dL POC Glucose > 500 H* (83-110) mg/dl Calcium (8.4-10.2) mg/dl Total Bilirubin (0.2-1.0) mg/dL AST (10-42) IU/L ALT (10-60) IU/L Alkaline Phosphatase (42-121) IU/L Total Protein (6.7-8.2) g/dl Albumin (3.2-5.5) g/dl Globulin Albumin/Globulin Ratio Urine Color (YELLOW) Urine Appearance (CLEAR) Urine pH (5.0-9.0) Ur Specific Brandon (1.005-1.030) Urine Protein (NEGATIVE) Urine Glucose (UA) (NEGATIVE) Urine Ketones (NEGATIVE) Urine Occult Blood (NEGATIVE) Urine Nitrite (NEGATIVE) Urine Bilirubin (NEGATIVE) Urine Urobilinogen (0.2-1.0) mg/dL Ur Leukocyte Esterase (NEGATIVE) Urine RBC /HPF Urine WBC (0-5/HPF) /HPF Ur Epithelial Cells (NOT SEEN) /HPF Amorphous Sediment (NOT SEEN) /HPF Urine Bacteria (0-FEW/HPF) /HPF Urine Mucus (NOT SEEN) /LPF Urine Opiates Screen (NEGATIVE) Ur Oxycodone Screen (NEGATIVE) Urine Methadone Screen (NEGATIVE) Ur Barbiturates Screen (NEGATIVE) U Tricyclic Antidepress (NEGATIVE) Ur Phencyclidine Scrn (NEGATIVE) Ur Amphetamine Screen (NEGATIVE) U Methamphetamines Scrn (NEGATIVE) Urine MDMA Screen (NEGATIVE) U Benzodiazepines Scrn (NEGATIVE) Urine Cocaine Screen (NEGATIVE) U Marijuana (THC) Screen (NEGATIVE) Ketones Negative 10/04/18 10/04/18 10/04/18 Range/Units 17:48 18:11 18:11 WBC (5.0-10.0) 10^3/uL RBC (4.6-6.2) 10^6/uL Hgb (14.0-18.0) g/dL Hct (40.0-54.0) % MCV (80-100) fL MCH (27.0-34.0) pg MCHC (33.0-35.0) g/dL Plt Count (150-450) 10^3/uL Neut % (Auto) (42.2-75.2) % Lymph % (Auto) (20.5-50.1) % Cochran % (Auto) (2-8) % Eos % (Auto) (1.0-3.0) % Baso % (Auto) (0.0-1.0) % ABG pH (7.35-7.45) ABG pCO2 (35-45) mmHg ABG pO2 (70-100) mmHg ABG HCO3 (22-26) mmol/L ABG O2 Saturation (95-100) % ABG Base Excess ((-2)-(+3)) mmol/L Da Test O2 Delivery Device Sodium 132 L (135-145) mmol/L Potassium 4.4 (3.6-5.0) mmol/L Chloride 98 L (101-111) mmol/L Carbon Dioxide 24.0 (21.0-31.0) mmol/L Anion Gap 14.4 BUN 29 H (7-18) mg/dL Creatinine 1.5 H (0.6-1.3) mg/dL Est Cr Clr Drug Dosing TNP Estimated GFR (MDRD) 46 BUN/Creatinine Ratio 19.33 Glucose 523 H* (74-105) mg/dL POC Glucose (83-110) mg/dl Calcium 9.0 (8.4-10.2) mg/dl Total Bilirubin 0.7 (0.2-1.0) mg/dL AST 15 (10-42) IU/L ALT 18 (10-60) IU/L Alkaline Phosphatase 125 H (42-121) IU/L Total Protein 7.0 (6.7-8.2) g/dl Albumin 3.7 (3.2-5.5) g/dl Globulin 3.3 Albumin/Globulin Ratio 1.12 Urine Color Yellow (YELLOW) Urine Appearance Turbid (CLEAR) Urine pH 7.0 (5.0-9.0) Ur Specific Brandon 1.015 (1.005-1.030) Urine Protein 100 H (NEGATIVE) Urine Glucose (UA) 500 H (NEGATIVE) Urine Ketones Negative (NEGATIVE) Urine Occult Blood Small H (NEGATIVE) Urine Nitrite Negative (NEGATIVE) Urine Bilirubin Negative (NEGATIVE) Urine Urobilinogen 0.2 (0.2-1.0) mg/dL Ur Leukocyte Esterase Small H (NEGATIVE) Urine RBC 5-10 H /HPF Urine WBC >100 H (0-5/HPF) /HPF Ur Epithelial Cells Rare (NOT SEEN) /HPF Amorphous Sediment Few (NOT SEEN) /HPF Urine Bacteria Moderate H (0-FEW/HPF) /HPF Urine Mucus Not seen (NOT SEEN) /LPF Urine Opiates Screen Negative (NEGATIVE) Ur Oxycodone Screen Negative (NEGATIVE) Urine Methadone Screen Negative (NEGATIVE) Ur Barbiturates Screen Negative (NEGATIVE) U Tricyclic Antidepress Negative (NEGATIVE) Ur Phencyclidine Scrn Negative (NEGATIVE) Ur Amphetamine Screen Negative (NEGATIVE) U Methamphetamines Scrn Negative (NEGATIVE) Urine MDMA Screen Negative (NEGATIVE) U Benzodiazepines Scrn Negative (NEGATIVE) Urine Cocaine Screen Negative (NEGATIVE) U Marijuana (THC) Screen Negative (NEGATIVE) Ketones 10/04/18 Range/Units 18:21 WBC (5.0-10.0) 10^3/uL RBC (4.6-6.2) 10^6/uL Hgb (14.0-18.0) g/dL Hct (40.0-54.0) % MCV (80-100) fL MCH (27.0-34.0) pg MCHC (33.0-35.0) g/dL Plt Count (150-450) 10^3/uL Neut % (Auto) (42.2-75.2) % Lymph % (Auto) (20.5-50.1) % Cochran % (Auto) (2-8) % Eos % (Auto) (1.0-3.0) % Baso % (Auto) (0.0-1.0) % ABG pH 7.37 (7.35-7.45) ABG pCO2 48 H (35-45) mmHg ABG pO2 67 L (70-100) mmHg ABG HCO3 26.8 H (22-26) mmol/L ABG O2 Saturation 93 L (95-100) % ABG Base Excess 2 ((-2)-(+3)) mmol/L Da Test Performed O2 Delivery Device Room air Sodium (135-145) mmol/L Potassium (3.6-5.0) mmol/L Chloride (101-111) mmol/L Carbon Dioxide (21.0-31.0) mmol/L Anion Gap BUN (7-18) mg/dL Creatinine (0.6-1.3) mg/dL Est Cr Clr Drug Dosing Estimated GFR (MDRD) BUN/Creatinine Ratio Glucose (74-105) mg/dL POC Glucose (83-110) mg/dl Calcium (8.4-10.2) mg/dl Total Bilirubin (0.2-1.0) mg/dL AST (10-42) IU/L ALT (10-60) IU/L Alkaline Phosphatase (42-121) IU/L Total Protein (6.7-8.2) g/dl Albumin (3.2-5.5) g/dl Globulin Albumin/Globulin Ratio Urine Color (YELLOW) Urine Appearance (CLEAR) Urine pH (5.0-9.0) Ur Specific Brandon (1.005-1.030) Urine Protein (NEGATIVE) Urine Glucose (UA) (NEGATIVE) Urine Ketones (NEGATIVE) Urine Occult Blood (NEGATIVE) Urine Nitrite (NEGATIVE) Urine Bilirubin (NEGATIVE) Urine Urobilinogen (0.2-1.0) mg/dL Ur Leukocyte Esterase (NEGATIVE) Urine RBC /HPF Urine WBC (0-5/HPF) /HPF Ur Epithelial Cells (NOT SEEN) /HPF Amorphous Sediment (NOT SEEN) /HPF Urine Bacteria (0-FEW/HPF) /HPF Urine Mucus (NOT SEEN) /LPF Urine Opiates Screen (NEGATIVE) Ur Oxycodone Screen (NEGATIVE) Urine Methadone Screen (NEGATIVE) Ur Barbiturates Screen (NEGATIVE) U Tricyclic Antidepress (NEGATIVE) Ur Phencyclidine Scrn (NEGATIVE) Ur Amphetamine Screen (NEGATIVE) U Methamphetamines Scrn (NEGATIVE) Urine MDMA Screen (NEGATIVE) U Benzodiazepines Scrn (NEGATIVE) Urine Cocaine Screen (NEGATIVE) U Marijuana (THC) Screen (NEGATIVE) Ketones Result Diagrams: 10/04/18 17:48 10/04/18 17:48 Problem List Initiated/Reviewed/Updated: Yes Orders Last 24hrs: Active Orders 24 hr Category Date Time Status Patient Status [ADT] Routine ADT 10/04/18 20:07 Active Blood Glucose Check, Bedside [RC] QIDACANDBED Care 10/04/18 20:07 Active Communication Order [RC] ROUTINE Care 10/04/18 20:15 Active Oxygen Therapy [RC] PRN Care 10/04/18 20:07 Active Up ad Rosie [RC] ASDIRECTED Care 10/04/18 20:07 Active VTE/DVT Education [RC] PER UNIT ROUTINE Care 10/04/18 20:07 Active Vital Signs [RC] Q4H Care 10/04/18 20:07 Active Consistent Carbohydrate Diet [DIET] Diet 10/04/18 Dinner Active BASIC METABOLIC PANEL,BMP [CHEM] Routine Lab 10/05/18 20:15 Ordered CBC W/O DIFF,HEMOGRAM [HEME] Routine Lab 10/05/18 20:16 Ordered CULTURE URINE [RM] Stat Lab 10/04/18 18:11 Received Acetaminophen [Tylenol] Med 10/04/18 20:11 Ordered 325 mg PO Q4H PRN Acetaminophen [Tylenol] Med 10/04/18 20:07 Ordered 650 mg PO Q4H PRN Aspirin/Dipyridamole [Aspirin-Dipyridam ER 25-200 mg] Med 10/04/18 21:00 Ordered 1 each PO BID Calcitriol [Calcitriol] Med 10/05/18 09:00 Ordered 0.25 mcg PO DAILY DULoxetine [Cymbalta] Med 10/05/18 09:00 Ordered 30 mg PO DAILY Diclofenac Sodium [Voltaren 1% Gel] Med 10/04/18 21:00 Ordered 1 applic TP QID Finasteride [Proscar] Med 10/04/18 21:00 Ordered 5 mg PO BEDTIME Heparin Sodium Med 10/04/18 22:00 Ordered 5,000 units SUBCUT Q8HR Insulin Detemir [Levemir] Med 10/05/18 09:00 Ordered 30 unit SUBCUT QAM Latanoprost [Xalatan 0.005% Ophth Soln] Med 10/04/18 21:00 Ordered DOSE ml EYEBOTH BEDTIME Magnesium Oxide [Magnesium Oxide] Med 10/04/18 21:00 Ordered 420 mg PO BID Midodrine Med 10/05/18 08:00 Ordered 2.5 mg PO TIDAC Ondansetron [Zofran ODT] Med 10/04/18 20:07 Ordered 4 mg PO Q6H PRN Ranitidine HCl [Ranitidine] Med 10/04/18 21:00 Ordered 150 mg PO BID Sodium Chloride 0.9% [Normal Saline] 1,000 ml Med 10/04/18 20:15 Ordered IV ASDIRECTED atorvaSTATin Calcium [Atorvastatin Calcium] Med 10/04/18 21:00 Ordered 80 mg PO BEDTIME cefTRIAXone [Rocephin] 1 gm Med 10/04/18 20:30 Ordered Sodium Chloride 0.9% [Normal Saline] 50 ml IV Q24H Resuscitation Status Routine Resus Stat 10/04/18 20:07 Ordered Medication Orders Acetaminophen (Tylenol) 650 mg PO Q4H PRN PRN Reason: Pain (Mild 1-3)/fever Acetaminophen (Tylenol) 325 mg PO Q4H PRN PRN Reason: Pain Duloxetine HCl (Cymbalta) 30 mg PO DAILY KARMEN Finasteride (Proscar) 5 mg PO BEDTIME KARMEN Heparin Sodium (Porcine) (Heparin Sodium) 5,000 units SUBCUT Q8HR KARMEN Sodium Chloride (Normal Saline) 1,000 mls @ 150 mls/hr IV ASDIRECTED KARMEN Ceftriaxone Sodium 1 gm/ (Sodium Chloride) 50 mls @ 50 mls/hr IV Q24H KARMEN Latanoprost (Xalatan 0.005% Ophth Soln) ml EYEBOTH BEDTIME KARMEN Midodrine (Midodrine) 2.5 mg PO TIDAC KARMEN Non-Formulary Medication (Aspirin/Dipyridamole [Aspirin-Dipyridam Er 25-200 Mg] ) 1 each PO BID KARMEN Non-Formulary Medication (Atorvastatin Calcium [Atorvastatin Calcium]) 80 mg PO BEDTIME KARMEN Non-Formulary Medication (Calcitriol [Calcitriol]) 0.25 mcg PO DAILY KARMEN Non-Formulary Medication (Diclofenac Sodium [Voltaren 1% Gel]) 1 applic TP QID KARMEN Non-Formulary Medication (Insulin Detemir [Levemir]) 30 unit SUBCUT QAM KARMEN Non-Formulary Medication (Magnesium Oxide [Magnesium Oxide]) 420 mg PO BID KARMEN Non-Formulary Medication (Ranitidine Hcl [Ranitidine]) 150 mg PO BID KARMEN Ondansetron HCl (Zofran Odt) 4 mg PO Q6H PRN PRN Reason: nausea, able to take PO Assessment/Plan Comment:: Assessment/plan: #. Severe hyperglycemia Blood sugar was 523 Patient has not been using medications at home. He did not understand instructions to weigh given to him at the time of discharge from [facility] recently. He has been feeling weak #. Generalized weakness Likely due to dehydration #. Renal failure Serum creatinine is at 1.5 May be due to dehydration No previous labs for comparison #. Urinary tract infection Urinalysis is suggestive #. Hypertension Blood pressure is elevated at this time systolic of 186 Plan: Admit patient to medical floor Give patient insulin glargine 30 units now Insulin NovoLog 15 units now Restart patient on Regular Insulin Monitor blood sugar before meals and at bedtime Start patient on insulin correction scale Intravenous ceftriaxone for urinary tract infection Obtain urine cultures Chart reviewed. Discussed with the emergency room physician
[2018-10-04] MEDS: Sodium Chloride 0.9% 1,000 ML IV SCH (21:00)
[2018-10-04] MEDS: cefTRIAXone 1 GM in Sodium Chloride 0.9% 50 ML IV SCH (21:13)
[2018-10-04] MEDS: Heparin Sodium 5,000 Units/ML Vial SUBCUT SCH (21:13)
[2018-10-04] MEDS: Insulin Lispro 100 Units/ML 3 ML Vial SUBCUT SCH (21:24)
[2018-10-04] MEDS: ASPIRIN PO SCH (21:39)
[2018-10-04] MEDS: DIPYRIDAMOLE PO SCH (21:39)
[2018-10-04] MEDS: MAGNESIUM OXIDE 420 MG PO SCH (21:40)
[2018-10-04] MEDS: RANITIDINE 150 MG PO SCH (21:41)
[2018-10-04] MEDS: Finasteride 5 MG Tab**OWN MED PO SCH (21:41)
[2018-10-04] MEDS: atorvaSTATin 20 MG Tab PO SCH (21:46)
[2018-10-05] MEDS: Sodium Chloride 0.9% 1,000 ML IV SCH ×2 (03:48→10:22)
[2018-10-05] MEDS: Heparin Sodium 5,000 Units/ML Vial SUBCUT SCH ×3 (05:55→21:39)
[2018-10-05 07:03] LABS: ANION GAP 13.2
[2018-10-05] MEDS ORDERED: MIDODRINE 2.5 MG PO SCH (08:00)
[2018-10-05] MEDS: INSULIN DETEMIR SUBCUT SCH (09:12)
[2018-10-05] MEDS: Insulin Lispro 100 Units/ML 3 ML Vial SUBCUT SCH ×4 (09:12→21:35)
[2018-10-05] MEDS: DULoxetine 30 MG Cap**OWN MED PO SCH (09:13)
[2018-10-05] MEDS: DIPYRIDAMOLE PO SCH ×2 (09:14→20:21)
[2018-10-05] MEDS: MAGNESIUM OXIDE 420 MG PO SCH ×2 (09:14→20:24)
[2018-10-05] MEDS: ASPIRIN PO SCH ×2 (09:14→20:21)
[2018-10-05] MEDS: RANITIDINE 150 MG PO SCH ×2 (09:14→20:26)
[2018-10-05] MEDS: Calcitriol 0.25 MCG Cap PO SCH (09:16)
--- NOTE | 2018-10-05 10:48 | PCM.PN ---
- General Info Date of Service: 10/05/18 Subjective Update: Admitted with elevated blood sugars. Has been on IV fluids and insulin. Blood sugars have improved. Noted to have hypertension. He is feeling weak but improved. No chest pain, no shortness of breath no fever or chills. Functional Status: Reports: Tolerating Diet - Review of Systems Gastrointestinal: Denies: Abdominal Pain Genitourinary: Denies: Dysuria Neurological: Denies: Dizziness, Headache - Patient Data Vitals - Most Recent: Last Vital Signs Temp 36.8 C 10/05/18 04:00 Pulse 92 10/05/18 04:00 Resp 16 10/05/18 04:00 BP 174/98 H 10/05/18 04:00 Pulse Ox 98 10/05/18 04:00 Weight - Most Recent: 72.257 kg I&O - Last 24 Hours: Intake & Output 10/04/18 10/05/18 10/05/18 22:59 06:59 14:59 Intake Total 550 Output Total 1485 Balance -935 Lab Results Last 24 Hours: Laboratory Results - last 24 hr 10/04/18 10/04/18 10/04/18 Range/Units 17:20 17:48 17:48 WBC 4.8 L (5.0-10.0) 10^3/uL RBC 3.96 L (4.6-6.2) 10^6/uL Hgb 12.4 L (14.0-18.0) g/dL Hct 36.1 L (40.0-54.0) % MCV 91.2 D (80-100) fL MCH 31.3 (27.0-34.0) pg MCHC 34.3 (33.0-35.0) g/dL Plt Count 285 D (150-450) 10^3/uL Neut % (Auto) 69.0 (42.2-75.2) % Lymph % (Auto) 17.6 L (20.5-50.1) % [place] % (Auto) 11.5 H (2-8) % Eos % (Auto) 1.5 (1.0-3.0) % Baso % (Auto) 0.4 (0.0-1.0) % ABG pH (7.35-7.45) ABG pCO2 (35-45) mmHg ABG pO2 (70-100) mmHg ABG HCO3 (22-26) mmol/L ABG O2 Saturation (95-100) % ABG Base Excess ((-2)-(+3)) mmol/L Da Test O2 Delivery Device Sodium (135-145) mmol/L Potassium (3.6-5.0) mmol/L Chloride (101-111) mmol/L Carbon Dioxide (21.0-31.0) mmol/L Anion Gap BUN (7-18) mg/dL Creatinine (0.6-1.3) mg/dL Est Cr Clr Drug Dosing Estimated GFR (MDRD) BUN/Creatinine Ratio Glucose (74-105) mg/dL POC Glucose > 500 H* (83-110) mg/dl Calcium (8.4-10.2) mg/dl Total Bilirubin (0.2-1.0) mg/dL AST (10-42) IU/L ALT (10-60) IU/L Alkaline Phosphatase (42-121) IU/L Total Protein (6.7-8.2) g/dl Albumin (3.2-5.5) g/dl Globulin Albumin/Globulin Ratio Urine Color (YELLOW) Urine Appearance (CLEAR) Urine pH (5.0-9.0) Ur Specific [place] (1.005-1.030) Urine Protein (NEGATIVE) Urine Glucose (UA) (NEGATIVE) Urine Ketones (NEGATIVE) Urine Occult Blood (NEGATIVE) Urine Nitrite (NEGATIVE) Urine Bilirubin (NEGATIVE) Urine Urobilinogen (0.2-1.0) mg/dL Ur Leukocyte Esterase (NEGATIVE) Urine RBC /HPF Urine WBC (0-5/HPF) /HPF Ur Epithelial Cells (NOT SEEN) /HPF Amorphous Sediment (NOT SEEN) /HPF Urine Bacteria (0-FEW/HPF) /HPF Urine Mucus (NOT SEEN) /LPF Urine Opiates Screen (NEGATIVE) Ur Oxycodone Screen (NEGATIVE) Urine Methadone Screen (NEGATIVE) Ur Barbiturates Screen (NEGATIVE) U Tricyclic Antidepress (NEGATIVE) Ur Phencyclidine Scrn (NEGATIVE) Ur Amphetamine Screen (NEGATIVE) U Methamphetamines Scrn (NEGATIVE) Urine MDMA Screen (NEGATIVE) U Benzodiazepines Scrn (NEGATIVE) Urine Cocaine Screen (NEGATIVE) U Marijuana (THC) Screen (NEGATIVE) Ketones Negative 10/04/18 10/04/18 10/04/18 Range/Units 17:48 18:11 18:11 WBC (5.0-10.0) 10^3/uL RBC (4.6-6.2) 10^6/uL Hgb (14.0-18.0) g/dL Hct (40.0-54.0) % MCV (80-100) fL MCH (27.0-34.0) pg MCHC (33.0-35.0) g/dL Plt Count (150-450) 10^3/uL Neut % (Auto) (42.2-75.2) % Lymph % (Auto) (20.5-50.1) % [place] % (Auto) (2-8) % Eos % (Auto) (1.0-3.0) % Baso % (Auto) (0.0-1.0) % ABG pH (7.35-7.45) ABG pCO2 (35-45) mmHg ABG pO2 (70-100) mmHg ABG HCO3 (22-26) mmol/L ABG O2 Saturation (95-100) % ABG Base Excess ((-2)-(+3)) mmol/L Da Test O2 Delivery Device Sodium 132 L (135-145) mmol/L Potassium 4.4 (3.6-5.0) mmol/L Chloride 98 L (101-111) mmol/L Carbon Dioxide 24.0 (21.0-31.0) mmol/L Anion Gap 14.4 BUN 29 H (7-18) mg/dL Creatinine 1.5 H (0.6-1.3) mg/dL Est Cr Clr Drug Dosing TNP Estimated GFR (MDRD) 46 BUN/Creatinine Ratio 19.33 Glucose 523 H* (74-105) mg/dL POC Glucose (83-110) mg/dl Calcium 9.0 (8.4-10.2) mg/dl Total Bilirubin 0.7 (0.2-1.0) mg/dL AST 15 (10-42) IU/L ALT 18 (10-60) IU/L Alkaline Phosphatase 125 H (42-121) IU/L Total Protein 7.0 (6.7-8.2) g/dl Albumin 3.7 (3.2-5.5) g/dl Globulin 3.3 Albumin/Globulin Ratio 1.12 Urine Color Yellow (YELLOW) Urine Appearance Turbid (CLEAR) Urine pH 7.0 (5.0-9.0) Ur Specific [place] 1.015 (1.005-1.030) Urine Protein 100 H (NEGATIVE) Urine Glucose (UA) 500 H (NEGATIVE) Urine Ketones Negative (NEGATIVE) Urine Occult Blood Small H (NEGATIVE) Urine Nitrite Negative (NEGATIVE) Urine Bilirubin Negative (NEGATIVE) Urine Urobilinogen 0.2 (0.2-1.0) mg/dL Ur Leukocyte Esterase Small H (NEGATIVE) Urine RBC 5-10 H /HPF Urine WBC >100 H (0-5/HPF) /HPF Ur Epithelial Cells Rare (NOT SEEN) /HPF Amorphous Sediment Few (NOT SEEN) /HPF Urine Bacteria Moderate H (0-FEW/HPF) /HPF Urine Mucus Not seen (NOT SEEN) /LPF Urine Opiates Screen Negative (NEGATIVE) Ur Oxycodone Screen Negative (NEGATIVE) Urine Methadone Screen Negative (NEGATIVE) Ur Barbiturates Screen Negative (NEGATIVE) U Tricyclic Antidepress Negative (NEGATIVE) Ur Phencyclidine Scrn Negative (NEGATIVE) Ur Amphetamine Screen Negative (NEGATIVE) U Methamphetamines Scrn Negative (NEGATIVE) Urine MDMA Screen Negative (NEGATIVE) U Benzodiazepines Scrn Negative (NEGATIVE) Urine Cocaine Screen Negative (NEGATIVE) U Marijuana (THC) Screen Negative (NEGATIVE) Ketones 10/04/18 10/04/18 10/05/18 Range/Units 18:21 21:09 00:04 WBC (5.0-10.0) 10^3/uL RBC (4.6-6.2) 10^6/uL Hgb (14.0-18.0) g/dL Hct (40.0-54.0) % MCV (80-100) fL MCH (27.0-34.0) pg MCHC (33.0-35.0) g/dL Plt Count (150-450) 10^3/uL Neut % (Auto) (42.2-75.2) % Lymph % (Auto) (20.5-50.1) % [place] % (Auto) (2-8) % Eos % (Auto) (1.0-3.0) % Baso % (Auto) (0.0-1.0) % ABG pH 7.37 (7.35-7.45) ABG pCO2 48 H (35-45) mmHg ABG pO2 67 L (70-100) mmHg ABG HCO3 26.8 H (22-26) mmol/L ABG O2 Saturation 93 L (95-100) % ABG Base Excess 2 ((-2)-(+3)) mmol/L Da Test Performed O2 Delivery Device Room air Sodium (135-145) mmol/L Potassium (3.6-5.0) mmol/L Chloride (101-111) mmol/L Carbon Dioxide (21.0-31.0) mmol/L Anion Gap BUN (7-18) mg/dL Creatinine (0.6-1.3) mg/dL Est Cr Clr Drug Dosing Estimated GFR (MDRD) BUN/Creatinine Ratio Glucose (74-105) mg/dL POC Glucose 416 H* 77 L (83-110) mg/dl Calcium (8.4-10.2) mg/dl Total Bilirubin (0.2-1.0) mg/dL AST (10-42) IU/L ALT (10-60) IU/L Alkaline Phosphatase (42-121) IU/L Total Protein (6.7-8.2) g/dl Albumin (3.2-5.5) g/dl Globulin Albumin/Globulin Ratio Urine Color (YELLOW) Urine Appearance (CLEAR) Urine pH (5.0-9.0) Ur Specific [place] (1.005-1.030) Urine Protein (NEGATIVE) Urine Glucose (UA) (NEGATIVE) Urine Ketones (NEGATIVE) Urine Occult Blood (NEGATIVE) Urine Nitrite (NEGATIVE) Urine Bilirubin (NEGATIVE) Urine Urobilinogen (0.2-1.0) mg/dL Ur Leukocyte Esterase (NEGATIVE) Urine RBC /HPF Urine WBC (0-5/HPF) /HPF Ur Epithelial Cells (NOT SEEN) /HPF Amorphous Sediment (NOT SEEN) /HPF Urine Bacteria (0-FEW/HPF) /HPF Urine Mucus (NOT SEEN) /LPF Urine Opiates Screen (NEGATIVE) Ur Oxycodone Screen (NEGATIVE) Urine Methadone Screen (NEGATIVE) Ur Barbiturates Screen (NEGATIVE) U Tricyclic Antidepress (NEGATIVE) Ur Phencyclidine Scrn (NEGATIVE) Ur Amphetamine Screen (NEGATIVE) U Methamphetamines Scrn (NEGATIVE) Urine MDMA Screen (NEGATIVE) U Benzodiazepines Scrn (NEGATIVE) Urine Cocaine Screen (NEGATIVE) U Marijuana (THC) Screen (NEGATIVE) Ketones 10/05/18 10/05/18 10/05/18 Range/Units 00:50 01:31 06:22 WBC (5.0-10.0) 10^3/uL RBC (4.6-6.2) 10^6/uL Hgb (14.0-18.0) g/dL Hct (40.0-54.0) % MCV (80-100) fL MCH (27.0-34.0) pg MCHC (33.0-35.0) g/dL Plt Count (150-450) 10^3/uL Neut % (Auto) (42.2-75.2) % Lymph % (Auto) (20.5-50.1) % [place] % (Auto) (2-8) % Eos % (Auto) (1.0-3.0) % Baso % (Auto) (0.0-1.0) % ABG pH (7.35-7.45) ABG pCO2 (35-45) mmHg ABG pO2 (70-100) mmHg ABG HCO3 (22-26) mmol/L ABG O2 Saturation (95-100) % ABG Base Excess ((-2)-(+3)) mmol/L Da Test O2 Delivery Device Sodium 136 (135-145) mmol/L Potassium 4.2 (3.6-5.0) mmol/L Chloride 103 (101-111) mmol/L Carbon Dioxide 24.0 (21.0-31.0) mmol/L Anion Gap 13.2 BUN 28 H (7-18) mg/dL Creatinine 1.2 (0.6-1.3) mg/dL Est Cr Clr Drug Dosing 55.20 Estimated GFR (MDRD) 59 BUN/Creatinine Ratio Glucose 184 H (74-105) mg/dL POC Glucose 75 L 105 (83-110) mg/dl Calcium 8.6 (8.4-10.2) mg/dl Total Bilirubin (0.2-1.0) mg/dL AST (10-42) IU/L ALT (10-60) IU/L Alkaline Phosphatase (42-121) IU/L Total Protein (6.7-8.2) g/dl Albumin (3.2-5.5) g/dl Globulin Albumin/Globulin Ratio Urine Color (YELLOW) Urine Appearance (CLEAR) Urine pH (5.0-9.0) Ur Specific [place] (1.005-1.030) Urine Protein (NEGATIVE) Urine Glucose (UA) (NEGATIVE) Urine Ketones (NEGATIVE) Urine Occult Blood (NEGATIVE) Urine Nitrite (NEGATIVE) Urine Bilirubin (NEGATIVE) Urine Urobilinogen (0.2-1.0) mg/dL Ur Leukocyte Esterase (NEGATIVE) Urine RBC /HPF Urine WBC (0-5/HPF) /HPF Ur Epithelial Cells (NOT SEEN) /HPF Amorphous Sediment (NOT SEEN) /HPF Urine Bacteria (0-FEW/HPF) /HPF Urine Mucus (NOT SEEN) /LPF Urine Opiates Screen (NEGATIVE) Ur Oxycodone Screen (NEGATIVE) Urine Methadone Screen (NEGATIVE) Ur Barbiturates Screen (NEGATIVE) U Tricyclic Antidepress (NEGATIVE) Ur Phencyclidine Scrn (NEGATIVE) Ur Amphetamine Screen (NEGATIVE) U Methamphetamines Scrn (NEGATIVE) Urine MDMA Screen (NEGATIVE) U Benzodiazepines Scrn (NEGATIVE) Urine Cocaine Screen (NEGATIVE) U Marijuana (THC) Screen (NEGATIVE) Ketones 10/05/18 10/05/18 Range/Units 06:22 07:52 WBC 6.1 (5.0-10.0) 10^3/uL RBC 3.62 L (4.6-6.2) 10^6/uL Hgb 11.5 L (14.0-18.0) g/dL Hct 33.1 L (40.0-54.0) % MCV 91.4 (80-100) fL MCH 31.8 (27.0-34.0) pg MCHC 34.7 (33.0-35.0) g/dL Plt Count 267 (150-450) 10^3/uL Neut % (Auto) (42.2-75.2) % Lymph % (Auto) (20.5-50.1) % [place] % (Auto) (2-8) % Eos % (Auto) (1.0-3.0) % Baso % (Auto) (0.0-1.0) % ABG pH (7.35-7.45) ABG pCO2 (35-45) mmHg ABG pO2 (70-100) mmHg ABG HCO3 (22-26) mmol/L ABG O2 Saturation (95-100) % ABG Base Excess ((-2)-(+3)) mmol/L Da Test O2 Delivery Device Sodium (135-145) mmol/L Potassium (3.6-5.0) mmol/L Chloride (101-111) mmol/L Carbon Dioxide (21.0-31.0) mmol/L Anion Gap BUN (7-18) mg/dL Creatinine (0.6-1.3) mg/dL Est Cr Clr Drug Dosing Estimated GFR (MDRD) BUN/Creatinine Ratio Glucose (74-105) mg/dL POC Glucose 195 H (83-110) mg/dl Calcium (8.4-10.2) mg/dl Total Bilirubin (0.2-1.0) mg/dL AST (10-42) IU/L ALT (10-60) IU/L Alkaline Phosphatase (42-121) IU/L Total Protein (6.7-8.2) g/dl Albumin (3.2-5.5) g/dl Globulin Albumin/Globulin Ratio Urine Color (YELLOW) Urine Appearance (CLEAR) Urine pH (5.0-9.0) Ur Specific [place] (1.005-1.030) Urine Protein (NEGATIVE) Urine Glucose (UA) (NEGATIVE) Urine Ketones (NEGATIVE) Urine Occult Blood (NEGATIVE) Urine Nitrite (NEGATIVE) Urine Bilirubin (NEGATIVE) Urine Urobilinogen (0.2-1.0) mg/dL Ur Leukocyte Esterase (NEGATIVE) Urine RBC /HPF Urine WBC (0-5/HPF) /HPF Ur Epithelial Cells (NOT SEEN) /HPF Amorphous Sediment (NOT SEEN) /HPF Urine Bacteria (0-FEW/HPF) /HPF Urine Mucus (NOT SEEN) /LPF Urine Opiates Screen (NEGATIVE) Ur Oxycodone Screen (NEGATIVE) Urine Methadone Screen (NEGATIVE) Ur Barbiturates Screen (NEGATIVE) U Tricyclic Antidepress (NEGATIVE) Ur Phencyclidine Scrn (NEGATIVE) Ur Amphetamine Screen (NEGATIVE) U Methamphetamines Scrn (NEGATIVE) Urine MDMA Screen (NEGATIVE) U Benzodiazepines Scrn (NEGATIVE) Urine Cocaine Screen (NEGATIVE) U Marijuana (THC) Screen (NEGATIVE) Ketones Med Orders - Current: Current Medications Acetaminophen (Tylenol) 650 mg PO Q4H PRN PRN Reason: Pain (Mild 1-3)/fever Atorvastatin Calcium (Lipitor) 80 mg PO BEDTIME [facility] Last Admin: 10/04/18 21:46 Dose: 80 mg Calcitriol (Rocaltrol) 0.25 mcg PO DAILY [facility] Last Admin: 10/05/18 09:16 Dose: 0.25 mcg Duloxetine HCl (Cymbalta) 30 mg PO DAILY [facility] Last Admin: 10/05/18 09:13 Dose: 30 mg Finasteride (Proscar) 5 mg PO BEDTIME [facility] Last Admin: 10/04/18 21:41 Dose: 5 mg Heparin Sodium (Porcine) (Heparin Sodium) 5,000 units SUBCUT Q8HR [facility] Last Admin: 10/05/18 05:55 Dose: 5,000 units Ceftriaxone Sodium 1 gm/ (Sodium Chloride) 50 mls @ 50 mls/hr IV Q24H [facility] Last Admin: 10/04/18 21:13 Dose: 50 mls/hr Insulin Human Lispro (Humalog) 0 unit SUBCUT ACBED [facility]; Protocol Last Admin: 10/05/18 09:12 Dose: 2 units Latanoprost (Xalatan 0.005% Ophth Soln) 0 ml EYEBOTH BEDTIME [facility] Last Admin: 10/04/18 21:42 Dose: 1 drop Aspirin-Dipyridam Er 25-200 Mg Own Med 1 each PO BID [facility] Last Admin: 10/05/18 09:14 Dose: 1 each Non-Formulary Medication (Diclofenac Sodium [Voltaren 1% Gel]) 1 applic TP QID [facility] Insulin Detemir Pen* (*Own Med) 30 unit SUBCUT QAM [facility] Last Admin: 10/05/18 09:12 Dose: 30 unit Magnesium Oxide 420 (MgOwn Med) 420 mg PO BID [facility] Last Admin: 10/05/18 09:14 Dose: 420 mg Ranitidine 150 Mg (Own Med) 150 mg PO BID [facility] Last Admin: 10/05/18 09:14 Dose: 150 mg Ondansetron HCl (Zofran Odt) 4 mg PO Q6H PRN PRN Reason: nausea, able to take PO Discontinued Medications Acetaminophen (Tylenol) 325 mg PO Q4H PRN PRN Reason: Pain Sodium Chloride (Normal Saline) 1,000 mls @ 150 mls/hr IV ASDIRECTED [facility] Last Admin: 10/05/18 10:22 Dose: 150 mls/hr Insulin Glargine (Lantus) 30 unit SUBCUT ONETIME ONE Stop: 10/04/18 18:59 Last Admin: 10/04/18 19:08 Dose: 30 units Insulin Human Lispro (Humalog) 15 unit SUBCUT ONETIME ONE Stop: 10/04/18 20:04 Last Admin: 10/04/18 20:22 Dose: 15 units Insulin Human Lispro (Humalog) 20 unit SUBCUT ONETIME ONE Stop: 10/04/18 21:23 Last Admin: 10/04/18 21:42 Dose: 20 units Insulin Human NPH (Novolin N) 15 unit SUBCUT ONETIME ONE Stop: 10/04/18 18:59 Last Admin: 10/04/18 20:00 Dose: Not Given Midodrine (Midodrine) 2.5 mg PO TIDAC [facility] Last Admin: 10/05/18 10:13 Dose: Not Given - Exam General: Alert, Oriented Neck: Supple Lungs: Clear to Auscultation, Normal Respiratory Effort Cardiovascular: Regular Rate, Regular Rhythm GI/Abdominal Exam: Normal Bowel Sounds, Soft, Non-Tender Extremities: No Pedal Edema Neurological: No New Focal Deficit Psy/Mental Status: Alert, Normal Affect, Normal Mood - Problem List Review Problem List Initiated/Reviewed/Updated: Yes - My Orders Last 24 Hours: My Active Orders 10/05/18 10:42 OT Evaluation and Treatment [CONS] Routine PT Evaluation and Treatment [CONS] Routine 10/06/18 05:11 MAGNESIUM [CHEM] AM PHOSPHORUS [CHEM] AM 10/06/18 05:15 BASIC METABOLIC PANEL,BMP [CHEM] AM CBC WITH AUTO DIFF [HEME] AM - Plan Plan:: Assessment/plan: #. Severe hyperglycemia Blood sugar was 523 on admission Patient has not been using medications at home. He did not understand instructions that were given to him at the time of discharge from [facility] recently. He has been feeling weak Has been treated with extra doses of insulin. Blood sugar has improved. We'll stop IV fluid Treat with Lantus and supplemental insulin #. Generalized weakness Likely due to dehydration Improved Will ask physical and occupational therapy evaluation and treatment #. Renal failure Serum creatinine is at 1.5 we'll follow electrolytes and renal function #. Urinary tract infection urine culture is pending Started Rocephin #. Hypertension Blood pressure is elevated Stop midodrine #. DVT prophylaxis with subcutaneous heparin #. Discussed with Dr Carvalho.
[2018-10-05] MEDS: Non-Formulary Medication 1 Each (Diclofenac Sodium [Voltaren 1% Gel] 1 APPLIC) TP SCH ×2 (11:07→19:54)
[2018-10-05] MEDS: Sodium Chloride 0.9% 10 ML Syringe FLUSH PRN ×2 (20:16→21:20)
[2018-10-05] MEDS: cefTRIAXone 1 GM in Sodium Chloride 0.9% 50 ML IV SCH (20:17)
[2018-10-05] MEDS: atorvaSTATin 20 MG Tab PO SCH (20:23)
[2018-10-05] MEDS: Finasteride 5 MG Tab**OWN MED PO SCH (20:25)
[2018-10-06] MEDS: Heparin Sodium 5,000 Units/ML Vial SUBCUT SCH (06:17)
[2018-10-06 06:59] LABS: ANION GAP 14.2
[2018-10-06 08:06] VITALS: BP 158/83
[2018-10-06] MEDS: Calcitriol 0.25 MCG Cap PO SCH (08:28)
[2018-10-06] MEDS: DULoxetine 30 MG Cap**OWN MED PO SCH (08:28)
[2018-10-06] MEDS: INSULIN DETEMIR SUBCUT SCH (08:29)
[2018-10-06] MEDS: Insulin Lispro 100 Units/ML 3 ML Vial SUBCUT SCH ×2 (08:29→12:21)
[2018-10-06] MEDS: RANITIDINE 150 MG PO SCH (08:30)
[2018-10-06] MEDS: MAGNESIUM OXIDE 420 MG PO SCH (08:30)
[2018-10-06] MEDS: ASPIRIN PO SCH (08:32)
[2018-10-06] MEDS: DIPYRIDAMOLE PO SCH (08:32)
--- NOTE | 2018-10-06 10:01 | PCM.DCSUM1 ---
Discharge Summary - Hospital Course Free Text/Narrative:: Assessment/plan: recently discharged from [facility] where he was treated for hyperglycemia, wound on buttock. #. Severe hyperglycemia Blood sugar was 523 on admission Patient has not been using medications at home. He did not understand instructions that were given to him at the time of discharge from [facility] recently. He has been feeling weak Has been treated with extra doses of insulin. Blood sugar has improved. Treat with Lantus at home. will have grand son administer insulin, will have BSugar iary #. Generalized weakness Likely due to dehydration Improved Will continue with physical therapy at home for strengthening, and occupational therapy treatment for adl training and home safety eval. #. Renal failure with CKD III follow as out pt #. Urinary tract infection urine culture was contaminant finished tx. at [facility] for UTI #. HTN follow as out pt off midodrine #. DVT prophylaxis with subcutaneous heparin Diagnosis: Stroke: No - Discharge Data Discharge Date: 10/06/18 Discharge Disposition: Home, Self-Care 01 Condition: Fair - Patient Summary/Data Consults: Consultations 10/05/18 10:42 OT Evaluation and Treatment [CONS] Routine PT Evaluation and Treatment [CONS] Routine - Patient Instructions Diet: Diabetic Diet Activity: As Tolerated - Discharge Plan *PRESCRIPTION DRUG MONITORING PROGRAM REVIEWED*: Not Applicable *COPY OF PRESCRIPTION DRUG MONITORING REPORT IN PATIENT SANTIAGO: Not Applicable Prescriptions/Med Rec: Insulin Detemir [Levemir] 20 unit SUBCUT BID #1 pen Home Medications: Home Meds Calcitriol 0.25 mcg PO DAILY 05/28/13 [History] atorvaSTATin Calcium [Atorvastatin Calcium] 80 mg PO BEDTIME 05/28/13 [History] Latanoprost [Xalatan 0.005% Ophth Soln] 1 drop EYEBOTH BEDTIME 09/03/15 [History ] DULoxetine [Cymbalta] 30 mg PO DAILY 01/07/16 [History] Finasteride [Proscar] 5 mg PO BEDTIME 01/07/16 [History] Magnesium Oxide 420 mg PO BID 02/10/17 [History] Cholecalciferol (Vitamin D3) [Vitamin D3] 2,000 unit PO DAILY 09/28/17 [History] Ranitidine HCl [Ranitidine] 150 mg PO BID 09/28/17 [History] Acetaminophen 325 mg PO Q4H PRN 02/17/18 [History] Diclofenac Sodium [Voltaren 1% Gel] 1 applic TP QID 02/17/18 [History] Aspirin/Dipyridamole [Aspirin-Dipyridam ER 25-200 mg] 1 each PO BID 10/04/18 [ History] Insulin Detemir [Levemir] 20 unit SUBCUT BID #1 pen 10/06/18 [Rx] Referrals: PCP,None [Primary Care Provider] - ([facility] in 2-3 days) - Discharge Summary/Plan Comment DC Time >30 min.: No - General Info Date of Service: 10/06/18 Subjective Update: Admitted with elevated blood sugars. Has been on IV fluids and insulin. Blood sugars have improved. He is feeling weak but improved. No chest pain, no shortness of breath no fever or chills. grand son is being trained as paid caregiver - Patient Data Vitals - Most Recent: Last Vital Signs Temp 36.6 C 10/06/18 08:05 Pulse 90 10/06/18 08:05 Resp 16 10/06/18 08:05 BP 158/83 H 10/06/18 08:05 Pulse Ox 98 10/06/18 08:05 Weight - Most Recent: 72.257 kg I&O - Last 24 hours: Intake & Output 10/05/18 10/06/18 10/06/18 22:59 06:59 14:59 Intake Total 483 700 560 Output Total 1150 850 Balance -667 -150 560 Lab Results - Last 24 hrs: Laboratory Results - last 24 hr 10/05/18 10/05/18 10/05/18 Range/Units 11:58 16:42 20:47 WBC (5.0-10.0) 10^3/uL RBC (4.6-6.2) 10^6/uL Hgb (14.0-18.0) g/dL Hct (40.0-54.0) % MCV (80-100) fL MCH (27.0-34.0) pg MCHC (33.0-35.0) g/dL Plt Count (150-450) 10^3/uL Neut % (Auto) (42.2-75.2) % Lymph % (Auto) (20.5-50.1) % [place] % (Auto) (2-8) % Eos % (Auto) (1.0-3.0) % Baso % (Auto) (0.0-1.0) % Sodium (135-145) mmol/L Potassium (3.6-5.0) mmol/L Chloride (101-111) mmol/L Carbon Dioxide (21.0-31.0) mmol/L Anion Gap BUN (7-18) mg/dL Creatinine (0.6-1.3) mg/dL Est Cr Clr Drug Dosing mL/min Estimated GFR (MDRD) Glucose (74-105) mg/dL POC Glucose 335 H 319 H 368 H (83-110) mg/dl Calcium (8.4-10.2) mg/dl Phosphorus (2.5-4.6) mg/dL Magnesium (1.8-2.5) mg/dL 10/06/18 10/06/18 10/06/18 Range/Units 06:21 06:21 07:44 WBC 7.1 (5.0-10.0) 10^3/uL RBC 4.19 L (4.6-6.2) 10^6/uL Hgb 13.0 L D (14.0-18.0) g/dL Hct 37.6 L (40.0-54.0) % MCV 89.7 (80-100) fL MCH 31.0 (27.0-34.0) pg MCHC 34.6 (33.0-35.0) g/dL Plt Count 283 (150-450) 10^3/uL Neut % (Auto) 73.6 (42.2-75.2) % Lymph % (Auto) 15.4 L (20.5-50.1) % [place] % (Auto) 9.3 H (2-8) % Eos % (Auto) 1.3 (1.0-3.0) % Baso % (Auto) 0.4 (0.0-1.0) % Sodium 135 (135-145) mmol/L Potassium 4.2 (3.6-5.0) mmol/L Chloride 101 (101-111) mmol/L Carbon Dioxide 24.0 (21.0-31.0) mmol/L Anion Gap 14.2 BUN 31 H (7-18) mg/dL Creatinine 1.4 H (0.6-1.3) mg/dL Est Cr Clr Drug Dosing 47.31 mL/min Estimated GFR (MDRD) 50 Glucose 291 H (74-105) mg/dL POC Glucose 295 H (83-110) mg/dl Calcium 9.3 (8.4-10.2) mg/dl Phosphorus 3.7 (2.5-4.6) mg/dL Magnesium 1.9 (1.8-2.5) mg/dL ROLO Results - Last 24 hrs: Microbiology 10/04/18 18:11 Urine Culture - Preliminary Urine, Voided Med Orders - Current: Current Medications Acetaminophen (Tylenol) 650 mg PO Q4H PRN PRN Reason: Pain (Mild 1-3)/fever Atorvastatin Calcium (Lipitor) 80 mg PO BEDTIME [facility] Last Admin: 10/05/18 20:23 Dose: 80 mg Calcitriol (Rocaltrol) 0.25 mcg PO DAILY [facility] Last Admin: 10/06/18 08:28 Dose: 0.25 mcg Duloxetine HCl (Cymbalta) 30 mg PO DAILY [facility] Last Admin: 10/06/18 08:28 Dose: 30 mg Finasteride (Proscar) 5 mg PO BEDTIME [facility] Last Admin: 10/05/18 20:25 Dose: 5 mg Heparin Sodium (Porcine) (Heparin Sodium) 5,000 units SUBCUT Q8HR [facility] Last Admin: 10/06/18 06:17 Dose: 5,000 units Ceftriaxone Sodium 1 gm/ (Sodium Chloride) 50 mls @ 50 mls/hr IV Q24H [facility] Last Admin: 10/05/18 20:17 Dose: 50 mls/hr Insulin Human Lispro (Humalog) 0 unit SUBCUT ACBED [facility]; Protocol Last Admin: 10/06/18 08:29 Dose: 6 units Latanoprost (Xalatan 0.005% Ophth Soln) 0 ml EYEBOTH BEDTIME [facility] Last Admin: 10/05/18 20:27 Dose: 1 drop Aspirin-Dipyridam Er 25-200 Mg Own Med 1 each PO BID [facility] Last Admin: 10/06/18 08:32 Dose: 1 each Magnesium Oxide 420 (MgOwn Med) 420 mg PO BID [facility] Last Admin: 10/06/18 08:30 Dose: 420 mg Ranitidine 150 Mg (Own Med) 150 mg PO BID [facility] Last Admin: 10/06/18 08:30 Dose: 150 mg Non-Formulary Medication (Insulin Detemir [Levemir]) 20 unit SUBCUT BID [facility] Ondansetron HCl (Zofran Odt) 4 mg PO Q6H PRN PRN Reason: nausea, able to take PO Sodium Chloride (Saline Flush) 10 ml FLUSH ASDIRECTED PRN PRN Reason: Keep Vein Open Last Admin: 10/05/18 21:20 Dose: 10 ml Discontinued Medications Acetaminophen (Tylenol) 325 mg PO Q4H PRN PRN Reason: Pain Sodium Chloride (Normal Saline) 1,000 mls @ 150 mls/hr IV ASDIRECTED [facility] Last Admin: 10/05/18 10:22 Dose: 150 mls/hr Insulin Glargine (Lantus) 30 unit SUBCUT ONETIME ONE Stop: 10/04/18 18:59 Last Admin: 10/04/18 19:08 Dose: 30 units Insulin Human Lispro (Humalog) 15 unit SUBCUT ONETIME ONE Stop: 10/04/18 20:04 Last Admin: 10/04/18 20:22 Dose: 15 units Insulin Human Lispro (Humalog) 20 unit SUBCUT ONETIME ONE Stop: 10/04/18 21:23 Last Admin: 10/04/18 21:42 Dose: 20 units Insulin Human NPH (Novolin N) 15 unit SUBCUT ONETIME ONE Stop: 10/04/18 18:59 Last Admin: 10/04/18 20:00 Dose: Not Given Midodrine (Midodrine) 2.5 mg PO TIDAC [facility] Last Admin: 10/05/18 10:13 Dose: Not Given Non-Formulary Medication (Diclofenac Sodium [Voltaren 1% Gel]) 1 applic TP QID [facility] Last Admin: 10/05/18 19:54 Dose: Not Given Insulin Detemir Pen* (*Own Med) 30 unit SUBCUT QAM [facility] Last Admin: 10/06/18 08:29 Dose: 30 unit - Exam General: Reports: Alert, Oriented Lungs: Reports: Clear to Auscultation, Normal Respiratory Effort Cardiovascular: Reports: Regular Rate, Regular Rhythm GI/Abdominal Exam: Normal Bowel Sounds, Soft, Non-Tender Extremities: No Pedal Edema
[2018-10-06] MEDS ORDERED: INSULIN DETEMIR SUBCUT SCH (21:00)
== END 2018-10-06 13:25 | disposition home or self-care (01) ==
LOC: DL.ED 17:11 → DL.MS 19:23 → UNDOADMOB 19:23 → DL.MS 20:07
PROVIDERS: ADMIT Hospitalist; ATTEND Internal Medicine
DX: E11.65 Type 2 diabetes mellitus with hyperglycemia (principal); E11.22 Type 2 diabetes mellitus with diabetic chronic kidney disease; I12.9 Hypertensive chronic kidney disease with stage 1 through stage 4 chronic kidney disease, or unspecified chronic kidney disease; N18.3 Chronic kidney disease, stage 3 (moderate); N17.9 Acute kidney failure, unspecified; R53.1 Weakness; N39.0 Urinary tract infection, site not specified; I25.10 Atherosclerotic heart disease of native coronary artery without angina pectoris; E78.00 Pure hypercholesterolemia, unspecified; Z95.5 Presence of coronary angioplasty implant and graft; Z79.82 Long term (current) use of aspirin; Z79.4 Long term (current) use of insulin; Z79.899 Other long term (current) drug therapy
CPT/HCPCS: 36415; 36600; 80048; 80053; 80305-QW; 81001; 82009; 82803; 82962; 83735; 84100; 85025; 85027; 87086; 96372; 97162-GP; 97165-GO; 99285; A9270-GY; J0696; J1644; J1815; J1815-GY; J7030; J7050

== ENCOUNTER 2018-12-14 19:17 | Emergency (ER) | payer OTHER, MEDICAID ==
[2018-12-14 19:29] VITALS: BP 142/79
[2018-12-14 20:07] LABS: ANION GAP 12.9; CHLORIDE,CL 98 mmol/L (101-111); SODIUM,NA 136 mmol/L (135-145)
--- NOTE | 2018-12-14 22:32 | EDM.PDOC ---
ED HPI GENERAL MEDICAL PROBLEM - General Chief Complaint: Gastrointestinal Problem Stated Complaint: EVANTIDE BRINGING HIM Time Seen by Provider: 12/14/18 20:00 Source of Information: Reports: Patient, Fdc Records, RN History Limitations: Reports: Altered Mental Status (baseline confusion) - History of Present Illness INITIAL COMMENTS - FREE TEXT/NARRATIVE: ED per wheelchair from residential for evaluation. Patient low blood sugar this afternoon resolved with juisce and crackers brought down for supper reported not eating much c/o not feeling well so brought to ED. Patient confused only states not feeling good, no specific complaint. Small emesis x 1 on arrival . - Related Data Allergies Allergy/AdvReac Type Severity Reaction Status Date / Time No Known Allergies Allergy Verified 12/14/18 20:11 Home Meds: Home Meds Calcitriol 0.25 mcg PO DAILY 05/28/13 [History] atorvaSTATin Calcium [Atorvastatin Calcium] 80 mg PO BEDTIME 05/28/13 [History] Latanoprost [Xalatan 0.005% Ophth Soln] 1 drop EYEBOTH BEDTIME 09/03/15 [History ] DULoxetine [Cymbalta] 30 mg PO DAILY 01/07/16 [History] Magnesium Oxide 420 mg PO BID 02/10/17 [History] Cholecalciferol (Vitamin D3) [Vitamin D3] 2,000 unit PO DAILY 09/28/17 [History] Ranitidine HCl [Ranitidine] 150 mg PO BID 09/28/17 [History] Acetaminophen 325 mg PO Q4H PRN 02/17/18 [History] Diclofenac Sodium [Voltaren 1% Gel] 1 applic TP QID 02/17/18 [History] Aspirin/Dipyridamole [Aspirin-Dipyridam ER 25-200 mg] 1 each PO BID 10/04/18 [ History] Isosorbide Mononitrate [Imdur] 30 mg PO ACBREAKFAST #30 tab.er 10/25/18 [Rx] Finasteride 5 mg PO DAILY 12/14/18 [History] Insulin Detemir [Levemir] 50 unit SUBCUT BID 12/14/18 [History] Insulin Lispro [HumaLOG] 5 mg PO BID 12/14/18 [History] Midodrine 2.5 mg PO TID 12/14/18 [History] Past Medical History HEENT History: Reports: Impaired Vision Other HEENT History: wears glasses Cardiovascular History: Reports: CAD, High Cholesterol, Hypertension, Stents Other Cardiovascular History: Transient hypotension Respiratory History: Reports: Other (See Below) Other Respiratory History: spot of lung and they said to keep an eye on it. Gastrointestinal History: Reports: None Genitourinary History: Reports: Acute Renal Failure, Chronic Renal Insuffiency Other Genitourinary History: urinary tract obstruction-self caths self when stream gets slow Musculoskeletal History: Reports: Back Pain, Chronic Other Musculoskeletal History: broke both ankles, broken ribs, collar bone, jaw , toes and 5-6 hairline fx of skull due to rodeo Neurological History: Reports: Concussion, Headaches, Chronic Other Neuro History: heasdaches since 1966 Psychiatric History: Reports: Other (See Below) Other Psychiatric History: has noc bishop from [place] Endocrine/Metabolic History: Reports: Diabetes, Type II Hematologic History: Reports: None Immunologic History: Reports: None Oncologic (Cancer) History: Reports: Other (See Below) Other Oncologic History: pt. doesn't know what type of cancer he was diagnosed with Dermatologic History: Reports: Other (See Below) Other Dermatologic History: eccymotic area to left hip, left upper arm, and left ear from fall when pt. tripped over trailer hitch about a week ago. - Infectious Disease History Infectious Disease History: Reports: Chicken Pox Other Infectious Disease History: unable to obtain history. - Past Surgical History Head Surgeries/Procedures: Reports: None Cardiovascular Surgical History: Reports: Coronary Artery Stent GI Surgical History: Reports: Hernia, Inguinal Other GI Surgeries/Procedures: left side igunial hernia repair Social & Family History - Family History Family Medical History: Noncontributory Cardiac: Reports: CAD Endocrine/Metabolic: Reports: Diabetes, type II Oncologic: Reports: Other (See Below) Other Oncologic Family History: brother, mom,sister unknown types - Tobacco Use Smoking Status *Q: Unknown Ever Smoked - Caffeine Use Caffeine Use: Reports: Coffee Other Caffeine Use: flavored water - Living Situation & Occupation Living situation: Reports: with Family Occupation: Retired ED ROS GENERAL - Review of Systems Review Of Systems: See Below Constitutional: Reports: Decreased Appetite. Denies: Fever, Chills HEENT: Reports: No Symptoms Respiratory: Reports: No Symptoms Endocrine: Reports: Low Glucose GI/Abdominal: Reports: Vomiting (x1). Denies: Hematemesis ED EXAM, GI/ABD - Physical Exam Exam: See Below Exam Limited By: No Limitations General Appearance: Alert, No Apparent Distress, Thin Eyes: Bilateral: EOMI Ears: Normal External Exam, Normal TMs Nose: Normal Inspection Throat/Mouth: Normal Inspection Head: Atraumatic, Normocephalic Neck: Normal Inspection, Full Range of Motion Respiratory/Chest: No Respiratory Distress, Other (rare cough) Cardiovascular: Normal Peripheral Pulses, Tachycardia (on presentation) GI/Abdominal Exam: Normal Bowel Sounds, Soft, Non-Tender, Distended (round abdomen) Back Exam: Full Range of Motion Extremities: Normal Inspection Neurological: Alert, Oriented (personpalce) Skin Exam: Warm, Dry, Other (decub, left buttock dressing intact no redness..) Course - Vital Signs Last Recorded V/S: Last Vital Signs Temp 96.2 F 12/14/18 19:28 Pulse 122 H 12/14/18 19:28 Resp 21 H 12/14/18 19:28 BP 142/79 H 12/14/18 19:28 Pulse Ox 93 L 12/14/18 19:28 - Orders/Labs/Meds Orders: Active Orders 24 hr Category Date Time Status EKG 12 Lead [EKG Documentation Completion] [RC] URGENT Care 12/14/18 19:42 Active CULTURE BLOOD [BC] Stat Lab 12/14/18 20:21 Received CULTURE URINE [RM] Urgent Lab 12/14/18 21:23 Received Labs: Laboratory Tests 12/14/18 12/14/18 12/14/18 Range/Units 19:22 19:33 19:33 WBC 15.4 H (5.0-10.0) 10^3/uL RBC 4.28 L (4.6-6.2) 10^6/uL Hgb 13.2 L (14.0-18.0) g/dL Hct 39.3 L (40.0-54.0) % MCV 91.8 (80-100) fL MCH 30.8 (27.0-34.0) pg MCHC 33.6 (33.0-35.0) g/dL Plt Count 263 (150-450) 10^3/uL Neut % (Auto) 92.0 H (42.2-75.2) % Lymph % (Auto) 1.8 L (20.5-50.1) % [place] % (Auto) 6.0 (2-8) % Eos % (Auto) 0.1 L (1.0-3.0) % Baso % (Auto) 0.1 (0.0-1.0) % Sodium 136 (135-145) mmol/L Potassium 3.9 (3.6-5.0) mmol/L Chloride 98 L (101-111) mmol/L Carbon Dioxide 29.0 (21.0-31.0) mmol/L Anion Gap 12.9 BUN 34 H (7-18) mg/dL Creatinine 2.1 H (0.6-1.3) mg/dL Est Cr Clr Drug Dosing 32.97 mL/min Estimated GFR (MDRD) 31 BUN/Creatinine Ratio 16.19 Glucose 93 (74-105) mg/dL POC Glucose 107 (83-110) mg/dl Lactic Acid (0.5-2.2) mmol/L Calcium 9.2 (8.4-10.2) mg/dl Total Bilirubin 0.5 (0.2-1.0) mg/dL AST 27 (10-42) IU/L ALT 25 (10-60) IU/L Alkaline Phosphatase 84 (42-121) IU/L Troponin I (0.00-0.02) ng/ml Total Protein 7.6 (6.7-8.2) g/dl Albumin 3.9 (3.2-5.5) g/dl Globulin 3.7 Albumin/Globulin Ratio 1.05 Amylase 45 (28-100) U/L Lipase 21 L (22-51) U/L Urine Color (YELLOW) Urine Appearance (CLEAR) Urine pH (5.0-9.0) Ur Specific [place] (1.005-1.030) Urine Protein (NEGATIVE) Urine Glucose (UA) (NEGATIVE) Urine Ketones (NEGATIVE) Urine Occult Blood (NEGATIVE) Urine Nitrite (NEGATIVE) Urine Bilirubin (NEGATIVE) Urine Urobilinogen (0.2-1.0) mg/dL Ur Leukocyte Esterase (NEGATIVE) Urine RBC /HPF Urine WBC (0-5/HPF) /HPF Ur Epithelial Cells (NOT SEEN) /HPF Amorphous Sediment (NOT SEEN) /HPF Urine Bacteria (0-FEW/HPF) /HPF Ketones Negative 08/12/14/18 12/14/18 Range/Units 19:33 19:33 21:23 WBC (5.0-10.0) 10^3/uL RBC (4.6-6.2) 10^6/uL Hgb (14.0-18.0) g/dL Hct (40.0-54.0) % MCV (80-100) fL MCH (27.0-34.0) pg MCHC (33.0-35.0) g/dL Plt Count (150-450) 10^3/uL Neut % (Auto) (42.2-75.2) % Lymph % (Auto) (20.5-50.1) % [place] % (Auto) (2-8) % Eos % (Auto) (1.0-3.0) % Baso % (Auto) (0.0-1.0) % Sodium (135-145) mmol/L Potassium (3.6-5.0) mmol/L Chloride (101-111) mmol/L Carbon Dioxide (21.0-31.0) mmol/L Anion Gap BUN (7-18) mg/dL Creatinine (0.6-1.3) mg/dL Est Cr Clr Drug Dosing mL/min Estimated GFR (MDRD) BUN/Creatinine Ratio Glucose (74-105) mg/dL POC Glucose (83-110) mg/dl Lactic Acid 2.0 (0.5-2.2) mmol/L Calcium (8.4-10.2) mg/dl Total Bilirubin (0.2-1.0) mg/dL AST (10-42) IU/L ALT (10-60) IU/L Alkaline Phosphatase (42-121) IU/L Troponin I 0.02 (0.00-0.02) ng/ml Total Protein (6.7-8.2) g/dl Albumin (3.2-5.5) g/dl Globulin Albumin/Globulin Ratio Amylase (28-100) U/L Lipase (22-51) U/L Urine Color Yellow (YELLOW) Urine Appearance Clear (CLEAR) Urine pH 7.5 (5.0-9.0) Ur Specific [place] 1.020 (1.005-1.030) Urine Protein 100 H (NEGATIVE) Urine Glucose (UA) Negative (NEGATIVE) Urine Ketones Negative (NEGATIVE) Urine Occult Blood Trace-intact H (NEGATIVE) Urine Nitrite Negative (NEGATIVE) Urine Bilirubin Negative (NEGATIVE) Urine Urobilinogen 0.2 (0.2-1.0) mg/dL Ur Leukocyte Esterase Trace H (NEGATIVE) Urine RBC 5-10 H /HPF Urine WBC >100 H (0-5/HPF) /HPF Ur Epithelial Cells Few (NOT SEEN) /HPF Amorphous Sediment Few (NOT SEEN) /HPF Urine Bacteria Moderate H (0-FEW/HPF) /HPF Ketones 12/14/18 Range/Units 21:53 WBC (5.0-10.0) 10^3/uL RBC (4.6-6.2) 10^6/uL Hgb (14.0-18.0) g/dL Hct (40.0-54.0) % MCV (80-100) fL MCH (27.0-34.0) pg MCHC (33.0-35.0) g/dL Plt Count (150-450) 10^3/uL Neut % (Auto) (42.2-75.2) % Lymph % (Auto) (20.5-50.1) % [place] % (Auto) (2-8) % Eos % (Auto) (1.0-3.0) % Baso % (Auto) (0.0-1.0) % Sodium (135-145) mmol/L Potassium (3.6-5.0) mmol/L Chloride (101-111) mmol/L Carbon Dioxide (21.0-31.0) mmol/L Anion Gap BUN (7-18) mg/dL Creatinine (0.6-1.3) mg/dL Est Cr Clr Drug Dosing mL/min Estimated GFR (MDRD) BUN/Creatinine Ratio Glucose (74-105) mg/dL POC Glucose 92 (83-110) mg/dl Lactic Acid (0.5-2.2) mmol/L Calcium (8.4-10.2) mg/dl Total Bilirubin (0.2-1.0) mg/dL AST (10-42) IU/L ALT (10-60) IU/L Alkaline Phosphatase (42-121) IU/L Troponin I (0.00-0.02) ng/ml Total Protein (6.7-8.2) g/dl Albumin (3.2-5.5) g/dl Globulin Albumin/Globulin Ratio Amylase (28-100) U/L Lipase (22-51) U/L Urine Color (YELLOW) Urine Appearance (CLEAR) Urine pH (5.0-9.0) Ur Specific [place] (1.005-1.030) Urine Protein (NEGATIVE) Urine Glucose (UA) (NEGATIVE) Urine Ketones (NEGATIVE) Urine Occult Blood (NEGATIVE) Urine Nitrite (NEGATIVE) Urine Bilirubin (NEGATIVE) Urine Urobilinogen (0.2-1.0) mg/dL Ur Leukocyte Esterase (NEGATIVE) Urine RBC /HPF Urine WBC (0-5/HPF) /HPF Ur Epithelial Cells (NOT SEEN) /HPF Amorphous Sediment (NOT SEEN) /HPF Urine Bacteria (0-FEW/HPF) /HPF Ketones - Radiology Interpretation Free Text/Narrative:: [facility] Final Radiology Report Call: [phone] assistance Online chat: [email or web address] Name: CARY OLIVEROS Age: 73Years M Date: 12/14/2018 SSN: -- : 1945 Study: XR ABDOMEN 1 VIEW Requesting Physician: SUNITHA HOOK Images: 1 Addl Studies: Provided Clinical History: Contrast: Contrast Medium: Contrast Amount: Contrast Method: CONFIDENTIALITY STATEMENT This report is intended only for use by the referring physician, and only in accordance with law. If you received this in error, call [phone]. Page 1 of 1 EXAM: XR Abdomen, 1 View EXAM DATE/TIME: 12/14/2018 7:55 PM CLINICAL HISTORY: 73 years old, male; Other: Decreased bowel sound, low abd pain TECHNIQUE: Imaging protocol: Frontal supine view of the abdomen/pelvis. COMPARISON: CR Abdomen 2V AP Flat Upright 08/30/2018 3:46 PM FINDINGS: Gastrointestinal tract: Normal. No bowel dilation. Bones/joints: Unremarkable for age. IMPRESSION: No acute findings. Thank you for allowing us to participate in the care of your patient. Dictated and Authenticated by: Beny Decker MD 12/14/2018 8:11 PM Central Time ( & [place] [facility] Final Radiology Report Call: [phone] assistance Online chat: [email or web address] Risk Name: CARY OLIVEROS Age: 73Years M Date: 12/14/2018 SSN: -- : 1945 Study: XR CHEST 1 VIEW FRONTAL Requesting Physician: SUNITHA HOOK Images: 1 Addl Studies: Provided Clinical History: Contrast: Contrast Medium: Contrast Amount: Contrast Method: CONFIDENTIALITY STATEMENT This report is intended only for use by the referring physician, and only in accordance with law. If you received this in error, call [phone]. Page 1 of 1 EXAM: XR Chest, 1 View EXAM DATE/TIME: 12/14/2018 7:57 PM CLINICAL HISTORY: 73 years old, male; Other: Hypoxia TECHNIQUE: Imaging protocol: XR of the chest, 1 view. COMPARISON: CR Chest 1V Frontal 11/11/2018 2:30 PM FINDINGS: Lungs: Unremarkable. No consolidation. No significant pulmonary nodule. Pleural space: Unremarkable. No pleural effusion. No pneumothorax. Heart/Mediastinum: Unremarkable. No cardiomegaly. Bones/joints: Old left-sided rib fractures. IMPRESSION: No acute findings. Thank you for allowing us to participate in the care of your patient. Dictated and Authenticated by: Beny Decker MD 12/14/2018 8:11 PM Central Time ([place] & [place]) Departure - Departure Time of Disposition: 22:29 Disposition: Home, Self-Care 01 Condition: Good Clinical Impression: Constipation Qualifiers: Constipation type: slow transit constipation Qualified Code(s): K59.01 - Slow transit constipation - Discharge Information *PRESCRIPTION DRUG MONITORING PROGRAM REVIEWED*: No *COPY OF PRESCRIPTION DRUG MONITORING REPORT IN PATIENT SANTIAGO: No Instructions: Constipation, Adult, [id number] Referrals: PCP,None [Primary Care Provider] - Forms: ED Department Discharge Additional Instructions: resume residential orders, monitor follow up if recurrent symptoms light diet tonight if hungry on return monitor blood sugars tonight per facility order Give patient stool softeners per order - My Orders Last 24 Hours: My Active Orders 12/14/18 19:42 EKG 12 Lead [EKG Documentation Completion] [RC] URGENT 12/14/18 20:21 CULTURE BLOOD [BC] Stat 12/14/18 21:23 CULTURE URINE [RM] Urgent - Assessment/Plan Last 24 Hours: My Active Orders 12/14/18 19:42 EKG 12 Lead [EKG Documentation Completion] [RC] URGENT 12/14/18 20:21 CULTURE BLOOD [BC] Stat 12/14/18 21:23 CULTURE URINE [RM] Urgent
== END 2018-12-14 22:53 | disposition home or self-care (01) ==
LOC: DL.ED 19:17
DX: K59.01 Slow transit constipation (principal); I12.9 Hypertensive chronic kidney disease with stage 1 through stage 4 chronic kidney disease, or unspecified chronic kidney disease; E11.22 Type 2 diabetes mellitus with diabetic chronic kidney disease; N18.9 Chronic kidney disease, unspecified; E78.00 Pure hypercholesterolemia, unspecified; Z79.82 Long term (current) use of aspirin; Z79.899 Other long term (current) drug therapy; Z79.4 Long term (current) use of insulin
CPT/HCPCS: 36415; 71045; 74018; 80053; 81001; 82009; 82150; 82962; 83605; 83690; 84484; 85025; 87040; 87086; 93005; 99284-25

== ENCOUNTER 2019-01-22 06:30 | Emergency (ER) | payer MEDICAID, MEDICARE ==
[2019-01-22 06:41] VITALS: BP 155/85; PULSE 91
[2019-01-22] MEDS ORDERED: 50% Dextrose in Water 50 ML Syringe IVPUSH ONE (06:44)
--- NOTE | 2019-01-22 07:06 | EDM.PDOC ---
ED HPI GENERAL MEDICAL PROBLEM - General Chief Complaint: Abdominal Pain Stated Complaint: AMBULANCE Time Seen by Provider: 01/22/19 07:00 Source of Information: Reports: Patient, Old Records, RN, RN Notes Reviewed History Limitations: Reports: No Limitations - History of Present Illness INITIAL COMMENTS - FREE TEXT/NARRATIVE: Pt arrives to ER by ambulance with c/o constipation and abdominal discomfort with confusion. Pt found by EMS to have a blood sugar of 40. Pt received Dextrose 50% 1 amp. IVP with recheck blood sugar of 161. Pt denies N/V, fever, chills, chest pain, cough, or any other symptoms. Onset: Unknown/Unsure Location: Reports: Abdomen, Generalized Quality: Reports: Pressure, Other (Cramping) Severity: Moderate Improves with: Reports: None Worsens with: Reports: None Associated Symptoms: Reports: No Other Symptoms Headache Pain Score (Numeric/FACES): 3 - Related Data Allergies Allergy/AdvReac Type Severity Reaction Status Date / Time No Known Allergies Allergy Verified 01/22/19 06:30 Home Meds: Home Meds Calcitriol 0.25 mcg PO DAILY 05/28/13 [History] atorvaSTATin Calcium [Atorvastatin Calcium] 80 mg PO BEDTIME 05/28/13 [History] Latanoprost [Xalatan 0.005% Ophth Soln] 1 drop EYEBOTH BEDTIME 09/03/15 [History ] DULoxetine [Cymbalta] 30 mg PO DAILY 01/07/16 [History] Magnesium Oxide 420 mg PO BID 02/10/17 [History] Cholecalciferol (Vitamin D3) [Vitamin D3] 2,000 unit PO DAILY 09/28/17 [History] Acetaminophen 325 mg PO Q4H PRN 02/17/18 [History] Diclofenac Sodium [Voltaren 1% Gel] 1 applic TP QID 02/17/18 [History] Aspirin/Dipyridamole [Aspirin-Dipyridam ER 25-200 mg] 1 each PO BID 10/04/18 [ History] Isosorbide Mononitrate [Imdur] 30 mg PO ACBREAKFAST #30 tab.er 10/25/18 [Rx] Finasteride 5 mg PO DAILY 12/14/18 [History] Insulin Lispro [HumaLOG] 5 mg PO BID 12/14/18 [History] Midodrine 2.5 mg PO TID 12/14/18 [History] Insulin Glarg,Human.Rec.Analog [Lantus] 30 unit SUBCUT BID #1 pen 12/25/18 [Rx] Past Medical History HEENT History: Reports: Impaired Vision Other HEENT History: wears glasses Cardiovascular History: Reports: CAD, High Cholesterol, Hypertension, Stents Other Cardiovascular History: Transient hypotension Respiratory History: Reports: Other (See Below) Other Respiratory History: spot of lung and they said to keep an eye on it. Gastrointestinal History: Reports: None Genitourinary History: Reports: Acute Renal Failure, Chronic Renal Insuffiency Other Genitourinary History: urinary tract obstruction-self caths self when stream gets slow Musculoskeletal History: Reports: Back Pain, Chronic Other Musculoskeletal History: broke both ankles, broken ribs, collar bone, jaw , toes and 5-6 hairline fx of skull due to rodeo Neurological History: Reports: Concussion, Headaches, Chronic Other Neuro History: heasdaches since 1966 Psychiatric History: Reports: Other (See Below) Other Psychiatric History: has noc bishop from [place] Endocrine/Metabolic History: Reports: Diabetes, Type II Hematologic History: Reports: None Immunologic History: Reports: None Oncologic (Cancer) History: Reports: Other (See Below) Other Oncologic History: pt. doesn't know what type of cancer he was diagnosed with Dermatologic History: Reports: Other (See Below) Other Dermatologic History: eccymotic area to left hip, left upper arm, and left ear from fall when pt. tripped over trailer hitch about a week ago. - Infectious Disease History Infectious Disease History: Reports: Chicken Pox Other Infectious Disease History: unable to obtain history. - Past Surgical History Head Surgeries/Procedures: Reports: None Cardiovascular Surgical History: Reports: Coronary Artery Stent GI Surgical History: Reports: Hernia, Inguinal Other GI Surgeries/Procedures: left side igunial hernia repair Social & Family History - Family History Family Medical History: Noncontributory Cardiac: Reports: CAD Endocrine/Metabolic: Reports: Diabetes, type II Oncologic: Reports: Other (See Below) Other Oncologic Family History: brother, mom,sister unknown types - Tobacco Use Smoking Status *Q: Never Smoker Second Hand Smoke Exposure: No - Caffeine Use Caffeine Use: Reports: None Other Caffeine Use: flavored water - Recreational Drug Use Recreational Drug Use: No - Living Situation & Occupation Living situation: Reports: with Family Occupation: Retired ED ROS GENERAL - Review of Systems Review Of Systems: ROS reveals no pertinent complaints other than HPI. ED EXAM GENERAL NO PERIP PULSE - Physical Exam Exam: See Below Exam Limited By: No Limitations General Appearance: Alert, WD/WN, No Apparent Distress Eye Exam: Bilateral Eye: EOMI, Normal Inspection, PERRL Nose: Normal Inspection, Normal Mucosa, No Blood Throat/Mouth: Normal Lips, Normal Voice, No Airway Compromise, Other (Dry oral mucosa.) Head: Atraumatic, Normocephalic Neck: Normal Inspection Respiratory/Chest: No Respiratory Distress, Lungs Clear, No Accessory Muscle Use , Chest Non-Tender, Decreased Breath Sounds Cardiovascular: Regular Rate, Rhythm, No Edema GI/Abdominal: Normal Bowel Sounds, Soft, No Distention, Pelvis Stable, Tender ( mild tenderness to palpation at LUQ and LLQ). No: No Abnormal Bruit, Guarding, Rigid, Rebound (Male) Exam: Deferred Rectal (Males) Exam: Deferred Extremities: Normal Inspection, Normal Range of Motion, Non-Tender, Normal Capillary Refill, No Pedal Edema Neurological: Alert, Oriented, CN II-XII Intact, Normal Cognition, No Motor/ Sensory Deficits Psychiatric: Depressed Mood, Flat Affect Skin Exam: Warm, Dry, Intact, Normal Color, No Rash Course - Vital Signs Last Recorded V/S: Last Vital Signs Temp 97.0 F 01/22/19 06:40 Pulse 91 01/22/19 06:40 Resp 16 01/22/19 06:40 BP 155/85 H 01/22/19 06:40 Pulse Ox 98 01/22/19 06:40 - Orders/Labs/Meds Orders: Active Orders 24 hr Category Date Time Status Blood Glucose Check, Bedside [RC] ONETIME Care 01/22/19 07:02 Active Blood Glucose Check, Bedside [RC] ONETIME Care 01/22/19 07:02 Active Blood Glucose Check, Bedside [RC] ONETIME Care 01/22/19 07:11 Active Blood Glucose Check, Bedside [RC] ONETIME Care 01/22/19 09:56 Active Enema [RC] ASDIRECTED Care 01/22/19 08:40 Active Peripheral IV Care [RC] . DIRECTED Care 01/22/19 07:11 Active GLUCOSE,POC [POC] Routine Lab 01/22/19 11:58 Received UA RFX ROLO AND CULT IF INDIC [URIN] Stat Lab 01/22/19 07:11 Ordered Dextrose 5%-0.9% NaCl [Dextrose 5%-Normal Saline] 1,000 Med 01/22/19 07:15 Active ml IV ASDIRECTED Sodium Chloride 0.9% [Saline Flush] Med 01/22/19 07:10 Active 10 ml FLUSH ASDIRECTED PRN Peripheral IV Insertion Adult [OM.PC] Stat Oth 01/22/19 07:10 Ordered Medication Orders Dextrose/Sodium Chloride (Dextrose 5%-Normal Saline) 1,000 mls @ 150 mls/hr IV ASDIRECTED KARMEN Last Admin: 01/22/19 07:22 Dose: 150 mls/hr Sodium Chloride (Saline Flush) 10 ml FLUSH ASDIRECTED PRN PRN Reason: Keep Vein Open Last Admin: 01/22/19 07:23 Dose: 10 ml Labs: Laboratory Tests 01/22/19 01/22/19 01/22/19 Range/Units 06:32 06:32 06:36 WBC 7.7 (5.0-10.0) 10^3/uL RBC 4.37 L (4.6-6.2) 10^6/uL Hgb 13.4 L D (14.0-18.0) g/dL Hct 39.3 L (40.0-54.0) % MCV 89.9 (80-100) fL MCH 30.7 (27.0-34.0) pg MCHC 34.1 (33.0-35.0) g/dL Plt Count 317 (150-450) 10^3/uL Neut % (Auto) 72.5 (42.2-75.2) % Lymph % (Auto) 15.1 L (20.5-50.1) % [place] % (Auto) 10.9 H (2-8) % Eos % (Auto) 1.2 (1.0-3.0) % Baso % (Auto) 0.3 (0.0-1.0) % Sodium 142 (135-145) mmol/L Potassium 4.0 (3.6-5.0) mmol/L Chloride 105 (101-111) mmol/L Carbon Dioxide 28.0 (21.0-31.0) mmol/L Anion Gap 13.0 BUN 32 H (7-18) mg/dL Creatinine 1.6 H (0.6-1.3) mg/dL Est Cr Clr Drug Dosing 42.49 mL/min Estimated GFR (MDRD) 42 BUN/Creatinine Ratio 20.00 Glucose 46 L* (74-105) mg/dL POC Glucose 40 L* (83-110) mg/dl Calcium 9.3 (8.4-10.2) mg/dl Total Bilirubin 0.5 (0.2-1.0) mg/dL AST 23 (10-42) IU/L ALT 25 (10-60) IU/L Alkaline Phosphatase 103 (42-121) IU/L Total Protein 7.9 (6.7-8.2) g/dl Albumin 3.9 (3.2-5.5) g/dl Globulin 4.0 Albumin/Globulin Ratio 0.98 Amylase 39 (28-100) U/L Lipase 27 (22-51) U/L 01/22/19 01/22/19 Range/Units 07:00 08:01 WBC (5.0-10.0) 10^3/uL RBC (4.6-6.2) 10^6/uL Hgb (14.0-18.0) g/dL Hct (40.0-54.0) % MCV (80-100) fL MCH (27.0-34.0) pg MCHC (33.0-35.0) g/dL Plt Count (150-450) 10^3/uL Neut % (Auto) (42.2-75.2) % Lymph % (Auto) (20.5-50.1) % [place] % (Auto) (2-8) % Eos % (Auto) (1.0-3.0) % Baso % (Auto) (0.0-1.0) % Sodium (135-145) mmol/L Potassium (3.6-5.0) mmol/L Chloride (101-111) mmol/L Carbon Dioxide (21.0-31.0) mmol/L Anion Gap BUN (7-18) mg/dL Creatinine (0.6-1.3) mg/dL Est Cr Clr Drug Dosing mL/min Estimated GFR (MDRD) BUN/Creatinine Ratio Glucose (74-105) mg/dL POC Glucose 161 H 146 H (83-110) mg/dl Calcium (8.4-10.2) mg/dl Total Bilirubin (0.2-1.0) mg/dL AST (10-42) IU/L ALT (10-60) IU/L Alkaline Phosphatase (42-121) IU/L Total Protein (6.7-8.2) g/dl Albumin (3.2-5.5) g/dl Globulin Albumin/Globulin Ratio Amylase (28-100) U/L Lipase (22-51) U/L Meds: Medications Generic Name Dose Route Start Last Admin Trade Name Freq PRN Reason Stop Dose Admin Dextrose/Sodium Chloride 1,000 mls @ 150 mls/hr 01/22/19 07:15 01/22/19 07:22 Dextrose 5%-Normal Saline IV 150 mls/hr ASDIRECTED KARMEN Administration Sodium Chloride 10 ml 01/22/19 07:10 01/22/19 07:23 Saline Flush FLUSH 10 ml ASDIRECTED PRN Administration Keep Vein Open Discontinued Medications Generic Name Dose Route Start Last Admin Trade Name Freq PRN Reason Stop Dose Admin Bisacodyl 10 mg 01/22/19 07:59 01/22/19 08:33 Dulcolax RECTAL 01/22/19 08:00 10 mg ONETIME ONE Administration Dextrose/Water 50 ml 01/22/19 06:44 01/22/19 06:37 Dextrose 50% In Water IVPUSH 01/22/19 06:45 50 ml ONETIME ONE Administration Lactulose 20 gm 01/22/19 07:59 01/22/19 08:33 Cephulac PO 01/22/19 08:00 20 gm ONETIME ONE Administration - Radiology Interpretation Free Text/Narrative:: [facility] Final Radiology Report Call: [phone] assistance Online chat: [email or web address] Name: CARY OLIVEROS Age: 74Years M Date: 01/22/2019 SSN: -- : [id number] Study: XR ABDOMEN COMPLETE W DECUBITUS &/OR ERECT VIEWS Requesting Physician: FELIPE SIMS Images: 3 Addl Studies: Provided Clinical History: abdominal pain, constipation Contrast: Contrast Medium: Contrast Amount: Contrast Method: CONFIDENTIALITY STATEMENT This report is intended only for use by the referring physician, and only in accordance with law. If you received this in error, call [phone]. Page 1 of 1 PROCEDURE INFORMATION: Exam: XR Abdomen, 3 or More Views Exam date and time: 01/22/2019 7:38 AM Clinical history: 74 years old, male; Constipation; Additional info: Abdominal pain, constipation TECHNIQUE: Imaging protocol: XR of the abdomen. Frontal supine, upright and one or more additional views. Views: 3 or more views. COMPARISON: CR Abdomen 1V Flat 12/14/2018 7:55 PM FINDINGS: Lower thorax: Air-filled colon is interposed between the right hemidiaphragm and liver. Gastrointestinal tract: Abundant feces is present throughout the colon. No significant distention of the large or small bowel. Intraperitoneal space: Normal. No free air. Bones/joints: Unremarkable for age. IMPRESSION: Abundant feces is present throughout the colon. No significant distention of the large or small bowel. Thank you for allowing us to participate in the care of your patient. Dictated and Authenticated by: Cosme Horner MD 01/22/2019 7:58 AM Central Time ([place] & [place]) - Re-Assessments/Exams Free Text/Narrative Re-Assessment/Exam: 01/22/19 08:23 No bowel obstruction, but constipation per x-ray report. Pt's blood sugar remained in normal range. Pt tolerated a breakfast tray without nausea or any new complaints. Departure - Departure Time of Disposition: 12:02 Disposition: Home, Self-Care 01 Condition: Fair Clinical Impression: Type 2 diabetes mellitus with hypoglycemia, with long-term current use of insulin Qualifiers: Diabetes mellitus complication detail: without coma Qualified Code(s): E11.649 - Type 2 diabetes mellitus with hypoglycemia without coma Constipation Qualifiers: Constipation type: other constipation type Qualified Code(s): K59.09 - Other constipation - Discharge Information *PRESCRIPTION DRUG MONITORING PROGRAM REVIEWED*: No *COPY OF PRESCRIPTION DRUG MONITORING REPORT IN PATIENT SANTIAGO: No Instructions: Preventing Hypoglycemia, Constipation, Adult, [id number] Forms: ED Department Discharge Additional Instructions: Rx: Miralax Drink plenty of water. Monitor your blood sugar closely today. Follow up in clinic this week for recheck. Return to the ER if worse at any time. - My Orders Last 24 Hours: My Active Orders 01/22/19 07:02 Blood Glucose Check, Bedside [RC] ONETIME Blood Glucose Check, Bedside [RC] ONETIME 01/22/19 07:10 Sodium Chloride 0.9% [Saline Flush] 10 ml FLUSH ASDIRECTED PRN Peripheral IV Insertion Adult [OM.PC] Stat 01/22/19 07:11 Blood Glucose Check, Bedside [RC] ONETIME Peripheral IV Care [RC] . DIRECTED UA RFX ROLO AND CULT IF INDIC [URIN] Stat 01/22/19 07:15 Dextrose 5%-0.9% NaCl [Dextrose 5%-Normal Saline] 1,000 ml IV ASDIRECTED 01/22/19 08:40 Enema [RC] ASDIRECTED 01/22/19 09:56 Blood Glucose Check, Bedside [RC] ONETIME 01/22/19 11:58 GLUCOSE,POC [POC] Routine - Assessment/Plan Last 24 Hours: My Active Orders 01/22/19 07:02 Blood Glucose Check, Bedside [RC] ONETIME Blood Glucose Check, Bedside [RC] ONETIME 01/22/19 07:10 Sodium Chloride 0.9% [Saline Flush] 10 ml FLUSH ASDIRECTED PRN Peripheral IV Insertion Adult [OM.PC] Stat 01/22/19 07:11 Blood Glucose Check, Bedside [RC] ONETIME Peripheral IV Care [RC] . DIRECTED UA RFX ROLO AND CULT IF INDIC [URIN] Stat 01/22/19 07:15 Dextrose 5%-0.9% NaCl [Dextrose 5%-Normal Saline] 1,000 ml IV ASDIRECTED 01/22/19 08:40 Enema [RC] ASDIRECTED 01/22/19 09:56 Blood Glucose Check, Bedside [RC] ONETIME 01/22/19 11:58 GLUCOSE,POC [POC] Routine
[2019-01-22] MEDS ORDERED: Sodium Chloride 0.9% 10 ML Syringe FLUSH PRN (07:10)
[2019-01-22] MEDS ORDERED: Dextrose 5%-0.9% NaCl 1,000 ML IV SCH (07:15)
[2019-01-22] MEDS ORDERED: Bisacodyl 10 MG Supp RECTAL ONE (07:59)
[2019-01-22] MEDS ORDERED: Lactulose Soln 10 GM/15 ML 30 ML UD Cup PO ONE (07:59)
== END 2019-01-22 12:30 | disposition home or self-care (01) ==
LOC: DL.ED 06:30
DX: E11.649 Type 2 diabetes mellitus with hypoglycemia without coma (principal); K59.09 Other constipation; I10 Essential (primary) hypertension; E78.00 Pure hypercholesterolemia, unspecified; I25.10 Atherosclerotic heart disease of native coronary artery without angina pectoris; Z79.899 Other long term (current) drug therapy; Z79.82 Long term (current) use of aspirin; Z95.5 Presence of coronary angioplasty implant and graft; Z79.4 Long term (current) use of insulin
CPT/HCPCS: 36415; 74019; 80053; 82150; 82962; 83690; 85025; 96365; 96366; 96375; 99284; A9270; J7042; J7060